=== PATIENT | female | born 1960 | race Caucasian/White ===

== ENCOUNTER 2024-03-04 12:33 | Outpatient (REF) | payer MEDICARE, OTHER, SELFPAY ==
[2024-03-04 15:36] LABS: BUN 13 mg/dL (7-18); CREATININE 0.7 mg/dL (0.55-1.02); Calcium 9.7 mg/dL (8.5-10.1); Calculated LDL 85 mg/dL (<100); Chloride 105 mmol/L (98-107); Cholesterol 207 mg/dL (<200); Estimated GFR 95.92 (mL/min/1.73m2); Glucose 102 mg/dL (74-106); HDL Cholesterol 115 mg/dL (40-60); Potassium 4.3 mmol/L (3.5-5.1); Sodium 141 mmol/L (136-145); Triglyceride 39 mg/dL (<150); Vitamin D 25 Total 29.7 ng/mL (30-100)
== END 2024-03-04 12:34 | disposition home or self-care (01) ==
LOC: NCHCN 12:33
PROVIDERS: Visit Provider Internal Medicine
DX: M81.0 Age-related osteoporosis without current pathological fracture (principal); Z13.220 Encounter for screening for lipoid disorders
CPT/HCPCS: 80048; 80061; 82306

== ENCOUNTER 2024-04-13 12:52 | Outpatient (REF) | payer MEDICARE, OTHER, SELFPAY ==
--- OUTSIDE RECORDS SUMMARY | 2024-04-13 12:58 | XMS_ITS | Encounter Summary ---
[place] [address] Care Team Providers Care Indirect Sales Representative Name Role Phone Sridevi Lozano APRN Primary Care Provider +1- [phone] Reason for Visit * Consultation (Routine) - Closed Specialty Diagnoses / Procedures Referred By Eboin tran Referred To Contact Urology Diagnoses Recurrent UTI (urinary tract infection) Sridevi Lozano APRN [address] [place] [address] [place] [address] Referral ID Status Reason Start Date Expiration Date V isits Requested Visits Authorized [id number] Closed Consult, Test & Treat PCP Updated and/or Approved 09/05/2022 09/05/2023 6 6 Encounter Details Date Type Department Care Team (Late st Contact Info) Description 10/15/2022 8:00 AM EDT [place] [id number] Marce Baca APRN [place] [address] History of recurrent UTIs; Nephrolithiasis Social History Tobacco Use Types Packs/Day Years Used Date Smoking Tobacco: Former Cigarettes Smokeless Tobacco: Never Tobacco Cessation:Counseling Given: Not Answered Comments:Quit 30 years ago Sex and Gender Information Value Date Recorded Sex Assigned at Not on file Gender Identity Not on file Sexual Orientation Not on file documented as of this encounter Last Filed Vital Signs Vital Sign Reading Time Taken Comments Blood Pressure 134/86 10/15/2022 8:05 AM EDT Pulse 75 10/15/2022 8:05 AM EDT Temperature - - Respiratory Rate - - Oxygen Saturation - - Inhaled Oxygen Concentration - - Weight - - Height - - Body Mass Index - - documented in this encounter Progress Notes * Marce Baca APRN - 10/15/2022 8:00 AM EDT Reason for Visit: This is a female, 62 y.o., seen at the request of Sridevi Alcantar APRN. HPI Trav arrives today for NPW for urinary tract infections. Her first positive culture was 02/2022 when she started getting repeated urinary tract infections. She reported malodorous urine for the year prior. She was previously followed by Dr. Loaiza in [facility] urology. She was last seen by him 05/2022.At that time she declined antibiotic prophylaxis and vaginal estrace cream. Her symptoms consist of malodorous urine. No dysuria, no pelvic pain/pressure, no hematuria. She has been taking D-mannose, vitamin c, cranberry. In August she became quite ill with a 103-104 fever. Unsure if it was UTI related, but they treated her for a UTI. No other UTI symptoms at that time. Trav has had imaging performed. WILLIAM in 04/2022 revealed bilateral non obstructing stones largest was 7mm. without hydro. PVR of 47. She had a stone CT 08/2022 which revealed 6mm right lower pole stone, 3mm right lower pole stone, 5mm left lower pole stone, and 4mm left mid pole stone. The patient has had urine cultures performed. 08/29/22: 10,000 - 100,000 E. Coli with 4-10 wbc/hpf 07/03/22: 10,000 - 100,000 E. Coli with 0-3 wbc/hpf 05/15/22: >100,000 E. Coli with 11-50 wbc/hpf 04/10/2022: >100,000 E. Coli with 4/10 wbc/hpf 03/10/2022: >100,000 E. Coli with 0-3wbc/hpf Fluid Intake: Type of Fluid Quantity Consumed Unit Coffee 2-3 cups per day Tea rare cups per day soda none cans per day Juice none glasses per day Water 64 ounces glasses per day Gynec: Social: Alcohol: Wine socially. Nicotine: none Relationship: Partner. Employment: Self employed. Patient Active Problem List Diagnosis Code Essential hypertension I10 History of recurrent UTIs Z87.440 No past surgical history on file. None Review of Systems Respiratory: Negative for cough and wheezing. Cardiovascular: Negative for chest pain and palpitations. Gastrointestinal: Positive for constipation. Musculoskeletal: Positive for back pain (occasional from scoliosis). Negative for joint swelling. Neurological: Negative for dizziness and headaches. Physical Exam Objective: Healthy appearing woman in no acute distress. The vitals are recorded on the flow sheet and are normal. Abdomen: Soft, nontender, no masses, no organomegaly. No CV angle tenderness. : some vaginal atrophy. The meatus is in a normal location and is of a normal configuration. The urethra is nontender without masses. The bladder is not palpably full. There are no pelvic masses. The trigone is nontender on bimanual examination. The uterus is normal in size and position. The uterus is well supported. The adnexa are not palpable. PVR: 36. U/A: negative for RBC, WBC, Nitrates, and Protein. SG 1.000 Impression: Patient with recurrent UTIs - culture proven. Asymptomatic. Kidney stones. Plan: Behavioral modifications including hydration with mostly water with at least 64 ounces daily, moderation of bowels. Discussed colonization with asymptomatic infections vs symptomatic infections. No need to culture or treat asymptomatic infections. Discussed that wbcs will typically be greater than 10/hpf when symptomatic. WILLIAM in January to assess for any stone growth. Discussed that Cranberry and Vitamin C are helpful at preventing infections, however, they can cause increased stone growth in some types of stones. Discussed junior urethral estrace cream. Discussed mechanism of action as well as pros and cons. Willdefer for now. Call for symptoms of infection and will culture at that time. FUV in January with WILLIAM. You have had recurrent infections - this means you have had infections with a variety of organisms.You do not need any additional tests done. documented in this encounter Plan of Treatment Not on file documented as of this encounter Results * US Retroperitoneal Complete (01/22/2023 9:30 AM EDT) Anatomical Region Laterality Modality Abdomen Ultrasound 01/22/2023 9:06 AM EDT Impressions 01/22/2023 12:02 PM EDT 1. ??Normal sonographic appearance of the right kidney. No hydronephrosis or renal calculi. 2. ??Four nonobstructing left renal calculi, the largest measuring 6 mm. No left hydronephrosis. 3. ??Normal contours of the partially distended urinary bladder. Bilateral ureteral jets visualized. 4. ??Incidental right hepatic cyst visualized. I have personally reviewed the image(s) and the resident's interpretation and agree with the findings, Russ Miranda MD at 01/22/2023 11:54 AM Thank you for letting us participate in the care of this patient. If you are a health care provider and have any questions regarding this report, please contact the number above. For patients who have questions, please contact the health healthcare network pricing consultant that requested your imaging first. ?Russ Miranda, Staff Physician Electronically Signed Final Report ?? 01/22/2023 12:02 pm Narrative 01/22/2023 12:02 PM EDT Renal ? (Signed Final 01/22/2023 12:02 pm) PATIENT INFO: ID #: ? [id number] ?: ??[birth year] (62 yrs)(F) Name: ? TRAV ?Visit Date: 01/22/2023 09:06 am ? NOMI PERFORMED BY: Attending: ?Ruben MARTINEZ, Russ Resident: ? Austin Fish MD Performed By: ? Chaz RDMS, Sol Referred By: ?MARCE BACA Location: ? [place] SERVICE(S) PROVIDED: URETRO - Retroperitoneal Complete - [id number] ? [id number] INDICATIONS: nephrolithiasis COMPARISON: CT: Abdomen/Pelvis 08/25/2022; Ultrasound: Renal 06/23/2022 (Outside Imaging) RIGHT KIDNEY: Size (cm) ?L: ??9.7 Cortical Thickness: ?Normal Cortical Echogenicity: ?? Normal Hydronephrosis: ?No sonographic evidence LEFT KIDNEY: Size (cm) ?L: ??9.2 Cortical Thickness: ?Normal Cortical Echogenicity: ?? Normal Hydronephrosis: ?No sonographic evidence Comment: ?Four non-obstructing renal calculi, largest ? measures 5.5 mm. URINARY BLADDER: Right Urinary Jet: Visualized Left Urinary Jet: ??Visualized Pre-void (cm) ? L: ??5.5 ? AP: ??3.5 ? TV: ??8.2 Vol (ml): ?82.7 Comment: ?Partially distended, normal contour. ADDITIONAL FINDINGS: Incidental finding of multiple liver cysts Procedure Note Russ Miranda MD - 01/22/2023 Renal (Signed Final 01/22/2023 12:02 pm) PATIENT INFO: ID #: [id number] : [birth year] (62 yrs)(F) Name: [facility] Visit Date: 01/22/2023 09:06 am NOMI PERFORMED BY: Attending: Russ Miranda MD Resident: Austin Fish MD Performed By: Sol Ware RDMS Referred By: MARCE BACA Location: [place] SERVICE(S) PROVIDED: URETRO - Retroperitoneal Complete - [id number] INDICATIONS: nephrolithiasis COMPARISON: CT: Abdomen/Pelvis 08/25/2022; Ultrasound: Renal 06/23/2022 (Outside Imaging) RIGHT KIDNEY: Size (cm) L: 9.7 Cortical Thickness: Normal Cortical Echogenicity: Normal Hydronephrosis: No sonographic evidence LEFT KIDNEY: Size (cm) L: 9.2 Cortical Thickness: Normal Cortical Echogenicity: Normal Hydronephrosis: No sonographic evidence Comment: Four non-obstructing renal calculi, largest measures 5.5 mm. URINARY BLADDER: Right Urinary Jet: Visualized Left Urinary Jet: Visualized Pre-void (cm) L: 5.5 AP: 3.5 TV: 8.2 Vol (ml): 82.7 Comment: Partially distended, normal contour. ADDITIONAL FINDINGS: Incidental finding of multiple liver cysts IMPRESSION 1. Normal sonographic appearance of the right kidney. No hydronephrosis or renal calculi. 2. Four nonobstructing left renal calculi, the largest measuring 6 mm. No left hydronephrosis. 3. Normal contours of the partially distended urinary bladder. Bilateral ureteral jets visualized. 4. Incidental right hepatic cyst visualized. I have personally reviewed the image(s) and the resident's interpretation and agree with the findings, Russ Miranda MD at 01/22/2023 11:54 AM Thank you for letting us participate in the care of this patient. If you are a health care provider and have any questions regarding this report, please contact the number above. For patients who have questions, please contact the health healthcare network pricing consultant that requested your imaging first. Russ Miranda, Staff Physician Electronically Signed Final Report 01/22/2023 12:02 pm Marce A Simon NIEVES IMG US GEN ORDERABLE S documented in this encounter Visit Diagnoses Diagnosis History of recurrent UTIs Personal history of urinary (tract) infection Nephrolithiasis Calculus of kidney Nephrolithiasis Calculus of kidney documented in this encounter Care Teams Indirect Sales Representative Relationship Specialty Start Date End Date Sridevi Lozano APRN [address] [place] [phone] PCP - General Family Medicine 09/05/22 documented as of this encounter
--- OUTSIDE RECORDS SUMMARY | 2024-04-13 12:58 | XMS_ITS | Clinical Summary ---
Author Organization [facility] Address [facility] [place] [address] Care Team Providers Care Insights Strategist Name Role Phone Blake Sridevi Kimball APRN Primary Care Provider +1- [phone] Allergies No known active allergies Medications Medication Sig Dispensed Refills Start Date End Date Status amLODIPine (Norvasc) 5 mg tablet Take 5 mg by mouth daily. Active cranberry-vitamin C-mannose 250-30-50 mg Tablet, Chewable Take by mouth. Acti ve lisinopriL (Zestril) 40 mg tablet Take 40 mg by mouth Daily. 08/01/2022 Active Active Problems Problem Noted Date Diagnosed Date History of recurrent UTIs 05/16/2022 Overview (10/15/2022): Positive urine cultures 03/10/2022, 04/10/2022, 05/15/2022. 05/16/2022-referral sent to Urology Essential hypertension 12/31/2021 Social History Tobacco Use Types Packs/Day Years Used Date Smoking Tobacco: Former Cigarettes Smokeless Tobacco: Never Tobacco Cessation:Counseling Given: Not Answered Comments:Quit 30 years ago Sex and Gender Information Value Date Recorded Sex Assigned at Not on file Gender Identity Not on file Sexual Orientation Not on file Last Filed Vital Signs Vital Sign Reading Time Taken Comments Blood Pressure 134/86 10/15/2022 8:05 AM EDT Pulse 75 10/15/2022 8:05 AM EDT Temperature - - Respiratory Rate - - Oxygen Saturation - - Inhaled Oxygen Concentration - - Weight - - Height - - Body Mass Index - - Plan of Treatment Health Maintenance Due Date Last Done Comments CT Colonography 1958 Colonoscopy 1958 Colorectal Cancer Screening 1958 FIT DNA 1958 FIT 1958 Sigmoidoscopy (10 year) with FIT yearly 1958 Sigmoidoscopy 1958 HIV screen 1976 Hepatitis C Screening 1976 Lipid Screening 1976 Tetanus/Diphtheria/Pertussis Vaccines (1 - Tdap) 05/22 HPV test 1988 PAP Smear 1988 Breast Cancer Share Decision Needed 1998 Breast Cancer screening 1998 Zoster vaccine (1 of 2) 2008 Advance Directive 2013 Bone Density Scan 2023 Pneumoccocal Vaccine: 65+ (1 of 1 - PCV) 2023 Covid-19 Vaccine (1 - season) 2023 Influenza (Flu) vaccine (1 o f 1 - Influenza standard series) 12/27/2023 Care Teams Insights Strategist Relationship Specialty Start Date End Date Sridevi Lozano APRN [address] [place] [phone] PCP - General Family Medicine 09/05/22
--- OUTSIDE RECORDS SUMMARY | 2024-04-13 12:58 | XMS_ITS | Encounter Summary ---
[place] [address] Care Team Providers Care Blender/Braze Applicator Name Role Phone Sridevi Lozano APRN Primary Care Provider +1- [phone] Reason for Referral * Consultation (Routine) - Closed Specialty Diagnoses / Procedures Referred By Eboni tran Referred To Contact Urology Diagnoses Recurrent UTI (urinary tract infection) Sridevi Lozano APRN [address] [place] [address] [facility] [place] [address] Referral ID Status Reason Start Date Expiration Date V isits Requested Visits Authorized [id number] Closed Consult, Test & Treat PCP Updated and/or Approved 09/05/2022 09/05/2023 6 6 Encounter Details Date Type Department Care Team (Late st Contact Info) Description 09/05/2022 Transcribe Orders eDH Incoming Referrals [phone] Sridevi Lozano APRN [address] [place] [address] Recurrent UTI (urinary tract infection) Social History Tobacco Use Types Packs/Day Years Used Date Smoking Tobacco: Never Assessed Sex and Gender Information Value Date Recorded Sex Assigned at Not on file Gender Identity Not on file Sexual Orientation Not on file documented as of this encounter Plan of Treatment Scheduled Referrals Name Type Priority Associated Diagnoses Orde r Schedule Referral to Urology Outpatient Referral Routine Recurrent UTI (urinary tract infection) Ordered: 09/05/2022 documented as of this encounter Visit Diagnoses Diagnosis Recurrent UTI (urinary tract infection) Urinary tract infection, site not specified documented in this encounter Care Teams Blender/Braze Applicator Relationship Specialty Start Date End Date Sridevi Lozano APRN [address] [place] [phone] PCP - General Family Medicine 09/05/22 documented as of this encounter
--- OUTSIDE RECORDS SUMMARY | 2024-04-13 12:58 | XMS_ITS | Encounter Summary ---
Author Organization [facility] [place] [address] Care Team Providers Care Carburetor Rebuilder Name Role Phone Unknown Primary Care Provider Unavailabl e Encounter Details Date Type Department Care Team (Late st Contact Info) Description 06/23/2022 Ancillary Procedure Radiology Library at [facility] [place] [address] Sridevi Lozano APRN [address] [place] [address] Social History Tobacco Use Types Packs/Day Years Used Date Smoking Tobacco: Never Assessed Sex and Gender Information Value Date Recorded Sex Assigned at Not on file Gender Identity Not on file Sexual Orientation Not on file documented as of this encounter Plan of Treatment Not on file documented as of this encounter Procedures Procedure Name Priority Date/Time Associated Diagnosis Comments FILM LIBRARY STORAGE ONLY ULTRASOUND STUDY Routine 06/23/2022 12:00 AM EST documented in this encounter Results * Film Library- Storage Only Ultrasound Study (06/23/2022 12:00 AM EST) Narrative [facility] - 09/03/2022 5:05 PM EDT This exam is auto-finalizing. It's purpose is for storage only. Sridevi Lozano APRN IMG FILM LIBRARY O RDERABLES [place], [place] documented in this encounter Visit Diagnoses Not on filedocumented in this encounter Care Teams Carburetor Rebuilder Relationship Specialty Start Date End Date Unknown None PCP - General 03/19/10 09/04/22 documented as of this encounter
--- OUTSIDE RECORDS SUMMARY | 2024-04-13 12:58 | XMS_ITS | Encounter Summary ---
[place] [address] Care Team Providers Care Public Relations Sales Marketing Name Role Phone Sridevi Lozano APRN Primary Care Provider +1- [phone] Encounter Details Date Type Department Care Team (Latest Contact Info) Description 01/22/2023 Travel Social History Tobacco Use Types Packs/Day Years Used Date Smoking Tobacco: Former Cigarettes Smokeless Tobacco: Never Comments:Quit 30 years ago Sex and Gender Information Value Date Recorded Sex Assigned at Not on file Gender Identity Not on file Sexual Orientation Not on file documented as of this encounter Plan of Treatment Not on file documented as of this encounter Visit Diagnoses Not on filedocumented in this encounter Care Teams Public Relations Sales Marketing Relationship Specialty Start Date End Date Sridevi Lozano APRN [address] [place] [phone] PCP - General Family Medicine 09/05/22 documented as of this encounter
--- OUTSIDE RECORDS SUMMARY | 2024-04-13 12:58 | XMS_ITS | Encounter Summary ---
Author Organization [facility] [place] [address] Care Team Providers Care Appeals Examiner Name Role Phone Unknown Primary Care Provider Unavailabl e Encounter Details Date Type Department Care Team (Late st Contact Info) Description 08/25/2022 Ancillary Procedure Radiology Library at [facility] [place] [phone] Sridevi Lozano APRN [address] [place] [address] Social History Tobacco Use Types [...] Associated Diagnosis Comments FILM LIBRARY STORAGE ONLY CT ABDOMEN Routine 08/25/2022 12:00 AM EDT documented in this encounter Results * Film Library- Storage Only CT Abdomen (08/25/2022 12:00 AM EDT) Narrative [facility] - 09/03/2022 5:04 PM EDT This exam is auto-finalizing. It's purpose is for storage only. Sridevi Lozano APRN IMG FILM LIBRARY O RDERABLES [place], [place] documented in this encounter Visit Diagnoses Not on filedocumented in this encounter Care Teams Appeals Examiner Relationship Specialty Start Date End Date Unknown None PCP - General 03/19/10 09/04/22 documented as of this encounter
--- OUTSIDE RECORDS SUMMARY | 2024-04-13 12:58 | XMS_ITS | Encounter Summary ---
[place] [address] Care Team Providers Care Superintendent Horticulture Name Role Phone Sridevi Lozano APRN Primary Care Provider +1- [phone] Encounter Details Date Type Department Care Team (Latest Contact Info) Description 10/14/2022 Travel Social History Tobacco Use Types Packs/Day Years Used Date Smoking Tobacco: Never Assessed Sex and Gender Information Value Date Recorded Sex Assigned at Not on file Gender Identity Not on file Sexual Orientation Not on file documented as of this encounter Plan of Treatment Not on file documented as of this encounter Visit Diagnoses Not on filedocumented in this encounter Care Teams Superintendent Horticulture Relationship Specialty Start Date End Date Sridevi Lozano APRN [address] [place] [phone] PCP - General Family Medicine 09/05/22 documented as of this encounter
--- OUTSIDE RECORDS SUMMARY | 2024-04-13 12:58 | XMS_ITS | Encounter Summary ---
Author Organization [facility] Address [facility] [place] [address] Care Team Providers Care Suggestion Clerk Name Role Phone Blake Sridevi Kimball APRN Primary Care Provider +1- [phone] Encounter Details Date Type Department Care Team (Latest Contact Info) Description 01/22/2023 8:52 AM EDT - 01/22/2023 11:59 PM EDT Hospital Encounter Ultrasound at [facility] [phone] Marce Baca APRN [facility] [place] [address] Nephrolithiasis Discharge Disposition: Home Social History Tobacco Use Types Packs/Day Years Used Date Smoking Tobacco: Former Cigarettes Smokeless Tobacco: Never Comments:Quit 30 years ago Sex and Gender Information Value Date Recorded Sex Assigned at Not on file Gender Identity Not on file Sexual Orientation Not on file documented as of this encounter Medications at Time of Discharge Medication Sig Dispensed Refills Start Date End Date amLODIPine (Norvasc) 5 mg tablet Take 5 mg by mouth daily. cranberry-vitamin C-mannose 250-30-50 mg Tablet, Chewable Take by mouth. lisinopriL (Zestril) 40 mg tablet Take 40 mg by mouth Daily. 08/01/2022 documented as of this encounter Progress Notes * Marce Baca APRN - 01/22/2023 11:59 PM EDT WILLIAM with 4 stones on left, largest 5.5mm. No stones on right. Results shared with patient via portal. documented in this encounter Plan of Treatment Not on file documented as of this encounter Procedures Procedure Name Priority Date/Time Associated Diagnosis Comments US RETROPERITONEAL COMPLETE Routine 01/22/2023 9:30 AM EDT Nephrolithiasis documented in this encounter Results * US Retroperitoneal Complete [...] Russ Miranda MD at 01/22/2023 11:54 AM Electronically signed by: Russ Miranda MD, [facility] ([phone]), at 01/22/2023 11:54 AM Thank you for letting us participate in the care of this patient. If you are a health care provider and have any questions regarding this report, please contact the number above. For patients who have questions, please contact the health inspector health care facilities that requested your imaging first. ?Russ Miranda, Staff Physician Electronically Signed Final Report ?? 01/22/2023 12:02 pm Narrative 01/22/2023 12:02 PM EDT Renal ? (Signed Final 01/22/2023 12:02 pm) PATIENT INFO: ID #: ? [id number] ?: ??[birth year] (62 yrs)(F) Name: ? TRAV ?Visit Date: 01/22/2023 09:06 am ? NOMI PERFORMED BY: Attending: ?Rbuen MARTINEZ, Russ Resident: ? Abe MARTINEZ, Austin Valadez Performed By: ? Sol Ware RDMS Referred By: ?MARCE BACA Location: ? [place] SERVICE(S) PROVIDED: URETRO - Retroperitoneal Complete - [id number] ? [id number] INDICATIONS: nephrolithiasis COMPARISON: CT: Abdomen/Pelvis 08/25/2022; Ultrasound: [...] 01/22/2023 12:02 pm) PATIENT INFO: ID #: [id number] : [birth year] (62 yrs)(F) Name: TRAV Visit Date: 01/22/2023 09:06 am NOMI PERFORMED BY: Attending: Russ Miranda MD Resident: Austin Fish MD Performed By: Sol Ware RDMS Referred By: MARCE BACA Location: [place] SERVICE(S) PROVIDED: URETRO - Retroperitoneal Complete - [id number] INDICATIONS: nephrolithiasis COMPARISON: CT: Abdomen/Pelvis 08/25/2022; Ultrasound: [...] Russ Miranda MD at 01/22/2023 11:54 AM Electronically signed by: Russ Miranda MD, [facility] ([phone]), at 01/22/2023 11:54 AM Thank you for letting us participate in the care of this patient. If you are a health care provider and have any questions regarding this report, please contact the number above. For patients who have questions, please contact the health inspector health care facilities that requested your imaging first. Russ Miranda, Staff Physician Electronically Signed Final Report 01/22/2023 12:02 pm Marce Baca APRN IMG US GEN ORDERABLE S documented in this encounter Visit Diagnoses Diagnosis Nephrolithiasis Calculus of kidney documented in this encounter Care Teams Suggestion Clerk Relationship Specialty Start Date End Date Sridevi Lozano APRN [address] [place] [phone] PCP - General Family Medicine 09/05/22 documented as of this encounter
--- OUTSIDE RECORDS SUMMARY | 2024-04-13 12:58 | XMS_ITS | Clinical Summary ---
Author Organization [facility] Address [address] [place] [address] Care Team Providers Care Critical Systems Technician Name Role Phone Sridevi Lozano SURPLUS PROPERTY DISPOSAL AGENT Primary Care Provider [phone] Allergies No known active allergies Medications amLODIPine (NORVASC) 5 mg tabletIndication s:Essential hypertension Take 2 Tablets by mouth daily. 180 Tablet 3 4 Active Additional Information Patient taking differently: 5 mgoral DAILY, Reported on 09/25/2023 lisinopriL (PRINIVIL) 40 mg tablet TAKE ONE TABLET BY MOUTH ONE TIME DAILY 90 Tablet 1 4 Active ascorbic acid, vitamin C, (VITAMIN C) 500 mg tablet Take 1 Tablet by mouth daily. Active traZODone (DESYREL) 50 mg tabletIndication s:Insomnia, unspecified type TAKE ONE TABLET BY MOUTH AT BEDTIME 30 Tablet 2 4 Active Active Problems Problem Noted Date Diagnosed Date Trochanteric bursitis, right hip 06/11/2023 Overview (06/11/2023): CSI injection and meloxicam, [facility] [place] [facility] History of recurrent UTIs 05/16/2022 Overview (05/16/2022): Positive urine cultures 03/10/2022, 04/10/2022, 05/15/2022. 05/16/2022-referral sent to Urology History of recurrent UTIs 05/16/2022 Overview (11/10/2023): Positive urine cultures 03/10/2022, 04/10/2022, 05/15/2022. 05/16/2022-referral sent to Urology Essential hypertension 12/31/2021 Encounters Date Type Department Care Team Description 02/11/2024 Refill [facility] [address] [place] [address] Sridevi Lozano, JAYME Medications Refill 01/20/2024 10:40 EDT Ancillary Procedure [facility] Endocrinology - [address] [address] Postmenopausal state; Other specified disorders of bone density and structure, multiple sites from Last 3 Months Immunizations Name Administration Dates Next Due Covid-19 mRNA Vaccine (MODER NA COVID-19) PF 0.5 ml IM (12 yrs+) 03/26/2021 Influenza Vaccine Quad PF 0.5 ml IM (6 mos+) 02/2022 Shingrix (Zoster Vaccine, Recombinant) IM 2021 Family History Medical History Relation Comments High Blood Pressure Brother Dementia Father High Blood Pressure Father Stroke Father Colon Cancer Maternal Grandmother Bipolar Disorder Mother Cancer Mother kidney High Blood Pressure Mother Kidney Cancer Mother High Blood Pressure Sister Relation Status Comments Brother Alive Father Maternal Grandmother Mother Sister Alive Social History Tobacco Use Types Packs/Day Years Used Date Smoking Tobacco: Former Cigarettes 1 15 1 974 - 1988 Smokeless Tobacco: Never Tobacco Cessation:Counseling Given: Not Answered Alcohol Use Standard Drinks/Week Comments Yes 10 (1 standard drink = 0.6 oz pu re alcohol) PHQ-2 Answer Date Recorded PHQ-2 SUBTOTAL 1 03/07/2022 Interpersonal Safety Answer Date Record ed Physically Hurt Never 11/27/2019 Verbally Threaten Not on file 11/27/2019 Comments No Sex and Gender Information Value Date Recorded Sex Assigned at Not on file Legal Sex Female 17:57 EST Gender Identity Female 01/23/2021 8:23 EDT Sexual Orientation Not on file 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 Not on file No t on file Obstetrics History Para Term AB IAB SAB Ectopic Multiple Livin g Live Births 2 2 2 2 2 Date Outcome GA Total Labor Labor/2nd/3rd Weight Sex Type Anes PTL Anisha A1 A5 Name Clin 1989 Term F Vag-S pont Living 1991 Term F Vag-S pont Living Last Filed Vital Signs Vital Sign Reading Time Taken Comments Blood Pressure 120/62 12/22/2023 1449 EDT Pulse 80 12/22/2023 1449 EDT Temperature 36.6 ??C (97.8 ??F) 01/28/2023 1537 EDT Respiratory Rate 15 06/17/2022 1251 EST Oxygen Saturation 97% 12/22/2023 1449 EDT Inhaled Oxygen Concentration - - Weight 58.8 kg (129 lb 9.6 oz) 01/20/2024 1043 E DT Height 163.4 cm (5' 4.33) 01/20/2024 1043 EDT Body Mass Index 22.02 01/20/2024 1043 EDT Plan of Treatment Upcoming Encounters Date Type Department Care Team (Late st Contact Info) Description 05/06/2024 13:40 EST Office Visit [facility] Dermatology [address] [facility], [place], [place] [address] Renetta Kidd MD [address] [facility], [address] [place] [address] 05/23/2024 15:15 EST [facility] Visit [facility] [address] [place] [address] [phone] Sridevi Lozano NP [address] [place] [phone] Health Maintenance Due Date Last Done Comments Hepatitis C Screen 1958 Social Determinants Of Health (SDOH) 1958 Depression Screening 1970 HIV Screening 1974 Advance Directive 1976 Pertussis (Adult) Immunization 1977 Tetanus (Adult) Immunization 1977 Cologuard (Colon Cancer Screening) 2003 Colonoscopy (Colon Cancer Screening) 2003 Colorectal Cancer Screening 2003 FIT Test (Colon Cancer Screening) 2003 Sigmoidoscopy (Colon Cancer Screening) 2003 Shingles Immunization (2 of 2) 05/02/2022 03/07/2022 Fall Risk Screening 2023 Pneumococcal Immunization (6 5+) (1 of 1 - PCV) 2023 COVID-19 Vaccine (2 - 2023-2 5 season) 2023 03/26/2021 Influenza Immunization (Adult) (#1) 01/26/202403/07 Preventive Care Visit 03/07/2024 03/07/2022 Breast Cancer Screening 09/16/2024 09/16/2022 Pap Smear (Cervical Cancer Screening) 12/31/2024 12/31/2021, 06/28/2014, 08/12/2011 Cervical Cancer Screening 12/31/2026 HPV/Cotest (Cervical Cancer Screening) 12/31/2026 12/31/2021, 12/31/2021 Lipid Profile Screening (Cholesterol) 04/10/2027 04/10/2022 RSV Immunization ( o r 60+ Years) (1 - 1-dose 75+ series) 2033 RETIRED Cervical Cancer Screening Discontinued 12/31/2021, 06/28/2014, 08/12/2011 Osteoporosis Screening Completed 01/20/2024 Medical Devices Implanted Type Area Cook Soup Device Identifier Shelf Expiration Date Model / Serial / Lot Lens Intraocular Monofocal Posterior Biconvex Optic Foldable +23.5d [employer]ecnis [id number] - [id number] Implanted:Qty: 1 on 06/03/2022 by Austin Diaz MD at [facility] Lens Right: Eye [employer] [id number] 03/02/2025 [id number] / [id number] / Lens Intraocular Monofocal Posterior Biconvex Optic Foldable +23.5d [employer] [id number] - [id number] Implanted:Qty: 1 on 06/17/2022 by Austin Diaz MD at [facility] Lens Left: Eye Ancestry. 05/05/2025 [id number] / [id number] / Procedures Procedure Name Priority Date/Time Associated Diagnosis Comments DXA BONE DENSITY Routine 01/20/2024 10:4 2 EDT Postmenopausal state Other specified disorders of bone density and structure, multiple sites MA BREAST SCREENING CHARLES BILATERAL Routine 09/16/2022 13:26 EDT Encounter for screening mammogram for malignant neoplasm of breast LIPID PROFILE (INCLUDES CHOLESTEROL, TRIGLYCERIDES, HDL, LDL) Routine 04/10/2022 6:44 EST Encounter for routine adult health examination without abnormal findings PAP TEST Routine 12/31/2021 13:06 EDT Routine gynecological examination from Last 3 Months or Most Recently Relevant to Health Maintenance Results * DXA BONE DENSITY (01/20/2024 10:42 EDT) Anatomical Region Laterality Modality Other [facility] DEXA ORDERABLES Final Resul t * MA BREAST SCREENING CHARLES BILATERAL (09/16/2022 13:26 EDT) Anatomical Region Laterality Modality Breast Bilateral Mammography 09/17/2022 9:01 EDT Impressions 09/17/2022 9:01 EDT Negative, no evidence of malignancy. RECOMMENDATION: Routine screening mammography is recommended. OVERALL ASSESSMENT: BI-RADS 1: Negative These results will be communicated to your patient via a lay letter from Radiology. If any additional imaging is needed we will contact your patient directly. Narrative 09/17/2022 9:01 EDT MA BREAST SCREENING CHARLES BILATERAL ??09/16/2022 1:10 PM History: routine screen Comparison: ??Comparison has been made to previous images. Technique: Routine 3D tomosynthesis with synthesized 2D views with CAD Bilateral Breast Composition: The breast tissue is extremely dense, which lowers the sensitivity of mammography. Bilateral Breast Findings: ??No significant masses, calcifications or other abnormalities are seen. Procedure Note Niles Ma MD - 09/17/2022 MA BREAST SCREENING CHARLES BILATERAL 09/16/2022 1:10 PM History: routine screen Comparison: Comparison has been made to previous images. Technique: Routine 3D tomosynthesis with synthesized 2D views with CAD Bilateral Breast Composition: The breast tissue is extremely dense, whichlowers the sensitivity of mammography. Bilateral Breast Findings: No significant masses, calcifications or otherabnormalities are seen. IMPRESSION Negative, no evidence of malignancy. RECOMMENDATION: Routine screening mammography is recommended. OVERALL ASSESSMENT: BI-RADS 1: Negative These results will be communicated to your patient via a lay letter fromRadiology. If any additional imaging is needed we will contact yourpatient directly. us Sridevi Lozano NP IMG MAMMOGRAPHY ORDERABLES F inal Result * (ABNORMAL) LIPID PROFILE (INCLUDES CHOLESTEROL, TRIGLYCERIDES, HDL, LDL) (04/10/2022 6:44 EST) Cholesterol 216(H) <200 mg/dL 04/10/2022 7:57 [facility] Comment:Note that therapeuti c goals will differ between patients based on cardiac risk factors and current medical therapy. HDL 109 >=50 mg/dL 04/10/2022 7:57 EST [facility] Comment:Note that therapeuti c goals will differ between patients based on cardiac risk factors and current medical therapy. LDL, Calculated 93 <160 mg/dL 7:57 [facility] Comment:Note that therapeuti c goals will differ between patients based on cardiac risk factors and current medical therapy. Triglyceride 71 <=150 mg/dL 04/10/2022 7:57 [facility] Comment:Note that therapeuti c goals will differ between patients based on cardiac risk factors and current medical therapy. Chol/HDL Ratio 2.0 See Note 04/10/2022 7:57 [facility] Comment: NOTE: Desirable Ratio = <4.1 Patient At Risk Ratio = >5.0(Males) ?>6.0(Females) Non HDL Cholesterol 107 <160 mg/dL 04/10/2022 7:57 [facility] Comment:Note that therapeuti c goals will differ between patients based on cardiac risk factors and current medical therapy. Blood VENOUS BLOOD / Unknown Venipuncture / Unknown 04/10/2022 6:44 EST 04/10/2022 7:21 EST us Sridevi Lozano NP CHEMISTRY & BLOOD GAS ORDERA BLES Final Result [facility] [address] [place] [address] * PAP TEST (12/31/2021 13:06 EDT) Specimens A. Cervix and/or Endocervix , ThinPrep Imaging System with Manual Evaluation 01/06/2022 19:49 [facility] Specimen Adequacy Satisfactory for Evaluation - assessment of transformation zone component not applicable ( e.g. atrophy, vaginal sample, hysterectomy) Scant squamous epithelial component 01/06/2022 19:49 [facility] General Categorization Negative for intraepithelial lesion or malignancy 01/06/2022 19:49 [facility] Descriptive Diagnosis Shift in sadaf present suggestive of bacterial vaginosis. 01/06/2022 19:49 [facility] Attestation . 01/06/2022 19:49 [facility] at 1950 Clinical History screen 01/07/20 22 19:49 [facility] HPV The result for the Human Papillomavirus (HPV) Detection-High Risk Types is Negative. No E6 or E7 mRNA is detected from HPV types 16,18,31,33,35,39 ,45,51,52,56,58,5 9,66, and 68 by investor relations associate mediated amplification.Mel ting was performed on specimen [id number] and was resulted on 01/06/2022 1858 EDT by JUS, LAB INSTRUMENT RESULTS IN 01/06/2022 19:49 [facility] Performing Lab [facility] 01/06/2022 19:49 [facility] Scanned Images 01/06/2022 19:49 [facility] Papanicolaou smear specimen (specimen) CERVIX UTERI STRUCTURE / Unknown 12/31/2021 13:06 EDT 12/31/2021 13:06 EDT us Leonardo Jalloh SURPLUS PROPERTY DISPOSAL AGENT PATHOLOGY ORDERABLES Final Re sult [facility] [address] [place] [address] from Last 3 Months or Most Recently Relevant to Health Maintenance Insurance MEDICAID [place] MEDICARE [facility] MEDICAID [place] MEDICARE [facility] Advance Directives For more information, please contact: [phone] * Full Code (Latest Code Status on File) Date Activated Date Inactivated Comments 06/17/2022 10:56 06/17/2022 15:02 Question Answer Comments When the patient has NO PULSE: Full Code / CPR Who Made the Decision? Patient * Full Code Date Activated Date Inactivated Comments 06/03/2022 10:01 06/03/2022 13:59 Question Answer Comments When the patient has NO PULSE: Full Code / CPR Who Made the Decision? Patient Care Teams Critical Systems Technician Relationship Specialty Start Date End Date Sridevi Lozano NP [address] [place] [phone] PCP - General Family Medicine - Primary Care 12/27/21
--- OUTSIDE RECORDS SUMMARY | 2024-04-13 12:59 | XMS_ITS | Encounter Summary ---
Author Organization [facility] Address [address] [place] [address] Care Team Providers Care Local Company Inter[employer] Truck Driver Name Role Phone Sridevi Lozano MANAGER OF SOFTWARE DEVELOPMENT Primary Care Provider Reason for Visit * Reason Comments Hypertension Encounter Details Date Type Department Care Team ([facility] st Contact Info) Description 01/28/2023 15:30 EDT Office Visit [facility] - [address] [phone] Sridevi Lozano, MANAGER OF SOFTWARE DEVELOPMENT [address] [place] [phone] Insomnia, unspecified type (Primary Dx); Essential hypertension Social History Tobacco Use Types Packs/Day Years Used Date Smoking Tobacco: Former Cigarettes 1 15 1 974 - 1989 Smokeless Tobacco: Never Tobacco Cessation:Counseling Given: Not [...] 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 No t on file documented as of this encounter Last Filed Vital Signs Vital Sign Reading Time Taken Comments Blood Pressure 140/82 01/28/2023 1537 EDT Pulse 74 01/28/2023 1537 EDT Temperature 36.6 ??C (97.8 ??F) 01/28/2023 153 EDT Respiratory Rate - - Oxygen Saturation - - Inhaled Oxygen Concentration - - Weight 55.8 kg (123 lb 1.6 oz) 01/28/2023 1537 E DT Height - - Body Mass Index 20.02 09/03/2022 0934 EDT documented in this encounter Functional Status * Because of a physical, mental, or emotional condition, does this person have difficulty doing errands alone such as visiting a doctor's office or shopping? Answer Date of Assessment Author No 06/08/2018 15:56 EST documented as of this encounter Mental Status * Because of a physical, mental, or emotional condition, does this person have serious difficulty concentrating, remembering, or making decisions? Answer Entry Date Author No 06/08/2018 15:56 EST documented in this encounter Ordered Prescriptions Prescription Sig Dispense Quantity Refills Last Filled Start Date End Date amLODIPine (NORVASC) 5 mg tabletIndications: Essential hypertension Take 2 Tablets by mouth daily. 180 Tablet 3 01/28/2023 4 documented in this encounter Progress Notes * Sridevi Bianhci, MANAGER OF SOFTWARE DEVELOPMENT - 01/28/2023 1530 EDT CHIEF COMPLAINT: Chief Complaint Patient presents with ??? Hypertension HPI: Trav Velázquez, a 62 y.o. female who presents today for evaluation of HTN. HTN- Chronic history of HTN which has generally been controlled with lisinopril and amlodipine. Prior totreatment Trav tried to treat with holistic medication but was unable to get BP under control and started medication. Trav reports reports having covid a few months ago and BP has been fluctuating since. Reports Bps 140s/90 to 140s/100. She notes she will be going out of state for 2 months which has resulted in some increased stress. She reports overall asymptomatic, feels possible mild heart palpitation or mild headache but has not been persistent. No associated chest pains, dizziness, shortness of breath, or swelling to lower extremities. EKG (for pre-op) was completed in 05/2022 with normal results and echo completed in 2018 with normal results. insomnia- Repots intermittent trouble with sleep. Reports able to fall asleep but will wake up and have trouble getting back to sleep. Has been using melatonin with little improvement. She reports stress and feeling a little nervous about going out of state for 2 months as noted above. ROS: I've done a Review of Systems and the pertinent positives are in the HPI. Patient Active Problem List Diagnosis ??? Essential hypertension ??? History of recurrent UTIs Current Outpatient Medications on File Prior to Visit Medication Sig Dispense Refill ??? cranberry-vitamin C-mannose 250-30-50 mg tablet,chewable Take by mouth. ??? lisinopriL (PRINIVIL) 40 mg tablet Take 1 Tablet by mouth daily. 90 Tablet 2 No current facility-administered medications on file prior to visit. No Known Allergies No past medical history on file. Social History Tobacco Use ??? Smoking status: Former Current packs/day: 0.00 Average packs/day: 1 pack/day for 15.0 years (15.0 ttl pk-yrs) Types: Cigarettes Start date: 1973 Quit date: 1988 Years since quittin.7 ??? Smokeless tobacco: Never Vaping Use ??? Vaping Use: Never used Substance Use Topics ??? Alcohol use: Yes Alcohol/week: 10.0 standard drinks of alcohol Types: 10 Standard drinks or equivalent per week ??? Drug use: Not Currently Types: Marijuana PHYSICAL EXAMINATION: Objective: Vitals: BP 140/82 Pulse 74 Temp 36.6 ??C (97.8 ??F) (Oral) Wt 55.8 kg (123 lb 1.6 oz) BMI 20.02 kg/m?? GENERAL APPEARANCE: NAD, pleasant, well-appearing, alert and oriented. NECK: supple, no lymphadenopathy. No carotid bruit HEART: regular rate and rhythm, no murmurs. LUNGS: clear to auscultation bilaterally, no wheezes/rhonchi/rales. EXTREMITIES: No pedal edema. IMPRESSION/PLAN: 1. Insomnia, unspecified type 2. Essential hypertension amLODIPine (NORVASC) 5 mg tablet 1. Essential hypertension Chronic, generally well controlled on current medications. Normal cardiac exam today. BP slightly elevated at 140/82. Asymptomatic. Labs completed within the year WNL. Recommended increasing amlodipine to 10 mg. Ok to monitor BP at home, if after move and decrease in stress BP in normal range couldconsider going back to 5 mg as tolerated. Trav to contact office if no improvement of BP. We disc ussed goal 134/84 range or if symptomatic. F/u CPE, sooner if needed - amLODIPine (NORVASC) 5 mg tablet; Take 2 Tablets by mouth daily. Dispense: 180 Tablet; Refill: 3 2. Insomnia, unspecified type New onset insomnia, likely due to increased stress. No red flag symptoms. Discussed could consider hydroxyzine for sleep although this could result in feeling groggy in the AM. Ultimately decision towait and see if sleep improves with upcoming reduction in stress. Discussed good sleep hygrine. Will f/u with any new or worsening symptoms. This note was prepared using voice recognition software and the EMR. There may be inadvertent errors and omissions. Sridevi Bianchi NP 01/28/2023 17:27 documented in this encounter Plan of Treatment Upcoming Encounters Date Type Department Care Team (Late st Contact Info) Description 05/06/2024 13:40 EST Office Visit [facility] Dermatology [address] [facility], [place] [address] Renetta Kidd MD [address] [place] [address], [facility] [address] [place] [phone] 05/23/2024 15:15 EST Office Visit [address] [phone] Sridevi Lozano NP [address] [place] [phone] documented as of this encounter Visit Diagnoses Diagnosis Insomnia, unspecified type- Primary Essential hypertension Unspecified essential hypertension documented in this encounter Discontinued Medications Medication Sig Discontinue Reason Start Date End Da te amLODIPine (NORVASC) 5 mg tabletIndications:Essenti al hypertension Take 1 Tablet by mouth daily. Reorder 01/05/2023 01/28/2023 documented as of this encounter Care Teams Local Company [employer] Truck Driver Relationship Specialty Start Date End Date Sridevi Lozano, MANAGER OF SOFTWARE DEVELOPMENT [address] [place] [phone] PCP - General Family Medicine - Primary Care 12/27/21 documented as of this encounter
--- OUTSIDE RECORDS SUMMARY | 2024-04-13 12:59 | XMS_ITS | Encounter Summary ---
Author Organization [facility] Address [address] [place] [address] Care Team Providers Care Vegetable Harvest Machine Operator Name Role Phone Sridevi Lozano EVENT PROMOTER Primary Care Provider Reason for Visit * Reason Comments Medications Refill Encounter Details Date Type Department Care Team (Late st Contact Info) Description 12/11/2023 Refill [facility] - [address] [phone] Sridevi Lozano, EVENT PROMOTER [address] [place] [phone] Medications Refill Social History Tobacco Use Types Packs/Day Years Used Date Smoking Tobacco: Former Cigarettes 1 15 1 4 - 1988 Smokeless Tobacco: Never Alcohol Use Standard Drinks/Week Comments Yes 10 [...] 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 N/A VPMS: N/A Most Recent Appt: 11/09/23 Upcoming Appt: 05/23/24 KARY MARTÍNEZ RN 12/11/2023 9:43 documented in this encounter Plan of Treatment Upcoming Encounters Date Type Department Care Team (Late st Contact Info) Description 05/06/2024 13:40 EST Office Visit [facility] Dermatology [address] [place] [phone] Renetta Kidd MD [address] [place] [address], [address] [place] [phone] 05/23/2024 15:15 EST Office Visit [address] [address] Sridevi Lozano NP [address] [place] [phone] documented as of this encounter Visit Diagnoses Not on filedocumented in this encounter Discontinued Medications Medication Sig Discontinue Reason Start Date End Da te lisinopriL (PRINIVIL) 40 mg tablet Take 1 Tablet by mouth daily. 09/11/2023 12/11/2023 documented as of this encounter Care Teams Vegetable Harvest Machine Operator Relationship Specialty Start Date End Date Sridevi Lozano NP [address] [place] [phone] PCP - General Family Medicine - Primary Care 12/27/21 documented as of this encounter
--- OUTSIDE RECORDS SUMMARY | 2024-04-13 12:59 | XMS_ITS | Encounter Summary ---
Author Organization [facility] Address [address] [place] [address] Care Team Providers Care Access Services Representative Name Role Phone Sridevi Lozano LIBRARY SPECIALIST Primary Care Provider Reason for Visit * Reason Onset Date Comments Pharmacy 02/11/2023 - amLODIPine (NO RVASC) 5 mg tablet; Take 2 Tablets by mouth daily. Dispense: 180 Tablet; Refill: 3 Encounter Details Date Type Department Care Team (Late st Contact Info) Description 02/11/2023 Telephone [facility] [address] [place] [address] Sridevi Lozano, LIBRARY SPECIALIST [address] [place] [phone] Pharmacy (- amLODIPine (NORVASC) 5 mg tablet; Take 2 Tablets by mouth daily. 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 She looked and saw the rx; will get it ready. TCLMOM for pt that rx is being filled. * Telephone Encounter - Fang Jarquin - 02/11/2023 0923 EDT Patient called - was seen on 01/28 and PCP was to put in Rx for - amLODIPine (NORVASC) 5 mg tablet; Take 2 Tablets by mouth daily. Dispense: 180 Tablet; Refill: 3. [facility] does not have a new Rx - requesting that you please resend. Please call patient once sent at [phone]. Thank you! documented in this encounter Plan of Treatment Upcoming Encounters Date Type Department Care Team (Late st Contact Info) Description 05/06/2024 13:40 EST Office Visit [facility] Dermatology [address] [facility], [place] [address] Renetta Kidd MD [address] [place] [address], [facility] [address] [place] [address] 05/23/2024 15:15 EST Office Visit [address] [place] [address] Sridevi Lozano NP [address] [place] [phone] documented as of this encounter Visit Diagnoses Not on filedocumented in this encounter Care Teams Access Services Representative Relationship Specialty Start Date End Date Sridevi Lozano NP [address] [place] [phone] PCP - General Family Medicine - Primary Care 12/27/21 documented as of this encounter
--- OUTSIDE RECORDS SUMMARY | 2024-04-13 12:59 | XMS_ITS | Encounter Summary ---
Author Organization [facility] Address [address] [place] [address] Care Team Providers Care Manager Quality Improvement Name Role Phone Sridevi Lozano NP Primary Care Provider [phone] Reason for Visit * Reason Onset Date Comments COVID-19 12/28/2022 Encounter Details Date Type Department Care Team (Late st Contact Info) Description 12/28/2022 Telephone [facility] [place] [phone] Magdalene Tomas MD [address] [place] [address] COVID-19 Social History Tobacco Use Types Packs/Day Years Used Date Smoking Tobacco: Former Cigarettes 1 15 1 974 - 1989 Smokeless Tobacco: Never Alcohol Use Standard Drinks/Week [...] 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 30 Tablet 12/28/2022 documented in this encounter Miscellaneous Notes * Telephone Encounter - Magdalene Tomas MD - 12/28/2022 0840 EDT Primary Care COVID-19 Paxlovid Telephone Call Assessment & Plan COVID-19 positive patient: Discussed options in detail. COVID precautions reviewed? Yes Isolation and return to work/public reviewed? Yes Exercise/return to play precautions given? Yes Paxlovid to be prescribed?: Yes I reviewed the use of Paxlovid with the patient, specifically that it is a medicine authorized for emergency use only for the treatment of COVID-19. Generally the medicine is tolerated well but some patients do have side effects such as diarrhea or rash. I have reviewed the patients medication listfor potential interactions. I have advised the patient regarding the following medication changes: No medication changes Subjective Patient was diagnosed with COVID-19: 12/28/22 Symptoms started: 12/27/22 Current symptoms: cough described as non-productive and nasal congestion Risk factors: CAD/Heart disease and very close to 65yo Known renal disease: no. If YES: last GFR: n/a Vaccinated for COVID?: Comment: only 1 dose listed in immunizations Medication interactions checked? Yes References: High risk list: Underlying Medical Conditions Associated with Higher Risk for Severe COVID-19: Information for Healthcare Professionals CDC documented in this encounter Plan of Treatment Upcoming Encounters Date Type Department Care Team (Late st Contact Info) Description 05/06/2024 13:40 EST Office Visit [facility] Dermatology [address] [facility], [place] [address] Renetta Kidd MD [address] [place] [address], [facility] [address] [place] [phone] 05/23/2024 15:15 EST Office Visit [facility] [address] [place], [place] [phone] Sridevi Lozano NP [address] [place] [phone] documented as of this encounter Visit Diagnoses Not on filedocumented in this encounter Care Teams Manager Quality Improvement Relationship Specialty Start Date End Date Sridevi Lozano NP [address] [place] [phone] PCP - General Family Medicine - Primary Care 12/27/21 documented as of this encounter
--- OUTSIDE RECORDS SUMMARY | 2024-04-13 12:59 | XMS_ITS | Encounter Summary ---
Author Organization [facility] Address [address] [place] [address] Care Team Providers Care Front Desk Coordinator Name Role Phone Sridevi Lozano AIRPLANE CHARTER CLERK Primary Care Provider [phone] Reason for Visit * Reason Comments Follow-up Encounter Details Date Type Department Care Team (Late st Contact Info) Description 01/01/2023 14:00 EDT Telemedicine [facility] - [address] [phone] Sridevi Lozano, AIRPLANE CHARTER CLERK [address] [place] [phone] Dysuria (Primary Dx) Social History Tobacco Use Types Packs/Day Years [...] 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 has been described to the patient. Patient has been informed of the anticipated benefits and possible risks. Patient understands the information provided regarding telemedicine, has had the opportunity to ask questions about this information, and all questions havebeen answered to patient???s satisfaction. Patient consents for the use of telemedicine in his/her medical care and authorizes the transmission of any relevant medical information to providers and their staff involved in patient???s medical or mental health care. Verbal consent obtained by myself or auxiliary staff: Yes. CHIEF COMPLAINT: Chief Complaint Patient presents with ??? Follow-up HPI: Trav Velázquez, a 62 y.o. female who presents today for telehealth visit for follow up urology consult and recent intermittent dysuria. Chronic UTI- Evaluated by [facility] urology 10/16/22 for frequent recurrent UTI. 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 They discussed treatment would not generally be indicated unless she was symptomatic or WBC found on urine sample > 10 hpf. They discussed modifications to help reduced symptoms. Trav has been following recommendations and has noticed moderate reduction in UTIs. She also notes that she is out of her previousrelationship and therefore sexual activity has decreased significantly which could be contributing.On 12/30/22 Trav called as she was experiencing urinary burning with mild odor. Unfortunately Trav tested positive for covid so was not able to come in to give urine sample. Bactrim was sent to the pharmacy. Trav waiting to start antibiotic and notes symptoms have waxed and waned over the last few days so has not started anything. She denies fevers, chills, or visible blood in urine. ROS: I've done a Review of Systems and the pertinent positives are in the HPI. Patient Active Problem List Diagnosis ??? Essential hypertension ??? History of recurrent UTIs Current Outpatient Medications on File Prior to Visit Medication Sig Dispense Refill ??? amLODIPine (NORVASC) 5 mg tablet Take 1 Tablet by mouth daily. 90 Tablet 0 ??? cranberry-vitamin C-mannose 250-30-50 mg tablet,chewable Take by mouth. ??? lisinopriL (PRINIVIL) 40 mg tablet Take 1 Tablet by mouth daily. 90 Tablet 2 ??? nirmatrelvir-ritonavir (PAXLOVID 300-100, EUA,) 300 mg (150 mg x 2)-100 mg tablet Take 3 Tablets by mouth 2 times daily for 5 days. 30 Tablet 0 ??? sulfamethoxazole-trimethoprim (BACTRIM/CO-TRIMOXAZOLE DS) 800-160 mg per tablet Take 1 Tablet by mouth 2 times daily for 5 days. 10 Tablet 0 No current facility-administered medications on file prior to visit. No Known Allergies I have reviewed patient's tobacco history: reports that she quit smoking about 34 years ago. Her smoking use included cigarettes. She has a 15.00 pack-year smoking history. She has never used smokeless tobacco. I have reviewed current problem list and current medications. PHYSICAL EXAMINATION: Objective: Home Vitals: There were no vitals taken for this visit. Pertinent exam findings: GEN: NAD, pleasant, well appearing, appropriately dressed. ORAL: Normal appearance of teeth CV: No JVD noted via video. RESP: Breathing easily, normal chest expansion. SKIN: No rashes, lesions, or ulcers. No erythma, induration or nodules. EXT: No LE edema bilaterally. PSYCH: Alert and oriented x 3. Well-groomed. Good eye contact. Speech regular rate and rhythm without latency or pressure. Mood good. Affect consistent with mood. Thought processes logical, linear and goal directed. Thought content without hallucinations, and suicidal or homicidal ideation. Good insight and judgement. Intact memory. Pertinent exam findings: no audible wheeze and mood and affect appropriate IMPRESSION/PLAN: 1. Dysuria UA WITH REFLEX SEDIMENT (CULTURE IF POS) 1. Dysuria Reviewed urology note. Recommended treatment only if confirmed UTI. Would suggest she complete urine sample which I am happy to order. She would be done with quarantine from covdc on Thursday and may complete then. If positive for UTI will treat and recommended she notify her urologist. If negative for UTI and symptoms resolve reasonable to monitor. If negative and remain symptomatic would recommended notifying her urologist. Does have bactrim that was sent earlier in the week which she has not started. I did recommended she start medication for any worsening or persistent urinary symptoms, fevers, or chills if prior to Thursday when she could give sample. Should contact office if starting antibiotic. Trav verbalized understanding and in agreement with plan. - UA WITH REFLEX SEDIMENT (CULTURE IF POS); Future A total of 20 minutes was spent on this encounter on the day of this encounter. The following individuals and their role did participate in today's encounter visit: Provider: Sridevi Bianchi NP - documented in this encounter Plan of Treatment Upcoming Encounters Date Type Department Care Team (Late st Contact Info) Description 05/06/2024 13:40 EST Office Visit [facility] Dermatology [address] [place] [address], [place] [address] Renetta Kidd MD [address] [place] [address], [facility] [address] [place] [address] 05/23/2024 15:15 EST Office Visit [facility] [address] [place] [phone] Sridevi Lozano NP [address] [place] [phone] documented as of this encounter Visit Diagnoses Diagnosis Dysuria- Primary documented in this encounter Care Teams Front Desk Coordinator Relationship Specialty Start Date End Date Sridevi Lozano NP [address] [place] [phone] PCP - General Family Medicine - Primary Care 12/27/21 documented as of this encounter
--- OUTSIDE RECORDS SUMMARY | 2024-04-13 12:59 | XMS_ITS | Referral Summary ---
Author Organization [facility] Address [address] [place] [address] Care Team Providers Care Campus Aide Name Role Phone Sridevi Lozano OFFICE COMMUNICATION PROFESSOR Primary Care Provider [phone] Encounters Date Type Department Care Team Description 02/11/2024 Refill [facility] [address] [place], [place] [phone] Sridevi Lozano NP Medications Refill 01/20/2024 10:40 EDT Ancillary Procedure [facility] Endocrinology - Rajesh [address] [place], [place] [phone] Postmenopausal state; Other specified disorders of bone density and structure, multiple sites from Last 3 Months Allergies No known active allergies Medications amLODIPine [...] injection and meloxicam, treated by orthopedics in [place] - see careeverywhere History of recurrent UTIs 05/16/2022 Overview (05/16/2022): Positive urine cultures 03/10/2022, 04/10/2022, 05/15/2022. 05/16/2022-referral sent to Urology History of recurrent UTIs 05/16/2022 Overview (11/10/2023): Positive urine cultures 03/10/2022, 04/10/2022, 05/15/2022. 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 Answer Date of Assessment Author No 06/08/2018 15:56 EST Mental Status * Because of a physical, mental, or emotional condition, does this person have serious difficulty concentrating, remembering, or making decisions? Answer Entry Date Author No 06/08/2018 15:56 EST Plan of Treatment Upcoming Encounters Date Type Department Care Team (Late st Contact Info) Description 05/06/2024 13:40 EST Office Visit [facility] Dermatology [address] [place] [address] Renetta Kidd MD [address] [place] [address], [facility] [address] [place] [address] 05/23/2024 15:15 EST Office Visit [address] [address] Sridevi Lozano, JAYME [address] [place] [phone] Medical Devices Implanted Type Area Grain Grader Device Identifier Shelf Expiration Date Model / Serial / Lot Lens Intraocular Monofocal Posterior Biconvex Optic Foldable +23.5d Tecnis [id number] - [id number] Implanted:Qty: 1 on 06/03/2022 by Austin Diaz MD at [facility] Lens Right: Eye [employer]. [id number] 03/02/2025 [id number] / [id number] / Lens Intraocular Monofocal Posterior Biconvex Optic Foldable +23.5d Tecnis [id number] - [id number] Implanted:Qty: 1 on 06/17/2022 by Austin Diaz MD at [facility] [place] Lens Left: Eye [employer] 05/05/2025 [id number] / [id number] / Procedures Procedure Name Priority Date/Time [...] Anatomical Region Laterality Modality Other Whitney Arias [facility] DEXA ORDERABLES Final Resul t [...] EST) Cholesterol 216(H) <200 mg/dL 04/10/2022 7:57 [facility] Comment:Note that therapeuti c goals will differ between patients based on cardiac risk factors and current medical therapy. HDL 109 >=50 mg/dL 04/10/2022 7:57 [facility] Comment:Note that therapeuti c goals will differ between patients based on cardiac risk factors and current medical therapy. LDL, Calculated 93 <160 mg/dL 7:57 [facility] Comment:Note that therapeuti c goals will differ between patients based on cardiac risk factors and current medical therapy. Triglyceride 71 <=150 mg/dL 04/10/2022 7:57 [facility] Comment:Note that therapeuti c goals will differ between patients based on cardiac risk factors and current medical therapy. Chol/HDL Ratio 2.0 See Note 04/10/2022 7:57 [facility] Comment: NOTE: Desirable Ratio = <4.1 Patient At Risk Ratio = >5.0(Males) ?>6.0(Females) Non HDL Cholesterol 107 <160 mg/dL 04/10/2022 7:57 EST [facility] Comment:Note that therapeuti c goals will differ between patients based on cardiac risk factors and current medical therapy. Blood VENOUS BLOOD / Unknown Venipuncture / Unknown 04/10/2022 6:44 EST 04/10/2022 7:21 EST us Sridevi Lozano NP CHEMISTRY & BLOOD GAS ORDERA BLES Final Result [facility] [address] [place] [address] * PAP TEST (12/31/2021 13:06 EDT) Specimens A. Cervix and/or Endocervix , ThinPrep Imaging System with Manual Evaluation 01/06/2022 19:49 [facility] Specimen Adequacy Satisfactory for Evaluation - assessment of transformation zone component not applicable ( e.g. atrophy, vaginal sample, hysterectomy) Scant squamous epithelial component 01/06/2022 19:49 [facility] General Categorization Negative for intraepithelial lesion or malignancy 01/06/2022 19:49 [facility] Descriptive Diagnosis Shift in sadaf present suggestive of bacterial vaginosis. 01/06/2022 19:49 [facility] Attestation . 01/06/2022 19:49 [facility] at 1950 Clinical History screen 01/07/20 22 19:49 [facility] HPV The result for the Human Papillomavirus (HPV) Detection-High Risk Types is Negative. No E6 or E7 mRNA is detected from HPV types 16,18,31,33,35,39 ,45,51,52,56,58,5 9,66, and 68 by lab rn mediated amplification.Mel ting was performed on specimen [id number] and was resulted on 01/06/2022 1858 EDT by JUS, LAB INSTRUMENT RESULTS IN 01/06/2022 19:49 EDT [facility] Performing Lab [facility] 01/06/2022 19:49 EDT [facility] Scanned Images 01/06/2022 19:49 EDT [facility] Papanicolaou smear specimen (specimen) CERVIX UTERI STRUCTURE / Unknown 12/31/2021 13:06 EDT 12/31/2021 13:06 EDT us Leonardo Jalloh OFFICE COMMUNICATION PROFESSOR PATHOLOGY ORDERABLES Final Re sult [facility] [address] [place] [address] from Last 3 Months or Most Recently Relevant to Health Maintenance Insurance [place]ICAID [place] MEDICARE [facility] [place]ICAID [place] MEDIC[place] [facility] Advance Directives For more information, please contact: [phone] * Full Code (Latest Code Status on [...] Who Made the Decision? Patient Care Teams Campus Aide Relationship Specialty Start Date End Date Sridevi Lozano NP [address] [place] [phone] PCP - General Family Medicine - Primary Care 12/27/21
--- OUTSIDE RECORDS SUMMARY | 2024-04-13 12:59 | XMS_ITS | Encounter Summary ---
Author Organization [facility] Address [address] [place] [address] Care Team Providers Care Welder Metal Fab Name Role Phone Sridevi Lozano PRODUCT CONTROLLER Primary Care Provider [phone] Reason for Visit * Reason Onset Date Comments Medications Refill 09/11/2023 Encounter Details Date Type Department Care Team (Late st Contact Info) Description 09/11/[address] [place], [place] [address] Kary Martínez, RN Medications Refill Social History Tobacco Use Types Packs/Day Years Used Date Smoking Tobacco: Former Cigarettes 1 15 4 - 1988 Smokeless Tobacco: Never Alcohol [...] 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 180 Tablet 3 09/11/2023 lisinopriL (PRINIVIL) 40 mg tablet Take 1 Tablet by mouth daily. 90 Tablet 09/11/2023 4 documented in this encounter Miscellaneous Notes * Telephone Encounter - Kary Martínez RN - 09/11/2023 105 EDT Requested Prescriptions Pending Prescriptions Disp Refills amLODIPine (NORVASC) 5 mg tablet 180 Tablet 3 Sig: Take 2 Tablets by mouth daily. lisinopriL (PRINIVIL) 40 mg tablet 90 Tablet 0 Sig: Take 1 Tablet by mouth daily. Last Refill Date: Amlodipine 01/28/23 Lisinopril 05/26/23 Labs completed? Yes VPMS: N/A Most Recent Appt: 01/28/23 Upcoming Appt: 09/25/23 KARY MARTÍNEZ RN 09/11/2023 10:55 documented in this encounter Plan of Treatment Upcoming Encounters Date Type Department Care Team (Late st Contact Info) Description 05/06/2024 13:40 EST Office Visit [facility] Dermatology [address] [facility], [place] [address] Renetta Kidd MD [address] [place] [address], [facility] [address] [place] [phone] 05/23/2024 15:15 EST Office Visit [address] [phone] Sridevi Lozano NP [address] [place] [phone] documented as of this encounter Visit Diagnoses Diagnosis Essential hypertension- Primary Unspecified essential hypertension documented in this encounter Discontinued Medications Medication Sig Discontinue Reason Start Date End Da te amLODIPine (NORVASC) 5 mg tabletIndications:Ziyad al hypertension Take 2 Tablets by mouth daily. Reorder 01/28/2023 09/11/2023 lisinopriL (PRINIVIL) 40 mg tablet Take 1 Tablet by mouth daily. Reorder 05/26/2023 09/11/2023 documented as of this encounter Care Teams Welder Metal Fab Relationship Specialty Start Date End Date Sridevi Lozano NP [address] [place] [phone] PCP - General Family Medicine - Primary Care 12/27/21 documented as of this encounter
--- OUTSIDE RECORDS SUMMARY | 2024-04-13 12:59 | XMS_ITS | Encounter Summary ---
Author Organization [facility] Address [address] [place] [address] Care Team Providers Care Channeler Runner Name Role Phone Sridevi Lozano NP Primary Care Provider [phone] Reason for Referral * (Routine/Next Available) - Receiving Office to Obtain Authorization Specialty Diagnoses / Procedures Referred By Contac t Referred To Contact Procedures MR OUTSIDE IMAGES LUMBAR SPINE Imaging, External Referral ID Status Reason Start Date Expiration Date Visits Requested Visits Authorized [id number] Receiving Office to Obtain Authorization 12/22/2023 1 1 Reason for Visit * (Routine/Next Available) - Receiving Office to Obtain Authorization Specialty Diagnoses / Procedures Referred By Contac t Referred To Contact Procedures MR OUTSIDE IMAGES LUMBAR SPINE Imaging, External Referral ID Status Reason Start Date Expiration Date Visits Requested Visits Authorized [id number] Receiving Office to Obtain Authorization 12/22/2023 1 1 Encounter Details Date Type Department Care Team (Latest Contact Info) Description 06/16/2023 - 06/16/2023 23:59 EST Hospital Encounter [facility] Secondary Reads [place] Discharge Disposition: Home or Self Care Social History Tobacco Use Types Packs/Day Years [...] 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 180 Tablet 3 01/28/2023 4 cranberry-vitamin C-mannose 250-30-50 mg tablet,chewable Take by mouth. 4 lisinopriL (PRINIVIL) 40 mg tablet Take 1 Tablet by mouth daily. 90 Tablet 05/26/2023 4 documented as of this encounter Discharge Disposition Disposition Code Departure Means Destination Home or Self Care documented in this encounter Plan of Treatment Upcoming Encounters Date Type Department Care Team (Late st Contact Info) Description 05/06/2024 13:40 EST Office Visit [facility] Dermatology [address] [place] [address], [place] [address] Renetta Kidd MD [address] [place] [address], [address] [place] [phone] 05/23/2024 15:15 EST Office Visit [address] [phone] Sridevi Lozano NP [address] [place] [phone] documented as of this encounter Procedures Procedure Name Priority Date/Time Associated Diagnosis Comments MR OUTSIDE IMAGES LUMBAR SPINE Routine 06/16/2023 16:20 EST documented in this encounter Results * MR OUTSIDE IMAGES LUMBAR SPINE (06/16/2023 16:20 EST) Narrative 12/22/2023 16:20 EDT This is a non-reportable exam. us External Imaging IMG OTHER IMAGING ORDERABLES Fi nal Result documented in this encounter Visit Diagnoses Not on filedocumented in this encounter Care Teams Channeler Runner Relationship Specialty Start Date End Date Sridevi Lozano, JAYME [address] [place] [phone] PCP - General Family Medicine - Primary Care 12/27/21 documented as of this encounter
--- OUTSIDE RECORDS SUMMARY | 2024-04-13 12:59 | XMS_ITS | Encounter Summary ---
Author Organization [facility] Address [address] [place] [address] Care Team Providers Care Sunday [employer] Missionary Name Role Phone Sridevi Lozano TELECOMMUNICATION LINES REPAIRER Primary Care Provider [phone] Encounter Details Date Type Department Care Team ([facility] st Contact Info) Description 12/07/2023 Lab Requisition [facility] Lab - Main [address] [address] [place] [address] Personal history of colonic polyps; Family history of malignant neoplasm of digestive organs; Encounter for screening for malignant neoplasm of colon Social History Tobacco Use Types Packs/Day Years [...] 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 [...] 06/08/2018 15:56 EST documented in this encounter Plan of Treatment Upcoming Encounters Date Type Department Care Team (Late st Contact Info) Description 05/06/2024 13:40 EST Office Visit [facility] Dermatology [address] [facility], [place] [address] Renetta Kidd MD [address] [place] [address], [facility] [address] [place] [phone] 05/23/2024 15:15 EST Office Visit [address] [phone] Sridevi Lozano NP [address] [place] [phone] documented as of this encounter Procedures Procedure Name Priority Date/Time Associated Diagnosis Comments SURGICAL PATHOLOGY Today 12/07/2023 9:30 EDT Personal history of colonic polyps Family history of malignant neoplasm of digestive organs Encounter for screening for malignant neoplasm of colon documented in this encounter Results * SURGICAL PATHOLOGY (12/07/2023 9:30 EDT) Note to Patient The following pathology results have been interpreted by your pathologist and may be available to you before your health provider has had the opportunity to review them. Please allow time for your provider to receive these results and explore management options, if applicable. 12/09/2023 9:14 EDT [facility] Final Diagnosis A. COLON, CECUM, POLYP: - Colonic mucosa with surface hyperplastic change. See comment. B. COLON, SIGMOID, POLYP: - Hyperplastic polyp. C. RECTUM, POLYP: - Hyperplastic polyp. 12/09/2023 9:14 EDT [facility] Diagnosis Comment A. Deeper levels were examined. 12/09/2023 9:14 [facility] Attestation By the signature below, the attending physician certifies that they have 1) personally conducted a gross and/or microscopic examination of the described specimen(s), and/or personally interpreted the results of laboratory testing of the described specimen(s), and 2) personally rendered or confirmed the above diagnosis. 12/09/2023 9:14 [facility] at 0914 Clinical History History of polyps 12/09/2023 9:14 [facility] Gross Description A. Received in formalin with, Trav J Blackmer and, cecal and consists of 2 portions of gonzalez tissue, 4 mm and 5 x 3 x 1 mm. In toto, A1. B. Received in formalin with, Trav J Blackmer and, sigmoid and consists of 2 portions of gonzalez tissue, 4 mm and 5 x 3 x 1 mm. In toto, B1. C. Received in formalin with, Trav J Blackmer and, rectal and consists of a 6 x 3 x 2 mm portion of gonzalez tissue. In toto, C1. HALEY WALTON(ASCP) 12/07/2023 16:30 12/09/2023 9:14 [facility] Performing Lab [facility] 12/09/2023 9:14 [facility] Scanned Images 12/09/2023 9:14 [facility] Tissue ENTIRE RECTUM / Unknown 12/07/2023 9:30 EDT 12/07/2023 16:07 EDT Tissue specimen (specimen) SIGMOID COLON STRUCTURE / Unknown 12/07/2023 9:30 EDT 12/07/2023 16:07 EDT Tissue specimen (specimen) ENTIRE RECTUM / Unknown 12/07/2023 9:30 EDT 12/07/2023 16:07 EDT us Drea Griffin MD PATHOLOGY ORDERABLES Final Resu lt [facility] [address] [place] [address] documented in this encounter Visit Diagnoses Diagnosis Personal history of colonic polyps Family history of malignant neoplasm of digestive organs Encounter for screening for malignant neoplasm of colon Special screening for malignant neoplasms, colon documented in this encounter Care Teams Sunday [employer] Missionary Relationship Specialty Start Date End Date Sridevi Lozano NP [address] [place] [phone] PCP - General Family Medicine - Primary Care 12/27/21 documented as of this encounter
--- OUTSIDE RECORDS SUMMARY | 2024-04-13 12:59 | XMS_ITS | Encounter Summary ---
Author Organization [facility] Address [address] [place] [address] Care Team Providers Care School Boat Driver Name Role Phone Sridevi Lozano QUALITY ASSURANCE CONSULTANT Primary Care Provider [phone] Encounter Details Date Type Department Care Team (Late st Contact Info) Description 09/05/2022 Orders Only 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 [...] Info) Description 05/06/2024 13:40 EST Office Visit [facility] Dermatology [address] [facility], [place] [address] Renetta Kidd MD [address] [place] [address], [facility] 5 [place] [phone] 05/23/2024 15:15 EST Office Visit [address] [address] Sridevi Lozano NP [address] [place] [phone] documented as of this encounter Visit Diagnoses Not on filedocumented in this encounter Care Teams School Boat Driver Relationship Specialty Start Date End Date Sridevi Lozano NP [address] [place] [phone] PCP - General Family Medicine - Primary Care 12/27/21 documented as of this encounter
--- OUTSIDE RECORDS SUMMARY | 2024-04-13 12:59 | XMS_ITS | Encounter Summary ---
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 30 Tablet 2 11/09/2023 02/11/2024 documented in this encounter Progress Notes * Sridevi Bianchi, JORDAN WORKER - 11/09/2023 1430 EDT [facility] [place] Today's visit was provided through telemedicine video conferencing on Zoom: The location of the patient: Home (where patient lives) The location of the provider: Office Verbal [...] CHIEF COMPLAINT: Chief Complaint Patient presents with Insomnia HPI: Trav Velázquez, a 63 y.o. female who presents today for telehealth visit for to discuss insomnia. She reports ongoing difficulty with sleep for the last few months. Maybe getting 4 hours of sleep per night. Frequently wakes in the night and then unable to turn her brain off. Life stress and changes (thinking of selling her place, new job?). Continued hip pain. Was prescribed gabapentin to help with pain. Found it didn't improve the pain much and caused her to feel groggy in the morning. Tried TCH supplement which also made her feel buzzy. Lack of sleep making It hard for her to function/be productive during the day ROS: I've done a Review of Systems and the pertinent positives are in the HPI. Patient Active Problem List Diagnosis Essential hypertension History of recurrent UTIs Trochanteric bursitis, right hip Current Outpatient Medications on File Prior to Visit Medication Sig Dispense Refill amLODIPine (NORVASC) 5 mg tablet Take 2 Tablets by mouth daily. (Patient taking differently: Take 1Tablet by mouth daily.) 180 Tablet 3 bisacodyL (DULCOLAX) 5 mg EC tablet Take as directed prior to procedure (see provided instructions). 4 Tablet 0 cranberry-vitamin C-mannose 250-30-50 mg tablet,chewable Take by mouth. gabapentin (NEURONTIN) 100 mg capsule Take 1 Capsule by mouth 3 times daily. 30 Capsule 2 lisinopriL (PRINIVIL) 40 mg tablet Take 1 Tablet by mouth daily. 90 Tablet 0 polyethylene glycol (MIRALAX) 17 gram/dose powder Dissolve mixture and drink as directed prior to procedure (see provided instructions). 238 g 0 No current facility-administered medications on file prior to visit. No Known Allergies I have reviewed patient's tobacco history: reports that she quit smoking about 35 years ago. Her smoking use included cigarettes. She started smoking about 50 years ago. She has a 15 pack-year smoking history. She has never used smokeless tobacco. I have reviewed current problem list and current medications. ROS: I've done a Review of Systems and the pertinent positives are in the HPI. PHYSICAL EXAMINATION: Objective: Home Vitals: There were no vitals taken for this visit. Pertinent exam findings: GEN: NAD, pleasant, well appearing, appropriately dressed. RESP: Breathing easily, normal chest expansion. PSYCH: Alert and oriented x 3. Well-groomed. Good eye contact. Speech regular rate and rhythm without latency or pressure. Mood good. Affect consistent with mood. Thought processes logical, linear and goal directed. Thought content without hallucinations, and suicidal or homicidal ideation. Good insight and judgement. Intact memory. Pertinent exam findings: speaking in full sentences and mood and affect appropriate IMPRESSION/PLAN: 1. Insomnia, unspecified type traZODone (DESYREL) 50 mg tablet 1. Insomnia, unspecified type Chronic insomnia. No improvement with supplements. Lack of sleep interfering with daily life. Recommended trazodone. Reviewed medication profile as well as most common and concerning side effects. Could consider increasing dose to 100 mg dependent on results. F/u PRN - traZODone (DESYREL) 50 mg tablet; Take 1 Tablet by mouth at bedtime. Dispense: 30 Tablet; Refill:2 A total of 15 minutes was spent on this encounter on the day of this encounter. The following individuals and their role did participate in today's encounter visit: Provider: JAYME Silva NP 11/10/2023 6:42 documented in this encounter Plan of Treatment Upcoming Encounters Date Type Department Care Team (Late st Contact Info) Description 05/06/2024 13:40 EST Office Visit [facility] Dermatology [address] [facility], [place] [address] Renetta Kidd MD [address] [place] [address], [facility] [address] [place] [phone] 05/23/2024 15:15 EST Office Visit [address] [phone] Sridevi Lozano NP [address] [place] [phone] documented as of this encounter Visit Diagnoses Diagnosis Insomnia, unspecified type- Primary documented in this encounter Discontinued Medications Medication Sig Discontinue Reason Start Date End Da te gabapentin (NEURONTIN) 100 mg capsuleIndications:Corporate Strategist dileep low back pain, unspecified back pain laterality, unspecified whether sciatica present Take 1 Capsule by mouth 3 times daily. Patient Stopped Taking 09/25/2023 11/10/2023 documented as of this encounter Care Teams Examiner Of Currency Relationship Specialty Start Date End Date Sridevi Lozano NP [address] [place] [phone] PCP - General Family Medicine - Primary Care 12/27/21 documented as of this encounter
--- OUTSIDE RECORDS SUMMARY | 2024-04-13 12:59 | XMS_ITS | Encounter Summary ---
Author Organization [facility] Address [address] [place] [address] Care Team Providers Care Executive Assistant Name Role Phone Sridevi Lozano ASPHALT PAVER OPERATOR Primary Care Provider [phone] Reason for Visit * Reason Onset Date Comments Results 09/04/2022 Encounter Details Date Type Department Care Team (Late st Contact Info) Description 09/04/2022 Telephone [facility] [address] [place], [place] [phone] Sridevi Lozano, ASPHALT PAVER OPERATOR [address] [place] [phone] Results Social History Tobacco Use Types Packs/Day Years [...] 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 * Telephone Encounter - Sridevi Bianchi NP - 09/05/2022 0848 EDT She has current urologist, we have sent a referral for a second urologist consult at [facility]. I have ordered the CT for her liver as we discussed. Urology needs to f/u on the renal stones as they ordered the test (nothing emergent). I think her many symptoms are related to UTI. If call and worse can schedule. Just and FYI if she calls back about any of this so you are aware of the plan. Do not need to call back with this info as we have already discussed it * Telephone Encounter - Emily Araya RN - 09/04/2022 0918 EDT Patient informed verbalized understanding. Patient is still a little concerned due to her recent CTresults. She reports that this is her 7th UTI in the last several months and this is the first timeshe has ever had symptoms. She is concerned there may be something else going on. Diana * Telephone Encounter - Sridevi Bianchi NP - 09/04/2022 0883 EDT Please call to let Trav know that her white count was not elevated and her blood sugar, liver function, and kidney function were all in normal range. I would recommend she complete antibiotic. If still feeling unwell should call office to discuss next steps. If feeling better would equate symptoms to severe UTI. If persistent fever or worsening symptoms should call. documented in this encounter Plan of Treatment Upcoming Encounters Date Type Department Care Team (Late st Contact Info) Description 05/06/2024 13:40 EST Office Visit [facility] Dermatology [address] [facility], [place] [address] Renetta Kidd MD [address] [place] [address] [address] [place] [phone] 05/23/2024 15:15 EST Office Visit [facility] [address] [place] [phone] Sridevi Lozano NP [address] [place] [phone] documented as of this encounter Visit Diagnoses Not on filedocumented in this encounter Care Teams Executive Assistant Relationship Specialty Start Date End Date Sridevi Lozano NP [address] [place] [phone] PCP - General Family Medicine - Primary Care 12/27/21 documented as of this encounter
--- OUTSIDE RECORDS SUMMARY | 2024-04-13 12:59 | XMS_ITS | Encounter Summary ---
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 [...] Info) Description 05/06/2024 13:40 EST Office Visit [facility] Dermatology [address] [facility], [facility] [place] [address] Renetta Kidd MD [address] [place] [address] 5 [place] [address] 05/23/2024 15:15 EST Office Visit [facility] [address] [place] [address] Sridevi Lozano NP [address] [place] [address] documented as of this encounter Procedures Procedure Name Priority Date/Time Associated Diagnosis Comments UA SEDIMENT (CULTURE IF POS) Today 08/29/2022 10:10 EDT Dysuria UA WITH REFLEX SEDIMENT (CULTURE IF POS) Routine 08/29/2022 10:10 EDT Dysuria BACTERIAL CULTURE, URINE Today 08/29/2022 10:10 EDT Dysuria documented in this encounter Results * (ABNORMAL) BACTERIAL CULTURE, URINE (08/29/2022 10:10 EDT) Organism ID [id number], 000 to 100,000 CFU/ml Escherichia coli(A) VITEK SUSCEPTIBILITY 08/31/2022 8:14 EDT [facility] Comment: Cefazolin susceptibility results can be used to predict susceptibility results for the following oral cephalosporins when used for therapy of uncomplicated UTI's due to E.coli, K.pneumoniae and P.mirabilis: cefaclor, cefdinir, cefpodoxime, cefprozil, cefuroxime, cephalexin and loracarbef. ??Please note that only cefdinir, cefpodoxime, cefuroxime and cephalexin are on the [facility] inpatient formulary. Organism ID [id number], 000 to 100,000 CFU/ml Escherichia coli(A) VITEK SUSCEPTIBILITY 08/31/2022 8:14 EDT [facility] Comment: Cefazolin susceptibility results can be used to predict susceptibility results for the following oral cephalosporins when used for therapy of uncomplicated UTI's due to E.coli, K.pneumoniae and P.mirabilis: cefaclor, cefdinir, cefpodoxime, cefprozil, cefuroxime, cephalexin and loracarbef. ??Please note that only cefdinir, cefpodoxime, cefuroxime and cephalexin are on the [facility] inpatient formulary. Urine URINE SPECIMEN COLLECTION, CLEAN CATCH / Unknown Urine Collect / Unknown 08/29/2022 10:10 EDT 08/29/2022 10:55 EDT Narrative Organism Antibiotic Method Susceptibility Escherichia coli Amoxicillin Clavulan ic acid VITEK SUSCEPTIBILITY <=2 ug/mL: Susceptible Escherichia coli Ampicillin VITEK SUSCEPTIBILITY 4 ug/mL: Susceptible Escherichia coli Ampicillin Sulbactam VITEK SUSCEPTIBI LITY <=2 ug/mL: Susceptible Escherichia coli Cefazolin VITEK SUSCEPTIBILITY <=4 ug/mL: Susceptible Escherichia coli Cefepime VITEK SUSCEPTIBILITY <=1 ug/mL: Susceptible Escherichia coli Ceftriaxone VITEK SUSCEPTIBILITY <=1 ug/mL: Susceptible Escherichia coli Ciprofloxacin VITEK SUSCEPTIBILITY >=4 ug/mL: Resistant Escherichia coli Ertapenem VITEK SUSCEPTIBILITY <=0.5 ug/mL: Susceptible Escherichia coli Gentamicin VITEK SUSCEPTIBILITY <=1 ug/mL: Susceptible Escherichia coli Levofloxacin VITEK SUSCEPTIBILITY >=8 ug/mL: Resistant Escherichia coli Nitrofurantoin VITEK SUSCEPTIBILITY 64 ug/mL: Intermediate Escherichia coli Piperacillin Tazobactam VITEK SUSCEPT IBILITY <=4 ug/mL: Susceptible Escherichia coli Tobramycin VITEK SUSCEPTIBILITY <=1 ug/mL: Susceptible Escherichia coli Trimethoprim-Sulfame thox azole VITEK SUSCEPTIBILITY <=20 ug/mL: Susceptible Escherichia coli Amoxicillin Clavulan ic acid VITEK SUSCEPTIBILITY <=2 ug/mL: Susceptible Escherichia coli Ampicillin VITEK SUSCEPTIBILITY <=2 ug/mL: Susceptible Escherichia coli Ampicillin Sulbactam VITEK SUSCEPTIBI LITY <=2 ug/mL: Susceptible Escherichia coli Cefazolin VITEK SUSCEPTIBILITY <=4 ug/mL: Susceptible Escherichia coli Cefepime VITEK SUSCEPTIBILITY <=1 ug/mL: Susceptible Escherichia coli Ceftriaxone VITEK SUSCEPTIBILITY <=1 ug/mL: Susceptible Escherichia coli Ciprofloxacin VITEK SUSCEPTIBILITY <=0.25 ug/mL: Susceptible Escherichia coli Ertapenem VITEK SUSCEPTIBILITY <=0.5 ug/mL: Susceptible Escherichia coli Gentamicin VITEK SUSCEPTIBILITY <=1 ug/mL: Susceptible Escherichia coli Levofloxacin VITEK SUSCEPTIBILITY <=0.12 ug/mL: Susceptible Escherichia coli Nitrofurantoin VITEK SUSCEPTIBILITY <=16 ug/mL: Susceptible Escherichia coli Piperacillin Tazobactam VITEK SUSCEPT IBILITY <=4 ug/mL: Susceptible Escherichia coli Tobramycin VITEK SUSCEPTIBILITY <=1 ug/mL: Susceptible Escherichia coli Trimethoprim-Sulfame thox azole VITEK SUSCEPTIBILITY <=20 ug/mL: Susceptible us Darshan Loaiza MD MICROBIOLOGY - GENERAL ORDERABLE S Final Result Performing Organization Address City/State/[facility] Co de Phone Number [facility] [address] [place] [address] * (ABNORMAL) UA SEDIMENT (CULTURE IF POS) (08/29/2022 10:10 EDT) Urine RBC Count, Manual 3 - 10(A) 0 - 2, None Seen Cells/HPF 08/29/2022 10:55 EDT [facility] Urine WBC Count 4 - 10(A) 0 - 3, None Seen Cells/HPF 08/29/2022 10:55 EDT [facility] Urine Squamous Count, Manual None Seen None Seen Cells/HPF 08/29/2022 10:55 EDT [facility] Urine Bacteria Count, Manual Few(A) None Seen Bacteria/H PF 08/29/2022 10:55 EDT [facility] Urine URINE SPECIMEN COLLECTION, CLEAN CATCH / Unknown Urine Collect / Unknown 08/29/2022 10:10 EDT 08/29/2022 10:24 EDT [facility] - 08/29/2022 10:55 EDT Urine Sediment Analysis results are unreliable on urines that are unrefrigerated for >2 hrs or refrigerated >8 hrs. A Urine Culture test has been reflexively ordered based on result criteria from the Urine Sediment Analysis. us Darshan Loaiza MD URINALYSIS ORDERABLES Final Resu lt Performing Organization Address [facility]/ZIP Co de Phone Number [facility] [address] [place] [phone] * (ABNORMAL) UA WITH REFLEX SEDIMENT (CULTURE IF POS) (08/29/2022 10:10 EDT) Color UA Yellow Colorless to Dark Yellow 08/29/2022 10:55 EDT [facility] Clarity UA Clear Clear 08/29/2022 10:55 EDT [facility] Glucose UA Negative Negative 08/29/2022 10:55 EDT [facility] Bilirubin UA Negative Negative 08/29/2022 10:55 EDT [facility] Ketones UA Negative Negative 08/29/2022 10:55 [facility] Specific [place], Urine <=1.005 1.001 - 1.035 08/29/2022 10:55 EDT [facility] Blood UA Trace(A) Negative 08/29/2022 10:55 T [facility] pH, UA 7.0 4.6 - 8.0 08/29/2022 10:55 EDT [facility] Protein UA Negative Negative 08/29/2022 10:55 [facility] Urobilinogen UA 0.2 0.2 , 1.0, Normal mg/dL 08/29/2022 10:55 EDT [facility] Nitrite UA Negative Negative 08/29/2022 10:55 EDT [facility] Leukocyte Esterase UA 1+(A) Negative 08/29/2022 10:55 [facility] Urine URINE SPECIMEN COLLECTION, CLEAN CATCH / Unknown Urine Collect / Unknown 08/29/2022 10:10 EDT 08/29/2022 10:24 EDT us Darshan Loaiza MD URINALYSIS ORDERABLES Final Resu lt Performing Organization Address City/[facility]/ZIP Co de Phone Number [facility] [address] [place] [address] documented in this encounter Visit Diagnoses Diagnosis Dysuria documented in this encounter Care Teams Business Intelligence Etl Developer Relationship Specialty Start Date End Date Sridevi Lozano NP [address] [place] [phone] PCP - General Family Medicine - Primary Care 12/27/21 documented as of this encounter
--- OUTSIDE RECORDS SUMMARY | 2024-04-13 12:59 | XMS_ITS | Encounter Summary ---
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 female who presents with prior history of attempted colonoscopy at [facility] in 2008 when she was 48 which was unsuccessful. She reports that there was a surgeon who didthe procedure who was unsuccessful due to inadequate sedation and discomfort. The patient does not know what they gave her for sedation. All she remembers is that at some point during the procedure they said I can give her some more sedation and they tried doing so but it was unsuccessful since shewas moving around a lot and they could not get the scope all the way around. The procedure was thusterminated and she felt sick afterwards she assumes because she received a large dose of some type of medication. She reports no prior pelvic surgery. She does not have any bowel symptoms. She says she was considering doing a Cologuard test but was told that if there is a positive result her insurance will not cover having the colonoscopy. Unfortunately, we do not have a copy of the report from her procedure. PMH: Hypertension, recurrent urinary tract infection PSH: None reported ROS: A 10-point ROS was performed and is negative other than stated in HPI. Current Outpatient Medications on File Prior to Visit Medication Sig Dispense Refill ??? amLODIPine (NORVASC) 5 mg tablet Take 1 Tablet by mouth daily. 90 Tablet 3 ??? cranberry-vitamin C-mannose 250-30-50 mg tablet,chewable Take by mouth. ??? lisinopriL (PRINIVIL) 40 mg tablet Take 1 Tablet by mouth daily. 90 Tablet 2 No current facility-administered medications on file prior to visit. No Known Allergies Social History: Social History Tobacco Use ??? Smoking status: Former Packs/day: 1.00 Years: 15.00 Additional pack years: 0.00 Total pack years: 15.00 Types: Cigarettes Quit date: 1988 Years since quittin.7 ??? Smokeless tobacco: Never Vaping Use ??? Vaping Use: Never used Substance Use Topics ??? Alcohol use: Yes Alcohol/week: 10.0 standard drinks of alcohol Types: 10 Standard drinks or equivalent per week ??? Drug use: Not Currently Types: Marijuana Family History: Negative for colon cancer. Physical Exam: VS: Vital signs stable General: In NAD, physical exam was not performed today. Labs and Imaging: None available Impression: 62-year-old female who had an unsuccessful attempt at colonoscopy in 2008 for reasons that are unclear. It sounds as though she had a difficult sigmoid and the terminated the procedure due to inadequate level of sedation however we do not know exactly what she was given for sedation. Wediscussed scheduling another attempt with anesthesia assistance for propofol sedation. She was agreeable to this plan however she had originally planned to schedule the procedure in February and now [place] 2023. We will try to get it rescheduled for thattime with an anesthesiologist to administer propofol. In the meantime we will also try to obtain records from her prior procedure to determine whether we can figure out what she was previously given and why they had difficulty passing the scope. Plan: 1. Reschedule colonoscopy with anesthesia assistance for sometime after August 2023. 2. The patient will sign a release to try to obtain records from her colonoscopy report from [facility] [place]. documented in this encounter Plan of Treatment Upcoming Encounters Date Type Department Care Team (Late st Contact Info) Description 05/06/2024 13:40 EST Office Visit [facility] Dermatology [address] [facility] [place] [address] Renetta Kidd MD [address] [place] [address], [facility] [address] [place] [address] 05/23/2024 15:15 EST Office Visit [address] [phone] Sridevi Lozano, JAYME [address] [place] [phone] documented as of this encounter Visit Diagnoses Not on filedocumented in this encounter Care Teams News Operations Manager Relationship Specialty Start Date End Date Sridevi Lozano, JAYME [address] [place] [phone] PCP - General Family Medicine - Primary Care 12/27/21 documented as of this encounter
--- OUTSIDE RECORDS SUMMARY | 2024-04-13 12:59 | XMS_ITS | Encounter Summary ---
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 N/A VPMS: N/A Most Recent Appt: 12/30/23 Upcoming Appt: 05/23/24 PRIYA ARAYA RN 02/11/2024 7:48 documented in this encounter Plan of Treatment Upcoming Encounters Date Type Department Care Team (Late st Contact Info) Description 05/06/2024 13:40 EST Office Visit [facility] Dermatology [address] [place] [address] Renetta Kidd MD [address] [place] [address], [address] [place] [phone] 05/23/2024 15:15 EST Office Visit [address] [phone] Sridevi Lozano NP [address] [place] [phone] documented as of this encounter Visit Diagnoses Diagnosis Insomnia, unspecified type- Primary documented in this encounter Discontinued Medications Medication Sig Discontinue Reason Start Date End Da te traZODone (DESYREL) 50 mg tabletIndications:Insomni a, unspecified type Take 1 Tablet by mouth at bedtime. 11/09/2023 02/11/2024 documented as of this encounter Care Teams Pickle Cutter Relationship Specialty Start Date End Date Sridevi Lozano NP [address] [place] [phone] PCP - General Family Medicine - Primary Care 12/27/21 documented as of this encounter
--- OUTSIDE RECORDS SUMMARY | 2024-04-13 12:59 | XMS_ITS | Encounter Summary ---
Author Organization [facility] Address [address] [place] [address] Care Team Providers Care Pool Servicer Name Role Phone Sridevi Lozano SUPERVISOR ASSEMBLY AND PACKING Primary Care Provider [phone] Reason for Referral * Radiology Services (Routine/Next Available) - Specialty Report Received Specialty Diagnoses / Procedures [facility] Referred To Contact Diagnoses Postmenopausal state Other specified disorders of bone density and structure, multiple sites Procedures DXA BONE DENSITY Whitney Arias [address] [place] [address] Phone: tel: fax: [facility] Referral ID Status Reason Start Date Expiration Date V isits Requested Visits Authorized [id number] Specialty Report Received 01/04/2024 1 1 Encounter Details Date Type Department Care Team (Latest Contact Info) Description 01/04/2024 Orders Only [facility] Endocrinology - [address] [address] [address] Arias [address] [place] [address] Postmenopausal state (Primary Dx); Other specified disorders of bone density and structure, multiple sites Social History Tobacco Use Types Packs/Day Years [...] 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 [...] Info) Description 05/06/2024 13:40 EST Office Visit [facility] Dermatology [address] [facility], [place] [address] Renetta Kidd MD [address] [place] [address], [facility] [address] [place] [address] 05/23/2024 15:15 EST Office Visit [facility] Family Practice [address] [place] [phone] Sridevi Lozano NP [address] [place] [phone] documented as of this encounter Results * DXA BONE DENSITY (01/20/2024 10:42 EDT) Anatomical Region Laterality Modality Other [place] KRUEGER DEXA ORDERABLES Final Resul t documented in this encounter Visit Diagnoses Diagnosis Postmenopausal state- Primary Asymptomatic postmenopausal status (age-related) (natural) Other specified disorders of bone density and structure, multiple sites documented in this encounter Care Teams Pool Servicer Relationship Specialty Start Date End Date Sridevi Lozano NP [address] [place] [phone] PCP - General Family Medicine - Primary Care 12/27/21 documented as of this encounter
--- OUTSIDE RECORDS SUMMARY | 2024-04-13 12:59 | XMS_ITS | Encounter Summary ---
Author Organization [facility] Address [address] [place] [address] Care Team Providers Care Customer Service Officer Name Role Phone Sridevi Lozano BULK STATION AGENT Primary Care Provider [phone] Reason for Visit * Reason Onset Date Comments Results 10/02/[address] r esults Encounter Details Date Type Department Care Team (Late st Contact Info) Description 10/02/2022 Telephone [facility] [address] [place], [place] [phone] Sridevi Lozano, BULK STATION AGENT [address] [place] [phone] Results (Looking for CT results) Social History Tobacco Use Types Packs/Day Years [...] 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 She verbalized an understanding of results. Reassured her there was no mass/lesion in pancreas. Will be seeing a urologist soon and will discuss th kidney stones. * Telephone Encounter - Emily Araya RN - 10/02/2022 1347 EDT LVMTCB * Telephone Encounter - Sridevi Bianchi NP - 10/02/2022 1131 EDT Please let trav know that her imaging is back. Good news Liver cyst is benign and does not require further work up or imaging. Her pancreatic duct had slight enlargement. No mass or lesion. No obstruction was noted. Dicussed findings with another provider if < 6 mm no additional follow up is needed. It was noted that she had bilateral kidney stones. * Telephone Encounter - Sridevi Bianchi NP - 10/02/2022 0842 EDT No results back yet. I will keep an eye out. * Telephone Encounter - Porsha De La Paz - 10/02/2022 0832 EDT Patient called, she said that she was told Thursday09/30/22 that she should have results in 24 hours. I did advise that her apt was at 17:00 and it may be that the 24 hours would have been from Thursday10/01/22 due to how late the apt was and when the scan completed. I advised I would send it over so that Sridevi was aware the patient is looking for results so that she can call her once they come through, but at this time they are not complete yet. Patient said that will work okay she is just a little anxious to know the results. documented in this encounter Plan of Treatment Upcoming Encounters Date Type Department Care Team (Late st Contact Info) Description 05/06/2024 13:40 EST Office Visit [facility] Dermatology [address] [place] [address] Renetta Kidd MD [address] [place] [address] 5 [place] [phone] 05/23/2024 15:15 EST Office Visit [facility] Family Practice [address] [place] [phone] Sridevi Lozano NP [address] [place] [phone] documented as of this encounter Visit Diagnoses Not on filedocumented in this encounter Care Teams Customer Service Officer Relationship Specialty Start Date End Date Sridevi Lozano NP [address] [place] [phone] PCP - General Family Medicine - Primary Care 12/27/21 documented as of this encounter
--- OUTSIDE RECORDS SUMMARY | 2024-04-13 12:59 | XMS_ITS | Encounter Summary ---
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 Hx Re-current Uti's, which pt thinks she may have one at this time. Nsg ordered U/A to be collected in lab. Pt's symptoms are foul smelling urine/mild burning discomfort. documented in this encounter Plan of Treatment Upcoming Encounters Date Type Department Care Team (Late st Contact Info) Description 05/06/2024 13:[address] [facility] Dermatology [address] [facility], [place] [address] Renetta Kidd MD [address] [place] [address], [facility] [address] [place] [address] 05/23/2024 15:15 EST Office Visit [facility] [address] [place] [address] Sridevi Lozano NP [address] [place] [address] documented as of this encounter Results * (ABNORMAL) UA WITH REFLEX SEDIMENT (CULTURE IF POS) (08/29/2022 10:10 EDT) Color UA Yellow Colorless to Dark Yellow 08/29/2022 10:55 EDT [facility] Clarity UA Clear Clear 08/29/2022 10:55 EDT [facility] Glucose UA Negative Negative 08/29/2022 10:55 EDT [facility] Bilirubin UA Negative Negative 08/29/2022 10:55 EDT [facility] Ketones UA Negative Negative 08/29/2022 10:55 EDT [facility] Specific [place], Urine <=1.005 1.001 - 1.035 08/29/2022 10:55 EDT [facility] Blood UA Trace(A) Negative 08/29/2022 10:55 EDT [facility] pH, UA 7.0 4.6 - 8.0 08/29/2022 10:55 EDT [facility] Protein UA Negative Negative 08/29/2022 10:55 EDT [facility] Urobilinogen UA 0.2 0.2 , 1.0, Normal mg/dL 08/29/2022 10:55 [facility] Nitrite UA Negative Negative 08/29/2022 10:55 T [facility] Leukocyte Esterase UA 1+(A) Negative 08/29/2022 10:55 [facility] Urine URINE SPECIMEN COLLECTION, CLEAN CATCH / Unknown Urine Collect / Unknown 08/29/2022 10:10 EDT 08/29/2022 10:24 EDT us Darshan Loaiza MD URINALYSIS ORDERABLES Final Resu lt [facility] [address] [place] [address] documented in this encounter Visit Diagnoses Diagnosis Dysuria- Primary documented in this encounter Care Teams Activity Therapist Relationship Specialty Start Date End Date Sridevi Lozano NP [address] [place] [phone] PCP - General Family Medicine - Primary Care 12/27/21 documented as of this encounter
--- OUTSIDE RECORDS SUMMARY | 2024-04-13 12:59 | XMS_ITS | Encounter Summary ---
Author Organization [facility] Address [address] [place] [address] Care Team Providers Care Patient Portal Representative Name Role Phone Sridevi Lozano MANAGER SURGERY Primary Care Provider [phone] Reason for Referral * Radiology Services (Routine/Next Available) - Closed Specialty Diagnoses / Procedures Referred By Eboni tran Referred To Contact Diagnoses Encounter for screening mammogram for malignant neoplasm of breast Procedures MA BREAST SCREENING CHARLES BILATERAL Sridevi Lozano NP Phone: tel: fax: [facility] Referral ID Status Reason Start Date Expiration Date Visits Re quested Visits Authorized [id number] Closed 03/07/2022 1 1 Reason for Visit * Radiology Services (Routine/Next Available) - Closed Specialty Diagnoses / Procedures Referred By Eboni tran Referred To Contact Diagnoses Encounter for screening mammogram for malignant neoplasm of breast Procedures MA BREAST SCREENING CHARLES BILATERAL Sridevi Lozano NP Phone: tel: fax: [facility] Referral ID Status Reason Start Date Expiration Date Visits Re quested Visits Authorized [id number] Closed 03/07/2022 1 1 Encounter Details Date Type Department Care Team (Latest Contact Info) Description 09/16/2022 12:55 EDT - 09/16/2022 23:59 EDT Hospital Encounter [facility] - [facility] Mammography [address] [place], [place] [phone] Encounter for screening mammogram for malignant neoplasm of breast Discharge Disposition: Home or Self Care Social [...] 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 90 Tablet 05/08/2021 01/05/2023 cranberry-vitamin C-mannose 250-30-50 mg tablet,chewable Take by mouth. 12/30/2023 lisinopriL (PRINIVIL) 40 mg tablet Take 1 Tablet by mouth daily. 90 Tablet 2 08/01/2022 05/26/2023 documented as of this encounter Discharge Disposition Disposition Code Departure Means Destination Home or Self Care documented in this encounter Plan of Treatment Upcoming Encounters Date Type Department Care Team (Late st Contact Info) Description 05/06/2024 13:40 EST Office Visit [facility] Dermatology [address] [facility], [place] [address] Renetta Kidd MD [address] [place] [address], [facility] [address] [place] [address] 05/23/2024 15:15 EST Office Visit [facility] [address] [place] [address] Sridevi Lozano NP [address] [place] [phone] documented as of this encounter Procedures Procedure Name Priority Date/Time Associated Diagnosis Comments MA BREAST SCREENING CHARLES BILATERAL Routine 09/16/2022 13:26 EDT Encounter for screening mammogram for malignant neoplasm of breast documented in this encounter Results * MA BREAST SCREENING CHARLES BILATERAL (09/16/2022 [...] is needed we will contact yourpatient directly. Sridevi Lozano NP IMG MAMMOGRAPHY ORDERABLES F inal Result documented in this encounter Visit Diagnoses Diagnosis Encounter for screening mammogram for malignant neoplasm of breast Other screening mammogram documented in this encounter Care Teams Patient Portal Representative Relationship Specialty Start Date End Date Sridevi Lozano, MANAGER SURGERY [address] [place] [phone] PCP - General Family Medicine - Primary Care 12/27/21 documented as of this encounter
--- OUTSIDE RECORDS SUMMARY | 2024-04-13 12:59 | XMS_ITS | Encounter Summary ---
Author Organization [facility] Address [address] [place] [address] Care Team Providers Care Hamper Maker Name Role Phone Sridevi Lozano POULTRY DRESSING WORKER Primary Care Provider [phone] Reason for Referral * PT/OT/ST (Routine/Next Available) - Closed Specialty Diagnoses / Procedures Referred By Eboni t Referred To Contact Diagnoses Arthritis of left sacroiliac joint ([facility]) Yue Chacko PA-C [address] [place] [address] Phone: tel: fax: Referral ID Status Reason Start Date Expiration Date V isits Requested Visits Authorized [id number] Closed Specialty Services Required 12/22/2023 1 1 Question Answer Reason for Request: sacroiliac joint pain on the left SITE Amanda PT in [place] Comments Strengthening and/or realignment * Consult (Routine/Next Available) - Specialty Report Received Specialty Diagnoses / Procedures Referred By Conttawanda t Referred To Contact Family Medicine Diagnoses Arthritis of left sacroiliac joint ([facility]) Yue Chacko PA-C [address] [place] [address] Phone: tel: fax: Inga Wan MD [address] [place] [address] Phone: tel: fax: Referral ID Status Reason Start Date Expiration Date Visits Requested Visits Authorized [id number] Specialty Report Received Specialty Services Required 12/22/2023 1 1 Question Answer Possible procedure: Joint aspiration/injection Reason for Request: left US guided SI joint injection Reason for Visit * Reason Comments Follow-up * Consult (Routine/Next Available) - Specialty Report Received Specialty Diagnoses / Procedures Referred By Eboni tran Referred To Contact Orthopedic Surgery Diagnoses Chronic low back pain, unspecified back pain laterality, unspecified whether sciatica present Sridevi Lozano, JAYME [address] [place] [phone] Phone: tel: fax: [facility] [address] [place] [address] Phone: tel: fax: Referral ID Status Reason Start Date Expiration Date Visits Requested Visits Authorized [id number] Specialty Report Received Specialty Services Required 09/30/2023 1 1 Encounter Details Date Type Department Care Team (Late st Contact Info) Description 12/22/2023 14:[address] 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 Not on file No t on file documented as of this encounter Last Filed Vital Signs Vital Sign Reading Time Taken Comments Blood Pressure 120/62 12/22/2023 1449 EDT Pulse 80 12/22/2023 1449 EDT Temperature - - Respiratory Rate - - Oxygen Saturation 97% 12/22/2023 1449 EDT Inhaled Oxygen Concentration - - Weight 62.4 kg (137 lb 9.6 oz) 12/22/2023 1449 E DT Height 164.5 cm (5' 4.75) 12/22/2023 1449 EDT Body Mass Index 23.07 12/22/2023 1449 EDT documented in this encounter Functional Status [...] documented in this encounter Progress Notes * Yue Chacko PA-C - 12/22/2023 1430 EDT History of Present Illness: Trav Velázquez is a 63-year-old female with history of hyperlipidemia and hypertension presenting for evaluation of chronic low back pain. I have seen the patient in the past with last visit being 01/23/2021 at which time the patient had 100% left greater than right low back pain that was worse with sitting after a days worth of baking and then trying to return to an upright position. Sitting itself is not uncomfortable, but the transition after sitting for a while to a standing position is difficult, and she found it difficult to get into a fully upright position. Patient noted at the time that she had a routine of stretching and doing exercises every morning which helped loosen her up. She had tried acupuncture for several weeks without improvement, and chiropractics which did give her some relief. We had discussed trialing physical therapy to develop a home exercise program and following up afterwards. Recently, she was seen by her primary care officeon 09/30/2023, and at her visit she had noted that she had an injection in her back in [place] with minimal relief. She was having low back pain that would wake her at night and which she described as sharp and shooting. Had tried heat, ice, Tylenol, and ibuprofen. Today, Trav presents for predominantly left-sided low back pain in the region of her sacroiliac joint. It has worsened over time, and sitting in a car any length of time makes it worse, again withdifficulty getting to her. She is out of the car. She also is being woken during the night with pain in the low back, and in the morning it is about 10 minutes before she can move normally. She findsit is difficult to get her left shoe off compared to the right. Denies any pain numbness or tingling radiating down her leg. She does still have some right lateral hip pain, previously diagnosed as agreater trochanteric bursitis. She was in [place] and had a lumbar epidural steroid injection that aggravated her pain, andalso a right greater trochanteric bursa injection at a different time with no improvement in pain. Conservative Treatment: Meds: Tylenol, ibuprofen PT: In the past for her low back pain without significant improvement Saw Arlene Myers scoliosis based physical therapy without significant relief HEP: Performs some of her exercises regularly Other: Acupuncture and chiropractics in the past, he denies Injection History: Per her report, lumbar GEORGINA with increased pain spring 2023 in [place] Right greater trochanteric bursa injection late winter 2022 no relief Review of Systems: As per HPI. I reviewed medications, allergies, medical, surgical and social history with the patient. Physical Examination: Current pain: 7 out of 10 Pain at worst: 8 out of 10 Well developed, well-nourished 63-year-old female, in no acute distress, appearing fairly comfortable HEENT without gross abnormalities Breathing non-labored Skin is warm and dry Patient stands with upright posture. Some notable winging of the left scapula Palpation reveals tenderness over her left sacroiliac joint. Nontender over lumbar spinous processes, mild tenderness over the paraspinal musculature bilaterally in the lower lumbar spine. Some tenderness over the right greater trochanter Ambulates with normal gait Heel and toe walking not tested Range of motion of lumbar spine is somewhat limited in forward flexion secondary to pain in the left low back. Also has some mild increase in pain noted left lateral bending Strength: 5 out of 5 bilateral hip and knee flexion extension, ankle dorsiflexion, plantarflexion. 4 out of 5 left EHL compared to right Sensation: Intact to light touch bilateral lower extremities DTRs: Bilateral patellar 2+, Achilles 1+ and equal Provocative maneuvers: Positive Bethany sign on the right causing increased lateral hip pain, and on the left increasing low back pain Positive thigh thrust test on the left, negative on the right Image Review: CT of the abdomen and pelvis was done 09/30/2022 shows evidence of your levoscoliosis at L2-3. Show no spinal or foraminal stenosis appreciable. She did have varying areas of foraminal narrowing. Some advanced facet arthrosis, and disc degeneration left greater than right at the lumbosacral junction. Assessment: Advanced thoracolumbar scoliosis Left low back pain Left sacroiliac joint pain Right greater trochanteric bursitis Trav Velázquez is a pleasant straightforward 63-year-old female presenting for evaluation of left-sided low back pain that seems most consistent clinically with sacroiliac joint pain. She does have other pain generators in the same region including asymmetric left disc degeneration at L5-S1, left L5-S1 foraminal stenosis, and facet hypertrophy. I suggested that we follow the clinical exam, and consider moving forward with a diagnostic and therapeutic sacroiliac joint injection. Also suggested visiting with physical therapy for further treatment of this as well. She is happy with this planand we will plan on following up after the injection to reevaluate. Patient encouraged to call with any questions, concerns, or worsening of condition. I spent a total of 40 minutes on the date of this encounter meeting with the patient and reviewing documentation/coordinating care as described in the above note. Plan: Left ultrasound-guided SI joint injection Physical therapy Follow-up after the above is complete This document was produced using Joinity[employer]. Please excuse any grammatical or verbal errors. documented in this encounter Plan of Treatment Upcoming Encounters Date Type Department Care Team (Late st Contact Info) Description 05/06/2024 13:[address] [facility] Dermatology [address] [facility], [place] [address] Renetta Kidd MD [address] [place] [address], [address] [place] [phone] 05/23/2024 15:15 EST Office Visit [facility] [address] [place] [address] Sridevi Lozano NP [address] [place] [phone] Scheduled Referrals Name Type Priority Associated Diagnoses Order Schedule AMB CONS/FOLLOW UP [place]ILY MEDIC[place] PROCEDURE [place] [facility] [place]erral Routine/Next Available Arthritis of left sacroiliac joint Expected: 12/29/2023 (Approximate), Expires: 12/21/2024 AMB CONS/FOLLOW UP PHYSICAL THERAPY - [facility] Outpatient Referral Routine/Next Available Arthritis of left sacroiliac joint Expected: 12/29/2023 (Approximate), Expires: 12/21/2024 documented as of this encounter Visit Diagnoses Diagnosis Arthritis of left sacroiliac joint ([facility])- Primary Chronic left-sided low back pain without sciatica Greater trochanteric bursitis of right hip Enthesopathy of hip region Scoliosis of thoracolumbar spine, unspecified scoliosis type documented in this encounter Care Teams Hamper Maker Relationship Specialty Start Date End Date Sridevi Lozano NP [address] [place] [phone] PCP - General Family Medicine - Primary Care 12/27/21 documented as of this encounter
--- OUTSIDE RECORDS SUMMARY | 2024-04-13 12:59 | XMS_ITS | Encounter Summary ---
Author Organization [facility] Address [address] [place] [address] Care Team Providers Care Short Filler Bunch Machine Operator Name Role Phone Sridevi Lozano STARCH COOKER Primary Care Provider [phone] Reason for Visit * Reason Onset Date Comments Medications Refill 05/26/2023 Encounter Details Date Type Department Care Team (Late st Contact Info) Description 05/26/[address] [place], [place] [phone] Priya Araya, MALLORY Medications Refill Social History Tobacco Use Types Packs/Day Years Used Date Smoking Tobacco: Former Cigarettes 1 15 974 - 1988 Smokeless Tobacco: Never Alcohol [...] 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 90 Tablet 05/26/2023 09/11/2023 documented in this encounter Miscellaneous Notes * Telephone Encounter - Priya Araya RN - 05/26/2023 1529 EST Requested Prescriptions Pending Prescriptions Disp Refills lisinopriL (PRINIVIL) 40 mg tablet 90 Tablet 2 Sig: Take 1 Tablet by mouth daily. Last Refill Date: 08/01/22 Labs completed? Yes VPMS: N/A Most Recent Appt: 01/28/23 Upcoming Appt: 09/02/23 PRIYA ARAYA RN 05/26/2023 15:30 documented in this encounter Plan of Treatment Upcoming Encounters Date Type Department Care Team (Late st Contact Info) Description 05/06/2024 13:40 EST Office Visit [facility] Dermatology [address] [place] [address], [place] [address] Renetta Kidd MD [address] [place] [address], [facility] [address] [place] [phone] 05/23/2024 15:15 EST [facility] [address] [place] [phone] Sridevi Lozano NP [address] [place] [phone] documented as of this encounter Visit Diagnoses Not on filedocumented in this encounter Discontinued Medications Medication Sig Discontinue Reason Start Date End Da te lisinopriL (PRINIVIL) 40 mg tablet Take 1 Tablet by mouth daily. Reorder 08/01/2022 05/26/2023 documented as of this encounter Care Teams Short Filler Bunch Machine Operator Relationship Specialty Start Date End Date Sridevi Lozano, STARCH COOKER [address] [place] [phone] PCP - General Family Medicine - Primary Care 12/27/21 documented as of this encounter
--- OUTSIDE RECORDS SUMMARY | 2024-04-13 12:59 | XMS_ITS | Encounter Summary ---
Author Organization [facility] Address [address] [place] [address] Care Team Providers Care Insurance Premium Auditor Name Role Phone Sridevi Lozano NUTRITION SERVICES ASSOCIATE Primary Care Provider [phone] Reason for Referral * Consult (Routine/Next Available) - Authorization Not Required Specialty Diagnoses / Procedures Referred By Eboni t Referred To Contact Dermatology Diagnoses Skin lesion Sridevi Lozano NP [address] [place] [address] Phone: tel: fax: [facility] Dermatology [address] [place] [address] Phone: tel: fax: Referral ID Status Reason Start Date Expiration Date Visits Requested Visits Authorized [id number] Authorization Not Required Specialty Services Required 09/30/2023 1 1 Question Answer Reason for Request: likely seborrheic keratosis to right forehead, growing in size, patient request removal, given location referral to derm to minimize scarring * Consult (Routine/Next Available) - Specialty Report Received Specialty Diagnoses / Procedures Referred By Eboni t Referred To Contact Orthopedic Surgery Diagnoses Chronic low back pain, unspecified back pain laterality, unspecified whether sciatica present Sridevi Lozano NP [address] [place] [address] Phone: tel: fax: [facility] Orthopedics & Sp[facility] Medicine [address] [place] [address] Phone: tel: fax: Referral ID Status Reason Start Date Expiration Date Visits Requested Visits Authorized [id number] Specialty Report Received Specialty Services Required 09/30/2023 1 1 Question Answer Reason for Request: Chronic low back pain, had 1 injection while living in [place], interested in ongoing f/u here * Referral (Routine/Next Available) - Authorization Not Required Specialty Diagnoses / Procedures Referred By Conttawanda t Referred To Contact Diagnoses Screening for malignant neoplasm of colon Procedures COLONOSCOPY Sridevi Lozano NP [address] [place] [phone] Phone: tel: fax: Referral ID Status Reason Start Date Expiration Date Visits Requested Visits Authorized [id number] Authorization Not Required 09/25/2023 1 1 Reason for Visit * Reason Comments Follow-up Lower back pain, cau sing her to not be able to sleep, has had imaging and cortisone shots and nothing is helpingAlternative options for colonoscopy since [facility] is scheduling so far out Encounter Details Date Type Department Care Team (Late st Contact Info) Description 09/25/2023 9:45 EDT Office Visit [facility] - [address] [address] Sridevi Lozano NP [address] [place] [phone] Chronic low back pain, unspecified back pain laterality, unspecified whether sciatica present (Primary Dx); Screening for malignant neoplasm of colon; Skin lesion Social History Tobacco Use Types Packs/Day Years [...] 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 No t on file documented as of this encounter Last Filed Vital Signs Vital Sign Reading Time Taken Comments Blood Pressure 126/86 09/25/2023 0943 EDT Pulse 68 09/25/2023 0943 EDT Temperature - - Respiratory Rate - - Oxygen Saturation - - Inhaled Oxygen Concentration - - Weight 61.5 kg (135 lb 9.6 oz) 09/25/2023 0943 E DT Height - - Body Mass Index 22.05 09/03/2022 0934 EDT documented in this encounter [...] Refills Last Filled Start Date End Date bisacodyL (DULCOLAX) 5 mg EC tabletIndications: Screening for malignant neoplasm of colon Take as directed prior to procedure (see provided instructions). 4 Tablet 09/25/2023 4 polyethylene glycol (MIRALAX) 17 gram/dose powderIndications: Screening for malignant neoplasm of colon Dissolve mixture and drink as directed prior to procedure (see provided instructions). 238 g 09/25/2023 4 gabapentin (NEURONTIN) 100 mg capsuleIndications :Chronic low back pain, unspecified back pain laterality, unspecified whether sciatica present Take 1 Capsule by mouth 3 times daily. 30 Capsule 2 09/25/2023 4 documented in this encounter Progress Notes * Sridevi Bianchi NP - 09/25/2023 0945 EDT CHIEF COMPLAINT: Chief Complaint Patient presents with Follow-up Lower back pain, causing her to not be able to sleep, has had imaging and cortisone shots and nothing is helping Alternative options for colonoscopy since [facility] is scheduling so far out HPI: Trav Velázquez, a 63 y.o. female who presents today for f/u back pain, skin lesion, and colon screening Back pain- Chronic, history of degenerative disc disease as well as scoliosis. Recently living [place] While there had a back injection which provided minimal relief. She reports currently experiencing low back pain that frequently wakes her at night time. Describes pain as sharp and shooting.Has tried heat, ice, tylenol, and ibuprofen with little improvement. Interested in connecting with local spine clinic to continue to work on her back pain. Skin lesion- Lesion to right scalp/forehead area. Feels it has grown in size. Sometimes a little itchy, no bleeding. Requesting derm referral for removal. Colonoscopy- Due for screening, feels she will need anesthesia as her last colo was extremely painful. ROS: I've done a Review of Systems [...] 1Tablet by mouth daily.) 180 Tablet 3 cranberry-vitamin C-mannose 250-30-50 mg tablet,chewable Take by mouth. lisinopriL (PRINIVIL) 40 mg tablet Take 1 Tablet by mouth daily. 90 Tablet 0 No current facility-administered medications on file prior to visit. No Known Allergies No past medical history on file. Social History Tobacco Use Smoking status: Former Current packs/day: 0.00 Average packs/day: 1 pack/day for 15.0 years (15.0 ttl pk-yrs) Types: Cigarettes Start date: 1973 Quit date: 1988 Years since quittin.4 Smokeless tobacco: Never Vaping Use Vaping status: Never Used Substance Use Topics Alcohol use: Yes Alcohol/week: 10.0 standard drinks of alcohol Types: 10 Standard drinks or equivalent per week Drug use: Not Currently Types: Marijuana PHYSICAL EXAMINATION: Objective: Vitals: BP 126/86 Pulse 68 Wt 61.5 kg (135 lb 9.6 oz) BMI 22.05 kg/m?? GENERAL APPEARANCE: NAD, pleasant, well-appearing, alert and oriented. HEART: regular rate MSK: independent steady gait. Normal ROM. Strength intact. EXTREMITIES: No pedal edema. SKIN: brown stuck on lesion to right upper forehead along hairline. IMPRESSION/PLAN: 1. Chronic low back pain, unspecified back pain laterality, unspecified whether sciatica present gabapentin (NEURONTIN) 100 mg capsule AMB CONS/FOLLOW UP ORTHOPEDICS - [facility] 2. Screening for malignant neoplasm of colon COLONOSCOPY polyethylene glycol (MIRALAX) 17 gram/dose powder bisacodyL (DULCOLAX) 5 mg EC tablet 3. Skin lesion AMB CONS/FOLLOW UP DERMATOLOGY 1. Chronic low back pain, unspecified back pain laterality, unspecified whether sciatica present Chronic lower back pain primarily left side. Was seen in [place], given one steroid injection with little relief. Pain waking her at night time. No improvement with conservative treatment. Interested in referral to spine clinic locally to consider if another injection or additional treatments recommended. Will send prescription for gabapentin. Reviewed medication profile as well as most common and concerning side effects, dose can be further titrated PRN. - gabapentin (NEURONTIN) 100 mg capsule; Take 1 Capsule by mouth 3 times daily. Dispense: 30 Capsule; Refill: 2 - AMB CONS/FOLLOW UP ORTHOPEDICS [facility]; Future 2. Screening for malignant neoplasm of colon Referral placed to [place] - COLONOSCOPY; Future - polyethylene glycol (MIRALAX) 17 gram/dose powder; Dissolve mixture and drink as directed prior to procedure (see provided instructions). Dispense: 238 g; Refill: 0 - bisacodyL (DULCOLAX) 5 mg EC tablet; Take as directed prior to procedure (see provided instructions). Dispense: 4 Tablet; Refill: 0 3. Skin lesion Chronic, appearance consistent with seborrheic keratosis. Growing in size and irritating to patient. Requesting removal. Referral placed to derm given location and risk of scarring. - AMB CONS/FOLLOW UP DERMATOLOGY; Future This note was prepared using voice recognition software and the EMR. There may be inadvertent errors and omissions. Sridevi Bianchi NP 09/30/2023 7:21 documented in this encounter Plan of Treatment Upcoming Encounters Date Type Department Care Team (Late st Contact Info) Description 05/06/2024 13:40 EST Office Visit [facility] Dermatology [address] [facility], [place] [address] Renetta Kidd MD [address] [place] [address] [address] [place] [phone] 05/23/2024 15:15 EST Office Visit [address] [phone] Sridevi Lozano NP [address] [place] [phone] Scheduled Orders Name Type Priority Associated Diagnoses Orde r Schedule COLONOSCOPY GI Routine Screening for malignant neoplasm of colon Expected: 09/26/2023 (Approximate), Expires: 03/26/2025 Scheduled Referrals Name Type Priority Associated Diagnoses Order Schedule AMB CONS/FOLLOW UP ORTHOPEDICS - [facility] Outpatient Referral Routine/Next Available Chronic low back pain, unspecified back pain laterality, unspecified whether sciatica present Expected: 10/07/2023 (Approximate), Expires: 09/29/2024 AMB CONS/FOLLOW UP DERMATOLOGY Outpatient Referral Routine/Next Available Skin lesion Expected: 10/07/2023 (Approximate), Expires: 09/29/2024 documented as of this encounter Visit Diagnoses Diagnosis Chronic low back pain, unspecified back pain laterality, unspecified whether sciatica present- Primary Screening for malignant neoplasm of colon Skin lesion Unspecified disorder of skin and subcutaneous tissue documented in this encounter Care Teams Insurance Premium Auditor Relationship Specialty Start Date End Date Sridevi Lozano NP [address] [place] [phone] PCP - General Family Medicine - Primary Care 12/27/21 documented as of this encounter
--- OUTSIDE RECORDS SUMMARY | 2024-04-13 12:59 | XMS_ITS | Encounter Summary ---
Author Organization [facility] Address [address] [place] [address] Care Team Providers Care Advisory Intern Name Role Phone Sridevi Lozano FELT HAT INSPECTOR AND PACKER Primary Care Provider [phone] Reason for Visit * Reason Onset Date Comments Urinary Tract Infection 12/30/2022 triage Encounter Details Date Type Department Care Team (Late st Contact Info) Description 12/30/2022 Telephone [facility] [address] [place], [place] [phone] Sridevi Lozano, FELT HAT INSPECTOR AND PACKER [address] [place] [phone] Urinary Tract Infection (triage) Social History Tobacco Use Types Packs/Day Years [...] 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 10 Tablet 12/30/2022 01/04/2023 documented in this encounter Miscellaneous Notes * Telephone Encounter - Emily Araya RN - 12/30/2022 1143 EDT Patient informed, verbalized understanding. * Telephone Encounter - Leonardo Jalloh NP - 12/30/2022 1139 EDT Thank you for update, I reviewed urology note and history, given symptoms, reasonable to treat withcourse of Bactrim twice daily x5 days. I have sent prescription to her pharmacy. * Telephone Encounter - Emily Araya RN - 12/30/2022 1048 EDT Patient denies fever/chills, frequency, urgency, burning, or back pain. Denies hematuria, but reports strong odor and urine is cloudy. She denies ever experiencing 'typical' UTI symptoms. Denies any back pain as well. She reports that she has history of recurrent UTI's and knows that she has one right now. She was last seen by a Urologist that told her that she will always have ecoli in her urineand she is wondering is she should be treated or not. * Telephone Encounter - Leonardo Jalloh NP - 12/30/2022 1046 EDT Please call patient and triage UTI symptoms. It looks like she has had several E. coli UTIs including 03/2022, 04/2022, 06/2022, and 08/2022. Please find out how many days she has been having symptoms, frequency, urgency, burning? Fever/chills? Blood in urine? Back pain? She called on-call MD on 12/28/2022 and is currently on Paxlovid for COVID-19. * Telephone Encounter - Arlene Bran - 12/30/2022 1016 EDT See 12/28 TE for reference-patient states she is positive for COVID (12/28), calling to cxl 01/01 appt. Per appt notes appt is for f/u [facility] urology consult-flipped appt to video to discuss consult. Patient also states she has reoccurring UTIs which is why she was coming in this week as she has another one. Please call patient to discuss what can be done for the UTI since she is positive for COVID. EC an option? documented in this encounter Plan of Treatment Upcoming Encounters Date Type Department Care Team (Late st Contact Info) Description 05/06/2024 13:40 EST Office Visit [facility] Dermatology [address] [facility], [place], [place] [address] Renetta Kidd MD [address] [place] [address], [facility] [address] [place] [phone] 05/23/2024 15:15 EST Office Visit [address] [phone] Sridevi Lozano NP [address] [place] [phone] documented as of this encounter Visit Diagnoses Not on filedocumented in this encounter Care Teams Advisory Intern Relationship Specialty Start Date End Date Sridevi Lozano NP [address] [place] [phone] PCP - General Family Medicine - Primary Care 12/27/21 documented as of this encounter
--- OUTSIDE RECORDS SUMMARY | 2024-04-13 12:59 | XMS_ITS | Encounter Summary ---
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 Closing TE. * Telephone Encounter - Tiffanie Hightower RN - 01/28/2023 1029 EDT TCLMOM advising pt she should be seen in the office, either today or at least this week. Please schedule when she calls back. * Telephone Encounter - Arlene Bran - 01/28/2023 0958 EDT Patient states her blood pressure has been bit high, earlier today 148/85 and now 160/87. Does havepressure behind eyes and headache. Seems heart is racing a bit at times. Does take meds for blod pressure. Please call to discuss. documented in this encounter Plan of Treatment Upcoming Encounters Date Type Department Care Team (Late st Contact Info) Description 05/06/2024 13:40 EST Office Visit [facility] Dermatology [address] [facility], [place] [address] Renetta Kidd MD [address] [place] [address], [address] [place] [phone] 05/23/2024 15:15 EST Office Visit [address] [place], [place] [address] Sridevi Lozano NP [address] [place] [phone] documented as of this encounter Visit Diagnoses Not on filedocumented in this encounter Care Teams Railroad Inspector Relationship Specialty Start Date End Date Sridevi Lozano NP [address] [place] [phone] PCP - General Family Medicine - Primary Care 12/27/21 documented as of this encounter
--- OUTSIDE RECORDS SUMMARY | 2024-04-13 12:59 | XMS_ITS | Encounter Summary ---
Author Organization [facility] Address [address] [place] [address] Care Team Providers Care Grievance And Appeals Coordinator Name Role Phone Sridevi Lozano NP Primary Care Provider [phone] Reason for Visit * Reason Comments Back Pain Encounter Details Date Type Department Care Team (Late st Contact Info) Description 12/30/2023 8:[address] 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 History of multiple injections in the past year for various musculoskeletal issues. Concerns about the frequency of steroid injections and potential impact on bone health. - Proceed with left sacroiliac joint injection for both diagnostic and therapeutic purposes. - If beneficial, can repeat in three months or as needed, whichever is later. Osteoporosis Risk No known history of osteoporosis, but frequent steroid injections and age over 65 increase risk. Norecent DEXA scan. - Recommend follow up with primary care provider for DEXA scan to assess bone density. Diagnoses and all orders for this visit: Chronic left sacroiliac joint pain - methylPREDNISolone ACETATE (DEPO-MEDROL) injection 40 mg - lidocaine (PF) 10 mg/mL (1 %) injection 2 mL Other orders - ascorbic acid, vitamin C, (VITAMIN C) 500 mg tablet and Return if symptoms worsen or fail to improve. Patient education was direct. Barriers were assessed and addressed as needed. Procedure Note: Left Sacrotuberous Ligament, ultrasound-guided. Written consent obtained. Timeout performed and site confirmed with patient. Area identified with palpation and confirmed with ultrasound, and prepped with 2 chlorhexidine swab. Under no-touch technique, sacrotuberous ligament was fenestrated and 2 cc 1% lidocaine without epinephrine and 40mg depomedrol were injected under ultrasound guidance using a 22g needle. Sterile dressing applied. Patient tolerated the procedure well. No apparent complications. EBL minimal. The patient was counseled on post-injection care, including to anticipate an increase in discomfort for 24-48 hours, ice 20 mins TID x 24 hrs PRN discomfort, NSAIDs PRN discomfort, and to avoid PT and/or exacerbating activites for5 days. Anticipate full effect of the injection will not be appreciated for 3-5 days. Call the office if pain worsens significantly, the joint becomes red/hot, or systemic symptoms develop. Janeth Ravi is a 63 y.o. female presenting with Back Pain History of Present Illness The patient, referred by Mel Chacko, presents for a left sacroiliac joint injection. She has a history of severe scoliosis and has received three injections in the past year for various issues, including bursitis in the right hip, right shoulder pain, and left lumbar GEORGINA. The injections were administered in [place] and provided varying degrees of relief. The shoulder injection completelyalleviated the pain, while the lumbar GEORGINA seemed to exacerbate the pain in the sacroiliac region. She is wondering how many injections she can get. No known history of osteoporosis. DEXA not performed yet. Data reviewed this visit: problem list/past medical history, current medications, allergies, and recent specialist documentation Objective There were no vitals taken for this visit. Physical Exam Gen: AOx3 Resp: NAD HEENT: sclera nonicteric Psych: appropriate Neuro: CN grossly intact, gait non antalgic Skin: WWP without prominent rashes MSK: TTP left SI joint. Stiff sit-stand. I discussed with Trav Velázquez the use of this audio recording tool to create a clinical note.I explained the benefits of the technology, such as time savings and a better patient experience. Iexplained that the recording will be confidential and converted into a written note which I will review and edit as needed before it is saved in the medical record. The patient expressed an understanding of the use of this technology for clinical documentation and agreed to allow its use for this encounter. documented in this encounter Plan of Treatment Upcoming Encounters Date Type Department Care Team (Late st Contact Info) Description 05/06/2024 13:[address] [facility] Dermatology [address] [facility], [place] [address] Renetta Kidd MD [address] [place] [address], [address] [place] [phone] 05/23/2024 15:15 EST Office Visit [facility] [address] [place] [address] Sridevi Lozano NP [address] [place] [phone] documented as of this encounter Visit Diagnoses Diagnosis Chronic left sacroiliac joint pain- Primary Disorders of sacrum documented in this encounter Administered Medications Inactive Administered Medications - up to 3 most recent administrations Medication Order MAR Action Action Date Dose Rate Site lidocaine (PF) 10 mg/mL (1 %) injection 2 mL 2 mL, intra-articular, NOW X1, 1 dose, On Thu12/30/23 at 0900, RoutineIndications:Chronic left sacroiliac joint pain Given 12/30/2023 9:41 EDT 2 mL Left Hip methylPREDNISolone ACETATE (DEPO-MEDROL) injection 40 mg 40 mg, intra-articular, NOW X1, 1 dose, On Thu12/30/23 at 0900, RoutineIndications:Chronic left sacroiliac joint pain Given 12/30/2023 9:43 EDT 40 mg Left Hip documented in this encounter Discontinued Medications Medication Sig Discontinue Reason Start Date End Da te bisacodyL (DULCOLAX) 5 mg EC tabletIndications:Mao alves for malignant neoplasm of colon Take as directed prior to procedure (see provided instructions). Therapy completed 09/25/2023 12/30/2023 cranberry-vitamin C-mannose 250-30-50 mg tablet,chewable Take by mouth. Therapy completed 12/30/2023 polyethylene glycol (MIRALAX) 17 gram/dose powderIndications:Mao alves for malignant neoplasm of colon Dissolve mixture and drink as directed prior to procedure (see provided instructions). Therapy completed 09/25/2023 12/30/2023 documented as of this encounter Historical Medications * This list may reflect changes made after this encounter. ascorbic acid, vitamin C, (VITAMIN C) 500 mg tablet Take 1 Tablet by mouth daily. added in this encounter Care Teams Grievance And Appeals Coordinator Relationship Specialty Start Date End Date Sridevi Lozano NP [address] [place] [phone] PCP - General Family Medicine - Primary Care 12/27/21 documented as of this encounter
--- OUTSIDE RECORDS SUMMARY | 2024-04-13 12:59 | XMS_ITS | Encounter Summary ---
Author Organization [facility] Address [address] [place] [address] Care Team Providers Care Bitumastic Applier Name Role Phone Sridevi Lozano BRAKE COUPLER DINKEY Primary Care Provider [phone] Reason for Visit * Reason Onset Date Comments Paperwork request 10/07/2022 Encounter Details Date Type Department Care Team (Late st Contact Info) Description 10/07/2022 Telephone 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 Patients name was spelt wrong. I called [facility] and let them know they had spelt the patients name incorrectly and requested them to refax the document over. [facility] will refax document with correct patient's name. documented in this encounter Plan of Treatment Upcoming Encounters Date Type Department Care Team (Late st Contact Info) Description 05/06/2024 13:40 EST Office Visit [facility] Dermatology [address] [facility], [place] [address] Renetta Kidd MD [address] [facility], [address] [place] [address] 05/23/2024 15:15 EST Office Visit [facility] [address] [phone] Sridevi Lozano NP [address] [place] [phone] documented as of this encounter Visit Diagnoses Not on filedocumented in this encounter Care Teams Bitumastic Applier Relationship Specialty Start Date End Date Sridevi Lozano NP [address] [place] [phone] PCP - General Family Medicine - Primary Care 12/27/21 documented as of this encounter
--- OUTSIDE RECORDS SUMMARY | 2024-04-13 12:59 | XMS_ITS | Encounter Summary ---
Author Organization [facility] Address [address] [place] [address] Care Team Providers Care Sock Knitter Name Role Phone Sridevi Lozano PATTERN AND CHAIN MAKER Primary Care Provider [phone] Reason for Referral * Consult (Routine/Next Available) - Specialty Report Received Specialty Diagnoses / Procedures [facility]erred By [facility] Referred To Contact Diagnoses Recurrent UTI Sridevi Lozano NP Phone: tel: fax: Urology, [address] Phone: tel: fax: Referral ID Status Reason Start Date Expiration Date Visits Requested Visits Authorized [id number] Specialty Report Received Specialty Services Required 09/02/2022 1 1 Question Answer Reason for Request: recurrent UTIs. current urologist leaving, requesting referral to [facility], not currently on prophylatic treatment SITE [facility] urology Reason for Visit * Reason Comments Other Red spot on nose (wo uld like referral to Dermatology) Encounter Details Date Type Department Care Team (Late st Contact Info) Description 08/29/2022 16:30 EDT Office Visit [facility] [address] [place] [address] Sridevi Lozano NP [address] [place] [phone] Dysuria (Primary Dx); Telangiectasia; Recurrent UTI Social History Tobacco Use Types Packs/Day Years Used Date Smoking Tobacco: Former Cigarettes 1 15 1 4 - 1988 Smokeless Tobacco: Never Tobacco Cessation:Counseling [...] 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 on file documented as of this encounter Last Filed Vital Signs Vital Sign Reading Time Taken Comments Blood Pressure 120/78 08/29/2022 1622 EDT Pulse 120 08/29/2022 1622 EDT Temperature 36.5 ??C (97.7 ??F) 08/29/2022 1622 EDT Respiratory Rate - - Oxygen Saturation - - Inhaled Oxygen Concentration - - Weight 53.6 kg (118 lb 3.2 oz) 08/29/2022 1622 E DT Height - - Body Mass Index 19.67 06/17/2022 1104 EST documented in this encounter Functional Status * [...] Refills Last Filled Start Date End Date cephalexin (KEFLEX) 500 mg capsuleIndications :Dysuria Take 1 Capsule by mouth 2 times daily for 7 days. 14 Capsule 08/29/2022 3 documented in this encounter Progress Notes * Sridevi Bianchi, JAYME - 08/29/2022 1630 EDT CHIEF COMPLAINT: Chief Complaint Patient presents with ??? Other Red spot on nose (would like referral to Dermatology) HPI: Travra Joseph Velázquez, a 62 y.o. female who presents today for evaluation of skin lesion and to discuss UTI symptoms. Skin lesion- Skin lesion tip of nose. Red, at times a little painful. No bleeding. UTI- Symptoms over the last week. Has had frequent recurrent UTIs. Has been following with urology. Completed a urine sample for them today but has not heard about results yet. ROS: I've done a Review of Systems [...] 250-30-50 mg tablet,chewable Take by mouth. ??? ketOROLAC (ACULAR) 0.5 % ophthalmic solution (Patient not taking: Reported on 08/29/2022) ??? lisinopriL (PRINIVIL) 40 mg tablet Take 1 Tablet by mouth daily. 90 Tablet 2 ??? moxifloxacin (VIGAMOX) 0.5 % ophthalmic solution (Patient not taking: Reported on 08/29/2022) ??? prednisoLONE (PRED FORTE) 1 % ophthalmic suspension (Patient not taking: Reported on 08/29/2022) No current facility-administered medications on file prior to visit. No Known Allergies No past medical history on file. Social History Tobacco Use ??? Smoking status: Former Packs/day: 1.00 Years: 15.00 Pack years: 15.00 Types: Cigarettes Quit date: 1988 Years since quittin.3 ??? Smokeless tobacco: Never Vaping Use ??? Vaping Use: Never used Substance Use Topics ??? Alcohol use: Yes Alcohol/week: 10.0 standard drinks Types: 10 Standard drinks or equivalent per week ??? Drug use: Not Currently Types: Marijuana PHYSICAL EXAMINATION: Objective: Vitals: BP 120/78 Pulse (!) 120 Temp 36.5 ??C (97.7 ??F) (Oral) Wt 53.6 kg (118 lb 3.2 oz) BMI 19.67 kg/m?? GENERAL APPEARANCE: NAD, pleasant, well-appearing, alert and oriented. HEART: regular rate . SKIN: small telangiectasia nose. Benign in appearance. IMPRESSION/PLAN: 1. Dysuria cephalexin (KEFLEX) 500 mg capsule 2. Telangiectasia 3. Recurrent UTI AMB CONS/FOLLOW UP UROLOGY 1. Telangiectasia Reviewed physical exam with patient. Skin lesion consistent with telangiectasia. Discussed these are benign. Plan to monitor for now will hold on dermatology referral. 2. Dysuria Reviewed UA from urology. Trace blood + leuks. Given her history and it is the weekend will treat. Was treated with augmentin last time did not resolve symptoms. Based on last culture will send prescription for cephalexin. Reviewed medication profile as well as most common and concerning side effects. - cephalexin (KEFLEX) 500 mg capsule; Take 1 Capsule by mouth 2 times daily for 7 days. Dispense: 14 Capsule; Refill: 0 3. Recurrent UTI History of recurrent UTIs. Is not currently on prophylactic treatment. Has been following with MD Loaiza but was told he will be taking a leave. Will plan to establish [facility] with a new urologist forfurther work up. Referral sent to [facility]. - AMB CONS/FOLLOW UP UROLOGY; Future This note was prepared using voice recognition software and the EMR. There may be inadvertent errors and omissions. Sridevi Bianchi NP 09/02/2022 14:01 documented in this encounter Plan of Treatment Upcoming Encounters Date Type Department Care Team (Late st Contact Info) Description 05/06/2024 13:40 EST Office Visit [facility] Dermatology [address] [facility], [place] [address] Renetta Kidd MD [address] [place] [address], [facility] [address] [place] [address] 05/23/2024 15:15 EST Office Visit [address] [place] [address] Sridevi Lozano NP [address] [place] [phone] Scheduled Referrals Name Type Priority Associated Diagnoses Order Schedule AMB CONS/FOLLOW UP UROLOGY Outpatient Referral Routine/Next Available Recurrent UTI Expected: 09/09/2022 (Approximate), Expires: 09/03/2023 documented as of this encounter Visit Diagnoses Diagnosis Dysuria- Primary Telangiectasia Other and unspecified capillary diseases Recurrent UTI Urinary tract infection, site not specified documented in this encounter Discontinued Medications Medication Sig Discontinue Reason Start Date End Da te amoxicillin-clavulanat e (AUGMENTIN) 875-125 mg per tablet Take 1 Tablet by mouth every 12 hours. Therapy completed 07/07/2022 08/29/2022 prednisoLONE (PRED FORTE) 1 % ophthalmic suspension Patient Stopped Taking 05/21/2022 3 moxifloxacin (VIGAMOX) 0.5 % ophthalmic solution Patient Stopped Taking 05/21/2022 3 ketOROLAC (ACULAR) 0.5 % ophthalmic solution Patient Stopped Taking 05/21/202212/2022 documented as of this encounter Care Teams Sock Knitter Relationship Specialty Start Date End Date Sridevi Lozano NP [address] [place] [phone] PCP - General Family Medicine - Primary Care 12/27/21 documented as of this encounter
--- OUTSIDE RECORDS SUMMARY | 2024-04-13 12:59 | XMS_ITS | Encounter Summary ---
Author Organization [facility] Address [address] [place] [address] Care Team Providers Care Analysis Manager Name Role Phone Sridevi Lozano LOAN EXAMINER Primary Care Provider [phone] Reason for Visit * Radiology Services (Routine/Next Available) - Specialty Report Received Specialty Diagnoses / Procedures Referred By Eboni t Referred To Contact Diagnoses Postmenopausal state Other specified disorders of bone density and structure, multiple sites Procedures DXA BONE DENSITY Whitney Arias [address] [place] [address] Phone: tel: fax: [facility] Referral ID Status Reason Start Date Expiration Date V isits Requested Visits Authorized [id number] Specialty Report Received 01/04/2024 1 1 Encounter Details Date Type Department Care Team (Latest Contact Info) Description 01/20/2024 10:40 EDT Ancillary Procedure [facility] Endocrinology - [address] [phone] Postmenopausal state; Other specified disorders of bone [...] 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 No t on file documented as of this encounter Last Filed Vital Signs Vital Sign Reading Time Taken Comments Blood Pressure - - Pulse - - Temperature - - Respiratory Rate - - Oxygen Saturation - - Inhaled Oxygen Concentration - - Weight 58.8 kg (129 lb 9.6 oz) 01/20/2024 1043 E DT Height 163.4 cm (5' 4.33) 01/20/2024 1043 EDT Body Mass Index 22.02 01/20/2024 1043 EDT documented in this encounter Functional Status [...] Info) Description 05/06/2024 13:40 EST Office Visit [facility] Dermatology [address] [place] [address] Renetta Kidd MD [address] [place] [address], [facility] [address] [place] [address] 05/23/2024 15:15 EST Office Visit [address] [phone] Sridevi Lozano NP [address] [place] [phone] documented as of this encounter Procedures Procedure Name Priority Date/Time Associated Diagnosis Comments DXA BONE DENSITY Routine 01/20/2024 10:42 EDT Postmenopausal state Other specified disorders of bone density and structure, multiple sites documented in this encounter Results * DXA BONE DENSITY (01/20/2024 10:42 EDT) Anatomical Region Laterality Modality Other Whitney Arias IMDiane DEXA ORDERABLES Final Resul t documented in this encounter Visit Diagnoses Diagnosis Postmenopausal state Asymptomatic postmenopausal status (age-related) (natural) Other specified disorders of bone density and structure, multiple sites documented in this encounter Care Teams Analysis Manager Relationship Specialty Start Date End Date Sridevi Lozano, JAYME [address] [place] [phone] PCP - General Family Medicine - Primary Care 12/27/21 documented as of this encounter
--- OUTSIDE RECORDS SUMMARY | 2024-04-13 12:59 | XMS_ITS | Encounter Summary ---
Author Organization [facility] Address [address] [place] [address] Care Team Providers Care Chicken Hatchery Helper Name Role Phone Sridevi Lozano GROUT WORKER Primary Care Provider [phone] Reason for Visit * Reason Onset Date Comments Hypertension 01/03/2023 Brushing Operator Message 01/03/2023 Encounter Details Date Type Department Care Team (Late st Contact Info) Description 01/03/2023 Telephone 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 * Telephone Encounter - Sridevi Bianchi NP - 01/08/2023 0913 EDT Ok to close, please let me know if patient calls back. She is usually good about reach out out withany ongoing concerns. * Telephone Encounter - Emily Araya RN - 01/07/2023 1332 EDT LVMTCB * Telephone Encounter - Emily Araya RN - 01/05/2023 1534 EDT LVMTCB * Telephone Encounter - Sridevi Bianchi NP - 01/05/2023 1527 EDT Elevated BP cotton bag sewer. Please check in with patient to see how she is feeling and how her BP has Been, ok to offer patient a follow up visit in the next few weeks to recheck BP * Telephone Encounter - Bernabe Cochran MD - 01/03/2023 1805 EDT Telephone call with the patient this afternoon Patient with recent diagnosis of COVID. Diagnosed about 5 days ago. Patient with modest upper respiratory infection. Patient also has hypertension. He has been checking her blood pressure regularly Blood pressures tend to be elevated during this time. He did have a moderate rise today. Overall it looks like blood pressures generally been under good control with the current meds Patient reassured that is not unusual to have fluctuations in rise in blood pressure particularly if not feeling well. There likely may be modest hyper adrenergic response to current illness. Patient reassured that there is not any emergent concerns with blood pressure. Given current elevation is reasonable if she wishes to take an extra dose of amlodipine tonight. However patient otherwise reassured that there does not appear to be any significant concerns with current state of blood pressure. She can follow-up with the PCP in the near term her blood pressure continues to be elevated. Patient also appears to be checking her blood pressure very frequently. She was encouraged to checkher blood pressure less frequently-as this likely is contributing to some of the stress-stimulationand subsequent elevation of blood pressure Otherwise no significant sequela from the COVID. No shortness of breath or significant fever noted Plan. 1. Patient may take an extra 5 mg of amlodipine tonight 2. Otherwise discussed supportive care encouraged her to try to relax and catch up on her rest as she does feel fatigued with current illness 3. Follow-up with PCP as needed and if blood pressure continues to be elevated. documented in this encounter Plan of Treatment Upcoming Encounters Date Type Department Care Team (Late st Contact Info) Description 05/06/2024 13:40 EST Office Visit [facility] Dermatology [address] [facility], [place] [address] Renetta Kidd MD [address] [place] [address], [address] [place] [address] 05/23/2024 15:15 EST Office Visit [address] [phone] Sridevi Lozano, JAYME [address] [place] [phone] documented as of this encounter Visit Diagnoses Not on filedocumented in this encounter Care Teams Chicken Hatchery Helper Relationship Specialty Start Date End Date Sridevi Lozano, JAYME [address] [place] [phone] PCP - General Family Medicine - Primary Care 12/27/21 documented as of this encounter
--- OUTSIDE RECORDS SUMMARY | 2024-04-13 12:59 | XMS_ITS | Encounter Summary ---
Author Organization [facility] Address [address] [place] [address] Care Team Providers Care Inspector Quality Assurance Name Role Phone Sridevi Lozano MEDIA ASSISTANT Primary Care Provider [phone] Reason for Visit * Reason Onset Date Comments Insomnia 11/09/2023 New medication r equested Encounter Details Date Type Department Care Team (Late st Contact Info) Description 11/09/2023 Telephone [facility] - 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 Explains she has had issues with this before, provided instructions and provided help desk number [phone] to help with any steps she is missing. Advised to call them early now so she has time to work through it all. Closing TE * Telephone Encounter - Jewell Strickland RN - 11/09/2023 1151 EDT LVMTCB * Telephone Encounter - Sridevi Bianchi NP - 11/09/2023 1107 EDT Ok to offer telehealth. Please let Trav know that sleeping medications do have risks associated with them so as the provider I do need to discuss those prior to sending in a medication. A tele visit is a great option * Telephone Encounter - Porsha De La Paz - 11/09/2023 0934 EDT Reason for Call: Not sleeping at all, wants an actual sleeping pill Summary/Symptoms: patient said the medication she was given is not helping at all and she needs an actual sleeping pill. She said she is not sleeping at all and things are spiraling for her. Onset and Duration? Weeks - since before apt in August Appointment Offered? No, patient said she does not have time to wait for an appointment, she wants a sleeping pill sent in for her. Advised that will be up to PCP and will return call to advise Porsha De La Paz 11/09/2023 9:44 documented in this encounter Plan of Treatment Upcoming Encounters Date Type Department Care Team (Late st Contact Info) Description 05/06/2024 13:40 EST Office Visit [facility] Dermatology [address] [facility], [place] [address] Renetta Kidd MD [address] [place] [address] [address] [place] [phone] 05/23/2024 15:15 EST Office Visit [address] [address] Sridevi Lozano NP [address] [place] [phone] documented as of this encounter Visit Diagnoses Not on filedocumented in this encounter Care Teams Inspector Quality Assurance Relationship Specialty Start Date End Date Sridevi Lozano NP [address] [place] [phone] PCP - General Family Medicine - Primary Care 12/27/21 documented as of this encounter
--- OUTSIDE RECORDS SUMMARY | 2024-04-13 12:59 | XMS_ITS | Encounter Summary ---
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 Per last conversation patient asked for message to be left on VM. Closing TE. * Telephone Encounter - Porsha De La Paz - 05/28/2023 1110 EST Sent message to LR to change to 09/17 at either 1330 or 1400 and will call patient to advise of the date change. * Telephone Encounter - Porsha De La Paz - 05/26/2023 1346 EST Phoned patient, VM did not identify any names. Requested for patient to call back or [facility] message sent. * Telephone Encounter - Porsha De La Paz - 05/15/2023 1421 EST Phoned patient, Zia did not identify any names. Left message for call back. Need to reschedule 09/02/23 Physical as Sridevi is not working Wednesdays. Can be sooner or later depending on patient as its been since 2021. documented in this encounter Plan of Treatment Upcoming Encounters Date Type Department Care Team (Late st Contact Info) Description 05/06/2024 13:40 EST Office Visit [facility] Dermatology [address] [facility], [place] [address] Renetta Kidd MD [address] [facility], [address] [place] [phone] 05/23/2024 15:15 EST Office Visit [facility] [address] [place], [place] [phone] Sridevi Lozano NP [address] [place] [phone] documented as of this encounter Visit Diagnoses Not on filedocumented in this encounter Care Teams Architect Intern Relationship Specialty Start Date End Date Sridevi Lozano NP [address] [place] [phone] PCP - General Family Medicine - Primary Care 12/27/21 documented as of this encounter
--- OUTSIDE RECORDS SUMMARY | 2024-04-13 12:59 | XMS_ITS | Encounter Summary ---
Author Organization [facility] Address [address] [place] [address] Care Team Providers Care Underwater Hunter Trapper Name Role Phone Sridevi Lozano SENIOR ANALYTICAL CHEMIST Primary Care Provider [phone] Reason for Referral * Radiology Services (Routine/Next Available) - Authorization Not Required Specialty Diagnoses / Procedures [facility] To [facility] Diagnoses Renal stone Procedures CT RENAL STONE Darshan Loaiza MD Phone: tel: fax: [facility] Referral ID Status Reason Start Date Expiration Date Visits Requested Visits Authorized [id number] Authorization Not Required 07/02/2022 1 1 Reason for Visit * Radiology Services (Routine/Next Available) - Authorization Not Required Specialty Diagnoses / Procedures Referred By [facility] Referred To Contact Diagnoses Renal stone Procedures CT RENAL STONE Darshan Loaiza MD Phone: tel: fax: [facility] Referral ID Status Reason Start Date Expiration Date Visits Requested Visits Authorized [id number] Authorization Not Required 07/02/2022 1 1 Encounter Details Date Type Department Care Team (Latest Contact Info) Description 08/25/2022 15:54 EDT - 08/25/2022 23:59 EDT Hospital Encounter [facility] - [facility] CT Scan [address], [place] [id number] Renal stone Discharge Disposition: Home or Self Care Social History Tobacco Use Types Packs/Day Years Used Date Smoking Tobacco: Former Cigarettes 1 15 1 1988 Smokeless Tobacco: Never Alcohol Use Standard [...] 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 90 Tablet 05/08/2021 01/05/2023 amoxicillin-clavul anate (AUGMENTIN) 875-125 mg per tablet Take 1 Tablet by mouth every 12 hours. 10 Tablet 07/07/2022 08/29/2022 cranberry-vitamin C-mannose 250-30-50 mg tablet,chewable Take by mouth. 12/30/2023 ketOROLAC (ACULAR) 0.5 % ophthalmic solution 05/21/2022 09/02/2022 lisinopriL (PRINIVIL) 40 mg tablet Take 1 Tablet by mouth daily. 90 Tablet 2 08/01/2022 05/26/2023 moxifloxacin (VIGAMOX) 0.5 % ophthalmic solution 05/21/2022 09/02/2022 prednisoLONE (PRED FORTE) 1 % ophthalmic suspension 05/21/2022 09/02/2022 documented as of this encounter Discharge Disposition Disposition Code Departure Means Destination Home or Self Care documented in this encounter Plan of Treatment Upcoming Encounters Date Type Department Care Team (Late st Contact Info) Description 05/06/2024 13:40 EST Office Visit [facility] Dermatology [address] [facility], [place] [address] Renetta Kidd MD [address] [facility], [address] [place] [phone] 05/23/2024 15:15 EST Office Visit [facility] [address] [place] [address] Sridevi Lozano NP [address] [place] [phone] documented as of this encounter Procedures Procedure Name Priority Date/Time Associated Diagnosis Comments CT RENAL STONE Routine 08/25/2022 16:14 EDT Renal stone documented in this encounter Results * CT RENAL STONE (08/25/2022 16:14 EDT) Anatomical Region Laterality Modality Body, Abdomen Computed Tomogra phy 08/25/2022 16:0 7 EDT Impressions 08/25/2022 16:44 EDT 1. ?? Gxcd-ha-mhqwqzcf coronary artery calcifications. Slight arteriosclerotic changes of the aorta. 2. ?? Multiple low-attenuation lesions within the liver which most likely represent liver cysts. Further evaluation of these lesions however with a CT scan of the liver utilizing hemangioma protocol is recommended to confirm the cystic nature of these lesions. 3. ?? Bilateral nephrolithiasis without evidence of obstruction. 4. ?? Sludge and gallstones within the gallbladder are not totally excluded. This could be re-evaluated ultrasound examination if clinically warranted. 5. ?? Suspect constipation as above. THIS DOCUMENT HAS BEEN ELECTRONICALLY SIGNED BY JAMAL BARRON MD FOR ANY QUESTIONS OR CONCERNS REGARDING THIS REPORT PLEASE CALL [facility] AT [phone] Narrative 08/25/2022 16:44 EDT PROCEDURE INFORMATION: Exam: CT Abdomen And Pelvis Without Contrast Exam date and time: 08/25/2022 4:07 PM Age: 62 years old Clinical indication: Calculus of kidney; Other: Unknown; Additional info: Stones on renal sono TECHNIQUE: Imaging protocol: Computed tomography of the abdomen and pelvis without contrast. Radiation optimization: All CT scans at this facility use at least one of these dose optimization techniques: automated exposure control; mA and/or kV adjustment per patient size (includes targeted exams where dose is matched to clinical indication); or iterative reconstruction. REPORTING DATA: Count of CT and Cardiac NM exams in prior 12 months: This patient has received 0 known CTs and 0 known cardiac nuclear medicine studies in the 12 months prior to the current study. COMPARISON: CR PELVIS 05/14/2022 1:48 PM FINDINGS: Lungs: The visualized lung bases are within normal limits. Heart: The heart and pericardium appear within normal limits. Coronary arteries: There are ecue-pu-sduzierm coronary artery calcifications. Liver: Within the right lobe of the liver, in its most caudal aspect, there is a small liver cyst measuring up to 1.6 cm. There are additional cysts within the liver. One within the right lobe measured up to 1.8 cm. A smaller suspected left lobe of the liver cyst measured approximally 9 mm. There is an additional lesion within the right lobe of the liver measuring 1 cm. This does not appear to represent a simple cyst. Gallbladder and bile ducts: The gallbladder is within normal limits. Sludge within the gallbladder is not excluded. Pancreas: The pancreas is unremarkable. Spleen: The spleen is within normal limits. Adrenal glands: The adrenal glands are within normal limits. Kidneys and ureters: There is a calculus in the lower pole of the right kidney measuring approximally 6 mm. There is an additional smaller calculus in the lower pole of the right kidney measuring 3 mm. These calculi are not obstructing. There is a calculus in the lower pole of the left kidney measuring approximally 5 mm. There is a calculus in the midpole left kidney measuring 4 mm. These calculi are not obstructing. Stomach and bowel: There are feces throughout the colon which are suspicious for constipation. Appendix: No evidence of appendicitis. Intraperitoneal space: Unremarkable. No free air. No significant fluid collection. Vasculature: There are slight arteriosclerotic changes of the aorta. Lymph nodes: ??No enlarged lymph nodes. Urinary bladder: The urinary bladder is unremarkable. Reproductive: The uterus and ovaries are within normal limits for a patient of this age. Bones/joints: There is a severe levoscoliosis of the thoracolumbar spine. There are degenerative changes of the thoracic and lumbar spines. There are degenerative changes of both hips. Soft tissues: Unremarkable. Procedure Note Jamal Barron MD - 08/25/2022 PROCEDURE INFORMATION: Exam: CT Abdomen And Pelvis Without Contrast Exam date and time: 08/25/2022 4:07 PM Age: 62 years old Clinical indication: Calculus of kidney; Other: Unknown; Additional info: Stones on renal sono TECHNIQUE: Imaging protocol: Computed tomography of the abdomen and pelvis without contrast. Radiation optimization: All CT scans at this facility use at least one of these dose optimization techniques: automated exposure control; mA and/or kV adjustment per patient size (includes targeted exams where dose is matched to clinical indication); or iterative reconstruction. REPORTING DATA: Count of CT and Cardiac NM exams in prior 12 months: This patient has received 0 known CTs and 0 known cardiac nuclear medicine studies in the 12 months prior to the current study. COMPARISON: CR PELVIS 05/14/2022 1:48 PM FINDINGS: Lungs: The visualized lung bases are within normal limits. Heart: The heart and pericardium appear within normal limits. Coronary arteries: There are qhzx-su-wooeppyi coronary artery calcifications. Liver: Within the right lobe of the liver, in its most caudal aspect, there is a small liver cyst measuring up to 1.6 cm. There are additional cysts within the liver. One within the right lobe measured up to 1.8 cm. A smaller suspected left lobe of the liver cyst measured approximally 9 mm. There is an additional lesion within the right lobe of the liver measuring 1 cm. This does not appear to represent a simple cyst. Gallbladder and bile ducts: The gallbladder is within normal limits. Sludge within the gallbladder is not excluded. Pancreas: The pancreas is unremarkable. Spleen: The spleen is within normal limits. Adrenal glands: The adrenal glands are within normal limits. Kidneys and ureters: There is a calculus in the lower pole of the right kidney measuring approximally 6 mm. There is an additional smaller calculus in the lower pole of the right kidney measuring 3 mm. These calculi are not obstructing. There is a calculus in the lower pole of the left kidney measuring approximally 5 mm. There is a calculus in the midpole left kidney measuring 4 mm. These calculi are not obstructing. Stomach and bowel: There are feces throughout the colon which are suspicious for constipation. Appendix: No evidence of appendicitis. Intraperitoneal space: Unremarkable. No free air. No significant fluid collection. Vasculature: There are slight arteriosclerotic changes of the aorta. Lymph nodes: No enlarged lymph nodes. Urinary bladder: The urinary bladder is unremarkable. Reproductive: The uterus and ovaries are within normal limits for a patient of this age. Bones/joints: There is a severe levoscoliosis of the thoracolumbar spine. There are degenerative changes of the thoracic and lumbar spines. There are degenerative changes of both hips. Soft tissues: Unremarkable. IMPRESSION 1. Rqvv-qu-ppoaghhg coronary artery calcifications. Slight arteriosclerotic changes of the aorta. 2. Multiple low-attenuation lesions within the liver which most likely represent liver cysts. Further evaluation of these lesions however with a CT scan of the liver utilizing hemangioma protocol is recommended to confirm the cystic nature of these lesions. 3. Bilateral nephrolithiasis without evidence of obstruction. 4. Sludge and gallstones within the gallbladder are not totally excluded. This could be re-evaluated ultrasound examination if clinically warranted. 5. Suspect constipation as above. THIS DOCUMENT HAS BEEN ELECTRONICALLY SIGNED BY JAMAL BARRON MD FOR ANY QUESTIONS OR CONCERNS REGARDING THIS REPORT PLEASE CALL [facility] [phone] Darshan Loaiza MD IMG CT ORDERABLES Final Result documented in this encounter Visit Diagnoses Diagnosis Renal stone Calculus of kidney documented in this encounter Care Teams Underwater Hunter Trapper Relationship Specialty Start Date End Date Sridevi Lozano NP [address] [place] [phone] PCP - General Family Medicine - Primary Care 12/27/21 documented as of this encounter
--- OUTSIDE RECORDS SUMMARY | 2024-04-13 12:59 | XMS_ITS | Encounter Summary ---
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 90 Tablet 3 01/05/2023 01/28/2023 documented in this encounter Miscellaneous Notes * Telephone Encounter - Sridevi Bianchi NP - 01/05/2023 1450 EDT 1. Essential hypertension - amLODIPine (NORVASC) 5 mg tablet; Take 1 Tablet by mouth daily. Dispense: 90 Tablet; Refill: 3 * Telephone Encounter - Priya Araya RN - 01/05/2023 0902 EDT Requested Prescriptions Pending Prescriptions Disp Refills ??? amLODIPine (NORVASC) 5 mg tablet 90 Tablet 0 Sig: Take 1 Tablet by mouth daily. Provider review: last refilled by another provider. Last Refill Date: 05/08/21 Labs completed? Yes VPMS: N/A Most Recent Appt: 01/01/23 Upcoming Appt: 09/02/23 PRIYA ARAYA RN 01/05/2023 9:02 documented in this encounter Plan of Treatment Upcoming Encounters Date Type Department Care Team (Late st Contact Info) Description 05/06/2024 13:40 EST Office Visit [facility] Dermatology [address] [facility], [place] [address] Renetta Kidd MD [address] [place] [address], [facility] [address] [place] [phone] 05/23/2024 15:15 EST Office Visit [address] [phone] Sridevi Lozano NP [address] [place] [phone] documented as of this encounter Visit Diagnoses Diagnosis Essential hypertension- Primary Unspecified essential hypertension documented in this encounter Discontinued Medications Medication Sig Discontinue Reason Start Date End Da te amLODIPine (NORVASC) 5 mg tabletIndications:Essenti al hypertension Take 1 Tablet by mouth daily. Reorder 05/08/2021 01/05/2023 documented as of this encounter Care Teams Test Equipment Mechanic Relationship Specialty Start Date End Date Sridevi Lozano NP [address] [place] [phone] PCP - General Family Medicine - Primary Care 12/27/21 documented as of this encounter
--- OUTSIDE RECORDS SUMMARY | 2024-04-13 12:59 | XMS_ITS | Encounter Summary ---
Author Organization [facility] Address [address] [place] [address] Care Team Providers Care Seismic Prospecting Observer Name Role Phone Sridevi Lozano [employer] FINISHER Primary Care Provider [phone] Reason for Referral * Radiology Services (Routine/Next Available) - Authorization Not Required Specialty Diagnoses / Procedures Referred By Coxhealthtawanda t Referred To Contact Diagnoses Liver cyst Procedures CT ABDOMEN W WO CONTRAST PELVIS W CT ABDOMEN PELVIS W WO CONTRAST Sridevi Lozano NP Phone: tel: fax: [facility] [place] Referral ID Status Reason Start Date Expiration Date Visits Requested Visits Authorized [id number] Authorization Not Required 09/05/2022 1 1 Reason for Visit * Reason Comments Follow-up HTN Encounter Details Date Type Department Care Team (Late st Contact Info) Description 09/03/2022 9:30 EDT Office Visit [address] [phone] Sridevi Lozano NP [address] [place] [address] [phone] Essential hypertension (Primary Dx); Acute cystitis without hematuria; Dysuria; Liver cyst; Abnormal gall bladder diagnostic imaging Social History Tobacco Use Types Packs/Day Years [...] 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 6 Capsule 09/03/2022 3 documented in this encounter Progress Notes * Sridevi Bianchi, [employer] FINISHER - 09/03/2022929 EDT CHIEF COMPLAINT: Chief Complaint Patient presents with ??? Follow-up HTN HPI: Trav Velázquez, a 62 y.o. female who presents today for f/u HTN. HTN- Continues on lisinopril and amlodipine as prescribed. Denies associated side effects. No recent chest pains, dizziness, or shortness of breath. BP 120/80 08/29/22. Liver cyst/ lesion- Incidental finding CT renal stone 08/25/22 of multiple low attenuation lesions of the liver with recommendation for further eval with CT. Last LFTS WNL 09/03/22. UTI- Treated 08/29/22 for UTI like symptoms. Culture report back. +. Bacteria susceptible to cephalexin. Trav reports experienced extreme fatigue and fever 101-103 on Thursday/ Thursday. Fever has resolved. Feeling improvement but still some fatigue. incidental gall bladder- 08/29/22 CT renal showed incidental finding of possible gall stones in gall bladder. Patient is not currently experiencing abdominal pain. ROS: I've done a Review of Systems [...] Types: Marijuana PHYSICAL EXAMINATION: Objective: Vitals: BP 130/82 Pulse 68 Temp 36.7 ??C (98 ??F) Ht 167 cm (65.75) Wt 54.4 kg (120 lb) BMI 19.52 kg/m?? GENERAL APPEARANCE: NAD, pleasant, well-appearing, alert and oriented. HEART: regular rate and rhythm, no murmurs. ABDOMEN: soft, NT/ND, BS present. No CVA tenderness EXTREMITIES: No pedal edema. IMPRESSION/PLAN: 1. Essential hypertension 2. Acute cystitis without hematuria COMPLETE BLOOD COUNT COMPREHENSIVE METABOLIC PANEL (CMP) COMPLETE BLOOD COUNT COMPREHENSIVE METABOLIC PANEL (CMP) 3. Dysuria cephalexin (KEFLEX) 500 mg capsule 4. Liver cyst CT ABDOMEN PELVIS W WO CONTRAST 5. Abnormal gall bladder diagnostic imaging 1. Acute cystitis without hematuria Reviewed culture report. + for UTI. Bacteria susceptible to cephalexin. Afebrile on exam today. Reports fever 101-103 Thursday and Thursday. Did not start antibiotic until Thursday night. Fever has resolved since starting antibiotic. Has experienced fatigue. Will extend cephalexin to 10 day course. Will order CBC and CMP given fever of 103. Normal phyiscal exam. Has urologist currently (was told urologist leaving and new referral has been sent to urology [facility]). Reassuring that fever has decreased with antibiotic. If labs WNL would recommend following up at completion of antibiotic if fatigue persistent. Discussed this can be a side effect of UTI as out body responds to infection. Should call urgently if fever of 101 + returns, worsening symptoms, or new symptoms/ concerns develop for sooner eval. Trav verbalized understanding. - COMPLETE BLOOD COUNT; Future - COMPREHENSIVE METABOLIC PANEL (CMP); Future - COMPLETE BLOOD COUNT - COMPREHENSIVE METABOLIC PANEL (CMP) - cephalexin (KEFLEX) 500 mg capsule; Take 1 Capsule by mouth 2 times daily for 3 days. Dispense: 6Capsule; Refill: 0 2. Liver cyst Incidental finding of liver cyst on CT renal 08/29 23. Recommended further eval of liver. Last CMP LFTS in normal range. No jaundice on exam. Discussed results with Trav. Called to radiology confirmed f/u order CT with and without contrast. - CT ABDOMEN PELVIS W WO CONTRAST; Future 3. Abnormal gall bladder diagnostic imaging Incidental finding of possible Sludge and gallstone of gallbladder ( could not fully visualize). Consider f/u US if clinically indicated Trav denies recent abdominal pain. No discomfort after eating. Shared decision making to wait on f/u imaging given asymptomatic. Will order imaging should abdominal pain/ symptoms develop. Trav in agreement with plan. 5. Essential hypertension Continues on amlodipine and lisinopril as prescribed. BP well controlled 130/82. No changes made tomedication will continue as prescribed. F/u 6 months, CPE, sooner if needed. This note was prepared using voice recognition software and the EMR. There may be inadvertent errors and omissions. Sridevi Bianchi NP 09/05/2022 8:47 * Fang Mauricio MA - 09/03/2022 0930 EDT Performed by: Kari Mauricio Site Collected:Right Antecubital Space Patient Response:Patient tolerated venipuncture well Tube(s): Gold Top, Lavender Top Butterfly Attempts: 1 DSD applied Ordering Provider: SHANDA Wasserman documented in this encounter Plan of Treatment Upcoming Encounters Date Type Department Care Team (Late st Contact Info) Description 05/06/2024 13:40 EST Office Visit [facility] [address] [place] [phone] Renetta Kidd MD [address] [place] [address], [facility] [address] [place] [phone] 05/23/2024 15:15 EST Office Visit [address] [phone] Sridevi Lozano NP [address] [place] [phone] documented as of this encounter Procedures Procedure Name Priority Date/Time Associated Diagnosis Comments COMPLETE BLOOD COUNT Routine 09/03/2022 10:17 EDT Acute cystitis without hematuria COMPREHENSIVE METABOLIC PANEL (CMP) Routine 09/03/2022 10:17 EDT Acute cystitis without hematuria documented in this encounter Results * CT ABDOMEN W WO CONTRAST PELVIS W (09/30/2022 16:49 EDT) Anatomical Region Laterality Modality Body, Abdomen, Pelvis, Abdomen and Pelvis Computed Tomography 09/30/2022 16:3 3 EDT Impressions 10/02/2022 11:22 EDT 1. ?? Benign appearing bilobar liver cysts, requiring no further follow-up. 2. ?? Mildly dilated pancreatic duct in the head and neck of the pancreas, measuring up to 4 mm in diameter, tapering at the ampulla. This is of uncertain etiology or clinical significance. No obstructing mass is identified. 3. ?? Bilateral kidney stones. THIS DOCUMENT HAS BEEN ELECTRONICALLY SIGNED BY SOFI LEIVA MD FOR ANY QUESTIONS OR CONCERNS REGARDING THIS REPORT PLEASE CALL [facility] AT [phone] Narrative 10/02/2022 11:22 EDT PROCEDURE INFORMATION: Exam: CT Abdomen And Pelvis Without And With Contrast; Liver Exam date and time: 09/30/2022 4:33 PM Age: 62 years old Clinical indication: Other specified diseases of liver; Abnormal findings; Abnormal radiologic finding of the abdomen; Radiologic exam and body structure: Incidental multiple low-attenuation lesions within the liver which f/u CT recommended TECHNIQUE: Imaging protocol: Computed tomography of the abdomen and pelvis without and with intravenous contrast. Exam focused on the liver. Radiation optimization: All CT scans at this facility use at least one of these dose optimization techniques: automated exposure control; mA and/or kV adjustment per patient size (includes targeted exams where dose is matched to clinical indication); or iterative reconstruction. Contrast material: OMNI 350; Contrast volume: 100 ml; Contrast route: INTRAVENOUS (IV); ?? REPORTING DATA: Count of CT and Cardiac NM exams in prior 12 months: This patient has received [address] and 0 known cardiac nuclear medicine studies in the 12 months prior to the current study. COMPARISON: CT RENAL STONE 08/25/2022 4:07 PM FINDINGS: Liver: 13.9 cm longitudinal dimension of the liver. The liver is not grossly cirrhotic in morphology. Multiple bilobar benign-appearing water attenuation liver cysts, requiring no further evaluation, the largest of which measures 2 cm in the inferior right hepatic lobe. One of the cysts at the junction of the right and left hepatic lobes is minimally complex, containing a single thin internal septation. No suspicious liver mass. No hypervascular liver lesion. Gallbladder and bile ducts: Normal. No calcified stones. No ductal dilation. Pancreas: The pancreatic duct is mildly dilated pancreatic duct in the head and neck of the pancreas, measuring up to 4 mm in diameter, tapering at the ampulla. Otherwise unremarkable pancreas. No pancreatic atrophy Spleen: Normal. No splenomegaly. Adrenal glands: Normal. No mass. Kidneys and ureters: Bilateral nonobstructive kidney stones, with largest measuring 5 mm in the right lower pole. Otherwise unremarkable kidneys. Stomach and bowel: Evaluation of bowel somewhat limited due to a paucity of fat and lack of oral contrast. No gross bowel abnormalities. No obstruction. Appendix: No evidence of appendicitis. Intraperitoneal space: Unremarkable. No free air. No significant fluid collection. Lymph nodes: Unremarkable. No enlarged lymph nodes. Vasculature: Unremarkable. No abdominal aortic aneurysm. Urinary bladder: Unremarkable. ?? Reproductive: Unremarkable. ?? Bones/joints: Demineralization of the osseous structures somewhat limits evaluation. No acute or suspicious osseous abnormalities. Facet joint degenerative changes are present. Moderate to marked levoscoliosis of the lumbar spine. Soft tissues: Unremarkable. Procedure Note Sofi Leiva MD - 10/02/2022 PROCEDURE INFORMATION: Exam: CT Abdomen And Pelvis Without And With Contrast; Liver Exam date and time: 09/30/2022 4:33 PM Age: 62 years old Clinical indication: Other specified diseases of liver; Abnormal findings; Abnormal radiologic finding of the abdomen; Radiologic exam and body structure: Incidental multiple low-attenuation lesions within the liver which f/u CT recommended TECHNIQUE: Imaging protocol: Computed tomography of the abdomen and pelvis without and with intravenous contrast. Exam focused on the liver. Radiation optimization: All CT scans at this facility use at least one of these dose optimization techniques: automated exposure control; mA and/or kV adjustment per patient size (includes targeted exams where dose is matched to clinical indication); or iterative reconstruction. Contrast material: OMNI 350; Contrast volume: 100 ml; Contrast route: INTRAVENOUS (IV); REPORTING DATA: Count of CT and Cardiac NM exams in prior 12 months: This patient has received [address] and 0 known cardiac nuclear medicine studies in the 12 months prior to the current study. COMPARISON: CT RENAL STONE 08/25/2022 4:07 PM FINDINGS: Liver: 13.9 cm longitudinal dimension of the liver. The liver is not grossly cirrhotic in morphology. Multiple bilobar benign-appearing water attenuation liver cysts, requiring no further evaluation, the largest of which measures 2 cm in the inferior right hepatic lobe. One of the cysts at the junction of the right and left hepatic lobes is minimally complex, containing a single thin internal septation. No suspicious liver mass. No hypervascular liver lesion. Gallbladder and bile ducts: Normal. No calcified stones. No ductal dilation. Pancreas: The pancreatic duct is mildly dilated pancreatic duct in the head and neck of the pancreas, measuring up to 4 mm in diameter, tapering at the ampulla. Otherwise unremarkable pancreas. No pancreatic atrophy Spleen: Normal. No splenomegaly. Adrenal glands: Normal. No mass. Kidneys and ureters: Bilateral nonobstructive kidney stones, with largest measuring 5 mm in the right lower pole. Otherwise unremarkable kidneys. Stomach and bowel: Evaluation of bowel somewhat limited due to a paucity of fat and lack of oral contrast. No gross bowel abnormalities. No obstruction. Appendix: No evidence of appendicitis. Intraperitoneal space: Unremarkable. No free air. No significant fluid collection. Lymph nodes: Unremarkable. No enlarged lymph nodes. Vasculature: Unremarkable. No abdominal aortic aneurysm. Urinary bladder: Unremarkable. Reproductive: Unremarkable. Bones/joints: Demineralization of the osseous structures somewhat limits evaluation. No acute or suspicious osseous abnormalities. Facet joint degenerative changes are present. Moderate to marked levoscoliosis of the lumbar spine. Soft tissues: Unremarkable. IMPRESSION 1. Benign appearing bilobar liver cysts, requiring no further follow-up. 2. Mildly dilated pancreatic duct in the head and neck of the pancreas, measuring up to 4 mm in diameter, tapering at the ampulla. This is of uncertain etiology or clinical significance. No obstructing mass is identified. 3. Bilateral kidney stones. THIS DOCUMENT HAS BEEN ELECTRONICALLY SIGNED BY SOFI LEIVA MD FOR ANY QUESTIONS OR CONCERNS REGARDING THIS REPORT PLEASE CALL [facility] [phone] us Sridevi Lozano NP IMG CT ORDERABLES Final Resu lt * (ABNORMAL) COMPREHENSIVE METABOLIC PANEL (CMP) (09/03/2022 10:17 EDT) Sodium 137 136 - 145 mmol/L 09/03/2022 11:21 EDT [facility] Potassium 4.7 3.5 - 5.0 mmol/L 09/03/2022 11:21 EDT [facility] Chloride 101 96 - 110 mmol/L 09/03/2022 11:21 [facility] CO2 Total 29 22 - 32 mmol/L 09/03/2022 11:21 [facility] Glucose 90 70 - 100 mg/dl 09/03/2022 11:21 [facility] BUN 22 10 - 26 mg/dL 09/03/2022 11:21 [facility] Creatinine 0.84 0.52 - 1.04 mg/dL 09/03/2022 11:21 [facility] eGFR 78 >60 mL/min/1.7 3m2 09/03/2022 11:21 [facility] Total Protein 6.2(L) 6.3 - 8.2 g/dL 09/03/2022 11:21 [facility] Albumin 3.4 3.4 - 4.9 g/dL 09/03/2022 11:21 [facility] Alkaline Phosphatase 68 38 - 126 U/L 09/03/2022 11:21 [facility] AST 23 15 - 46 U/L 09/03/2022 11:21 [facility] ALT 21 <35 U/L 09/03/2022 11:21 [facility] Bilirubin, Total 0.3 <1.4 mg/dL 09/04/19 11:21 [facility] Calcium 10.3 8.5 - 10.5 mg/dL 09/03/2022 11:21 [facility] Albumin/Globulin Ratio 1.2 1.0 - 2.5 09/03/2022 11:21 [facility] Anion Gap 7 5 - 14 mmol/L 09/03/2022 11:21 [facility] Blood VENOUS BLOOD / Unknown Venipuncture / Unknown 09/03/2022 10:17 EDT 09/03/2022 10:17 EDT us Sridevi Lozano NP CHEMISTRY & BLOOD GAS ORDERA BLES Final Result [facility] [address] [place] [address] * (ABNORMAL) COMPLETE BLOOD COUNT (09/03/2022 10:17 EDT) WBC 3.83(L) 4.00 - 12.40 K/cmm 09/03/2022 11:10 [facility] RBC 4.07 3.86 - 5.04 M/cmm 09/03/2022 11:10 [facility] Hemoglobin 12.2 11.6 - 15.2 gm/dL 09/03/2022 11:10 [facility] HCT 36.0 34.9 - 44.4 % 09/03/2022 11:10 [facility] MCV 89 81 - 98 fl 09/03/2022 11:10 [facility] MCH 30.0 26.7 - 33.3 pg 09/03/2022 11:10 [facility] MCHC 33.9 32.1 - 35.9 gm/dL 09/03/2022 11:10 [facility] RDW-CV 12.1 <14.7 % 09/03/2022 11:10 [facility] RDW-SD 39.3 <50.4 fl 09/03/2022 11:10 [facility] PLT 253 141 - 377 K/cmm 09/03/2022 11:10 [facility] MPV 9.8 9.5 - 12.7 fl 09/03/2022 11:10 [facility] Blood VENOUS BLOOD / Unknown Venipuncture / Unknown 09/03/2022 10:17 EDT 09/03/2022 10:17 EDT us Sridevi Lozano NP HEMATOLOGY & PF4 ORDERABLES Final Result [facility] [address] [place] [address] documented in this encounter Visit Diagnoses Diagnosis Essential hypertension- Primary Unspecified essential hypertension Acute cystitis without hematuria Acute cystitis Dysuria Liver cyst Other specified disorders of liver Abnormal gall bladder diagnostic imaging Nonspecific (abnormal) findings on radiological and other examination of biliary tract Liver cyst Other specified disorders of liver documented in this encounter Discontinued Medications Medication Sig Discontinue Reason Start Date End Da te cephalexin (KEFLEX) 500 mg capsuleIndications:Dysur ia Take 1 Capsule by mouth 2 times daily for 7 days. Reorder 08/29/2022 09/03/2022 documented as of this encounter Care Teams Seismic Prospecting Observer Relationship Specialty Start Date End Date Sridevi Lozano, [employer] FINISHER [address] [place] [phone] PCP - General Family Medicine - Primary Care 12/27/21 documented as of this encounter
--- OUTSIDE RECORDS SUMMARY | 2024-04-13 12:59 | XMS_ITS | Encounter Summary ---
Author Organization [facility] Address [address] [place] [address] Care Team Providers Care Diesel Lube Tech Name Role Phone Sridevi Lozano CUPBOARD BUILDER Primary Care Provider [phone] Reason for Referral * Radiology Services (Routine/Next Available) - Authorization Not Required Specialty Diagnoses / Procedures Referred By Contac t Referred To Contact Diagnoses Liver cyst Procedures CT ABDOMEN W WO CONTRAST PELVIS W CT ABDOMEN PELVIS W WO CONTRAST Sridevi Lozano NP Phone: tel: fax: [facility] Referral ID Status Reason Start Date Expiration Date Visits Requested Visits Authorized [id number] Authorization Not Required 09/05/2022 1 1 Reason for Visit * Radiology Services (Routine/Next Available) - Authorization Not Required Specialty Diagnoses / Procedures Referred By Contac t Referred To Contact Diagnoses Liver cyst Procedures CT ABDOMEN W WO CONTRAST PELVIS W CT ABDOMEN PELVIS W WO CONTRAST Sridevi Lozano NP Phone: tel: fax: [facility] Referral ID Status Reason Start Date Expiration Date Visits Requested Visits Authorized [id number] Authorization Not Required 09/05/2022 1 1 Encounter Details Date Type Department Care Team (Latest Contact Info) Description 09/30/2022 16:32 EDT - 09/30/2022 23:[address] 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 [...] Info) Description 05/06/2024 13:40 EST Office Visit [facility] [address] [facility], [place] [address] Renetta Kidd MD [address] [place] [address], [facility] [address] [place] [phone] 05/23/2024 15:15 EST Office Visit [facility] [address] [place] [address] Sridevi Lozano NP [address] [place] [phone] documented as of this encounter Procedures Procedure Name Priority Date/Time Associated Diagnosis Comments CT ABDOMEN W WO CONTRAST PELVIS W Routine 09/30/2022 16:49 EDT Liver cyst documented in this encounter Results * CT [...] REGARDING THIS REPORT PLEASE CALL [facility] AT [phone] Narrative 10/02/2022 11:22 EDT PROCEDURE INFORMATION: Exam: [...] CONCERNS REGARDING THIS REPORT PLEASE CALL [facility] [phone] us Sridevi Lozano CUPBOARD BUILDER IMG CT ORDERABLES Final Resu lt documented in this encounter Visit Diagnoses Diagnosis Liver cyst Other specified disorders of liver documented in this encounter Administered Medications Inactive Administered Medications - up to 3 most recent administrations Medication Order MAR Action Action Date Dose Rate Site iohexoL (OMNIPAQUE 350) solution 100 mL 100 mL, intravenous, Once in imaging, 1 dose, Starting on 09/30/22 at 1635, Until 09/30/22 at 1649, Routine Given 09/30/2022 16:49 EDT 100 mL documented in this encounter Care Teams Diesel Lube Tech Relationship Specialty Start Date End Date Sridevi Lozano, JAYME [address] [place] [phone] PCP - General Family Medicine - Primary Care 12/27/21 documented as of this encounter
--- OUTSIDE RECORDS SUMMARY | 2024-04-13 13:00 | XMS_ITS | Encounter Summary ---
Author Organization [facility] Address [address] [place] [address] Care Team Providers Care Community Development Director Name Role Phone Sirdevi Lozano NP Primary Care Provider [phone] Reason for Referral * Radiology Services (Routine/Next Available) - Authorization Not Required Specialty Diagnoses / Procedures [facility] Referred To Contact Diagnoses Recurrent UTI Procedures US RENAL/BLADDER COMPLETE Darshan Loaiza MD Phone: tel: fax: [facility] Referral ID Status Reason Start Date Expiration Date Visits Requested Visits Authorized [id number] Authorization Not Required 05/29/2022 1 1 Reason for Visit * Reason Comments New Patient Visit * Consult (Routine/Next Available) - Authorization Not Required Specialty Diagnoses / Procedures Referred By [facility] t Referred To Contact Urology Diagnoses Abnormal urine odor Recurrent UTI Kia Dickson NP Phone: tel: fax: [facility] [address] [place] [address] Phone: tel: fax: Referral ID Status Reason Start Date Expiration Date Visits Requested Visits Authorized [id number] Authorization Not Required Specialty Services Required 3 1 1 Encounter Details Date Type Department Care Team (Late st Contact Info) Description 05/29/2022 15:00 EST Office Visit [facility] [address] [place] [address] Darshan Loaiza MD [address] [facility] [address] [place] [address] Recurrent UTI (Primary Dx) Social History Tobacco Use Types [...] 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 New Patient Visit Reason for Consult: Urology was asked to see Trav at the request of Sridevi Bianchi for evaluation of recurrent UTI. HPI: Trav is a 62 y.o. female with 3 positive E coli UTI (resistant to sulfa and fluoroquinolones) since 03/10/22. States she has never had documented UTI before although she suspected she may have had a chronic infection for the last year: urine was somewhat cloudy and had strong odor. No grosshematuria or hx stones. No prior surgery, sling placement etc. Was dealing with constipation recently and has a rectocele on recent PRODUCT MARKETING COORDINATOR evaluation. She states the constipation has now improved. Also has added cranberry pills and D-mannose. Today's UA is negative. Empties completely on scan. Health has been good. Denies incontinence. . Patient Active Problem List Diagnosis ??? Essential hypertension ??? History of recurrent UTIs PMH PSH No past medical history on file. No past surgical history on file. Social History Family History Social History Tobacco Use ??? Smoking status: Former Packs/day: 1.00 Years: 15.00 Pack years: 15.00 Types: Cigarettes Quit date: 1988 Years since quittin.1 ??? Smokeless tobacco: Never Substance Use Topics ??? Alcohol use: Yes Alcohol/week: 10.0 standard drinks Types: 10 Standard drinks or equivalent per week Family History Problem Relation Age of Onset ??? Colon Cancer Maternal Grandmother ??? High Blood Pressure Father ??? Stroke Father ??? Dementia Father ??? Cancer Mother kidney ??? Kidney Cancer Mother ??? High Blood Pressure Mother ??? Bipolar Disorder Mother ??? High Blood Pressure Brother ??? High Blood Pressure Sister Medications Current Outpatient Medications: ??? amLODIPine (NORVASC) 5 mg tablet, Take 1 Tablet by mouth daily., Disp: 90 Tablet, Rfl: 0 ??? ketOROLAC (ACULAR) 0.5 % ophthalmic solution, PLACE 1 DROP IN THE RIGHT EYE FOUR TIMES DAILY. TAPER DIRECTED (Patient not taking: Reported on 05/29/2022), Disp: , Rfl: ??? lisinopriL (PRINIVIL) 40 mg tablet, Take 40 mg by mouth daily., Disp: , Rfl: ??? moxifloxacin (VIGAMOX) 0.5 % ophthalmic solution, PLACE 1 DROP IN THE RIGHT EYE FOUR TIMES DAILY. TAPER DIRECTED. (Patient not taking: Reported on 05/29/2022), Disp: , Rfl: ??? prednisoLONE (PRED FORTE) 1 % ophthalmic suspension, PLACE 1 DROP IN THE RIGHT EYE FOUR TIMES DAILY. TAPER DIRECTED. (Patient not taking: Reported on 05/29/2022), Disp: , Rfl: Allergies No Known Allergies Review of Systems: Review of Systems Constitutional: Negative. HENT: Negative. Eyes: Positive for blurred vision. Respiratory: Negative. Cardiovascular: Negative. Gastrointestinal: Positive for constipation. Genitourinary: Negative. Musculoskeletal: Negative. Skin: Negative. Neurological: Negative. Endo/Heme/Allergies: Negative. Psychiatric/Behavioral: Negative. Objective/Physical Exam: Vital Signs: There were no vitals taken for this visit. Exam: Constitutional: Alert, in no distress. Respiratory: Respirations unlabored. Cardiovascular: Pulse regular. Gastrointestinal: Abdomen soft, non tender. Skin: Skin warm and dry. Neuro: alert and oriented Data Review: NA Labs: MICRO (7day): No results found for this or any previous visit (from the past 24 hour(s)). Other Studies: N/A Impression: Recent bouts of uncomplicated bacterial cystitis: possibly precipitated by rectocele/constipation. To rule out urinary obstruction, stone etc plan bladder/renal sono. She declines consideration of topical hormonal Rx ad prophylactic antibiotics. She empties well. Suggestions/Recommendations: As above. Plan routine F/U urine in one month. Darshan Loaiza MD FACS documented in this encounter Plan of Treatment Upcoming Encounters Date Type Department Care Team (Late st Contact Info) Description 05/06/2024 13:40 EST Office Visit [facility] [address] [facility], [place] [address] Renetta Kidd MD [address] [place] [address], [facility] [address] [place] [phone] 05/23/2024 15:15 EST Office Visit [address] [place], [place] [phone] Sridevi Lozano NP [address] [place] [phone] documented as of this encounter Procedures Procedure Name Priority Date/Time Associated Diagnosis Comments UROLOGY BLADDER SCAN Routine 05/29/2022 Recurrent UTI POCT URINALYSIS Routine 05/29/2022 Recurrent UTI documented in this encounter Results * US RENAL/BLADDER COMPLETE (06/23/2022 9:08 EST) Anatomical Region Laterality Modality Abdomen, Body Ultrasound 06/23/2022 9:22 EST Impressions 06/23/2022 9:22 EST 1. Bilateral nephrolithiasis. 2. 7 mm urinary bladder stone. Narrative 06/23/2022 9:22 EST INDICATION: recurrent uti. COMPARISON: None. TECHNIQUE: Sonographic examination of the kidneys and urinary bladder was performed. Color Doppler imaging was also utilized. FINDINGS: There are multiple nonobstructing stones within the right and left kidneys. The right kidney measures 10.4 cm in length and the left kidney measures 10.0 cm. No other focal renal lesion or hydronephrosis is present. There is a 7 mm stone within the urinary bladder. The urinary bladder prevoid volume is 183 mL and the post void volume is 47 mL. No other urinary bladder wall abnormality is identified. There is an incidental right hepatic lobe cyst measuring 12 mm. Procedure Note Deepak Lassiter MD - 06/23/2022 INDICATION: recurrent uti. COMPARISON: None. TECHNIQUE: Sonographic examination of the kidneys and urinary bladder wasperformed. Color Doppler imaging was also utilized. FINDINGS: There are multiple nonobstructing stones within the right and leftkidneys. The right kidney measures 10.4 cm in length and the left kidneymeasures 10.0 cm. No other focal renal lesion or hydronephrosis ispresent. There is a 7 mm stone within the urinary bladder. The urinary bladderprevoid volume is 183 mL and the post void volume is 47 mL. No otherurinary bladder wall abnormality is identified. There is an incidental right hepatic lobe cyst measuring 12 mm. IMPRESSION 1. Bilateral nephrolithiasis. 2. 7 mm urinary bladder stone. Darshan Loaiza MD [facility] US ORDERABLES Final Result * UROLOGY BLADDER SCAN (05/29/2022) Bladder Scan 0 ml [facility] P OINT OF CARE Urine Darshan Loaiza MD UROLOGY ORDERABLES Final Result Performing Organization Address [facility] Co de Phone Number [facility] POINT OF CARE * POCT URINALYSIS (05/29/2022) Color, UA Yellow [facility] POIN T OF CARE Clarity, UA Clear [facility] PO INT OF CARE Glucose, UA Negative . mg/dL [facility] PO INT OF CARE Bilirubin, UA Negative Negative [facility] POINT OF CARE Ketones, UA Negative . mg/dL [facility] PO INT OF CARE Spec Grav, UA 1.020 1.005 - 1.030 [facility] POINT OF CARE Blood, UA Negative Negative [facility] POIN T OF CARE pH, UA 7.0 4.6 - 8.0 [facility] POIN T OF CARE Protein, UA Negative . mg/dL [facility] PO INT OF CARE Urobilinogen, UA 0.2 0.2 - 1.0 E.U./dL [facility] POINT OF CARE Nitrite, UA Negative . [facility] PO INT OF CARE Leuk Esterase Negative Negative [facility] POINT OF CARE Comment [facility] POIN T OF CARE Urine URINE SPECIMEN COLLECTION, CLEAN CATCH / Unknown 05/29/2022 Darshan Loaiza MD POINT OF CARE TEST ORDERABLES Fi nal Result Performing Organization Address [facility] de Phone Number [facility] POINT OF CARE documented in this encounter Visit Diagnoses Diagnosis Recurrent UTI- Primary Urinary tract infection, site not specified Recurrent UTI Urinary tract infection, site not specified documented in this encounter Historical Medications * This list may reflect changes made after this encounter. cranberry-vitamin C-mannose 250-30-50 mg tablet,chewable Take by mouth. 12/30/2023 prednisoLONE (PRED FORTE) 1 % ophthalmic suspension 05/21/2022 09/02/2022 moxifloxacin (VIGAMOX) 0.5 % ophthalmic solution 05/21/2022 09/02/2022 ketOROLAC (ACULAR) 0.5 % ophthalmic solution 05/21/2022 09/02/2022 added in this encounter Care Teams Community Development Director Relationship Specialty Start Date End Date Sridevi Lozano NP [address] [place] [phone] PCP - General Family Medicine - Primary Care 12/27/21 documented as of this encounter
--- OUTSIDE RECORDS SUMMARY | 2024-04-13 13:00 | XMS_ITS | Encounter Summary ---
Author Organization [facility] Address [address] [place] [address] Care Team Providers Care Conference Planner Name Role Phone Sridevi Lozano WOOD MACHINIST Primary Care Provider [phone] Reason for Visit * Reason Comments Other Pre op, cataract arnie baylee Encounter Details Date Type Department Care Team (Late st Contact Info) Description 05/21/2022 11:00 EST Office Visit [facility] [address] [place], [place] [phone] Sridevi Lozano, WOOD MACHINIST [address] [place] [phone] Pre-op exam (Primary Dx) Social History Tobacco Use Types [...] 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 t on file documented as of this encounter Last Filed Vital Signs Vital Sign Reading Time Taken Comments Blood Pressure 118/80 05/21/2022 1059 EST Pulse 64 05/21/2022 1059 EST Temperature 36.7 ??C (98 ??F) 05/21/2022 1059 EST Respiratory Rate - - Oxygen Saturation - - Inhaled Oxygen Concentration - - Weight 56.7 kg (125 lb) 05/21/2022 1059 EST Height 167 cm (5' 5.75) 05/21/2022 1059 EST Body Mass Index 20.33 05/21/2022 1059 EST documented in this encounter Functional Status [...] this encounter Progress Notes * Sridevi Bianchi, WOOD MACHINIST - 05/21/2022 1100 EST CHIEF COMPLAINT: Chief Complaint Patient presents with ??? Other Pre op, cataract surgery HPI: Trav Velázquez, a 61 y.o. female who presents today for pre-op evaluation. Planned surgeryfor 06/03/22 and 06/17/22. Trav reports feeling well today. No recent change in appetite, is sleeping well. History is significant for HTN. She continues to take lisinopril and amlodipine. BP has been well controlled. She denies associated chest pains, dizziness, or shortness of breath. She denies edema to lower extremities. Patient is able to walk up a flight of stairs or preform light housework (e.g., dusting, washingdishes). Trav had a echo completed in 2019 with normal results. Trav denies URI symptoms. No SOB or CP. No fever/chills. No abdominal pain. No N/V/D/C. She was recently started treatment for UTI, has upcoming appointment with urology. asymptomatic today. No personal history of blood clots or bleeding disorders. ROS: I've done a Review of Systems and the pertinent positives are in the HPI. Patient Active Problem List Diagnosis ??? Essential hypertension ??? History of recurrent UTIs Current Outpatient Medications on File Prior to Visit Medication Sig Dispense Refill ??? amLODIPine (NORVASC) 5 mg tablet Take 1 Tablet by mouth daily. 90 Tablet 0 ??? amoxicillin-clavulanate (AUGMENTIN) 500-125 mg per tablet Take 1 Tablet by mouth 2 times daily for 7 days. 14 Tablet 0 ??? lisinopriL (PRINIVIL) 40 mg tablet Take 40 mg by mouth daily. No current facility-administered medications on file prior to visit. No Known Allergies No past medical history on file. Social History Tobacco Use ??? Smoking status: Former Packs/day: 1.00 Years: 15.00 Pack years: 15.00 Types: Cigarettes Quit date: 1988 Years since quittin.0 ??? Smokeless tobacco: Never Vaping Use ??? Vaping Use: Never used Substance Use Topics ??? Alcohol use: Yes Alcohol/week: 10.0 standard drinks Types: 10 Standard drinks or equivalent per week ??? Drug use: Not Currently Types: Marijuana PHYSICAL EXAMINATION: Objective: Vitals: BP 118/80 Pulse 64 Temp 36.7 ??C (98 ??F) Ht 167 cm (65.75) Wt 56.7 kg (125 lb) BMI 20.33 kg/m?? GENERAL APPEARANCE: NAD, pleasant, well-appearing, alert and oriented. ORAL CAVITY: oropharynx clear, moist mucous membranes. NECK: supple, no lymphadenopathy. HEART: regular rate and rhythm, no murmurs. LUNGS: clear to auscultation bilaterally, no wheezes/rhonchi/rales. ABDOMEN: soft, NT/ND, BS present. EXTREMITIES: No pedal edema. IMPRESSION/PLAN: 1. Pre-op exam 1. Pre-op exam Reviewed past medical history and current medications. Chronic conditions are well controlled. Exertional capacity >4 METS. Physical exam is unremarkable. Vitals are WNL. BP 118/80. Cleared for procedure. F/u as recommended by surgeon. This note was prepared using voice recognition software and the EMR. There may be inadvertent errors and omissions. Sridevi Bianchi NP 05/21/2022 12:58 documented in this encounter Plan of Treatment Upcoming Encounters Date Type Department Care Team (Late st Contact Info) Description 05/06/2024 13:40 EST Office Visit [facility] [address] [facility], [place] [address] Renetta Kidd MD [address] [facility], [facility] [address] [place] [phone] 05/23/2024 15:15 EST Office Visit [facility] [address] [place], [place] [address] Sridevi Lozano NP [address] [place] [phone] documented as of this encounter Visit Diagnoses Diagnosis Pre-op exam- Primary Preoperative examination, unspecified documented in this encounter Care Teams Conference Planner Relationship Specialty Start Date End Date Sridevi Lzoano NP [address] [place] [phone] PCP - General Family Medicine - Primary Care 12/27/21 documented as of this encounter
--- OUTSIDE RECORDS SUMMARY | 2024-04-13 13:00 | XMS_ITS | Encounter Summary ---
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 No / Unsure 06/11/2022 16:11 EST documented as of this encounter Functional Status [...] Info) Description 05/06/2024 13:40 EST Office Visit [facility] [address] [facility], [place] [address] Renetta Kidd MD [address] [place] [address] [address] [place] [phone] 05/23/2024 15:15 EST Office Visit [facility] [address] [place] [phone] Sridevi Lozano NP [address] [place] [phone] documented as of this encounter Visit Diagnoses Not on filedocumented in this encounter Care Teams Outreach Assistant Relationship Specialty Start Date End Date Sridevi Lozano NP [address] [place] [phone] PCP - General Family Medicine - Primary Care 12/27/21 documented as of this encounter
--- OUTSIDE RECORDS SUMMARY | 2024-04-13 13:00 | XMS_ITS | Encounter Summary ---
Author Organization [facility] Address [address] [place] [address] Care Team Providers Care Mess Attendant Name Role Phone Sridevi Lozano TUBE DEPATCHER Primary Care Provider [phone] Reason for Referral * Radiology Services (Routine/Next Available) - Authorization Not Required Specialty Diagnoses / Procedures Referred By [facility] Referred To Contact Diagnoses Renal stone Procedures CT RENAL STONE Darshan Loaiza MD Phone: tel: fax: [facility] Referral ID Status Reason Start Date Expiration Date Visits Requested Visits Authorized [id number] Authorization Not Required 07/02/2022 1 1 Encounter Details Date Type Department Care Team (Late st Contact Info) Description 07/02/2022 Orders Only [facility] [address] [place] [address] Darshan Loaiza MD [address] [facility] [address] [place] [phone] Renal stone (Primary Dx) Social History Tobacco Use Types [...] 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 No / Unsure 06/17/2022 11:03 EST documented as of this encounter Functional [...] Info) Description 05/06/2024 13:40 EST Office Visit [facility] [address] [facility], [place] [address] Renetta Kidd MD [address] [facility], [facility] [address] [place] [phone] 05/23/2024 15:15 EST Office Visit [facility] [address] [place] [phone] Sridevi Lozano NP [address] [place] [phone] documented as of this encounter Results * CT RENAL STONE (08/25/2022 16:14 EDT) Anatomical Region Laterality Modality Body, Abdomen Computed Tomogra phy 08/25/2022 16:0 7 EDT Impressions 08/25/2022 16:44 EDT 1. ?? Qhtc-tr-oziuzqng coronary artery calcifications. Slight arteriosclerotic changes of [...] REGARDING THIS REPORT PLEASE CALL [facility] AT [phone] Narrative 08/25/2022 16:44 EDT PROCEDURE INFORMATION: Exam: [...] within normal limits. Coronary arteries: There are yawr-yr-mlctprli coronary artery calcifications. Liver: Within the right [...] within normal limits. Coronary arteries: There are xuuk-sj-bngbqnmi coronary artery calcifications. Liver: Within the right [...] both hips. Soft tissues: Unremarkable. IMPRESSION 1. Krye-pr-sprqaizx coronary artery calcifications. Slight arteriosclerotic changes of [...] CONCERNS REGARDING THIS REPORT PLEASE CALL [facility] [phone] us Darshan Loaiza MD IMG CT ORDERABLES Final Result documented in this encounter Visit Diagnoses Diagnosis Renal stone- Primary Calculus of kidney Renal stone Calculus of kidney documented in this encounter Care Teams Mess Attendant Relationship Specialty Start Date End Date Sridevi Lozano, TUBE DEPATCHER [address] [place] [phone] PCP - General Family Medicine - Primary Care 12/27/21 documented as of this encounter
--- OUTSIDE RECORDS SUMMARY | 2024-04-13 13:00 | XMS_ITS | Encounter Summary ---
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 Dermatology [address] [facility], [place] [address] Renetta Kidd MD [address] [place] [address], [facility] [address] [place] [address] 05/23/2024 15:15 EST Office Visit [facility] [address] [place] [address] Sridevi Lozano NP [address] [place] [phone] documented as of this encounter Procedures Procedure Name Priority Date/Time Associated Diagnosis Comments UA WITH REFLEX SEDIMENT Routine 05/15/2022 13:19 EST Abnormal urine odor Recurrent UTI URINE SEDIMENT (MICRO) WITHOUT REFLEX TO CULTURE Today 05/15/2022 13:19 EST Abnormal urine odor Recurrent UTI BACTERIAL CULTURE, URINE Routine 05/15/2022 13:19 EST Abnormal urine odor Recurrent UTI documented in this encounter Results * (ABNORMAL) URINE SEDIMENT (MICRO) WITHOUT REFLEX TO CULTURE (05/15/2022 13:19 EST) Urine RBC Count, Manual 3 - 10(A) 0 - 2, None Seen Cells/HPF 05/15/2022 14:08 [facility] Urine WBC Count 11 - 50(A) 0 - 3, None Seen Cells/HPF 05/15/2022 14:08 [facility] Urine Squamous Count, Manual Few(A) None Seen Cells/HPF 05/15/2022 14:08 [facility] Urine Bacteria Count, Manual Many(A) None Seen Bacteria/ HPF 05/15/2022 14:08 [facility] Additional Findings WBC Clumps Present(A) None Seen 05/15/2022 14:08 [facility] Urine URINE SPECIMEN COLLECTION, CLEAN CATCH / Unknown Urine Collect / Unknown 05/15/2022 13:19 EST 05/15/2022 13:36 EST [facility] - 05/15/2022 14:08 EST Urine Sediment Analysis results are unreliable on urines that are unrefrigerated for >2 hrs or refrigerated >8 hrs. us Kia Dickson NP URINALYSIS ORDERABLES Final R esult [facility] [address] [place] [address] * (ABNORMAL) UA WITH REFLEX SEDIMENT (05/15/2022 13:19 EST) Color UA Yellow Colorless to Dark Yellow 05/15/2022 14:07 [facility] Clarity UA Clear Clear 05/15/2022 14:07 [facility] Glucose UA Negative Negative 05/15/2022 14:07 [facility] Bilirubin UA 1+(A) Negative 05/15/2022 14:07 [facility] Ketones UA Trace(A) Negative 05/15/2022 14:07 [facility] Specific [place], Urine 1.015 1.001 - 1.035 05/15/2022 14:07 [facility] Blood UA Trace(A) Negative 05/15/2022 14:07 [facility] pH, UA 6.5 4.6 - 8.0 05/15/2022 14:07 [facility] Protein UA Negative Negative 05/15/2022 14:07 [facility] Urobilinogen UA 0.2 0.2 , 1.0, Normal mg/dL 05/15/2022 14:07 [facility] Nitrite UA Negative Negative 05/15/2022 14:07 [facility] Leukocyte Esterase UA Trace(A) Negative 05/15/2022 14:[address] [facility] Urine URINE SPECIMEN COLLECTION, CLEAN CATCH / Unknown Urine Collect / Unknown 05/15/2022 13:19 EST 05/15/2022 13:36 EST us Kia Janessa Dickson BAND SAW OPERATOR URINALYSIS ORDERABLES Final R esult Performing Organization Address City/State/[facility] Co de Phone Number [facility] [address] [place] [address] * (ABNORMAL) BACTERIAL CULTURE, URINE (05/15/2022 13:19 EST) Organism ID Greater than 100,000 CFU/ml Escherichia coli(A) VITEK SUSCEPTIBILITY 05/17/2022 8:[address] [facility] Comment: Cefazolin susceptibility results can be used to predict susceptibility results for the following oral cephalosporins when used for therapy of uncomplicated UTI's due to E.coli, K.pneumoniae and P.mirabilis: cefaclor, cefdinir, cefpodoxime, cefprozil, cefuroxime, cephalexin and loracarbef. ??Please note that only cefdinir, cefpodoxime, cefuroxime and cephalexin are on the [facility] inpatient formulary. Urine URINE SPECIMEN COLLECTION, CLEAN CATCH / Unknown Urine Collect / Unknown 05/15/2022 13:19 EST 05/15/2022 13:36 EST Narrative Organism Antibiotic Method Susceptibility Escherichia coli [...] Escherichia coli Trimethoprim-Sulfame thox azole VITEK SUSCEPTIBILITY >=320 ug/mL: Resistant us Kia Dickson NP MICROBIOLOGY - GENERAL ORDERA BLES Final Result [facility] [address] [place] [address] documented in this encounter Visit Diagnoses Diagnosis Abnormal urine odor Other nonspecific finding on examination of urine Recurrent UTI Urinary tract infection, site not specified documented in this encounter Care Teams Medical Staff Director Relationship Specialty Start Date End Date Sridevi Lozano NP [address] [place] [phone] PCP - General Family Medicine - Primary Care 12/27/21 documented as of this encounter
--- OUTSIDE RECORDS SUMMARY | 2024-04-13 13:00 | XMS_ITS | Encounter Summary ---
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 [...] Info) Description 05/06/2024 13:40 EST Office Visit [facility] Dermatology [address] [facility], [place] [address] Renetta Kidd MD [address] [place] [address] 5 [place] [phone] 05/23/2024 15:15 EST Office Visit [facility] [address] [place] [phone] Sridevi Lozano NP [address] [place] [phone] documented as of this encounter Visit Diagnoses Not on filedocumented in this encounter Care Teams Desk Monitor Relationship Specialty Start Date End Date Sridevi Lozano NP [address] [place] [phone] PCP - General Family Medicine - Primary Care 12/27/21 documented as of this encounter
--- OUTSIDE RECORDS SUMMARY | 2024-04-13 13:00 | XMS_ITS | Encounter Summary ---
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 10 Tablet 07/07/2022 08/29/2022 documented in this encounter Plan of Treatment Upcoming Encounters Date Type Department Care Team (Late st Contact Info) Description 05/06/2024 13:40 EST Office Visit [facility] Dermatology [address] [place] [phone] Renetta Kidd MD [address] [place] [address] 5 [place] [phone] 05/23/2024 15:15 EST Office Visit [facility] [address] [place] [phone] Sridevi Lozano NP [address] [place] [phone] documented as of this encounter Visit Diagnoses Not on filedocumented in this encounter Care Teams Saw Grinder Relationship Specialty Start Date End Date Sridevi Lozano NP [address] [place] [phone] PCP - General Family Medicine - Primary Care 12/27/21 documented as of this encounter
--- OUTSIDE RECORDS SUMMARY | 2024-04-13 13:00 | XMS_ITS | Encounter Summary ---
Author Organization [facility] Address [address] [place] [address] Care Team Providers Care Rock Drill Operator Name Role Phone Sridevi Lozano SENIOR FINANCIAL REPORTING ANALYST Primary Care Provider Reason for Visit * Reason Onset Date Comments Results 04/10/2022 Returning Call 04/10/2022 Encounter Details Date Type Department Care Team (Late st Contact Info) Description 04/10/2022 Telephone [facility] O[facility] [address] [place], [place] [phone] Kia Dickson NP [address] [facility] [address] [place] [address] Results; Returning Call Social History Tobacco Use Types Packs/Day Years [...] 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 Started to resolve when she began the antibiotic 03/11/22 but then the odor returned. Also has a raw feeling in the vagina. Was treated for BV in 12/2021 with metronidazole. Explained these infections were in 2 different places-BV in the vagina and UTI in the bladder. Urine C&S is still pending although Nitrites are positive. WCB once I receive C&S results. Prefer to wait un til then before starting another antibiotic-Chandraagrees. Ravi reports regular daily BMS-has been taking colon care which has psyllium in it. * Telephone Encounter - Kia Dickson NP - 04/10/2022 1509 EST JEMMA Ravi- returning call. Date time and phone # left * Telephone Encounter - Tiff Collazo RN - 04/10/2022 1106 EST Chart reviewed - results are still pending. Kia TERRY - pt anxious for results. Thanks. * Telephone Encounter - Chantal Hawkins MA - 04/10/2022 1040 EST Patient called wondering is UA from this AM was finished. She wanted to start antibiotic before thestorm. Advised patient it was still in process and could take 24 hours for results and that JF would call to discuss results as soon as she got them and I would send a note back. documented in this encounter Plan of Treatment Upcoming Encounters Date Type Department Care Team (Late st Contact Info) Description 05/06/2024 13:40 EST Office Visit [facility] Dermatology [address] [facility], [place] [address] Renetta Kidd MD [address] [place] [address] [address] [place] [phone] 05/23/2024 15:15 EST Office Visit [address] [phone] Sridevi Lozano NP [address] [place] [phone] documented as of this encounter Visit Diagnoses Not on filedocumented in this encounter Care Teams Rock Drill Operator Relationship Specialty Start Date End Date Sridevi Lozano NP [address] [place] [phone] PCP - General Family Medicine - Primary Care 12/27/21 documented as of this encounter
--- OUTSIDE RECORDS SUMMARY | 2024-04-13 13:00 | XMS_ITS | Encounter Summary ---
Author Organization [facility] Address [address] [place] [address] Care Team Providers Care Fire Fighter Name Role Phone Sridevi Lozano DESIGN PRINTER BALLOON Primary Care Provider [phone] Reason for Visit * Auth/Cert (Routine) Specialty Diagnoses / Procedures [facility] Referred To Contact Diagnoses Cataract, right Cataract, right [H26.9] Procedures FL XCAPSL CTRC RMVL INSJ IO LENS PROSTH W/O ECP EXTRACTION, CATARACT, EXTRACAPSULAR, WITH IOL INSERTION Referral ID Status Reason Start Date Expiration Date Visits Re quested Visits Authorized [id number] 1 1 Encounter Details Date Type Department Care Team (Late st Contact Info) Description 06/03/2022 10:59 EST Anesthesia Event [facility] Operating Room [address] [place], [place] [phone] Jewell Parks MD [address] [facility], [address] 2 [place] [address] Maxime Wells MD [address] [place] [phone] Anesthesia Record Procedure Summary Procedure Name Responsible Anesthesiologist Anesthesia Start Time Anesthesia Stop Time EXTRACTION, CATARACT, EXTRACAPSULAR, WITH IOL INSERTION (Right: Eye) Jewell Parks MD 06/03/22 1059 06/03/22 1122 Events Date Time Event Comment 06/03/2022 1059 An Start The patient was re-evaluated immediately before moderate or deep sedation use, before anesthesia induction, or before the anesthesia procedure. 1059 An Start Data 1101 Anesthesia Ready 1120 an stop data 1122 Handoff to RN I completed my handoff to the receiving nurse during which we: 1. Identified the patient 2. Identified the responsible provider 3. Reviewed the pertinent medical history 4. Discussed the surgical course 5. Reviewed intra-op anesthesia management and issues during anesthesia 6. Set expectations for post-procedure period 7. Allowed opportunity for questions and acknowledgement of understanding. 1122 An Stop Meds Name Total midazolam 1 mg/mL 2 mL vial 2 mg * Agents Name O2 N2O Air * Blood No blood administrations on file. 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 No / Unsure 05/29/2022 16:37 EST documented as of this encounter Functional [...] 06/08/2018 15:56 EST documented in this encounter OR Notes * Anesthesia Postprocedure Evaluation - Phil Bronson MD - 06/03/2022 1122 EST Patient: Trav Velázquez Vital signs were reviewed with the recovery nurse. Complete vitals history is available in the Epicflowsheets. Vitals Value Taken Time BP 161/115 06/03/22 1122 Temp 06/03/22 1122 Resp 18 06/03/22 1122 Pulse From Oximetry 66 BPM 06/03/22 1120 SpO2 99 06/03/22 1122 Heart Rate 70 06/03/22 1122 Last Pain Score - Numeric Pain Level (Scale 1-10): 0 Type of Anesthesia - MAC Anesthesia Post Evaluation Post-procedure vitals reviewed and are stable. Level of consciousness: awake Temperature status: normothermia Respiratory status: airway patent and stable Cardiovascular status: stable Hydration status: adequate Nausea/Vomiting: none Pain management: adequate Post-Op Assessment: patient tolerated procedure well with no complications Patient participation: able to participate Disposition: outpatient/home Anesthesia Complications: No apparent anesthesia complications * Anesthesia Preprocedure Evaluation - Jewell Parks MD - 06/03/2022 0638 EST Images from the original note were not included. Anesthesia Preprocedure Evaluation Patient Medical History, including Anesthesia History reviewed. Chart and Nursing Notes reviewed, including NPO status and Medication History. Additional ROS/History Findings: The following is from Sridevi Bianchi NP note from 05/21/2022 HPI: Travra Joseph Velázquez, a 61 y.o. female who presents today for pre-op evaluation. Planned surgeryfor 06/03/22 and 06/17/22. ? Trav reports feeling well today. No recent [...] echo completed in 2019 with normal results. ?? Trav denies URI symptoms. No SOB or CP. No fever/chills. No abdominal pain. No N/V/D/C. ?? She was recently started treatment for UTI, has upcoming appointment with urology. asymptomatic today. ?? No personal history of blood clots or bleeding disorders. ? ROS:??I've done a Review of Systems and the pertinent positives are in the HPI. ? Patient Active Problem List Diagnosis ??? Essential hypertension ??? History of recurrent UTIs ? Current Outpatient Medications on File Prior to Visit Medication Sig Dispense Refill ??? amLODIPine (NORVASC) 5 mg tablet Take 1 Tablet by mouth daily. 90 Tablet 0 ??? amoxicillin-clavulanate (AUGMENTIN) 500-125 mg per tablet Take 1 Tablet by mouth 2 times daily for 7 days. 14 Tablet 0 ??? lisinopriL (PRINIVIL) 40 mg tablet Take 40 mg by mouth daily. ? No current facility-administered medications on file prior to visit. ? No Known Allergies ?? No past medical history on file. ?? Social History ?? Tobacco Use ??? Smoking status: Former ? Packs/day: 1.00 ? Years: 15.00 ? Pack years: 15.00 ? Types: Cigarettes ? Quit date: 1988 ? Years since quittin.0 ??? Smokeless tobacco: Never Vaping Use ??? Vaping Use: Never used Substance Use Topics ??? Alcohol use: Yes ? Alcohol/week: 10.0 standard drinks ? Types: 10 Standard drinks or equivalent per week ??? Drug use: Not Currently ? Types: Marijuana ? PHYSICAL EXAMINATION: Objective: Vitals: BP 118/80 Pulse 64 Temp 36.7 ??C (98 ??F) Ht 167 cm (65.75) Wt 56.7 kg (125 lb) BMI 20.33 kg/m?? GENERAL APPEARANCE:??NAD, pleasant, well-appearing, alert and oriented.?? ORAL CAVITY:??oropharynx clear, moist mucous membranes.?? NECK:??supple, no lymphadenopathy.?? HEART:??regular rate and rhythm, no murmurs.?? LUNGS:??clear to auscultation bilaterally, no wheezes/rhonchi/rales.?? ABDOMEN:??soft, NT/ND, BS present.?? EXTREMITIES:??No pedal edema.? IMPRESSION/PLAN: 1. Pre-op exam ? 1. Pre-op exam ?? Reviewed past medical history and current medications. Chronic conditions are well controlled. Exertional capacity >4 METS. Physical exam is unremarkable. Vitals are WNL. BP 118/80. Cleared for procedure. F/u as recommended by surgeon. No Known Allergies Review of Systems Constitutional: Negative. Respiratory: Negative for cough, shortness of breath and wheezing. Cardiovascular: Negative for chest pain and palpitations. Gastrointestinal: Positive for heartburn. Occas Neurological: Negative. History reviewed. No pertinent past medical history. Relevant Problems PULMONARY (+) History of recurrent UTIs Neuro/Psych (+) History of recurrent UTIs CARDIOVASCULAR (+) Essential hypertension Physical Exam Airway Mallampati: III Neck ROM: full Cardiovascular Rhythm: regular Rate: normal Dental - normal exam Pulmonary Breath sounds clear to auscultation Abdominal Anesthesia Plan ASA 2 Anesthesia Type - MAC Anesthesia plan and risks discussed. Informed consent obtained from patient. PAT Note Notes from 05/04/22 through 06/03/22 No notes of this type exist for this encounter. documented in this encounter Plan of Treatment Upcoming Encounters Date Type Department Care Team (Late st Contact Info) Description 05/06/2024 13:40 EST Office Visit [facility] Dermatology [address] [facility], [place] [address] Renetta Kidd MD [address] [facility], [address] [place] [phone] 05/23/2024 15:15 EST Office Visit [facility] [address] [place], [place] [phone] Sridevi Lozano NP [address] [place] [phone] documented as of this encounter Visit Diagnoses Not on filedocumented in this encounter Administered Medications Inactive Administered Medications - up to 3 most recent administrations Medication Order MAR Action Action Date Dose Rate Site midazolam (PF) (VERSED) injection intravenous, PRN, Starting on Thu06/03/22 at 1101, Until Thu06/03/22 at 1122, Routine, Anesthesia Intraprocedure Given 06/03/2022 11:01 EST 2 mg documented in this encounter Care Teams Fire Fighter Relationship Specialty Start Date End Date Sridevi Lozano NP [address] [place] [phone] PCP - General Family Medicine - Primary Care 12/27/21 documented as of this encounter
--- OUTSIDE RECORDS SUMMARY | 2024-04-13 13:00 | XMS_ITS | Encounter Summary ---
Author Organization [facility] Address [address] [place] [address] Care Team Providers Care Senior Health Physics Technician Name Role Phone Sridevi Lozano SPECIAL NEEDS BUS DRIVER Primary Care Provider Reason for Visit * Reason Onset Date Comments Appointment Related 05/13/2022 Encounter Details Date Type Department Care Team (Late st Contact Info) Description 05/13/2022 Telephone 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 Thank you! documented in this encounter Plan of Treatment Upcoming Encounters Date Type Department Care Team (Late st Contact Info) Description 05/06/2024 13:40 EST Office Visit [facility] Dermatology [address] [facility], [place] [address] Renetta Kidd MD [address] [place] [address] 5 [place] [phone] 05/23/2024 15:15 EST Office Visit [facility] Family [address] [address] Sridevi Lozano NP [address] [place] [phone] documented as of this encounter Visit Diagnoses Not on filedocumented in this encounter Care Teams Senior Health Physics Technician Relationship Specialty Start Date End Date Sridevi Lozano NP [address] [place] [phone] PCP - General Family Medicine - Primary Care 12/27/21 documented as of this encounter
--- OUTSIDE RECORDS SUMMARY | 2024-04-13 13:00 | XMS_ITS | Encounter Summary ---
Author Organization [facility] Address [address] [place] [address] Care Team Providers Care Specimen Preparation Assistant Name Role Phone Sridevi Lozano SOLAR TECHNICIAN Primary Care Provider [phone] Encounter Details Date Type Department Care Team (Late st Contact Info) Description 04/10/2022 6:40 EST Phlebotomy Only [facility] - Outpatient Phlebotomy Drawing [address] [place] [address] Lab, [facility] Op Phlebotomy Encounter for routine adult health examination without abnormal findings; Bacteriuria Social History Tobacco Use Types Packs/Day Years [...] 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 Dermatology [address] [facility], [place] [address] Renetta Kidd MD [address] [place] [address] 5 [place] [phone] 05/23/2024 15:15 EST Office Visit [facility] [address] [place], [place] [phone] Sridevi Lozano NP [address] [place] [phone] documented as of this encounter Procedures Procedure Name Priority Date/Time Associated Diagnosis Comments UA WITH REFLEX SEDIMENT Routine 04/10/2022 6:44 EST Bacteriuria URINE SEDIMENT (MICRO) WITHOUT REFLEX TO CULTURE Today 04/10/2022 6:44 EST Bacteriuria LIPID PROFILE (INCLUDES CHOLESTEROL, TRIGLYCERIDES, HDL, LDL) Routine 04/10/2022 6:44 EST Encounter for routine adult health examination without abnormal findings COMPREHENSIVE METABOLIC PANEL (CMP) Routine 04/10/2022 6:44 EST Encounter for routine adult health examination without abnormal findings documented in this encounter Results * (ABNORMAL) URINE SEDIMENT (MICRO) WITHOUT REFLEX TO CULTURE (04/10/2022 6:44 EST) Urine RBC Count, Manual 0 - 2 0 - 2, None Seen Cells/HPF 04/10/2022 12:39 EST [facility] Urine WBC Count 4 - 10(A) 0 - 3, None Seen Cells/HPF 04/10/2022 12:39 [facility] Urine Squamous Count, Manual Few(A) None Seen Cells/HPF 04/10/2022 12:39 [facility] Urine Bacteria Count, Manual Many(A) None Seen Bacteria/H PF 04/10/2022 12:39 [facility] Urine URINE SPECIMEN COLLECTION, CLEAN CATCH / Unknown Urine Collect / Unknown 04/10/2022 6:44 EST 04/10/2022 7:20 [facility] - 04/10/2022 12:39 EST Urine Sediment Analysis results are unreliable on urines that are unrefrigerated for >2 hrs or refrigerated >8 hrs. us Kia Dickson NP URINALYSIS ORDERABLES Final R esult Performing Organization Address City/State/[facility] Co de Phone Number [facility] [address] [place] [address] * (ABNORMAL) UA WITH REFLEX SEDIMENT (04/10/2022 6:44 EST) Color UA Straw Colorless to Dark Yellow 04/10/2022 12:13 [facility] Clarity UA Clear Clear 04/10/2022 12:13 [facility] Glucose UA Negative Negative 04/10/2022 12:13 [facility] Bilirubin UA Negative Negative 04/10/2022 12:13 [facility] Ketones UA Negative Negative 04/10/2022 12:13 [facility] Specific [place], Urine 1.020 1.001 - 1.035 04/10/2022 12:13 [facility] Blood UA Negative Negative 04/10/2022 12:13 [facility] pH, UA 7.0 4.6 - 8.0 04/10/2022 12:13 [facility] Protein UA Negative Negative 04/10/2022 12:13 [facility] Urobilinogen UA 0.2 0.2 , 1.0, Normal mg/dL 04/10/2022 12:13 [facility] Nitrite UA Positive(A) Negative 04/10/2022 12:13 [facility] Leukocyte Esterase UA Negative Negative 04/10/2022 12:13 [facility] Urine URINE SPECIMEN COLLECTION, CLEAN CATCH / Unknown Urine Collect / Unknown 04/10/2022 6:44 EST 04/10/2022 7:20 EST us Kia Dickson SOLAR TECHNICIAN URINALYSIS ORDERABLES Final R esult [facility] [address] [place] [address] * (ABNORMAL) LIPID PROFILE (INCLUDES CHOLESTEROL, TRIGLYCERIDES, HDL, LDL) (04/10/2022 6:44 EST) Cholesterol 216(H) <200 mg/dL 04/10/2022 7:57 [facility] Comment:Note that therapeuti c goals will differ between patients based on cardiac risk factors and current medical therapy. HDL 109 >=50 mg/dL 04/10/2022 7:57 [facility] Comment:Note that therapeuti c goals will differ between patients based on cardiac risk factors and current medical therapy. LDL, Calculated 93 <160 mg/dL 7:57 [facility] Comment:Note that therapeuti c goals will differ between patients based on cardiac risk factors and current medical therapy. Triglyceride 71 <=150 mg/dL 04/10/2022 7:57 [facility] Comment:Note that therapeuti c goals will differ between patients based on cardiac risk factors and current medical therapy. Chol/HDL Ratio 2.0 See Note 04/10/2022 7:57 [facility] Comment: NOTE: Desirable Ratio = <4.1 Patient At Risk Ratio = >5.0(Males) ?>6.0(Females) Non HDL Cholesterol 107 <160 mg/dL 04/10/2022 7:57 [facility] Comment:Note that therapeuti c goals will differ between patients based on cardiac risk factors and current medical therapy. Blood VENOUS BLOOD / Unknown Venipuncture / Unknown 04/10/2022 6:44 EST 04/10/2022 7:21 EST us Sridevi S Blake SOLAR TECHNICIAN CHEMISTRY & BLOOD GAS ORDERA BLES Final Result [facility] [address] [place] [address] * COMPREHENSIVE METABOLIC PANEL (CMP) (04/10/2022 6:44 EST) Sodium 141 136 - 145 mmol/L 04/10/2022 7:46 [facility] Potassium 4.6 3.5 - 5.0 mmol/L 04/10/2022 7:46 [facility] Chloride 104 96 - 110 mmol/L 04/10/2022 7:46 [facility] CO2 Total 30 22 - 32 mmol/L 04/10/2022 7:46 [facility] Glucose 89 70 - 100 mg/dL 04/10/2022 7:46 [facility] BUN 19 10 - 26 mg/dL 04/10/2022 7:46 [facility] Creatinine 0.70 0.52 - 1.04 mg/dL 04/10/2022 7:46 [facility] eGFR 97 >60 mL/min/1.7 3m2 04/10/2022 7:46 [facility] Total Protein 6.8 6.3 - 8.2 g/dL 04/10/2022 7:46 [facility] Albumin 4.1 3.4 - 4.9 g/dL 04/10/2022 7:46 [facility] Alkaline Phosphatase 69 38 - 126 U/L 04/10/2022 7:46 [facility] AST 25 15 - 46 U/L 04/10/2022 7:46 [facility] ALT 19 <35 U/L 04/10/2022 7:46 [facility] Bilirubin, Total 0.3 <1.4 mg/dL 04/10/20 7:46 [facility] Calcium 10.1 8.5 - 10.5 mg/dL 04/10/2022 7:46 [facility] Albumin/Globulin Ratio 1.5 1.0 - 2.5 04/10/2022 7:46 EST [facility] Anion Gap 7 5 - 14 04/10/2022 7:46 [facility] Blood VENOUS BLOOD / Unknown Venipuncture / Unknown 04/10/2022 6:44 EST 04/10/2022 7:21 EST us Sridevi Lozano NP CHEMISTRY & BLOOD GAS ORDERA BLES Final Result [facility] [address] [place] [address] documented in this encounter Visit Diagnoses Diagnosis Encounter for routine adult health examination without abnormal findings Routine general medical examination at a health care facility Bacteriuria Other nonspecific finding on examination of urine documented in this encounter Care Teams Specimen Preparation Assistant Relationship Specialty Start Date End Date Sridevi Lozano, SOLAR TECHNICIAN [address] [place] [phone] PCP - General Family Medicine - Primary Care 12/27/21 documented as of this encounter
--- OUTSIDE RECORDS SUMMARY | 2024-04-13 13:00 | XMS_ITS | Encounter Summary ---
Author Organization [facility] Address [address] [place] [address] Care Team Providers Care Offset Plate Preparation Supervisor Name Role Phone Sridevi Lozano TATTOOER Primary Care Provider [phone] Reason for Visit * Auth/Cert (Routine) Specialty Diagnoses / Procedures Referred By Eboni tran Referred To Contact Diagnoses Cataract, left Cataract, left [H26.9] Procedures HI XCAPSL CTRC RMVL INSJ IO LENS PROSTH W/O ECP EXTRACTION, CATARACT, EXTRACAPSULAR, WITH IOL INSERTION Referral ID Status Reason Start Date Expiration Date Visits Re quested Visits Authorized [id number] 1 1 Encounter Details Date Type Department Care Team (Late st Contact Info) Description 06/17/2022 11:36 EST Anesthesia Event [facility] Operating Room [address] [place], [place] [address] Rima Alvarez MD [address] [place] [address] Anesthesia Record Procedure Summary Procedure Name Responsible Anesthesiologist Anesthesia Start Time Anesthesia Stop Time EXTRACTION, CATARACT, EXTRACAPSULAR, WITH IOL INSERTION (Left: Eye) Rima Alvarez MD 06/17/22 1136 06/17/22 1207 Events Date Time Event Comment 06/17/2022 1136 An Start The patient was re-evaluated immediately before moderate or deep sedation use, before anesthesia induction, or before the anesthesia procedure. 1136 An Start Data 1141 Anesthesia Ready 1157 an stop data 1207 Handoff to RN I completed my handoff to the receiving nurse during which we: 1. Identified the patient 2. Identified the responsible provider 3. Reviewed the pertinent medical history 4. Discussed the surgical course 5. Reviewed intra-op anesthesia management and issues during anesthesia 6. Set expectations for post-procedure period 7. Allowed opportunity for questions and acknowledgement of understanding. 1207 An Stop Meds Name Total midazolam 1 mg/mL 2 mL vial 2 mg * Agents Name O2 N2O Air Aux O2 flow * Blood No blood administrations on file. 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 Complete vitals history is available in the [facility]. Vitals Value Taken Time BP 130/88 06/17/22 1201 Temp 36.5 ??C (97.7 ??F) 06/17/22 1201 Resp 18 06/17/22 1206 Pulse From Oximetry 76 BPM 06/17/22 1206 SpO2 78 % 06/17/22 1206 Heart Rate 75 BPM 06/17/22 1206 Vitals shown include unvalidated device data. Last Pain Score - Numeric Pain Level (Scale 1-10): 3 Type of Anesthesia - MAC Anesthesia Post Evaluation Post-procedure vitals reviewed and are stable. Level of consciousness: alert and oriented Temperature status: normothermia Respiratory status: airway patent and stable Cardiovascular status: stable Hydration status: adequate Nausea/Vomiting: none Pain management: adequate Post-Op Assessment: patient tolerated procedure well with no complications and patient satisfied with anesthesia care Patient participation: able to participate Disposition: outpatient/home Anesthesia Complications: No apparent anesthesia complications * Anesthesia Preprocedure Evaluation - Ibrahima Yan AA - 06/16/2022 1044 EST Anesthesia Preprocedure Evaluation Patient Medical History, including Anesthesia History reviewed. Chart and Nursing Notes reviewed, including NPO status and Medication History. Additional ROS/History Findings: PMHx HTN R cataract surgery 06/03/22 w/ 2 mg versed No Known Allergies Review of Systems Respiratory: Negative. Negative for shortness of breath. Cardiovascular: Negative. Negative for chest pain. Gastrointestinal: Negative. Negative for heartburn. History reviewed. No pertinent past medical history. Relevant Problems PULMONARY (+) History of recurrent UTIs Neuro/Psych (+) History of recurrent UTIs CARDIOVASCULAR (+) Essential hypertension Physical Exam Airway Mallampati: II TM distance: >3 FB Neck ROM: full Cardiovascular Rhythm: regular Rate: normal Dental Pulmonary - normal exam Breath sounds clear to auscultation Abdominal Anesthesia Plan ASA 2 Anesthesia Type - MAC Anesthesia plan and risks discussed. Informed consent obtained from patient. Code status discussed? No The preoperative history and physical which was performed within 30 days of this procedure, has been reviewed and the clinically appropriate elements of the physical examination have been repeated. There are no changes to the documented history and physical or, if so, such changes are documented inthis note PAT Note Notes from 05/17/22 through 06/16/22 No notes of this type exist for this encounter. documented in this encounter Plan of Treatment Upcoming Encounters Date Type Department Care Team (Late st Contact Info) Description 05/06/2024 13:40 EST Office Visit [facility] Dermatology [address] [facility], [place] [address] Renetta Kidd MD [address] [place] [address] 5 [place] [phone] 05/23/2024 15:15 EST Office Visit [address] [address] Sridevi Lozano NP [address] [place] [phone] documented as of this encounter Visit Diagnoses Not on filedocumented in this encounter Administered Medications Inactive Administered Medications - up to 3 most recent administrations Medication Order MAR Action Action Date Dose Rate Site midazolam (PF) (VERSED) injection intravenous, PRN, Starting on Thu06/17/22 at 1141, Until Thu06/17/22 at 1207, Routine, Anesthesia Intraprocedure Given 06/17/2022 11:41 EST 2 mg documented in this encounter Care Teams Offset Plate Preparation Supervisor Relationship Specialty Start Date End Date Sridevi Lozano NP [address] [place] [phone] PCP - General Family Medicine - Primary Care 12/27/21 documented as of this encounter
--- OUTSIDE RECORDS SUMMARY | 2024-04-13 13:00 | XMS_ITS | Encounter Summary ---
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 Therapy completed 03/11/2022 04/14/2022 documented as of this encounter Care Teams Rn Hemo Dialysis Relationship Specialty Start Date End Date Sridevi Lozano NP [address] [place] [phone] PCP - General Family Medicine - Primary Care 12/27/21 documented as of this encounter
--- OUTSIDE RECORDS SUMMARY | 2024-04-13 13:00 | XMS_ITS | Encounter Summary ---
Author Organization [facility] Address [address] [place] [address] Care Team Providers Care Cardiac Nurse Specialist Name Role Phone Sridevi Lozano BAKING POWDER MIXER Primary Care Provider [phone] Reason for Referral * Radiology Services (Routine/Next Available) - Authorization Not Required Specialty Diagnoses / Procedures Referred By Contac t Referred To Contact Diagnoses Recurrent UTI Procedures US RENAL/BLADDER COMPLETE Darshan Loaiza MD Phone: tel: fax: [facility] Referral ID Status Reason Start Date Expiration Date Visits Requested Visits Authorized [id number] Authorization Not Required 05/29/2022 1 1 Reason for Visit * Radiology Services (Routine/Next Available) - Authorization Not Required Specialty Diagnoses / Procedures [facility] Referred To Contact Diagnoses Recurrent UTI Procedures US RENAL/BLADDER COMPLETE Darshan Loaiza MD Phone: tel: fax: [facility] Referral ID Status Reason Start Date Expiration Date Visits Requested Visits Authorized [id number] Authorization Not Required 05/29/2022 1 1 Encounter Details Date Type Department Care Team (Latest Contact Info) Description 06/23/2022 8:28 EST - 06/23/2022 23:59 EST Hospital Encounter [facility] Ultrasound [address] [place] [address] Recurrent UTI Discharge Disposition: Home or Self Care Social [...] 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 10/01/2021 08/01/2022 moxifloxacin (VIGAMOX) 0.5 % ophthalmic solution 05/21/2022 09/02/2022 prednisoLONE (PRED FORTE) 1 % ophthalmic suspension 05/21/2022 09/02/2022 documented as of this encounter Discharge Disposition Disposition Code Departure Means Destination Home or Self Care documented in this encounter Plan of Treatment Upcoming Encounters Date Type Department Care Team (Late st Contact Info) Description 05/06/2024 13:40 EST Office Visit [facility] Dermatology [address] [facility], [place] [address] Renetta Kidd MD [address] [facility] 5 [place] [phone] 05/23/2024 15:15 EST Office Visit [facility] [address] [place], [place] [phone] Sridevi Lozano NP [address] [place] [phone] documented as of this encounter Procedures Procedure Name Priority Date/Time Associated Diagnosis Comments US RENAL/BLADDER COMPLETE Routine 06/23/2022 9:08 EST Recurrent UTI documented in this encounter Results [...] nephrolithiasis. 2. 7 mm urinary bladder stone. us Darshan Loaiza MD [facility] ORDERABLES Final Result documented in this encounter Visit Diagnoses Diagnosis Recurrent UTI Urinary tract infection, site not specified documented in this encounter Care Teams Cardiac Nurse Specialist Relationship Specialty Start Date End Date Sridevi Lozano NP [address] [place] [phone] PCP - General Family Medicine - Primary Care 12/27/21 documented as of this encounter
--- OUTSIDE RECORDS SUMMARY | 2024-04-13 13:00 | XMS_ITS | Encounter Summary ---
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 She reports she has another UTI. I called back and left message that UA ordered. Provided directions to lab on first floor and hoursof operation so she can come at her convenience. documented in this encounter Plan of Treatment Upcoming Encounters Date Type Department Care Team (Late st Contact Info) Description 05/06/2024 13:40 EST Office Visit [facility] Dermatology [address] [facility], [place] [address] Renetta Kidd MD [address] [place] [address], [address] [place] [phone] 05/23/2024 15:15 EST Office Visit [facility] Family [address] [address] Sridevi Lozano NP [address] [place] [phone] documented as of this encounter Results * UA WITH REFLEX SEDIMENT (CULTURE IF POS) (06/23/2022 9:09 EST) Color UA Yellow Colorless to Dark Yellow 06/23/2022 10:28 [facility] Clarity UA Clear Clear 06/23/2022 10:28 [facility] Glucose UA Negative Negative 06/23/2022 10:28 [facility] Bilirubin UA Negative Negative 06/23/2022 10:28 [facility] Ketones UA Negative Negative 06/23/2022 10:28 [facility] Specific [place], Urine <=1.005 1.001 - 1.035 06/23/2022 10:28 [facility] Blood UA Negative Negative 06/23/2022 10:28 [facility] pH, UA 7.0 4.6 - 8.0 06/23/2022 10:28 [facility] Protein UA Negative Negative 06/23/2022 10:28 [facility] Urobilinogen UA 0.2 0.2 , 1.0, Normal mg/dL 06/23/2022 10:28 [facility] Nitrite UA Negative Negative 06/23/2022 10:28 [facility] Leukocyte Esterase UA Negative Negative 06/23/2022 10:28 [facility] Urine URINE SPECIMEN COLLECTION, CLEAN CATCH / Unknown Urine Collect / Unknown 06/23/2022 9:09 EST 06/23/2022 9:39 EST us Darshan Loaiza MD URINALYSIS ORDERABLES Final Resu lt Performing Organization Address City/State/[facility] Co de Phone Number [facility] [address] [place] [address] documented in this encounter Visit Diagnoses Diagnosis Frequent UTI- Primary Urinary tract infection, site not specified documented in this encounter Care Teams Clerical Dentist Assistant Relationship Specialty Start Date End Date Sridevi Lozano NP [address] [place] [phone] PCP - General Family Medicine - Primary Care 12/27/21 documented as of this encounter
--- OUTSIDE RECORDS SUMMARY | 2024-04-13 13:00 | XMS_ITS | Encounter Summary ---
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 14 Tablet 04/11/2022 04/18/2022 documented in this encounter Miscellaneous Notes * Telephone Encounter - Kia Dickson NP - 04/11/2022 1203 EST TC to Trav-reviewed positive UTI again with E Coli. Will change from bacteriostatic ABX to bactericidal. RX sent to patient's pharmacy. If symptoms don't clear then she will contact office for repeat Bacterial culture and if positive, referral to Uro Numerical Control Programmer. documented in this encounter Plan of Treatment Upcoming Encounters Date Type Department Care Team (Late st Contact Info) Description 05/06/2024 13:40 EST Office Visit [facility] Dermatology [address] [place] [address] Renetta Kidd MD [address] [place] [address], [address] [place] [phone] 05/23/2024 15:15 EST Office Visit Replaced by [facility] [address] [place] [address] Sridevi Lozano NP [address] [place] [phone] documented as of this encounter Visit Diagnoses Not on filedocumented in this encounter Care Teams Ammunition Storage Superintendent Relationship Specialty Start Date End Date Sridevi Lozano NP [address] [place] [phone] PCP - General Family Medicine - Primary Care 12/27/21 documented as of this encounter
--- OUTSIDE RECORDS SUMMARY | 2024-04-13 13:00 | XMS_ITS | Encounter Summary ---
Author Organization [facility] Address [address] [place] [address] Care Team Providers Care Sawyer Cork Slabs Name Role Phone Sridevi Lozano PIG HANDLER Primary Care Provider [phone] Reason for Visit * Auth/Cert (Routine) Specialty Diagnoses / Procedures [facility]erred To Contact Diagnoses Cataract, left Cataract, left [H26.9] Procedures [place] XCAPSL CTRC RMVL INSJ IO LENS PROSTH W/O ECP EXTRACTION, CATARACT, EXTRACAPSULAR, WITH IOL INSERTION Referral ID Status Reason Start Date Expiration Date Visits Re quested Visits Authorized [id number] 1 1 Encounter Details Date Type Department Care Team (Late st Contact Info) Description 06/17/2022 12:00 EST - 06/17/2022 12:45 EST Surgery [facility] Operating Room [address] [place] [id number] Austin Diaz MD [facility] [address] [place] [id number] EXTRACTION, CATARACT, EXTRACAPSULAR, WITH IOL INSERTION [[id number] (CPT??)] Surgery Details Date/Time Status Location OR Service Patient Class Case Cl ass Case Type Trauma Case? 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 No / Unsure 06/17/2022 11:03 EST documented as of this encounter Last Filed Vital Signs Vital Sign Reading Time Taken Comments Blood Pressure 130/88 06/17/2022 1201 EST Pulse - - Temperature 36.6 ??C (97.8 ??F) 06/17/2022 1230 EST Respiratory Rate 17 06/17/2022 1201 EST Oxygen Saturation 100% 06/17/2022 1201 EST Inhaled Oxygen Concentration - - Weight 55.7 kg (122 lb 12.8 oz) 06/17/2022 1104 EST Height 165.1 cm (5' 5) 06/17/2022 1104 EST Body Mass Index 20.43 06/17/2022 1104 EST documented in this encounter [...] 06/08/2018 15:56 EST documented in this encounter Discharge Instructions * Discharge Instructions* Austin Diaz MD - 06/17/2022 11:55 EST Images from the original note were not included. Cataract Surgery: What to Expect at Home Your Recovery You had cataract surgery. It replaced your cloudy natural lens with a clear artificial one. After surgery, your eye may feel scratchy, sticky, or uncomfortable. It may also water more than usual. Your vision will start off blurry and improve over the week following surgery. The average patient begins to see better 1 to 3 days after surgery, but it could take up to 4 weeksto get the full benefits of surgery and to see as clearly as possible. You may also need a new glasses prescription for your best vision. Your doctor may send you home with a bandage, patch, or clear shield on your eye. This will keep you from rubbing your eye. Your doctor will also give you eyedrops to help your eye heal. Use them exactly as directed. You can read or watch TV right away, but things may look blurry. Most people are able to return to work or their normal routine in 1 to 3 days. After your eye heals, you may still need to wear glasses, especially for reading. This care sheet gives you a general idea about how long it will take for you to recover. But each person recovers at a different pace. Follow the steps below to get better as quickly as possible. How can you care for yourself at home? Activity Rest when you feel tired. Getting enough sleep will help you recover. You may have trouble judging distances for a few days. Move slowly, and be careful going up and down stairs and pouring hot liquids. Ask for help if you need it. Ask your doctor when it is okay to drive. Wear your eye bandage, patch, or shield for as long as your doctor recommends. You may only need towear it when you sleep. You can shower or wash your hair the day after surgery. Keep water, soap, shampoo, hair spray, and shaving lotion out of your eye, especially for the first week. Do not rub or put pressure on your eye for at least 4 weeks. Do not wear eye makeup for 2 weeks. You may also want to avoid face cream or lotion. Do not get your hair colored or permed for 2 weeks after surgery. Do not bend over or do any strenuous activities, such as biking, jogging, weight lifting, or aerobic exercise, for 2 weeks or until your doctor says it is okay. Avoid swimming and hot tubs for 2 weeks. Wear sunglasses on bright days Medicines Your doctor will tell you if and when you can restart your medicines. You will also be given instructions about taking any new medicines. If you stopped taking aspirin or some other blood thinner, your doctor will tell you when to start taking it again. Follow your doctor's instructions for when to use your eyedrops. Always wash your hands before you put your drops in. To put in eyedrops: Tilt your head back, and pull your lower eyelid down with one finger. Drop or squirt the medicine inside the lower lid. Close your eye for 30 seconds to let the drops or ointment move around. Do not touch the ointment or dropper tip to your eyelashes or any other surface. Follow your doctor's instructions for taking pain medicines. Follow-up care is a fishman part of your treatment and safety. Be sure to make and go to all appointments, and call your doctor if you are having problems. When should you call for help? Call 911 anytime you think you may need emergency care. For example, call if: You passed out (lost consciousness). You have a sudden loss of vision. You have sudden chest pain, are short of breath, or cough up blood. Call your doctor now or seek immediate medical care if: You have signs of an eye infection, such as: Pus or thick discharge coming from the eye. Redness or swelling around the eye. A fever. You have new or worse eye pain. You have significant vision changes. You have symptoms of a blood clot in your leg (called a deep vein thrombosis), such as: Pain in the calf, back of the knee, thigh, or groin. Redness and swelling in your leg or groin. Watch closely for changes in your health, and be sure to contact your doctor if: You do not get better as expected. Where can you learn more? Go to [email or web address]/[email or web address] Therapeuticsealth or log into your [employer] account at [email or web address] Enter R255 in the search box to learn more about Cataract Surgery: What to Expect at Home. Current as of: May 20, 2021 Content Version: 13.4 ?? [employer]. Care instructions adapted under license by [facility]. If you have questions about a medical condition or this instruction, always ask your healthcare professional. [employer] disclaims any warranty or liability for your use of this information. documented in this encounter Medications at Time [...] Discharge Disposition Disposition Code Departure Means Destination Comment s Home or Self Care Wheelchair Home home with friend documented in this encounter H&P Notes * Austin Diaz MD - 06/17/2022 1122 EST The preoperative history and physical which was performed within 30 days of this procedure has been reviewed and the clinically appropriate elements of the physical examination have been repeated. There are no changes to the documented history and physical or if so such changes are documented below Austin Diaz MD 06/17/2022 11:22 Source Note - Sridevi Bianchi NP - 06/17/2022 0:00 EST documented in this encounter OR Notes * OR Surgeon - Austin Diaz MD - 06/17/2022 1154 EST EXTRACTION, CATARACT, EXTRACAPSULAR, WITH IOL INSERTION (L) Operative Note Date: 06/17/2022 Location: [facility] [place] Name: Trav Velázquez, : 1960, Diagnosis Pre-Op Diagnosis Codes: * Cataract, left [H26.9] Post-op Diagnosis * Cataract, left [H26.9] Procedures * EXTRACTION, CATARACT, EXTRACAPSULAR, WITH IOL INSERTION Surgeons * Austin Diaz MD - Primary Procedure Summary Anesthesia: Monitor Anesthesia Care ASA: II Estimated Blood Loss: No Blood Loss Documented Total IV Fluids: 0 mL LDAs: Peripheral IV 06/17/22 1124 Left;Posterior Wrist (Active) Wound 06/17/22 Incision Left Eye (Active) Implants Type Name Action Serial No. Lens LENS INTRAOCULAR MONOFOCAL POSTERIOR BICONVEX OPTIC FOLDABLE +23.5D TECNIS [id number] - [id number] Implanted [id number] Staff: Cleaning Machine Operator: Mini Kaminski RN; Kisha Ball RN Scrub Person: Sophia Wall OR TECH: Jose Manuel East Indications: Trav Velázquez is an 62 y.o. female who is having surgery for Cataract, left [H26.9] Procedure Details: The patient was seen in the preoperative area. The risks, benefits, complications, treatment options, non-operative alternatives, expected recovery and outcomes were discussed with the patient. The possibilities of reaction to medication, pulmonary aspiration, injury to surrounding structures, bleeding, recurrent infection, the need for additional procedures, failure to diagnose a condition, and creating a complication requiring transfusion or operation were discussed with the patient. The patient concurred with the proposed plan, giving informed consent.?? The site of surgery was properly noted/marked if necessary per policy. The patient has been actively warmed in preoperative area. Preope rative antibiotics are not indicated. Venous thrombosis prophylaxis are not indicated. Findings: none Complications: None; patient tolerated the procedure well. Disposition: PACU - hemodynamically stable. Condition: stable Specimens:None Implants: IOL The patient was identified in the preoperative holding area. The operative site was agreed upon andmarked by the surgeon. The patient was taken back to the operating room and prepped and draped in the usual sterile ophthalmic fashion with an eyelid speculum inserted into the left eye. A 1mm blade was used to create a paracentesis in the inferotemporal peripheral cornea. A preservative free lidocaine, BSS, and epinephrine mixture was injected into the anterior chamber followed by viscoelastic. A 2.6mm keratome was used to make the main corneal incision in the peripheral temporal cornea. A cystotome and Utrata forceps were used to create a continuous curvilinear capsulorhexis. Balanced salt solution on a blunt tipped cannula was used to hydrodissect and hydrodelineate the lens, following which free rotation within the capsular bag was noted. The phacoemulsification device was used to remove the nucleus with a vertical chop technique and the irrigation/aspiration device used to remove co rtical material and to romanian the capsular bag. The capsular bag was filled with viscoelastic and the intra-ocular lens inserted into the capsular bag. The remaining viscoelastic was removed from thecapsular bag and anterior chamber using the irrigation/aspiration device. The corneal wounds were hydrated with balanced salt solution on a blunt-tipped cannula and the eye pressurized to approximately 20mmHg. The wounds were tested with Weck-johana sponges and found to be water tight. At this time the eye had a good reflex, the intra-ocular lens was well centered and fully contained within the capsular bag. Two drops of Tobra-Dex ophthalmic solution were placed onto the cornea followed by removalof the eyelid speculum and drape and placement of a hard shield over the eye. Austin Diaz MD * Preprocedure Instructions - Ayaka Christian RN - 06/11/2022 1623 EST Pre-op instructions given to patient via phone with adequate understanding demonstrated. Arrival time: 06/17/22 1045 Surgery time: 06/17/22 1200 Nothing to eat after midnight on day of surgery; may have water until 0800. Shower/bathe and removejewelry/piercings prior to arrival. Do not put anything on skin after bathing. Wear comfortable clothes. May bring cell phone; leave other valuables at home. Pt aware of visiting guidelines/need for transportation from previous recent surgery. Call Same Day Surgery ([phone]) with any questions/concerns. Trav Velázquez has been instructed as follows regarding medication administration for the day of the scheduled procedure. Date of Surgery: 06/17/22 Instructions for Taking Medications Day of Surgery Medication Dose and frequency Last Dose Hold Day of Surgery Take Day of Surgery amLODIPine (NORVASC) 5 mg tablet Take 1 Tablet by mouth daily. x cranberry-vitamin C-mannose 250-30-50 mg tablet,chewable Take by mouth. x ketOROLAC (ACULAR) 0.5 % ophthalmic solution PLACE 1 DROP IN THE RIGHT EYE FOUR TIMES DAILY. TAPER DIRECTED Patient not taking: Reported on 05/29/[address] Diaz lisinopriL (PRINIVIL) 40 mg tablet Take 40 mg by mouth daily. x moxifloxacin (VIGAMOX) 0.5 % ophthalmic solution PLACE 1 DROP IN THE RIGHT EYE FOUR TIMES DAILY. TAPER DIRECTED. Patient not taking: Reported on 05/29/[address] Diaz prednisoLONE (PRED FORTE) 1 % ophthalmic suspension PLACE 1 DROP IN THE RIGHT EYE FOUR TIMES DAILY.TAPER DIRECTED. Patient not taking: Reported on 05/29/[address] Diaz documented in this encounter Plan of Treatment Upcoming Encounters Date Type Department Care Team (Late st Contact Info) Description 05/06/2024 13:40 EST Office Visit [facility] Dermatology [address] [place] [id number] Renetta Kidd MD [address] [place] [address], [address] [place] [address] 05/23/2024 15:15 EST Office Visit [address] [facility], [place] [phone] Sridevi Lozano NP [address] [place] [phone] documented as of this encounter Procedures Procedure Name Priority Date/Time Associated Diagnosis Comments ECG REPORT - SCANNED 06/18/2022 13:46 EST ECG REPORT - SCANNED 06/18/2022 12:36 EST EXTRACTION, CATARACT, EXTRACAPSULAR, WITH IOL INSERTION 06/17/2022 11:25 EST Cataract, left Special Needs SF documented in this encounter Results * ECG REPORT - SCANNED (06/18/2022 13:46 EST) 06/18/2022 13:4 6 EST us Scan 2 [employer] PROCEDURE/MINOR SURGICAL OR DERABLES Final Result * ECG REPORT - SCANNED (06/18/2022 12:36 EST) 06/18/2022 12:3 6 EST us Scan 2 [employer] PROCEDURE/MINOR SURGICAL OR DERABLES Final Result documented in this encounter Visit Diagnoses Diagnosis Cataract, left Unspecified cataract documented in this encounter Administered Medications Inactive Administered Medications - up to 3 most recent administrations Medication Order MAR Action Action Date Dose Rate Site acetaminophen (TYLENOL) tablet 975 mg 975 mg, oral, Once (Without Time Specified), Starting on Thu06/17/22 at 1202, Until Thu06/17/22 at 1457, Routine, Recovery (only) balanced salt solution inrrigation solution (BSS PLUS) 500 mL, EPINEPHrine HCl (PF) (ADRENALIN) 0.3 mL irrigation PRN, Starting on Thu06/17/22 at 1147, Until Thu06/17/22 at 1157, Routine, Intraprocedure Given 06/17/2022 11:47 EST 500 mL Left Eye balanced salts (BSS) ophthalmic solution PRN, Starting on Thu06/17/22 at 1147, Until Thu06/17/22 at 1157, Routine, Intraprocedure Given 06/17/2022 11:47 EST 15 mL chondroitin-sodium hyaluronate (VISCOAT) ophthalmic solution PRN, Starting on Thu06/17/22 at 1148, Until Thu06/17/22 at 1157, Routine, Intraprocedure Given 06/17/2022 11:48 EST 0.5 mL Left Eye lidocaine (GLYDO/URO-JET) 2 % jelly in applicator PRN, Starting on Thu06/17/22 at 1154, Until Thu06/17/22 at 1157, Intraprocedure Given 06/17/2022 11:54 EST 2 mL Left Eye lidocaine (PF) 10 mg/mL (1 %) injection 2 mg 2 mg, intradermal, PRN, 4 doses, Starting on Thu06/17/22 at 1056, Until Thu06/17/22 at 1457, peripheral intravenous catheter placement, Routine, Preprocedure lidocaine 4 % (7.6 mg) + EPINEPHrine 1 mg/mL (0.25 mg) + BSS (0.56 mL) intra-op in 1 mL syringe PRN, Starting on Thu06/17/22 at 1227, Until Thu06/17/22 at 1229, Routine, Intraprocedure Given 06/17/2022 12:27 EST 1 mL Left Eye ondansetron (PF) (ZOFRAN) injection 4 mg 4 mg, intravenous, ONCE PRN, 1 dose, Starting on Thu06/17/22 at 1202, Until Thu06/17/22 at 1457, Nausea, Routine, Recovery (only) phenylephrine (MYDFRIN) 2.5 % ophthalmic solution 1 Drop 1 Drop, left eye, PRE-OP MULTIPLE, 3 doses, Starting on Thu06/17/22 at 1056, Until Thu06/17/22 at 1123, Other, for cataract pre-procedure, follow admin instructions, Routine, Preprocedure Given 06/17/2022 11:23 EST 1 Drop Given 06/17/2022 11:16 EST 1 Drop Given 06/17/2022 11:10 EST 1 Drop povidone-iodine 5 % ophthalmic solution PRN, Starting on Thu06/17/22 at 1154, Until Thu06/17/22 at 1157, Routine, Intraprocedure Given 06/17/2022 11:54 ES T 3 Drops proparacaine (ALCAINE) 0.5 % ophthalmic solution 1 Drop 1 Drop, left eye, PRE-OP MULTIPLE, 3 doses, Starting on Thu06/17/22 at 1056, Until Thu06/17/22 at 1122, Other, for cataract pre-procedure, follow admin instructions, Routine, Preprocedure Given 06/17/2022 11:22 EST 1 Drop Given 06/17/2022 11:16 EST 1 Drop Given 06/17/2022 11:10 EST 1 Drop sodium chloride 0.9 % (flush) flush 5 mL 5 mL, intravenous, EVERY 8 HOURS, First dose on Thu06/17/22 at 1600, Until Discontinued, Routine, Preprocedure sodium hyaluronate (HEALON) ophthalmic injection PRN, Starting on Thu06/17/22 at 1154, Until Thu06/17/22 at 1157, Routine, Intraprocedure Given 06/17/2022 11:54 EST 8.5 mg Left Eye tetracaine (PONTOCAINE) 0.5 % ophthalmic solution PRN, Starting on Thu06/17/22 at 1155, Until Thu06/17/22 at 1157, Routine, Intraprocedure Given 06/17/2022 11:55 EST 2 Drops tobramycin (TOBREX) 0.3 % ophthalmic solution PRN, Starting on Thu06/17/22 at 1228, Until Thu06/17/22 at 1229, Routine, Intraprocedure Given 06/17/2022 12:28 EST 2 Drops tropicamide (MYDRIACYL) 1 % ophthalmic solution 1 Drop 1 Drop, left eye, PRE-OP MULTIPLE, 3 doses, Starting on Thu06/17/22 at 1056, Until Thu06/17/22 at 1122, Other, for cataract pre-procedure, follow admin instructions, Routine, Preprocedure Given 06/17/2022 11:22 EST 1 Drop Given 06/17/2022 11:16 EST 1 Drop Given 06/17/2022 11:10 EST 1 Drop documented in this encounter Active and Recently Administered Medications Times are shown in EST. Scheduled Medication Order 06/15/2022 06/16/2022 06/17/2022 acetaminophen (TYLENOL) tablet 975 mg 975 mg, oral, Once (Without Time Specified), Starting on Thu06/17/22 at 1202, Until Thu06/17/22 at 1457, Routine, Recovery (only) sodium chloride 0.9 % (flush) flush 5 mL(Linked Group 1) 5 mL, intravenous, EVERY 8 HOURS, First dose on Thu06/17/22 at 1600, Until Discontinued, Routine, Preprocedure PRN Medication Order 06/15/2022 06/16/2022 06/17/2022 balanced salt solution inrrigation solution (BSS PLUS) 500 mL, EPINEPHrine HCl (PF) (ADRENALIN) 0.3 mL irrigation (CANCELED) PRN, Starting on Thu06/17/22 at 1147, Until Thu06/17/22 at 1157, Routine, Intraprocedure 1147 (Given - Provid er: Austin Diaz MD) balanced salts (BSS) ophthalmic solution (CANCELED) PRN, Starting on Thu06/17/22 at 1147, Until Thu06/17/22 at 1157, Routine, Intraprocedure 1147 (Given - Provid er: Austin Diaz MD - Comment: topical) chondroitin-sodium hyaluronate (VISCOAT) ophthalmic solution (CANCELED) PRN, Starting on Thu06/17/22 at 1148, Until Thu06/17/22 at 1157, Routine, Intraprocedure 1148 (Given - Provid er: Austin Diaz MD) lidocaine (GLYDO/URO-JET) 2 % jelly in applicator (CANCELED) PRN, Starting on Thu06/17/22 at 1154, Until Thu06/17/22 at 1157, Intraprocedure 1154 (Given - Provid er: Austin Diaz MD) lidocaine (PF) 10 mg/mL (1 %) injection 2 mg 2 mg, intradermal, PRN, 4 doses, Starting on Thu06/17/22 at 1056, Until Thu06/17/22 at 1457, peripheral intravenous catheter placement, Routine, Preprocedure lidocaine 4 % (7.6 mg) + EPINEPHrine 1 mg/mL (0.25 mg) + BSS (0.56 mL) intra-op in 1 mL syringe (CANCELED) PRN, Starting on Thu06/17/22 at 1227, Until Thu06/17/22 at 1229, Routine, Intraprocedure 1227 (Given - Provid er: Austin Diaz MD) ondansetron (PF) (ZOFRAN) injection 4 mg 4 mg, intravenous, ONCE PRN, 1 dose, Starting on Thu06/17/22 at 1202, Until 06/17/22 at 1457, Nausea, Routine, Recovery (only) phenylephrine (MYDFRIN) 2.5 % ophthalmic solution 1 Drop (COMPLETED) 1 Drop, left eye, PRE-OP MULTIPLE, 3 doses, Starting on Thu06/17/22 at 1056, Until Tu06/17/22 at 1123, Other, for cataract pre-procedure, follow admin instructions, Routine, Preprocedure 1110 (Given - Provid er: Morenita Palomo RN)1116 (Given - Provider: Morenita Palomo RN)1123 (Given - Provider: Morenita Palomo RN) povidone-iodine 5 % ophthalmic solution (CANCELED) PRN, Starting on Thu06/17/22 at 1154, Until Thu06/17/22 at 1157, Routine, Intraprocedure 1154 (Given - Provid er: Austin Diaz MD - Comment: topical) proparacaine (ALCAINE) 0.5 % ophthalmic solution 1 Drop (COMPLETED) 1 Drop, left eye, PRE-OP MULTIPLE, 3 doses, Starting on Thu06/17/22 at 1056, Until Thu06/17/22 at 1122, Other, for cataract pre-procedure, follow admin instructions, Routine, Preprocedure 1110 (Given - Provid er: Morenita Palomo RN)1116 (Given - Provider: Morenita Palomo RN)1122 (Given - Provider: Morenita Palomo RN) sodium hyaluronate (HEALON) ophthalmic injection (CANCELED) PRN, Starting on Thu06/17/22 at 1154, Until Thu06/17/22 at 1157, Routine, Intraprocedure 1154 (Given - Provid er: Austin Diaz MD) tetracaine (PONTOCAINE) 0.5 % ophthalmic solution (CANCELED) PRN, Starting on Thu06/17/22 at 1155, Until Thu06/17/22 at 1157, Routine, Intraprocedure 1155 (Given - Provid er: Austin Diaz MD) tobramycin (TOBREX) 0.3 % ophthalmic solution (CANCELED) PRN, Starting on Thu06/17/22 at 1228, Until Thu06/17/22 at 1229, Routine, Intraprocedure 1228 (Given - Provid er: Austin Diaz MD - Comment: topical) tropicamide (MYDRIACYL) 1 % ophthalmic solution 1 Drop (COMPLETED) 1 Drop, left eye, PRE-OP MULTIPLE, 3 doses, Starting on Thu06/17/22 at 1056, Until Thu06/17/22 at 1122, Other, for cataract pre-procedure, follow admin instructions, Routine, Preprocedure 1110 (Given - Provid er: Morenita Palomo RN)1116 (Given - Provider: Morenita Palomo, RN)1122 (Given - Provider: Morenita Palomo, MALLORY) Linked Groups Order Group 1: Insert Saline Lock (CANCELED) Routine, ONE TIME, On Thu06/17/22 at 1100, For 1 occurrence, Preprocedure And sodium chloride 0.9 % (flush) flush 5 mLJump to med 5 mL, intravenous, EVERY 8 HOURS, First dose on Thu06/17/22 at 1600, Until Discontinued, Routine, Preprocedure documented in this encounter Orders Medications Ordered That Bienvenido ht Not Have Been Administered Count Last Ordered Date First Ordered Date acetaminophen (TYLENOL) tablet 975 mg 1 lidocaine (PF) 10 mg/mL (1 % ) injection 2 mg 1 06/17/2022 ondansetron (PF) (ZOFRAN) injection 4 mg 1 06/17/2022 sodium chloride 0.9 % (flush) flush 5 mL 1 06/17/2022 Discharge Count Last Ordered Date First Orde red Date DISCHARGE PATIENT 1 06/17/2022 documented in this encounter Care Teams Sawyer Cork Slabs Relationship Specialty Start Date End Date Sridevi Lozano NP [address] [place] [phone] PCP - General Family Medicine - Primary Care 12/27/21 documented as of this encounter
--- OUTSIDE RECORDS SUMMARY | 2024-04-13 13:00 | XMS_ITS | Encounter Summary ---
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 [...] Info) Description 05/06/2024 13:40 EST Office Visit [facility] [address] [facility], [place] [address] Renetta Kidd MD [address] [place] [address] [address] [place] [phone] 05/23/2024 15:15 EST Office Visit [facility] [address] [place] [phone] Sridevi Lozano NP [address] [place] [phone] documented as of this encounter Visit Diagnoses Not on filedocumented in this encounter Care Teams Women'S Studies Professor Relationship Specialty Start Date End Date Sridevi Lozano NP [address] [place] [phone] PCP - General Family Medicine - Primary Care 12/27/21 documented as of this encounter
--- OUTSIDE RECORDS SUMMARY | 2024-04-13 13:00 | XMS_ITS | Encounter Summary ---
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 [...] [facility] [address] [facility], [place] [address] Renetta Kidd MD [address] [facility], [facility] [address] [place] [phone] 05/23/2024 15:15 EST Office Visit [facility] [address] [place] [address] Sridevi Lozano, JAYME [address] [place] [phone] documented as of this encounter Results * (ABNORMAL) UA WITH REFLEX SEDIMENT (CULTURE IF POS) (07/03/2022 12:39 EST) Color UA Yellow Colorless to Dark Yellow 07/03/2022 13:32 [facility] Clarity UA Clear Clear 07/03/2022 13:32 [facility] Glucose UA Negative Negative 07/03/2022 13:32 [facility] Bilirubin UA Negative Negative 07/03/2022 13:32 [facility] Ketones UA Negative Negative 07/03/2022 13:32 [facility] Specific [employer], Urine 1.010 1.001 - 1.035 07/03/2022 13:32 [facility] Blood UA 1+(A) Negative 07/03/2022 13:32 [facility] pH, UA 7.5 4.6 - 8.0 07/03/2022 13:32 [facility] Protein UA Negative Negative 07/03/2022 13:32 [facility] Urobilinogen UA 0.2 0.2 , 1.0, Normal mg/dL 07/03/2022 13:32 [facility] Nitrite UA Negative Negative 07/03/2022 13:32 [facility] Leukocyte Esterase UA Trace(A) Negative 07/03/2022 13:32 [facility] Urine URINE SPECIMEN COLLECTION, CLEAN CATCH / Unknown Urine Collect / Unknown 07/03/2022 12:39 EST 07/03/2022 13:20 EST us Darshan Loaiza MD URINALYSIS ORDERABLES Final Resu lt Performing Organization Address City/State/[facility] Co de Phone Number [facility] [address] [place] [address] documented in this encounter Visit Diagnoses Diagnosis Recurrent UTI- Primary Urinary tract infection, site not specified documented in this encounter Care Teams Plastic Mixer Relationship Specialty Start Date End Date Sridevi Lozano NP [address] [place] [phone] PCP - General Family Medicine - Primary Care 12/27/21 documented as of this encounter
--- OUTSIDE RECORDS SUMMARY | 2024-04-13 13:00 | XMS_ITS | Encounter Summary ---
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 90 Tablet 2 08/01/2022 05/26/2023 documented in this encounter Miscellaneous Notes * Telephone Encounter - Priya Araya RN - 08/01/2022 0843 EDT Requested Prescriptions Pending Prescriptions Disp Refills ??? lisinopriL (PRINIVIL) 40 mg tablet 90 Tablet 1 Sig: Take 1 Tablet by mouth daily. Provider review: this medication has never been refilled by current provider. Last Refill Date: unknown Labs completed? Yes VPMS: N/A Most Recent Appt: 05/21/22 Upcoming Appt: 09/03/22 PRIYA ARAYA RN 08/01/2022 8:43 documented in this encounter Plan of Treatment Upcoming Encounters Date Type Department Care Team (Late st Contact Info) Description 05/06/2024 13:40 EST Office Visit [facility] [address] [place] [address] Renetta Kidd MD [address] [place] [address], [address] [place] [phone] 05/23/2024 15:15 EST Office Visit [address] [phone] Sridevi Lozano NP [address] [place] [phone] documented as of this encounter Visit Diagnoses Not on filedocumented in this encounter Discontinued Medications Medication Sig Discontinue Reason Start Date End Da te lisinopriL (PRINIVIL) 40 mg tablet Take 40 mg by mouth daily. Reorder 10/01/2021 08/01/2022 documented as of this encounter Care Teams Accounting/Finance Tutor Relationship Specialty Start Date End Date Sridevi Lozano, MANAGER AEROSPACE [address] [place] [phone] PCP - General Family Medicine - Primary Care 12/27/21 documented as of this encounter
--- OUTSIDE RECORDS SUMMARY | 2024-04-13 13:00 | XMS_ITS | Encounter Summary ---
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 [address] [facility], [place] [address] Renetta Kidd MD [address] [place] [address], [facility] [address] [place] [phone] 05/23/2024 15:15 EST Office Visit [facility] [address] [place] [address] Sridevi Lozano, JAYME [address] [place] [phone] documented as of this encounter Procedures Procedure Name Priority Date/Time Associated Diagnosis Comments UA WITH REFLEX SEDIMENT (CULTURE IF POS) Routine 06/23/2022 9:09 EST Frequent UTI documented in this encounter Results * UA WITH REFLEX SEDIMENT (CULTURE IF POS) (06/23/2022 9:09 EST) Color UA Yellow Colorless to Dark Yellow 06/23/2022 10:28 [facility] Clarity UA Clear Clear 06/23/2022 10:28 [facility] Glucose UA Negative Negative 06/23/2022 10:28 [facility] Bilirubin UA Negative Negative 06/23/2022 10:28 [facility] Ketones UA Negative Negative 06/23/2022 10:28 [facility] Specific [place], Urine <=1.005 1.001 - 1.035 06/23/2022 10:28 [facility] Blood UA Negative Negative 06/23/2022 10:28 [facility] pH, UA 7.0 4.6 - 8.0 06/23/2022 10:28 [facility] Protein UA Negative Negative 06/23/2022 10:28 [facility] Urobilinogen UA 0.2 0.2 , 1.0, Normal mg/dL 06/23/2022 10:28 [facility] Nitrite UA Negative Negative 06/23/2022 10:28 [facility] Leukocyte Esterase UA Negative Negative 06/23/2022 10:28 [facility] Urine URINE SPECIMEN COLLECTION, CLEAN CATCH / Unknown Urine Collect / Unknown 06/23/2022 9:09 EST 06/23/2022 9:39 EST us Darshan Loaiza MD URINALYSIS ORDERABLES Final Resu lt Performing Organization Address City/State/[facility] Co de Phone Number [facility] [address] [place] [phone] documented in this encounter Visit Diagnoses Diagnosis Frequent UTI Urinary tract infection, site not specified documented in this encounter Care Teams Pocket Cutter Relationship Specialty Start Date End Date Sridevi Lozano NP [address] [place] [phone] PCP - General Family Medicine - Primary Care 12/27/21 documented as of this encounter
--- OUTSIDE RECORDS SUMMARY | 2024-04-13 13:00 | XMS_ITS | Encounter Summary ---
Author Organization [facility] Address [address] [place] [address] Care Team Providers Care Wireless Engineer Name Role Phone Sridevi Lozano CRITICAL SYSTEMS TECHNICIAN Primary Care Provider [phone] Reason for Visit * Auth/Cert (Routine) Specialty Diagnoses / Procedures [facility] Referred To Contact Diagnoses Cataract, right Cataract, right [H26.9] Procedures TX XCAPSL CTRC RMVL INSJ IO LENS PROSTH W/O ECP EXTRACTION, CATARACT, EXTRACAPSULAR, WITH IOL INSERTION Referral ID Status Reason Start Date Expiration Date Visits Re quested Visits Authorized [id number] 1 1 Encounter Details Date Type Department Care Team (Late st Contact Info) Description 06/03/2022 11:15 EST - 06/03/2022 12:00 EST Surgery [facility] Operating Room [address] [place] [id number] Austin Diaz MD [facility] [address] [place] [id number] EXTRACTION, CATARACT, EXTRACAPSULAR, WITH IOL INSERTION [[id number] (CPT??)] Surgery Details Date/Time Status Location OR Service Patient Class Case Cl ass Case Type Trauma Case? 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 No / Unsure 05/29/2022 16:37 EST documented as of this encounter Last Filed Vital Signs Vital Sign Reading Time Taken Comments Blood Pressure 153/94 06/03/2022 1145 EST Pulse 71 06/03/2022 1017 EST Temperature 37.2 ??C (98.9 ??F) 06/03/2022 1151 EST Respiratory Rate 19 06/03/2022 1151 EST Oxygen Saturation 97% 06/03/2022 1145 EST Inhaled Oxygen Concentration - - Weight 56.7 kg (125 lb) 06/03/2022 1017 EST Height 165.1 cm (5' 5) 06/03/2022 1017 EST Body Mass Index 20.8 06/03/2022 1017 EST documented in this encounter Functional Status [...] * Discharge Instructions* Austin Diaz MD - 06/03/2022 11:22 EST Images from the original note were [...] Where can you learn more? Go to [email or web address] or log into your Fl[employer] account at [email or web address] [employer]ostics.Broadcast Grade Weather & Channel Branding Graphics Display [email or web address].org Enter R255 in the search box to learn more about Cataract Surgery: What to Expect at Home. Current as of: May 20, 2021 Content Version: 13.4 ?? [id number] [employer]. Care instructions adapted under license by [facility]. If you have questions about a medical condition or this instruction, always ask your healthcare professional. [employer] disclaims any warranty or liability for your [...] Means Destination Comment s Home or Self Halfway via WC to under canopy documented in this encounter H&P Notes * Austin Diaz MD - 06/03/2022 1040 EST The preoperative history and physical which was performed within 30 days of this procedure has been reviewed and the clinically appropriate elements of the physical examination have been repeated. There are no changes to the documented history and physical or if so such changes are documented below Austin Diaz MD 06/03/2022 10:40 Source Note - Him, Scan Admin Background - 06/03/2022 0:00 EST documented in this encounter OR Notes * OR Surgeon - Austin Diaz MD - 06/03/2022 1120 EST EXTRACTION, CATARACT, EXTRACAPSULAR, WITH IOL INSERTION (R) Operative Note Date: 06/03/2022 Location: [facility] OR Name: Trav Velázquez DOB: 1960, Diagnosis Pre-Op Diagnosis Codes: * Cataract, right [H26.9] Post-op Diagnosis * Cataract, right [H26.9] Procedures * EXTRACTION, CATARACT, EXTRACAPSULAR, WITH IOL INSERTION Surgeons * Austin Diaz MD - Primary Procedure Summary Anesthesia: Monitor Anesthesia Care ASA: II Estimated Blood Loss: No Blood Loss Documented Total IV Fluids: 0 mL LDAs: Peripheral IV 06/03/22 1025 Left;Posterior Wrist (Active) Wound 06/03/22 Right Eye (Active) Implants Type Name Action Serial No. Lens LENS INTRAOCULAR MONOFOCAL POSTERIOR BICONVEX OPTIC FOLDABLE +23.5D TECNIS [id number] - [id number] Implanted [id number] Staff: Planned Giving Officer: Arturo Heaton RN; Kisha Ball RN OR TECH: Le Daley Indications: Trav Velázquez is an 62 y.o. female who is having surgery for Cataract, right [H26.9] Procedure Details: The patient was seen [...] with an eyelid speculum inserted into the right eye. A 1mm bladewas used to create a paracentesis in the superotemporal peripheral cornea. A preservative free lidocaine, BSS, and epinephrine mixture was injected into the anterior chamber followed by viscoelastic.A 2.6mm keratome was used to make the main corneal incision in the peripheral temporal cornea. A cystotome and Utrata forceps were used to create a continuous curvilinear capsulorhexis. Balanced saltsolution on a blunt tipped cannula was used to hydrodissect and hydrodelineate the lens, following which free rotation within the capsular bag was noted. The phacoemulsification device was used to remove the nucleus with a vertical chop technique and the irrigation/aspiration device used to remove c ortical material and to burmese the capsular bag. The capsular bag was filled with viscoelastic and the intra-ocular lens inserted into the capsular bag. The remaining viscoelastic was removed from the capsular bag and anterior chamber using the irrigation/aspiration [...] were placed onto the cornea followed by removal of the eyelid speculum and drape and placement of a hard shield over the eye. Austin Diaz MD * Preprocedure Instructions - Rosalinda Diego RN - 05/29/2022 1646 EST Pre-procedure instructions reviewed with patient. Patient able to verbalize good understanding of information as presented. * Preprocedure Instructions - Rosalinda Diego RN - 05/29/2022 1633 EST Trav Velázquez has been instructed as follows regarding medication administration for the day of the scheduled procedure. Date of Surgery: 06/03/22 Instructions for Taking Medications Day of Surgery Medication Dose and frequency Last Dose Hold Day of Surgery Take Day of Surgery amLODIPine (NORVASC) 5 mg tablet Take 1 Tablet by mouth daily. Take( will check with MD) cranberry-vitamin C-mannose 250-30-50 mg tablet,chewable Take by mouth. hold ketOROLAC (ACULAR) 0.5 % ophthalmic solution PLACE 1 DROP IN THE RIGHT EYE FOUR TIMES DAILY. TAPER DIRECTED Patient not taking: Reported on 05/29/2022 take lisinopriL (PRINIVIL) 40 mg tablet Take 40 mg by mouth daily. Take(will check with MD) moxifloxacin (VIGAMOX) 0.5 % ophthalmic solution PLACE 1 DROP IN THE RIGHT EYE FOUR TIMES DAILY. TAPER DIRECTED. Patient not taking: Reported on 05/29/2022 take prednisoLONE (PRED FORTE) 1 % ophthalmic suspension PLACE 1 DROP IN THE RIGHT EYE FOUR TIMES DAILY.TAPER DIRECTED. Patient not taking: Reported on 05/29/2022 take documented in this encounter Plan of Treatment Upcoming Encounters Date Type Department Care Team (Late st Contact Info) Description 05/06/2024 13:40 EST Office Visit [facility] Dermatology [address] [facility], [place] [address] Renetta Kidd MD [address] [facility] [address] [place] [address] 05/23/2024 15:15 EST Office Visit [facility] [address] [place] [phone] Sridevi Lozano NP [address] [place] [phone] documented as of this encounter Procedures Procedure Name Priority Date/Time Associated Diagnosis Comments ECG REPORT - SCANNED 06/05/2022 9:07 EST EXTRACTION, CATARACT, EXTRACAPSULAR, WITH IOL INSERTION 06/03/2022 10:48 EST Cataract, right Special Needs SF documented in this encounter Results * ECG REPORT - SCANNED (06/05/2022 9:07 EST) 06/05/2022 9:07 EST us Scan 2 Grinder Setup Operator PROCEDURE/MINOR SURGICAL OR DERABLES Final Result documented in this encounter Visit Diagnoses Diagnosis Cataract, right Unspecified cataract documented in this encounter Administered Medications Inactive Administered Medications - up to 3 most recent administrations Medication Order MAR Action Action Date Dose Rate Site balanced salt solution inrrigation solution (BSS PLUS) 500 mL, EPINEPHrine HCl (PF) (ADRENALIN) 0.3 mL irrigation PRN, Starting on Thu06/03/22 at 1104, Until Thu06/03/22 at 1120, Routine, Intraprocedure Given 06/03/2022 11:04 EST 500 mL Right Eye balanced salts (BSS) ophthalmic solution PRN, Starting on Thu06/03/22 at 1105, Until Thu06/03/22 at 1120, Routine, Intraprocedure Given 06/03/2022 11:05 EST 15 mL lidocaine (GLYDO/URO-JET) 2 % jelly in applicator PRN, Starting on Thu06/03/22 at 1105, Until Thu06/03/22 at 1120, Intraprocedure Given 06/03/2022 11:05 EST 2 mL Right Eye lidocaine (PF) 10 mg/mL (1 %) injection 2 mg 2 mg, intradermal, PRN, 4 doses, Starting on Thu06/03/22 at 1001, Until Thu06/03/22 at 1359, peripheral intravenous catheter placement, Routine, Preprocedure lidocaine 4 % (7.6 mg) + EPINEPHrine 1 mg/mL (0.25 mg) + BSS (0.56 mL) intra-op in 1 mL syringe 1 mL, intracameral, INTRA-OP ONCE, 1 dose, On Thu06/03/22 at 1115, Routine, Intraprocedure Given 06/03/2022 11:06 EST 1 mL Right Eye phenylephrine (MYDFRIN) 2.5 % ophthalmic solution 1 Drop 1 Drop, right eye, PRE-OP MULTIPLE, 3 doses, Starting on Thu06/03/22 at 1001, Until Thu06/03/22 at 1026, Other, for cataract pre-procedure, follow admin instructions, Routine, Preprocedure Given 06/03/2022 10:26 EST 1 Drop Given 06/03/2022 10:19 EST 1 Drop Given 06/03/2022 10:11 EST 1 Drop povidone-iodine 5 % ophthalmic solution PRN, Starting on Thu06/03/22 at 1106, Until Thu06/03/22 at 1120, Routine, Intraprocedure Given 06/03/2022 11:06 EST 2 Drop s proparacaine (ALCAINE) 0.5 % ophthalmic solution 1 Drop 1 Drop, right eye, PRE-OP MULTIPLE, 3 doses, Starting on Thu06/03/22 at 1001, Until Thu06/03/22 at 1026, Other, for cataract pre-procedure, follow admin instructions, Routine, Preprocedure Given 06/03/2022 10:26 EST 1 Drop Given 06/03/2022 10:19 EST 1 Drop Given 06/03/2022 10:11 EST 1 Drop sodium chloride 0.9 % (flush) flush 5 mL 5 mL, intravenous, EVERY 8 HOURS, First dose on Thu06/03/22 at 1030, Until Discontinued, Routine, Preprocedure sodium hyaluronate (HEALON) ophthalmic injection PRN, Starting on Thu06/03/22 at 1107, Until Thu06/03/22 at 1120, Routine, Intraprocedure Given 06/03/2022 11:07 EST 8.5 mg Right Eye tetracaine (PONTOCAINE) 0.5 % ophthalmic solution PRN, Starting on Thu06/03/22 at 1107, Until Thu06/03/22 at 1120, Routine, Intraprocedure Given 06/03/2022 11:07 EST 2 Drops tobramycin-dexamethasone (TOBRADEX) ophthalmic suspension 2 Drop 2 Drop, right eye, INTRA-OP ONCE, 1 dose, On Thu06/03/22 at 1115, Routine, Intraprocedure Given 06/03/2022 11:07 EST 2 Drops tropicamide (MYDRIACYL) 1 % ophthalmic solution 1 Drop 1 Drop, right eye, PRE-OP MULTIPLE, 3 doses, Starting on Thu06/03/22 at 1001, Until Thu06/03/22 at 1026, Other, for cataract pre-procedure, follow admin instructions, Routine, Preprocedure Given 06/03/2022 10:26 EST 1 Drop Given 06/03/2022 10:19 EST 1 Drop Given 06/03/2022 10:11 EST 1 Drop documented in this encounter Active and Recently Administered Medications Times are shown in EST. Scheduled Medication Order 06/01/2022 06/02/2022 06/03/2022 lidocaine 4 % (7.6 mg) + EPINEPHrine 1 mg/mL (0.25 mg) + BSS (0.56 mL) intra-op in 1 mL syringe (COMPLETED) 1 mL, intracameral, INTRA-OP ONCE, 1 dose, On Thu06/03/22 at 1115, Routine, Intraprocedure 1106 (Given - Provid er: Austin Diza MD)1115 (Due) sodium chloride 0.9 % (flush) flush 5 mL(Linked Group 1) 5 mL, intravenous, EVERY 8 HOURS, First dose on Thu06/03/22 at 1030, Until Discontinued, Routine, Preprocedure 1030 (Canceled Entry - Provider: Batch Job User Admin - Comment: Automatically canceled at discontinue of medication order) tobramycin-dexamethasone (TOBRADEX) ophthalmic suspension 2 Drop (COMPLETED) 2 Drop, right eye, INTRA-OP ONCE, 1 dose, On Thu06/03/22 at 1115, Routine, Intraprocedure 1107 (Given - Provid er: Austin Diaz MD)1115 (Due) PRN Medication Order 06/01/2022 06/02/2022 06/03/2022 balanced salt solution inrrigation solution (BSS PLUS) 500 mL, EPINEPHrine HCl (PF) (ADRENALIN) 0.3 mL irrigation (CANCELED) PRN, Starting on Thu06/03/22 at 1104, Until Thu06/03/22 at 1120, Routine, Intraprocedure 1104 (Given - Provid er: Austin Diaz MD) balanced salts (BSS) ophthalmic solution (CANCELED) PRN, Starting on Thu06/03/22 at 1105, Until Thu06/03/22 at 1120, Routine, Intraprocedure 1105 (Given - Provid er: Austin Diaz MD) lidocaine (GLYDO/URO-JET) 2 % jelly in applicator (CANCELED) PRN, Starting on e 06/03/22 at 1105, Until Tu06/03/22 at 1120, Intraprocedure 1105 (Given - Provid er: Austin Diaz MD) lidocaine (PF) 10 mg/mL (1 %) injection 2 mg 2 mg, intradermal, PRN, 4 doses, Starting on Thu06/03/22 at 1001, Until 06/03/22 at 1359, peripheral intravenous catheter placement, Routine, Preprocedure phenylephrine (MYDFRIN) 2.5 % ophthalmic solution 1 Drop (COMPLETED) 1 Drop, right eye, PRE-OP MULTIPLE, 3 doses, Starting on Thu06/03/22 at 1001, Until e 06/03/22 at 1026, Other, for cataract pre-procedure, follow admin instructions, Routine, Preprocedure 1011 (Given - Provid er: Lili Marrero RN)1019 (Given - Provider: Lili Marrero RN)1026 (Given - Provider: Lili Marrero RN) povidone-iodine 5 % ophthalmic solution (CANCELED) PRN, Starting on Thu06/03/22 at 1106, Until Thu06/03/22 at 1120, Routine, Intraprocedure 1106 (Given - Provid er: Austin Diaz MD) proparacaine (ALCAINE) 0.5 % ophthalmic solution 1 Drop (COMPLETED) 1 Drop, right eye, PRE-OP MULTIPLE, 3 doses, Starting on Thu06/03/22 at 1001, Until Thu06/03/22 at 1026, Other, for cataract pre-procedure, follow admin instructions, Routine, Preprocedure 1011 (Given - Provid er: Lili Marrero RN)1019 (Given - Provider: Lili Marrero RN)1026 (Given - Provider: Lili Marrero RN) sodium hyaluronate (HEALON) ophthalmic injection (CANCELED) PRN, Starting on Thu06/03/22 at 1107, Until Tu06/03/22 at 1120, Routine, Intraprocedure 1107 (Given - Provid er: Austin Diaz MD) tetracaine (PONTOCAINE) 0.5 % ophthalmic solution (CANCELED) PRN, Starting on Thu06/03/22 at 1107, Until Thu06/03/22 at 1120, Routine, Intraprocedure 1107 (Given - Provid er: Austin Diaz MD - Comment: topical) tropicamide (MYDRIACYL) 1 % ophthalmic solution 1 Drop (COMPLETED) 1 Drop, right eye, PRE-OP MULTIPLE, 3 doses, Starting on Thu06/03/22 at 1001, Until Thu06/03/22 at 1026, Other, for cataract pre-procedure, follow admin instructions, Routine, Preprocedure 1011 (Given - Provid er: Lili Marrero RN)1019 (Given - Provider: Lili Marrero RN)1026 (Given - Provider: Lili Marrero RN) Linked Groups Order Group 1: Insert Saline Lock (CANCELED) Routine, ONE TIME, On Thu06/03/22 at 1005, For 1 occurrence, Preprocedure And sodium chloride 0.9 % (flush) flush 5 mLJump to med 5 mL, intravenous, EVERY 8 HOURS, First dose on Thu06/03/22 at 1030, Until Discontinued, Routine, Preprocedure documented in this encounter Orders Medications Ordered That Bienvenido ht Not Have Been Administered Count Last Ordered Date First Ordered Date lidocaine (PF) 10 mg/mL (1 % ) injection 2 mg 1 06/03/2022 sodium chloride 0.9 % (flush) flush 5 mL 1 06/03/2022 Discharge Count Last Ordered Date First Orde red Date DISCHARGE PATIENT 1 06/03/2022 documented in this encounter Care Teams Wireless Engineer Relationship Specialty Start Date End Date Sridevi Lozano NP [address] [place] [phone] PCP - General Family Medicine - Primary Care 12/27/21 documented as of this encounter
--- OUTSIDE RECORDS SUMMARY | 2024-04-13 13:00 | XMS_ITS | Encounter Summary ---
Author Organization [facility] Address [address] [place] [address] Care Team Providers Care Workforce Services Representative Name Role Phone Sridevi Lozano GUEST LAUNDRY ATTENDANT Primary Care Provider [phone] Reason for Visit * Auth/Cert (Routine) Specialty Diagnoses / Procedures Referred By Eboni tran Referred To Contact Diagnoses Cataract, left Cataract, left [H26.9] Procedures AR XCAPSL CTRC RMVL INSJ IO LENS PROSTH W/O ECP EXTRACTION, CATARACT, EXTRACAPSULAR, WITH IOL INSERTION Referral ID Status Reason Start Date Expiration Date Visits Re quested Visits Authorized [id number] 1 1 Encounter Details Date Type Department Care Team (Latest Contact Info) Description 06/17/2022 10:43 EST - 06/17/2022 12:[address] 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 No / Unsure 06/17/2022 11:03 EST documented as of this encounter Last Filed Vital Signs Vital Sign Reading Time Taken Comments Blood Pressure 145/93 06/17/2022 1251 EST Pulse 77 06/17/2022 1251 EST Temperature 36.4 ??C (97.5 ??F) 06/17/2022 1251 EST Respiratory Rate 15 06/17/2022 1251 EST Oxygen Saturation 98% 06/17/2022 1251 EST Inhaled Oxygen Concentration - - Weight [...] Where can you learn more? Go to [email or web address] or log into your PrePayMe account at [email or web address] Enter R255 in the search box to learn more about Cataract Surgery: What to Expect at Home. Current as of: May 20, 2021 Content Version: 13.4 ?? [employer]. Care instructions adapted under license by [facility]. If you have questions about a medical condition or this instruction, always ask your healthcare professional. [employer] disclaims any warranty or liability for [...] INSERTION (L) Operative Note Date: 06/17/2022 [place] [facility] [place] Name: Trav NATALIYA Cerrato: 1960, Diagnosis Pre-Op Diagnosis Codes: * Cataract, [...] MONOFOCAL POSTERIOR BICONVEX OPTIC FOLDABLE +23.5D TECNIS [id number] - [id number] Implanted [id number] Staff: Sinker Winder: Mini Kaminski RN; Kisha Ball RN Scrub Person: Spohia Wall OR TECH: Jose Manuel East Indications: [...] to remove co rtical material and to liberian the capsular bag. The capsular bag was [...] previous recent surgery. Call Same Day Surgery ([phone]) with any questions/concerns. Trav Velázquez has been [...] Description 05/06/2024 13:[address] [facility] Dermatology [address] [facility], [place] [address] Renetta Kidd MD [address] [place] [address] [address] [place] [phone] 05/23/2024 15:15 EST Office Visit [facility] [address] [place] [phone] Sridevi Lozano NP [address] [place] [phone] documented as of this encounter Procedures Procedure Name Priority Date/Time Associated Diagnosis Comments ECG REPORT - SCANNED 06/18/2022 13:46 EST ECG REPORT - SCANNED 06/18/2022 12:36 EST EXTRACTION, CATARACT, EXTRACAPSULAR, WITH IOL INSERTION 06/17/2022 11:25 EST Cataract, left Special Needs SF documented in this encounter Results * ECG REPORT - SCANNED (06/18/2022 13:46 EST) 06/18/2022 13:4 6 EST us Scan 2 Christmas Tree Grower PROCEDURE/MINOR SURGICAL OR DERABLES Final Result * ECG REPORT - SCANNED (06/18/2022 12:36 EST) 06/18/2022 12:3 6 EST us Scan 2 Christmas Tree Grower PROCEDURE/MINOR SURGICAL OR DERABLES Final Result documented in this encounter Visit Diagnoses Not on filedocumented in this encounter Administered Medications Inactive Administered Medications - up to 3 most recent administrations Medication Order MAR Action Action Date Dose Rate Site acetaminophen (TYLENOL) tablet 975 mg 975 mg, oral, Once (Without Time Specified), Starting on Thu06/17/22 at 1202, Until Thu06/17/22 at 1457, Routine, Recovery (only) lidocaine (PF) 10 mg/mL (1 %) injection 2 mg 2 mg, intradermal, PRN, 4 doses, Starting on Thu06/17/22 at 1056, Until Thu06/17/22 at 1457, peripheral intravenous catheter placement, Routine, Preprocedure ondansetron (PF) (ZOFRAN) injection 4 mg 4 [...] Drop Given 06/17/2022 11:10 EST 1 Drop proparacaine (ALCAINE) 0.5 % ophthalmic solution 1 [...] Thu06/17/22 at 1600, Until Discontinued, Routine, Preprocedure tropicamide (MYDRIACYL) 1 % ophthalmic solution 1 [...] PRN, Starting on Thu06/17/22 at 1154, Until 06/17/22 at 1157, Routine, Intraprocedure 1154 (Given - Provid er: Austin Diaz MD - Comment: topical) proparacaine (ALCAINE) 0.5 % ophthalmic solution 1 Drop (COMPLETED) 1 Drop, left eye, PRE-OP MULTIPLE, 3 doses, Starting on 06/17/22 at 1056, Until 06/17/22 at 1122, Other, for cataract pre-procedure, follow admin instructions, Routine, Preprocedure 1110 (Given - Provid er: Morenita Palomo RN)1116 (Given - Provider: Morenita Palomo, RN)1122 (Given - Provider: Morenita Palomo, RN) sodium hyaluronate (HEALON) ophthalmic injection (CANCELED) PRN, Starting on 06/17/22 at 1154, Until 06/17/22 at 1157, Routine, Intraprocedure 1154 (Given - Provid er: Austin Diaz MD) tetracaine (PONTOCAINE) 0.5 % ophthalmic solution (CANCELED) PRN, Starting on e 06/17/22 at 1155, Until 06/17/22 at 1157, Routine, Intraprocedure 1155 (Given - Provid er: Austin Diaz MD) tobramycin (TOBREX) 0.3 % ophthalmic solution (CANCELED) PRN, Starting on 06/17/22 at 1228, Until 06/17/22 at 1229, Routine, Intraprocedure 1228 (Given - Provid er: Austin Diaz MD - Comment: topical) tropicamide (MYDRIACYL) 1 % ophthalmic solution 1 Drop (COMPLETED) 1 Drop, left eye, PRE-OP MULTIPLE, 3 doses, Starting on e 06/17/22 at 1056, Until 06/17/22 at 1122, Other, for cataract pre-procedure, follow admin instructions, Routine, Preprocedure 1110 (Given - Provid er: Morenita Palomo RN)1116 (Given - Provider: Morenita Palomo, RN)1122 (Given - Provider: Morenita Palomo RN) Linked Groups Order Group 1: Insert [...] Date acetaminophen (TYLENOL) tablet 975 mg 1 balanced salt solution inrri gation solution (BSS PLUS) 500 mL, EPINEPHrine HCl (PF) (ADRENALIN) 0.3 mL irrigation 1 06/17/2022 balanced salts (BSS) ophthalmic solution 1 06/17/2022 chondroitin-sodium hyalurona te (VISCOAT) ophthalmic solution 1 06/17/2022 lidocaine (GLYDO/URO-JET) 2 % jelly in applicator 1 06/17/2022 lidocaine (PF) 10 mg/mL (1 % ) injection 2 mg 1 06/17/2022 lidocaine 4 % (7.6 mg) + EPI NEPHrine 1 mg/mL (0.25 mg) + BSS (0.56 mL) intra-op in 1 mL syringe 1 06/17/2022 ondansetron (PF) (ZOFRAN) injection 4 mg 1 06/17/2022 povidone-iodine 5 % ophthalmic solution 1 0 06/17/2022 sodium chloride 0.9 % (flush) flush 5 mL 1 06/17/2022 sodium hyaluronate (HEALON) ophthalmic injection 1 06/17/2022 tetracaine (PONTOCAINE) 0.5 % ophthalmic solution 1 06/17/2022 tobramycin (TOBREX) 0.3 % op hthalmic solution 1 06/17/2022 Discharge Count Last Ordered Date First Orde red Date DISCHARGE PATIENT 1 06/17/2022 documented in this encounter Care Teams Workforce Services Representative Relationship Specialty Start Date End Date Sridevi Lozano NP [address] [place] [phone] PCP - General Family Medicine - Primary Care 12/27/21 documented as of this encounter
--- OUTSIDE RECORDS SUMMARY | 2024-04-13 13:00 | XMS_ITS | Encounter Summary ---
Author Organization [facility] Address [address] [place] [address] Care Team Providers Care Digital Associate Name Role Phone Sridevi Lozano NP Primary Care Provider [phone] Reason for Referral * Consult (Routine/Next Available) - Authorization Not Required Specialty Diagnoses / Procedures [facility] Referred To Contact Urology Diagnoses Abnormal urine odor Recurrent UTI Kia Dickson NP Phone: tel: fax: [facility] [address] [place] [address] Phone: tel: fax: Referral ID Status Reason Start Date Expiration Date Visits Requested Visits Authorized [id number] Authorization Not Required Specialty Services Required 3 1 1 Question Answer Reason for Request: Recurrent UTIs-03/10/2022, 04/10/2022, and 05/15/2021. Symptoms resolve during treatment and then return. See TE Reason for Visit * Reason Onset Date Comments Labs Only 05/13/2022 To rule out bact erial infection has reoccurred. Results 05/13/2022 Encounter Details Date Type Department Care Team (Late st Contact Info) Description 05/13/2022 Telephone [facility] [address] [phone] Kia Dickson NP 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 14 Tablet 05/16/2022 05/23/2022 documented in this encounter Miscellaneous Notes * Telephone Encounter - Kia Dickson NP - 05/16/2022 1202 EST TC to Trav-reviewed positive urine culture. Recommend taking antibiotic and will send referral to Urology. Trav reports she will not take another antibiotic-states she has taken 3 and wants to get to the root cause of why this keeps happening. Explained that I still recommend she take the antibiotic in order to prevent the UTI from becoming a kidney infection. Trav states she is drinkinga lot of pure cranberry juice that is expensive and organic and she is taking a ton of pro biotics.RX sent for Amoxicillin clav and if symptoms get any worse I strongly recommend that she take the medication. Symtpoms are always the same-cloudy urine with burning. Referral sent to Urology * Telephone Encounter - Tiff Collazo RN - 05/16/2022 1011 EST Chart reviewed - urinalysis results have posted. Pt did not leave sample until 1:19 pm yesterday; so no culture results back yet. Kia - please advise once you have the culture. Thanks. * Telephone Encounter - Payal Groves - 05/16/2022 1006 EST Pt left sample yesterday and has seen results. Kia was going to do a referral for urologist. * Telephone Encounter - Tiff Collazo RN - 05/15/2022 1104 EST Chart reviewed - pt has not come to outpatient lab yet. * Telephone Encounter - Tiff Collazo RN - 05/14/2022 1042 EST Chart reviewed - pt has not come in to lab yet. * Telephone Encounter - Tiff Collazo RN - 05/13/2022 1400 EST Spoke with pt; reviewed recommendations/plan. Pt verbalized understanding. Discussed all information also in a mychart msg. Pt will come in and leave a sample; we will call with results. Pt will callback sooner with questions or concerns. * Telephone Encounter - Kia Dickson NP - 05/13/2022 1125 EST Please order outpatient UA and C&S/clean catch urine. Also tell Trav that I recommend she start taking D-Mannose with cranberry as a preventative (this is OTC). If this culture is positive I will refer to Uro Grocery Supervisor. Thanks * Telephone Encounter - Tiff Collazo RN - 05/13/2022 1051 EST Spoke with pt - I want to Pt reports as soon as I'm done with the antibiotic, I think it comes back . Reports cloudy urine and strong smelling urine. Denies urinary burning or pain. Drinks a lot of fluids. Denies fevers or new back pain. No vaginal bleeding or spotting. But feels sore vaginally. Kia - please advise; OV or ok for outpatient testing? Thanks. 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 12:06 Note TC to Trav-reviewed positive UTI again with E Coli. Will change from bacteriostatic ABX to bactericidal. RX sent to patient's pharmacy. If symptoms don't clear then she will contact office for repeat Bacterial culture and if positive, referral to Uro Grocery Supervisor. * Telephone Encounter - Tran Reza - 05/13/2022 0913 EST [phone] Pt requesting urine test to see if bacterial infection has come back. She is having symptoms- seems to go away when she takes antibiotic and it comes back. They have been discussing a urinologist. Her urine is cloudy, and strong smelling. documented in this encounter Plan of Treatment Upcoming Encounters Date Type Department Care Team (Late st Contact Info) Description 05/06/2024 13:40 EST Office Visit [facility] [address] [facility], [place] [address] Renetta Kidd MD [address] [place] [address], [facility] [address] [place] [phone] 05/23/2024 15:15 EST Office Visit [facility] [address] [place] [address] Sridevi Lozano NP [address] [place] [phone] Scheduled Referrals Name Type Priority Associated Diagnoses Order Schedule AMB CONS/FOLLOW UP UROLOGY Outpatient Referral Routine/Next Available Abnormal urine odor Recurrent UTI Expected: 05/23/2022 (Approximate), Expires: 05/16/2023 documented as of this encounter Results * (ABNORMAL) UA WITH REFLEX SEDIMENT (05/15/2022 13:19 EST) Color UA Yellow Colorless to Dark Yellow 05/15/2022 14:07 [facility] Clarity UA Clear Clear 05/15/2022 14:07 [facility] Glucose UA Negative Negative 05/15/2022 14:07 [facility] Bilirubin UA 1+(A) Negative 05/15/2022 14:07 [facility] Ketones UA Trace(A) Negative 05/15/2022 14:07 [facility] Specific [place], Urine 1.015 1.001 - 1.035 05/15/2022 14:07 [facility] Blood UA Trace(A) Negative 05/15/2022 14:07 [facility] pH, UA 6.5 4.6 - 8.0 05/15/2022 14:07 [facility] Protein UA Negative Negative 05/15/2022 14:07 [facility] Urobilinogen UA 0.2 0.2 , 1.0, Normal mg/dL 05/15/2022 14:07 [facility] Nitrite UA Negative Negative 05/15/2022 14:07 [facility] Leukocyte Esterase UA Trace(A) Negative 05/15/2022 14:07 [facility] Urine URINE SPECIMEN COLLECTION, CLEAN CATCH / Unknown Urine Collect / Unknown 05/15/2022 13:19 EST 05/15/2022 13:36 EST Kia Dickson NP URINALYSIS ORDERABLES Final R esult Performing Organization Address City/State/[facility] Co de Phone Number [facility] [address] [place] [address] * (ABNORMAL) BACTERIAL CULTURE, URINE (05/15/2022 13:19 EST) Organism ID Greater than 100,000 CFU/ml Escherichia coli(A) VITEK SUSCEPTIBILITY 05/17/2022 8:05 [facility] Comment: Cefazolin susceptibility results can be used to predict susceptibility results for the following oral cephalosporins when used for therapy of uncomplicated UTI's due to E.coli, K.pneumoniae and P.mirabilis: cefaclor, cefdinir, cefpodoxime, cefprozil, cefuroxime, cephalexin and loracarbef. ??Please note that only cefdinir, cefpodoxime, cefuroxime and cephalexin are on the [facility] inpatient formulary. Urine URINE SPECIMEN COLLECTION, CLEAN [...] MICROBIOLOGY - GENERAL ORDERA BLES Final Result Performing Organization Address City/State/[facility] Co de Phone Number [facility] [address] [place] [address] documented in this encounter Visit Diagnoses Diagnosis Abnormal urine odor- Primary Other nonspecific finding on examination of urine Recurrent UTI Urinary tract infection, site not specified documented in this encounter Care Teams Digital Associate Relationship Specialty Start Date End Date Sridevi Lozano NP [address] [place] [phone] PCP - General Family Medicine - Primary Care 12/27/21 documented as of this encounter
--- OUTSIDE RECORDS SUMMARY | 2024-04-13 13:00 | XMS_ITS | Encounter Summary ---
Author Organization [facility] Address [address] [place] [address] Care Team Providers Care Inside Technical Sales Representative Name Role Phone Sridevi Lozano INDUSTRIAL TECH INSTRUCTOR Primary Care Provider [phone] Reason for Visit * Auth/Cert (Routine) Specialty Diagnoses / Procedures Referred By Eboni tran Referred To Contact Diagnoses Cataract, right Cataract, right [H26.9] Procedures IN XCAPSL CTRC RMVL INSJ IO LENS PROSTH W/O ECP EXTRACTION, CATARACT, EXTRACAPSULAR, WITH IOL INSERTION Referral ID Status Reason Start Date Expiration Date Visits Re quested Visits Authorized [id number] 1 1 Encounter Details Date Type Department Care Team (Latest Contact Info) Description 06/03/2022 9:54 EST - 06/03/2022 11:59 [facility] Hospital Encounter [facility] Operating Room [address] [place] [address] Austin Diaz MD [facility] [address] [place] [phone] Discharge Disposition: Home or Self Care Social [...] 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 Go to [email or web address] or log into your Splice account at [email or web address] Enter R255 in the search box to learn more about Cataract Surgery: What to Expect at Home. Current as of: May 20, 2021 Content Version: 13.4 ?? [facility]. Care instructions adapted under license by [facility]. If you have questions about a medical condition or this instruction, always ask your healthcare professional. [facility] disclaims any warranty or liability for your [...] Means Destination Comment s Home or Self Prison via WC to under canopy documented in [...] INSERTION (R) Operative Note Date: 06/03/2022 [place] [facility] [place] Trav FisherNATALIYA barrios: 1960, Diagnosis Pre-Op Diagnosis Codes: * Cataract, [...] MONOFOCAL POSTERIOR BICONVEX OPTIC FOLDABLE +23.5D TECNIS [id number] - [id number] Implanted [id number] Staff: Furnace Setter: Arturo Heaton RN; Kisha Ball RN OR [...] to remove c ortical material and to yi the capsular bag. The capsular bag was [...] EST Office Visit [facility] [address] [facility], [place] [address] Renetta Kidd MD [address] [place] [address] [address] [place] [phone] 05/23/2024 15:15 EST Office Visit [facility] [address] [place], [place] [phone] Sridevi Lozano NP [address] [place] [phone] documented as of this encounter Procedures Procedure Name Priority Date/Time Associated Diagnosis Comments ECG REPORT - SCANNED 06/05/2022 9:07 EST EXTRACTION, CATARACT, EXTRACAPSULAR, WITH IOL INSERTION 06/03/2022 10:48 EST Cataract, right Special Needs SF documented in this encounter Results * ECG REPORT - SCANNED (06/05/2022 9:07 EST) 06/05/2022 9:07 EST us Scan 2 Academic Adviser PROCEDURE/MINOR SURGICAL OR DERABLES Final Result documented [...] Drop Given 06/03/2022 10:11 EST 1 Drop proparacaine (ALCAINE) 0.5 % [...] Thu06/03/22 at 1030, Until Discontinued, Routine, Preprocedure tropicamide (MYDRIACYL) 1 [...] 1106 (Given - Provid er: Austin Diaz MD)1115 (Due) sodium chloride 0.9 % (flush) [...] jelly in applicator (CANCELED) PRN, Starting on Thu06/03/22 at 1105, Until Thu06/03/22 at 1120, Intraprocedure 1105 (Given - Provid [...] PRN, Starting on Thu06/03/22 at 1106, Until 06/03/22 at 1120, Routine, Intraprocedure 1106 (Given - [...] PRN, Starting on Thu06/03/22 at 1107, Until 06/03/22 at 1120, Routine, Intraprocedure 1107 (Given - Provid er: Austin Diaz MD - Comment: topical) tropicamide (MYDRIACYL) 1 % ophthalmic solution 1 Drop (COMPLETED) 1 Drop, right eye, PRE-OP MULTIPLE, 3 doses, Starting on Thu06/03/22 at 1001, Until Thu06/03/22 at 1026, Other, for cataract pre-procedure, follow admin instructions, Routine, Preprocedure 1011 (Given - Provid er: Lili Marrero, MALLORY)1019 (Given - Provider: Lili Marrero RN)1026 (Given [...] Count Last Ordered Date First Ordered Date balanced salt solution inrri gation solution (BSS PLUS) 500 mL, EPINEPHrine HCl (PF) (ADRENALIN) 0.3 mL irrigation 1 06/03/2022 balanced salts (BSS) ophthalmic solution 1 06/03/2022 lidocaine (GLYDO/URO-JET) 2 % jelly in applicator 1 06/03/2022 lidocaine (PF) 10 mg/mL (1 % ) injection 2 mg 1 06/03/2022 lidocaine 4 % (7.6 mg) + EPI NEPHrine 1 mg/mL (0.25 mg) + BSS (0.56 mL) intra-op in 1 mL syringe 1 06/03/2022 povidone-iodine 5 % ophthalmic solution 1 0 06/03/2022 sodium chloride 0.9 % (flush) flush 5 mL 1 06/03/2022 sodium hyaluronate (HEALON) ophthalmic injection 1 06/03/2022 tetracaine (PONTOCAINE) 0.5 % ophthalmic solution 1 06/03/2022 tobramycin-dexamethasone (TO BRADEX) ophthalmic suspension 2 Drop 1 06/03/2022 Discharge Count Last Ordered Date First Orde red Date DISCHARGE PATIENT 1 06/03/2022 documented in this encounter Care Teams Inside Technical Sales Representative Relationship Specialty Start Date End Date Sridevi Lozano NP [address] [place] [phone] PCP - General Family Medicine - Primary Care 12/27/21 documented as of this encounter
--- OUTSIDE RECORDS SUMMARY | 2024-04-13 13:00 | XMS_ITS | Encounter Summary ---
Author Organization [facility] Address [address] [place] [address] Care Team Providers Care Historic Site Administrator Name Role Phone Sridevi Lozano FLY FISHING GUIDE Primary Care Provider [phone] Reason for Visit * Reason Onset Date Comments Orders (Non Pre-visit) 04/03/2022 Said need s to f/u on bladder infection Encounter Details Date Type Department Care Team (Late st Contact Info) Description 04/03/[address] [facility] OBGYN [address] [place], [place] [phone] Kia Dickson NP [address] [facility] [place] [address] Orders (Non Pre-visit) (Said needs to f/u on bladder infection ) Social History Tobacco Use Types Packs/Day [...] 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 No / Unsure 03/10/2022 12:42 EST documented as of this encounter Functional [...] encounter Miscellaneous Notes * Telephone Encounter - Yarelis Alfonso RN - 04/03/2022 1203 EST Spoke with pt and informed of orders placed and she could go to reg/lab for urine collection. Lab hours given. Pt agrees. * Telephone Encounter - Kia Dickson NP - 04/03/2022 1145 EST Patient treated 03/11/22 with MacroBID-see TE. Order placed for UA and C&S for AMY-please inform patient she can go to lab for this * Telephone Encounter - Yarelis Alfonso RN - 04/03/2022 1137 EST Looks like 03/10/2022 pt saw JF and had urine culture sent that was positive for e-coli. Presuming she was treated? Is this for a test of cure u/a, C&S? * Telephone Encounter - Tanja Holm - 04/03/2022 0926 EST Pt said she was in for a bladder infection, and JF wanted her to come in to do a urine culture. Needs order please. documented in this encounter Plan of Treatment Upcoming Encounters Date Type Department Care Team (Late st Contact Info) Description 05/06/2024 13:40 EST Office Visit [facility]at[facility] [address] [facility], [place] [address] Renetta Kidd MD [address] [place] [address] [address] [place] [phone] 05/23/2024 15:15 EST Office Visit [facility] [address] [place], [place] [phone] Sridevi Lozano NP [address] [place] [phone] documented as of this encounter Procedures Procedure Name Priority Date/Time Associated Diagnosis Comments BACTERIAL CULTURE, URINE Routine 04/10/2022 6:44 EST Bacteriuria documented in this encounter Results * (ABNORMAL) BACTERIAL CULTURE, URINE (04/10/2022 6:44 EST) Organism ID Greater than 100,000 CFU/ml Escherichia coli(A) VITEK SUSCEPTIBILITY 04/12/2022 8:22 EST [facility] Comment: Cefazolin susceptibility results can be used to predict susceptibility results for the following oral cephalosporins when used for therapy of uncomplicated UTI's due to E.coli, K.pneumoniae and P.mirabilis: cefaclor, cefdinir, cefpodoxime, cefprozil, cefuroxime, cephalexin and loracarbef. ??Please note that only cefdinir, cefpodoxime, cefuroxime and cephalexin are on the [facility] inpatient formulary. Urine URINE SPECIMEN COLLECTION, CLEAN CATCH / Unknown Urine Collect / Unknown 04/10/2022 6:44 EST 04/10/2022 7:20 EST Narrative Organism Antibiotic Method Susceptibility Escherichia coli Amoxicillin Clavulan ic acid VITEK SUSCEPTIBILITY 4 ug/mL: Susceptible Escherichia coli Ampicillin VITEK SUSCEPTIBILITY 8 ug/mL: Susceptible Escherichia coli Ampicillin Sulbactam VITEK SUSCEPTIBI LITY 4 ug/mL: Susceptible Escherichia coli Cefazolin VITEK SUSCEPTIBILITY [...] thox azole VITEK SUSCEPTIBILITY >=320 ug/mL: Resistant Kia Dickson NP MICROBIOLOGY - GENERAL ORDERA BLES Final Result [facility] [address] [place] [address] * (ABNORMAL) UA WITH REFLEX SEDIMENT (04/10/2022 6:44 EST) Color UA Straw Colorless to Dark Yellow 04/10/2022 12:13 [facility] Clarity UA Clear Clear 04/10/2022 12:13 [facility] Glucose UA Negative Negative 04/10/2022 12:13 [facility] Bilirubin UA Negative Negative 04/10/2022 12:13 [facility] Ketones UA Negative Negative 04/10/2022 12:13 [facility] Specific [place], Urine 1.020 1.001 - 1.035 04/10/2022 12:13 [facility] Blood UA Negative Negative 04/10/2022 12:13 [facility] pH, UA 7.0 4.6 - 8.0 04/10/2022 12:13 [facility] Protein UA Negative Negative 04/10/2022 12:13 [facility] Urobilinogen UA 0.2 0.2 , 1.0, Normal mg/dL 04/10/2022 12:13 [facility] Nitrite UA Positive(A) Negative 04/10/2022 12:13 [facility] Leukocyte Esterase UA Negative Negative 04/10/2022 12:13 [facility] Urine URINE SPECIMEN COLLECTION, CLEAN CATCH / Unknown Urine Collect / Unknown 04/10/2022 6:44 EST 04/10/2022 7:20 EST us Kia Dickson FLY FISHING GUIDE URINALYSIS ORDERABLES Final R esult Performing Organization Address City/State/[facility] Co de Phone Number [facility] [address] [place] [address] documented in this encounter Visit Diagnoses Diagnosis Bacteriuria- Primary Other nonspecific finding on examination of urine documented in this encounter Care Teams Historic Site Administrator Relationship Specialty Start Date End Date Sridevi Lozano NP [address] [place] [phone] PCP - General Family Medicine - Primary Care 12/27/21 documented as of this encounter
--- OUTSIDE RECORDS SUMMARY | 2024-04-13 13:00 | XMS_ITS | Encounter Summary ---
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 No t on file documented as of this encounter Last Filed Vital Signs Vital Sign Reading Time Taken Comments Blood Pressure 138/78 05/05/2022 1336 EST Pulse 66 05/05/2022 1336 EST Temperature 36.5 ??C (97.7 ??F) 05/05/2022 1336 EST Respiratory Rate - - Oxygen Saturation - - Inhaled Oxygen Concentration - - Weight 57.9 kg (127 lb 11.2 oz) 05/05/2022 1336 EST Height - - Body Mass Index 21.25 03/10/2022 1245 EST documented in this encounter Functional Status [...] this encounter Progress Notes * Sridevi Bianchi, WIRE CHARGER - 05/05/2022 1330 EST CHIEF COMPLAINT: Chief Complaint Patient presents with ??? Hip Pain Right side HPI: Trav Velázquez, a 61 y.o. female who presents today with right sided hip pain. Trav reports intermittent right hip pain that has been chronic. Trav reports over the last few weeks pain has been more severe. Does not bother her during the day, causes her to wake at night time due to pain. Has tried ibuprofen and tylenol with little improvement. She does not want to continue with routine use of these medications. Trav denies know injury or trauma. She denies popping clicking, or warmth to her right hip. She reports many years ago was diagnosed with bursitis in her right hip. She has never had imaging on her hips. She describes pain as achy to primarily right hip. Radiates into low back/ pelvis. Limited pain on left side. She currently follows with PT for scoliosis of her back. ROS: I've done a Review of Systems and the pertinent positives are in the HPI. Patient Active Problem List Diagnosis ??? Essential hypertension Current Outpatient Medications on File Prior to Visit Medication Sig Dispense Refill ??? amLODIPine (NORVASC) 5 mg tablet Take 1 Tablet by mouth daily. 90 Tablet 0 ??? lisinopriL (PRINIVIL) 40 mg [...] Types: Marijuana PHYSICAL EXAMINATION: Objective: Vitals: BP 138/78 Pulse 66 Temp 36.5 ??C (97.7 ??F) (Oral) Wt 57.9 kg (127 lb 11.2 oz) BMI 21.25 kg/m?? GENERAL APPEARANCE: NAD, pleasant, well-appearing, alert and oriented. HEART: regular rate MSK: normal ROM. No SI tenderness, no obvious deformities.. EXTREMITIES: No pedal edema. IMPRESSION/PLAN: 1. Right hip pain XR HIPS BILATERAL 2 VIEWS OPTIONAL PELVIS 1. Right hip pain Chronic hip and back pain. No acute injury. History of scoliosis and bursitis of right hip. Pain waking Trav at night. Shared decision to complete imaging due to chronic nature. Will get bilateralimaging for comparison. Recommended PT. As she is already established with PT will reach out to her, will f/u with office if a new referral is needed. Will f/u with XR result. - XR HIPS BILATERAL 2 VIEWS OPTIONAL PELVIS; Future This note was prepared using voice recognition software and the EMR. There may be inadvertent errors and omissions. Sridevi Bianchi NP 05/06/2022 8:31 documented in this encounter Plan of Treatment Upcoming Encounters Date Type Department Care Team (Late st Contact Info) Description 05/06/2024 13:40 EST Office Visit [facility] Dermatology [address] [facility], [place] [address] Renetta Kidd MD [address] [place] [address], [facility] [address] [place] [address] 05/23/2024 15:15 EST Office Visit [facility] [address] [place], [place] [phone] Sridevi Lozano NP [address] [place] [phone] documented as of this encounter Visit Diagnoses Diagnosis Right hip pain- Primary Pain in joint, pelvic region and thigh documented in this encounter Care Teams Vocational Education Professional Relationship Specialty Start Date End Date Sridevi Lozano NP [address] [place] [phone] PCP - General Family Medicine - Primary Care 12/27/21 documented as of this encounter
--- OUTSIDE RECORDS SUMMARY | 2024-04-13 13:00 | XMS_ITS | Encounter Summary ---
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, [place] [address] Renetta Kidd MD [address] [place] [address], [facility] 5 [place] [phone] 05/23/2024 15:15 EST Office Visit [facility] Family [address] [phone] Sridevi Lozano NP [address] [place] [phone] documented as of this encounter Procedures Procedure Name Priority Date/Time Associated Diagnosis Comments UA SEDIMENT (CULTURE IF POS) Today 07/03/2022 12:39 EST Recurrent UTI UA WITH REFLEX SEDIMENT (CULTURE IF POS) Routine 07/03/2022 12:39 EST Recurrent UTI BACTERIAL CULTURE, URINE Today 07/03/2022 12:39 EST Recurrent UTI documented in this encounter Results * (ABNORMAL) BACTERIAL CULTURE, URINE (07/03/2022 12:39 EST) Organism ID 10, 000 to 100,000 CFU/ml Escherichia coli(A) VITEK SUSCEPTIBILITY 07/05/2022 8:35 [facility] Comment: Cefazolin susceptibility results can be used to predict susceptibility results for the following oral cephalosporins when used for therapy of uncomplicated UTI's due to E.coli, K.pneumoniae and P.mirabilis: cefaclor, cefdinir, cefpodoxime, cefprozil, cefuroxime, cephalexin and loracarbef. ??Please note that only cefdinir, cefpodoxime, cefuroxime and cephalexin are on the [facility] inpatient formulary. Organism ID 10, 000 to 100,000 CFU/ml VITEK SUSCEPTIBILITY 07/05/2022 8:35 [facility] Comment: Usual urogenital sadaf. Urine URINE SPECIMEN COLLECTION, CLEAN CATCH / Unknown Urine Collect / Unknown 07/03/2022 12:39 EST 07/03/2022 13:37 EST Narrative Organism Antibiotic Method Susceptibility Escherichia [...] azole VITEK SUSCEPTIBILITY >=320 ug/mL: Resistant us Darshan Loaiza MD MICROBIOLOGY - GENERAL ORDERABLE S Final Result [facility] [address] [place] [address] * (ABNORMAL) UA SEDIMENT (CULTURE IF POS) (07/03/2022 12:39 EST) Urine RBC Count, Manual 3 - 10(A) 0 - 2, None Seen Cells/HPF 07/03/2022 13:37 [facility] Urine WBC Count 0 - 3 0 - 3, None Seen Cells/HPF 07/03/2022 13:37 [facility] Urine Squamous Count, Manual None Seen None Seen Cells/HPF 07/03/2022 13:37 [facility] Urine Bacteria Count, Manual Moderate(A ) None Seen Bacteria/H PF 07/03/2022 13:37 [facility] Urine URINE SPECIMEN COLLECTION, CLEAN CATCH / Unknown Urine Collect / Unknown 07/03/2022 12:39 EST 07/03/2022 13:20 [facility] - 07/03/2022 13:37 EST Urine Sediment Analysis results are unreliable on urines that are unrefrigerated for >2 hrs or refrigerated >8 hrs. A Urine Culture test has been reflexively ordered based on result criteria from the Urine Sediment Analysis. us Darshan Loaiza MD URINALYSIS ORDERABLES Final Resu lt [facility] [address] [place] [address] * (ABNORMAL) UA WITH REFLEX SEDIMENT (CULTURE IF POS) (07/03/2022 12:39 EST) Color UA Yellow Colorless to Dark Yellow 07/03/2022 13:32 [facility] Clarity UA Clear Clear 07/03/2022 13:32 [facility] Glucose UA Negative Negative 07/03/2022 13:32 [facility] Bilirubin UA Negative Negative 07/03/2022 13:32 [facility] Ketones UA Negative Negative 07/03/2022 13:32 [facility] Specific [place], Urine 1.010 1.001 - 1.035 07/03/2022 13:32 [facility] Blood UA 1+(A) Negative 07/03/2022 13:32 [facility] pH, UA 7.5 4.6 - 8.0 07/03/2022 13:32 [facility] Protein UA Negative Negative 07/03/2022 13:32 [facility] Urobilinogen UA 0.2 0.2 , 1.0, Normal mg/dL 07/03/2022 13:32 [facility] Nitrite UA Negative Negative 07/03/2022 13:32 [facility] Leukocyte Esterase UA Trace(A) Negative 07/03/2022 13:32 [facility] Urine URINE SPECIMEN COLLECTION, CLEAN CATCH / Unknown Urine Collect / Unknown 07/03/2022 12:39 EST 07/03/2022 13:20 EST us Darshan Loaiza MD URINALYSIS ORDERABLES Final Resu lt Performing Organization Address City/State/[facility] Co de Phone Number [facility] [address] [place] [address] documented in this encounter Visit Diagnoses Diagnosis Recurrent UTI Urinary tract infection, site not specified documented in this encounter Care Teams Polisher Balance Screwhead Relationship Specialty Start Date End Date Sridevi Lozano NP [address] [place] [phone] PCP - General Family Medicine - Primary Care 12/27/21 documented as of this encounter
--- OUTSIDE RECORDS SUMMARY | 2024-04-13 13:01 | XMS_ITS | Encounter Summary ---
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, [place] [address] Renetta Kidd MD [address] [place] [address] 5 [place] [phone] 05/23/2024 15:15 EST Office Visit [facility] [address] [place] [phone] Sridevi Lozano NP [address] [place] [phone] documented as of this encounter Visit Diagnoses Not on filedocumented in this encounter Care Teams Medical Equipment Sales Relationship Specialty Start Date End Date Sridevi Lozano NP [address] [place] [phone] PCP - General Family Medicine - Primary Care 12/27/21 documented as of this encounter
--- OUTSIDE RECORDS SUMMARY | 2024-04-13 13:01 | XMS_ITS | Encounter Summary ---
Author Organization [facility] Address [address] [place] [address] Care Team Providers Care Student Success Coach Name Role Phone Ramírez Cordoba ND Primary Care Provider + Encounter Details Date Type Department Care Team (Latest Contact Info) Description 01/23/2021 Travel Social History Tobacco Use Types Packs/Day Years Used Date Smoking Tobacco: Former Smokeless Tobacco: Never Interpersonal Safety Answer Date Record ed Physically Hurt Never 11/27/2019 Verbally Threaten Not on file 11/27/2019 Comments Unknown Sex and Gender Information Value Date Recorded Sex Assigned at Not on file Legal Sex Female 17:57 EST Gender Identity Female 01/23/2021 8:23 EDT Sexual Orientation Not on file COVID-19 Exposure Response Date Recorded In the last month, have you been in contact with someone who was confirmed or suspected to have Coronavirus / COVID-19? No / Unsure 01/23/2021 8:36 EDT documented as of this encounter Functional Status [...] Info) Description 05/06/2024 13:40 EST Office Visit [facility] Dermatology 130 [facility], [place] [address] Renetta Kidd MD [address] [facility], [facility], [address] [place] [phone] 05/23/2024 15:15 EST Office Visit [facility] [address] [place], [place] [phone] Sridevi Lozano, JAYME [address] [place] [phone] documented as of this encounter Visit Diagnoses Not on filedocumented in this encounter Care Teams Student Success Coach Relationship Specialty Start Date End Date Ramírez Cordoba ND [address] [place] [address],[address] [place] [phone] PCP - General 05/31/18 11/20/21 documented as of this encounter"
--- OUTSIDE RECORDS SUMMARY | 2024-04-13 13:01 | XMS_ITS | Encounter Summary ---
Author Organization [facility] Address [address] [place] [address] Care Team Providers Care Telehealth Director Name Role Phone [facility], Primary Care Provider Reason for Visit * Reason Onset Date Comments Establish Care 11/21/2021 Encounter Details Date Type Department Care Team ([facility] st Contact Info) Description 11/21/2021 Telephone [facility] [address] [place] [address] Ramírez Cordoba, ROSANNA [address] [facility],[address] [place] [phone] Establish Care Social History Tobacco Use Types Packs/Day Years Used Date Smoking Tobacco: Former Smokeless Tobacco: Never Interpersonal Safety Answer Date Record ed Physically Hurt Never 11/27/2019 Verbally Threaten Not on file 11/27/2019 Comments Unknown Sex and Gender Information Value Date Recorded Sex Assigned at Not on file Legal Sex Female 17:57 EST Gender Identity Female 01/23/2021 8:23 EDT Sexual Orientation Not on file documented as [...] encounter Miscellaneous Notes * Telephone Encounter - Mel Sheppard - 12/25/2021 1048 EDT [id number] - generic message left - no identifier. Please route pt to this signer for new patient appointment scheduling. * Telephone Encounter - Mel Sheppard - 11/21/2021 1356 EDT Noted added to new patient spreadsheet. * Telephone Encounter - Amada Alvarado MA - 11/21/2021 1033 EDT Previous PCP (any w/in last 5 years; do not need specialist information as the PCP should be sending us that w/their records): Ramírez Cordoba, [facility] [place] Requested Provider: Female Reason for Transfer:Would like a PCP in her town When is Appointment Needed: whenever, pt has high BP Transportation Concerns: No Language Barriers:No Letter printed and patient will come by today to pick packet up documented in this encounter Plan of Treatment Upcoming Encounters Date Type Department Care Team (Late st Contact Info) Description 05/06/2024 13:40 EST Office Visit [facility] Dermatology 130 [facility], [place] [address] Renetta Kidd MD [address] [place] [address], [address] [place] [phone] 05/23/2024 15:15 EST Office Visit [address] [address] Sridevi Loazno NP [address] [place] [phone] documented as of this encounter Visit Diagnoses Not on filedocumented in this encounter Care Teams Telehealth Director Relationship Specialty Start Date End Date [facility], [address] [place] [address] [place] [address] PCP - General Family Medicine - Primary Care 11/21/21 12/26/21 documented as of this encounter
--- OUTSIDE RECORDS SUMMARY | 2024-04-13 13:01 | XMS_ITS | Encounter Summary ---
Author Organization [facility] Address [address] [place] [address] Care Team Providers Care Trust Manager Assistant Name Role Phone Ramírez Cordoba ND Primary Care Provider + Encounter Details Date Type Department Care Team (Late st Contact Info) Description 05/31/2018 Historical Results Only [facility] - [address] [address] Janina Santos NP [address] [place] [address] [facility] [address] [place] [phone] Social History Tobacco Use Types Packs/Day Years Used Date Smoking Tobacco: Never Assessed Comments Unknown Sex and Gender Information Value Date Recorded Sex Assigned at Not on file Legal Sex Female 17:57 EST Gender Identity Female 01/23/2021 8:23 EDT Sexual Orientation Not on file documented as of this encounter Plan of Treatment Upcoming Encounters Date Type Department Care Team (Late st Contact Info) Description 05/06/2024 13:40 EST Office Visit [facility] Dermatology [address] [place] [address], [place], [place] [phone] Renetta Kidd MD [address] [facility], [facility] 5 [place] [phone] 05/23/2024 15:15 EST Office Visit [address] [place], [place] [address] Sridevi Lozano, JAYME [address] [place] [phone] documented as of this encounter Procedures Procedure Name Priority Date/Time Associated Diagnosis Comments MICROALBUMIN, URINE Routine 05/31/2018 1 1:08 EST URINALYSIS/COMPLETE - [facility] Routine 05/31/2018 11:08 EST URINE [id number] NE RATIO (ACR) Routine 05/31/2018 11:08 EST documented in this encounter Results * MICROALBUMIN, URINE (05/31/2018 11:08 EST) Albumin, Urine 1.30 <1.7 mg/dL 05/31/2018 12:44 [facility] Lab Urine Albumin to Creatinine Ratio 16.2 ug/mg 05/31/2018 12:44 [facility] Comment: Normal: <30 ug/mg Creat Microalbuminuria: 30-300 ug/mg Creat Clinical albuminuria: >300 ug/mg Creat Creatinine, Urine 80.20 mg/dL 05/31/2018 12:44 [facility] 05/31/2018 11:0 8 EST 05/31/2018 11:24 EST Narrative [facility] - 05/31/2018 12:44 EST AOT: 05/31/18 1124: MALB us Janina Santos NP HEMATOLOGY & PF4 ORDERABLES F inal Result [facility] * URINALYSIS/COMPLETE - [facility] (05/31/2018 11:08 EST) URINE APPEARANCE - [facility] Cloudy CLEAR 05/31/2018 11:53 [facility] URINE AMORPH CRYSTAL - [facility] MANY 05/31/2018 12:04 [facility] URINE BACTERIA - [facility] NEG 05/31/2018 12:04 [facility] URINE BILIRUBIN - DIPSTICK - CV Negative NEGATIVE 05/31/2018 11:53 [facility] URINE BLOOD - CV Negative NEG 05/31/2018 11:53 [facility] URINE COLOR - CV Yellow YELLOW 05/31/2018 11:53 [facility] URINE GLUCOSE - [facility] - [facility] Negative NEGATIVE 05/31/2018 11:53 [facility] URINE KETONE - CV Negative NEGATIVE 05/31/2018 11:53 [facility] URINE LEUK ESTERASE - CV Negative NEG 05/31/2018 11:53 [facility] URINE NITRITE - [facility] - [facility] Negative NEG 05/31/2018 11:53 [facility] URINE PH - [facility] 7.5 4.0 - 8.0 9 11:53 [facility] URINE PROTEIN - [facility] - [facility] Negative NEG 05/31/2018 11:53 [facility] URINE RBC - [facility] RARE rbc/hpf 05/31/19 19 12:04 [facility] URINE SPECIFIC GRAVITY - [facility] 1.010 1.001 - 1.035 05/31/2018 11:53 [facility] URINE SQUAMOUS CELLS - [facility] RARE NEG #/hpf 05/31/2018 12:04 [facility] URINE UROBILINOGEN - [facility] - [facility] 0.2 0.2 - 1.0 05/31/2018 11:53 [facility] URINE WBC - CV RARE NEG wbc/hpf 019 12:04 [facility] 05/31/2018 11:0 8 EST 05/31/2018 11:08 EST [facility] - 05/31/2018 12:04 EST Does PT Have a Latex Allergy? NO us Janina Santos NP CHEMISTRY & BLOOD GAS ORDERAB LES Final Result [facility] * ALBUMIN, URINE (05/31/2018 11:08 EST) Albumin, Urine 1.30 <1.7 mg/dL 05/31/2018 12:44 [facility] Lab Urine Albumin to Creatinine Ratio 16.2 ug/mg 05/31/2018 12:44 [facility] Comment: Normal: <30 ug/mg Creat Microalbuminuria: 30-300 ug/mg Creat Clinical albuminuria: >300 ug/mg Creat Creatinine, Urine 80.20 mg/dL 05/31/2018 12:44 [facility] 05/31/2018 11:0 8 EST 05/31/2018 11:24 EST Narrative [facility] - 05/31/2018 12:44 EST AOT: 05/31/18 1124: MALB us Janina Santos INTERACTIVE VIDEO TECHNICIAN CHEMISTRY & BLOOD GAS ORDERAB LES Final Result [facility] documented in this encounter Visit Diagnoses Not on filedocumented in this encounter Care Teams Trust Manager Assistant Relationship Specialty Start Date End Date Ramírez Cordoba ND [address] [place] [address],[address] [place] [phone] PCP - General 05/31/18 11/20/21 documented as of this encounter
--- OUTSIDE RECORDS SUMMARY | 2024-04-13 13:01 | XMS_ITS | Encounter Summary ---
Author Organization [facility] Address [address] [place] [address] Care Team Providers Care Supervisor Roller Printing Name Role Phone DreRamírez beltran ROSANNA Primary Care Provider + [facility] Primary Care Provider Sridevi Lozano NP Primary Care Provider Reason for Visit * Reason Comments Other Encounter Details Date Type Department Care Team (Late st Contact Info) Description 11/13/[address] [facility] [address] [place] [address] Janina Santos NP 130 [facility] [address] [place] [phone] Other Social History Tobacco Use Types Packs/Day Years [...] Office Visit [facility] Dermatology 130 [facility], [place] [address] Renetta Kidd MD [address] [place] [address] 5 [place] [address] 05/23/2024 15:15 EST Office Visit [address] [place], [place] [phone] Sridevi Lozano NP [address] [place] [phone] documented as of this encounter Visit Diagnoses Diagnosis Essential hypertension Unspecified essential hypertension documented in this encounter Care Teams Supervisor [employer]ing Relationship Specialty Start Date End Date Ramírez Cordoba ND [address] [place] [address],[address] [phone] PCP - General 05/31/18 11/20/21 [facility], [address] [place] [address] [place], [place] [phone] PCP - General Family Medicine - Primary Care 11/21/21 12/26/21 Sridevi Lozano MAIL HANDLER ASSISTANT [address] [place] [phone] PCP - General Family Medicine - Primary Care 12/27/21 documented as of this encounter
--- OUTSIDE RECORDS SUMMARY | 2024-04-13 13:01 | XMS_ITS | Encounter Summary ---
Author Organization [facility] Address [address] [place] [address] Care Team Providers Care Iron Worker Name Role Phone Ramírez Cordoba ND Primary Care Provider + Reason for Visit * Reason Onset Date Comments Medications Refill 03/07/2019 Encounter Details Date Type Department Care Team (Late st Contact Info) Description 03/07/2019 Telephone [facility] Cardiology Clinic [address] [place] [address] Janina Santos NP 130 [facility] [address] [phone] Medications Refill Social History Tobacco Use Types Packs/Day Years Used Date Smoking Tobacco: Former Smokeless Tobacco: Never Comments Unknown Sex and Gender Information Value [...] Date End Date amLODIPine (NORVASC) 5 mg tabletIndications:E ssential hypertension Take 1 Tab by mouth daily for 90 days. 90 Tab 3 03/07/2019 03/28/2020 documented in this encounter Miscellaneous Notes * Telephone Encounter - Mel Hilliard - 03/07/2019 1312 EST Pt called refill line for refill of amlodipine 5mg. ANTONIO 07/16/2018. Script called to Breanne at [facility] as [employer] are not working. documented in this encounter Plan of Treatment Upcoming Encounters Date Type Department Care Team (Late st Contact Info) Description 05/06/2024 13:40 EST Office Visit [facility] Dermatology 130 [facility] [place] [address] Renetta Kidd MD [address] [place] [address], [facility] 5 [place] [phone] 05/23/2024 15:15 EST Office Visit [address] [address] Sridevi Lozano NP [address] [place] [phone] documented as of this encounter Visit Diagnoses Diagnosis Essential hypertension- Primary Unspecified essential hypertension documented in this encounter Care Teams Iron Worker Relationship Specialty Start Date End Date Ramírez Cordoba ND [address] [place] [address],[facility] [address] [place] [phone] PCP - General 05/31/18 11/20/21 documented as of this encounter
--- OUTSIDE RECORDS SUMMARY | 2024-04-13 13:01 | XMS_ITS | Encounter Summary ---
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 * Telephone Encounter - Sridevi Bianchi NP - 03/08/2022 1007 EST Please call to let trav know her urine sample had no abnormalities. documented in this encounter Plan of Treatment Upcoming Encounters Date Type Department Care Team (Late st Contact Info) Description 05/06/2024 13:40 EST Office Visit [facility] Dermatology [address] [place] [address] Renetta Kidd MD [address] [place] [address], [facility] 5 [place] [phone] 05/23/2024 15:15 EST Office Visit [address] [phone] Sridevi Lozano NP [address] [place] [phone] documented as of this encounter Visit Diagnoses Not on filedocumented in this encounter Care Teams Piano Case And Bench Assembler Relationship Specialty Start Date End Date Sridevi Lozano NP [address] [place] [phone] PCP - General Family Medicine - Primary Care 12/27/21 documented as of this encounter
--- OUTSIDE RECORDS SUMMARY | 2024-04-13 13:01 | XMS_ITS | Encounter Summary ---
Author Organization Health system Address [address] [place] [address] Care Team Providers Care Contract Clerk Automobile Name Role Phone DreRamírez beltran ROSANNA Primary Care Provider + Reason for Visit * Reason Comments Back Pain * Referral (Routine) - Closed Specialty Diagnoses / Procedures Referred By Eboni tran Referred To Contact Orthopedic Surgery Diagnoses Chronic low back pain Severe scoliosis Naz Morales DC Phone: tel: fax: [facility] [address], [address] [place] [address] Phone: tel: fax: Referral ID Status Reason Start Date Expiration Date Visits Re quested Visits Authorized [id number] Closed 1 1 Encounter Details Date Type Department Care Team (Late st Contact Info) Description 01/23/2021 8:30 EDT Office Visit [facility] [address], [address] [place], [place] [id number] Yue Chacko PA-C [address] [facility] [address] [place] [address] Chronic left-sided low back pain without sciatica (Primary Dx); Scoliosis of thoracolumbar spine, unspecified scoliosis type [...] 8:36 EDT documented as of this encounter Last Filed Vital Signs Vital Sign Reading Time Taken Comments Blood Pressure 126/74 01/23/2021 0836 EDT Pulse 70 01/23/2021 0836 EDT Temperature 36.7 ??C (98 ??F) 01/23/2021 0836 EDT Respiratory Rate - - Oxygen Saturation 97% 01/23/2021 0836 EDT Inhaled Oxygen Concentration - - Weight 57.7 kg (127 lb 1.6 oz) 01/23/2021 0836 E DT Height 167.6 cm (5' 6) 01/23/2021 0836 EDT Body Mass Index 20.51 01/23/2021 0836 EDT documented in this encounter Functional Status [...] Progress Notes * Yue Chacko PA-C - 01/23/2021 0830 EDT History of Present Illness: This is a 60-year-old female with history of hyperlipidemia and hypertension, presenting upon referral from Naz Morales DC of [facility] chiropractics for evaluation of back pain related to severe scoliosis. Patient has been following up with chiropractics, and e vidently initially was not finding much improvement with the care, but over the last couple of sessions reportedly was noting improvement. Appears to also use ibuprofen as needed with fair relief. Today, Trav reports 100% left greater than right low back pain that she has had for a long time,but it has been more aggravated over the last few months. The pain is worse when she sits after a day of baking, and then goes to stand up. Sitting is not uncomfortable, but the act of standing back up she has difficult time straightening, and it takes her some time of moving around before she loosens up. She denies morning stiffness, or pain at night. She states that the day of baking involves alot of lifting, but that there is not a specific part of the activity that aggravates the pain rather just builds up through the course of the day. Patient has a routine of stretching and doing exercises every morning, which helps to loosen her up. For her increased back pain over the last few months, she has tried acupuncture that she did for several weeks without improvement. She did chiropractics for a couple of months towards the end of which she did have some relief. 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 Single. Former smoker. Very physicallyactive Conservative Treatment: Chiropractics with fair relief Ibuprofen with great relief Review of Systems: As per HPI. I reviewed medications, allergies, medical, surgical and social history with the patient. Physical Examination: BP 126/74 Pulse 70 Temp 36.7 ??C (98 ??F) Ht 167.6 cm (66) Wt 57.7 kg (127 lb 1.6 oz) SpO2 97% BMI 20.51 kg/m?? Well-developed, fit female who is pleasant, no acute distress at this time. HEENT without any gross abnormalities. Breathing is nonlabored Skin is warm and dry Patient maintains a normal upright posture. From behind, she is noted to have right scapular winging, and with forward flexion has a thoracic right paraspinal prominence from scoliosis. Patient has reasonable range of motion of her lumbar spine, but has pain aggravation in the low back with lumbar extension. Points to area of pain correlating most closely with the left sacroiliac joint, and is slightly tender to palpation in this region. Also mildly tender over her right SI joint. No point tenderness to palpation over her spinous processes or paraspinal muscles. Patient ambulates with bilateral feet externally rotated, more on the right than the left, otherwise within normal gait. She is able to walk on her toes and heels without difficulty. Bilateral lower extremities are 5 out of 5 in her hip, and knee, flexion and extension, anterior tibialis, extensor houses longus and gastrocnemius. No sensory deficit to light touch in bilateral lower extremities Bilateral patellar and Achilles deep tendon reflexes are 2+ and equal Negative straight leg raise bilaterally. Negative Angel sign bilaterally. Negative compression, and thigh thrust test. Image Review: Scoliosis films obtained 12/04/2020 show evidence of an S-shaped scoliotic deformity involving the thoracolumbar spine. Her lateral view is little difficult to read, but she appears to have lost some of her normal thoracic kyphotic curve Salcido angle of the thoracic curve which is convex to the right measured at 60.5 degrees from inferior endplate of T4 to inferior endplate of T12. Salcido angle of the lumbar curve convex to the left measured at 52.9 degrees from the inferior endplate of T12 to the inferior endplate of L4. Assessment: 1. Thoracolumbar scoliosis 2. Bilateral low back pain, left greater than right This is a pleasant and straightforward 60-year-old female presenting for evaluation of her low backpain that is been worsening over the last several months. Her back pain responds favorably to use of NSAIDs. She does have a scoliotic deformity, but denies issues with breathing. It is unclear what the exact mechanism of her low back pain is given its pattern. It almost seems to have an inflammatory picture, given the fact that it worsens after sitting for a period of time, though she denies any significant morning stiffness, and it does improve with movement, and significantly improves with use of anti-inflammatories. We discussed various options for treatment, includingphysical therapy with the plan of developing a home exercise plan. She is in favor of using noninvasive treatment measures, so I placed a referral to [facility] to help her develop this home exercise program both for her low back pain, also for some scapular stabilization exercises. Patient is happy with this plan and is planning on following up in 8 weeks for reevaluation. Patient encouraged to call with any questions, concerns, or worsening of condition. I spent a total of 45 minutes on the date of this encounter meeting with the patient and reviewing documentation/coordinating care as described in the above note. Plan: 1. Physical therapy to develop HEP 2. Follow-up in 8 weeks This document was produced using GutCheck dictation. Please excuse any grammatical or verbal errors. CC: Ramírez Cordoba [address] [place] [phone] documented in this encounter Plan of Treatment Upcoming Encounters Date Type Department Care Team (Late st Contact Info) Description 05/06/2024 13:40 EST Office Visit [facility] [address] [facility], [place] [address] Renetta Kidd MD [address] [place] [address], [facility] [address] [place] [phone] 05/23/2024 15:15 EST Office Visit [address] [address] Sridevi Lozano, JAYME [address] [place] [phone] documented as of this encounter Visit Diagnoses Diagnosis Chronic left-sided low back pain without sciatica- Primary Scoliosis of thoracolumbar spine, unspecified scoliosis type documented in this encounter Care Teams Contract Clerk Automobile Relationship Specialty Start Date End Date Ramírez Cordoba ND [address] [place] [phone] PCP - General 05/31/18 11/20/21 documented as of this encounter
--- OUTSIDE RECORDS SUMMARY | 2024-04-13 13:01 | XMS_ITS | Encounter Summary ---
Author Organization [facility] Address [address] [place] [address] Care Team Providers Care Electronics Engineer Name Role Phone Ramírez Cordoba ND Primary Care Provider + Encounter Details Date Type Department Care Team (Late st Contact Info) Description 07/02/2018 Historical Results Only [facility] - [facility] [place] [address] [place] [phone] Janina Santos, JAYME [address] [place] [address] [place] [phone] Social History Tobacco Use Types Packs/Day Years [...] [facility] [address] [place] [address], [place] [address] Renetta Kidd MD [address] [facility], [facility], [address] [place] [address] 05/23/2024 15:15 EST Office Visit [facility] [address] [place] [address] Sridevi Lozano NP [address] [place] [phone] documented as of this encounter Procedures Procedure Name Priority Date/Time Associated Diagnosis Comments BASIC METABOLIC PANEL (BMP) Routine 07/02/2018 15:04 EST documented in this encounter Results * (ABNORMAL) BASIC METABOLIC PANEL (BMP) (07/02/2018 15:04 EST) [facility] - [facility] 18 10 - 26 mg/dL 07/02/2018 15:44 [facility] CALCIUM - [facility] 10.6(H) 8.5 - 10.5 mg/dL 07/02/2018 15:44 [facility] Chloride 101 96 - 110 mmol/L 07/02/2018 15:44 [facility] CO2 Total 28 22 - 32 mEq/L 07/02/2018 15:44 [facility] CREATININE 0.68 0.52 - 1.04 mg/dL 07/02/2018 15:44 [facility] eGFR >60 07/02/2018 15:44 [facility] Comment: Chronic renal impairment is defined as GFR <60 Multiply result by 1.210 for patients. eGFR calculated using the IDMS-traceable MDRD Study Equation. ??(effective 02/27/2014) Anion Gap 8 0 - 18 07/02/2018 15:44 [facility] GLUCOSE - [facility] 129(H) 70 - 100 mg/dL 07/02/2018 15:44 [facility] Potassium 3.9 3.5 - 5.0 mEq/L 07/02/2018 15:44 EST [facility] Sodium 137 136 - 145 mEq/L 07/02/2018 15:44 EST [facility] 07/02/2018 15:0 4 EST 07/02/2018 15:04 EST Narrative [facility] - 07/02/2018 15:44 EST Does PT Have a Latex Allergy? NO us Janina Santos MOLDER OFFBEARER CHEMISTRY & BLOOD GAS ORDERAB LES Final Result [facility] documented in this encounter Visit Diagnoses Not on filedocumented in this encounter Care Teams Electronics Engineer Relationship Specialty Start Date End Date Ramírez Cordoba ND [address] [place] [address],[address] [place] [address] PCP - General 05/31/18 11/20/21 documented as of this encounter
--- OUTSIDE RECORDS SUMMARY | 2024-04-13 13:01 | XMS_ITS | Encounter Summary ---
Author Organization [facility] Address [address] [place] [address] Care Team Providers Care Research Associate Quality Control Qc Name Role Phone DreRamírez beltran ROSANNA Primary Care Provider + [facility] [place], [place] Primary Care Provider Sridevi Lozano NP Primary Care Provider [phone] Encounter Details Date Type Department Care Team (Late st Contact Info) Description 07/20/2018 Historical Results Only [facility] [address] [place] [address] Unknown, Provider, Social History Tobacco Use Types Packs/Day Years [...] Info) Description 05/06/2024 13:40 EST Office Visit [facility] [address] [place] [address] Renetta Kidd MD [address] [facility], [address] [place] [phone] 05/23/2024 15:15 EST Office Visit [facility] [address] [place] [address] Sridevi Lozano NP [address] [place] [phone] documented as of this encounter Procedures Procedure Name Priority Date/Time Associated Diagnosis Comments TRANSTHORACIC ECHO (TTE) COMPLETE 07/20/2018 14:18 EDT documented in this encounter Results * TRANSTHORACIC ECHO (TTE) COMPLETE (07/20/2018 14:18 EDT) Anatomical Region Laterality Modality Ultrasound 07/20/2018 14:1 8 EDT Narrative 07/20/2018 14:18 EDT ?[address] [address] ? [id number] ? E C H O C A R D I O G R A M ? R E P O R T NAME: TRAV MOSHER ? : 56 ? LOCATION: CARD ? TELEPHONE: [phone] ?MR#: [id number] ? *[facility]* *[facility]* [address] [place] [address] Date of study: 07/20/2018 Transthoracic Echocardiography M-mode, complete 2D, complete spectral Doppler, and color Doppler *STUDY CONCLUSIONS* Summary: 1. Left ventricle: The cavity size was normal. Wall thickness was ?? normal. Systolic function was normal. The estimated ejection fraction ?? was 60-65%. Wall motion was normal; there were no regional wall ?? motion abnormalities. 2. Right ventricle: The cavity size was normal. Wall thickness was ?? normal. Systolic function was normal. *PATIENT PRESENTATION* Height: ? 165.1cm ((65in) ) S/D Pressure: 148 / 52 Weight: ? 54.4kg ((119.8lb) ) BSA: ?1.58m S 2 Test start time: ??02:13 PM. Test stop time: ??02:51 PM. LIFE INSURANCE SPECIALIST ??Asuncion Cuello PERFORMING ?? Cv ORDERING ? Jannia Santos Aprn REFERRING ?Janina Santos Aprn *PROCEDURE DATA* Procedure information: ??The patient was identified by two identifiers. This study was interpreted by [facility]. Pertinent images and digital data are archived for permanent storage and are available for subsequent review. No prior study was available for comparison. ??Study status: Routine. Transthoracic echocardiography. ??M-mode, complete 2D, complete spectral Doppler, and color Doppler. A Transthoracic Echocardiogram was performed. Scanning was performed from the parasternal, apical, subcostal, and suprasternal notch acoustic windows. Images were obtained ?[address] [place], [place] [address] ? [id number] ? E C H O C A R D I O G R A M ? R E P O R T NAME: TRAV MOSHER ? : 56 ? LOCATION: CARD ? TELEPHONE: [phone] ?MR#: [id number] ? using a [facility] [place] [place] IE33 1 cardiac ultrasound machine. Image quality was good. Study completion: ??The patient tolerated the procedure well. There were no complications. *INDICATIONS AND HISTORY* Indications: ??HTN *CARDIAC ANATOMY* Left ventricle: ??The cavity size was normal. Wall thickness was normal. Systolic function was normal. The estimated ejection fraction was 60-65%. Wall motion was normal; there were no regional wall motion abnormalities. Diastolic parameters were normal for age. Aortic valve: ?? Trileaflet; normal thickness leaflets. Mobility was not restricted. ??Doppler: ??Transvalvular velocity was within the normal range. There was no stenosis. There was no significant regurgitation. Aorta: ??Aortic root: The aortic root was normal in size. Ascending aorta: The ascending aorta was normal in size. Mitral valve: ?? Mildly thickened leaflets. Mobility was not restricted. Doppler: ??Transvalvular velocity was within the normal range. There was no evidence for stenosis. There was no significant regurgitation. Left atrium: ??The atrium was normal in size. Right ventricle: ??The cavity size was normal. Wall thickness was normal. Systolic function was normal. Pulmonic valve: ?Structurally normal valve. ?Doppler: ??Transvalvular velocity was within the normal range. There was no evidence for stenosis. There was trivial regurgitation. Tricuspid valve: ?? Structurally normal valve. ?Doppler: ??Transvalvular velocity was within the normal range. There was no evidence for stenosis. There was trivial regurgitation. Pulmonary artery: ?Systolic pressure could not be accurately estimated. Right atrium: ??The atrium was normal in size. Pericardium: ??There was no pericardial effusion. Systemic veins: Inferior vena cava: The vessel was normal in size. Baseline ECG: ?? Normal sinus rhythm. Measurements Left ventricle ? Value ?Reference LV ID, ED, PLAX ?4.3 ?? cm ? 3.5 - 6.0 LV ID, ES, PLAX ?2.6 ?? cm ? 2.1 - 4.0 LV PW thickness, ED, PLAX ?0.7 ?? cm ? LV end-diastolic volume, 1-p A2C ? 60 ?ml ? LV ejection fraction, 1-p A2C ?60 ?% ? LV end-diastolic volume, 1-p A4C ? 69 ?ml ? [address] [place], [place] [address] ? [id number] ? E C H O C A R D I O G R A M ? R E P O R T NAME: TRAV MOSHER ? : 56 ? LOCATION: CARD ? TELEPHONE: [phone] ?MR#: [id number] ? LV ejection fraction, 1-p A4C ?55 ?% ? LV e', lateral ? 0.085 m/sec ?? LV E/e', lateral ? 7 ? LV e', medial ?0.073 m/sec ?? LV E/e', medial ?9 ? LV e', average ? 0.079 m/sec ?? LV E/e', average ? 8 ? Ventricular septum ? Value ?Reference IVS thickness, ED, PLAX ?0.7 ?? cm ? Aorta ?Value ?Reference Aortic root ID ? 3.1 ?? cm ? Ascending aorta ID, A-P ?3.4 ?? cm ? Ascending aorta ID, A-P, S ? 3.4 ?? cm ? Left atrium ?Value ?Reference LA ID, A-P, ES ? 2.4 ?? cm ? LA ID/bsa, A-P ? 1.5 ?? cm/m S 2 <=2.2 LA area, ES, A4C ? 19.3 ??cm S 2 ?? 8.8 - 23.4 LA area, ES, A2C ? 18 ?cm S 2 ?? LA volume, ES, 2-p ? 52 ?ml ? LA volume/bsa, ES, 2-p ? 33 ?ml/m S 2 LA/aortic root ratio ? 0.77 ? Mitral valve ? Value ?Reference Mitral E-wave peak velocity ?0.63 ??m/sec ?? Mitral A-wave peak velocity ?0.68 ??m/sec ?? Mitral deceleration time ? (H) ? 290 ?? ms ? 150 - 230 Mitral E/A ratio, peak ? 0.9 ? Legend: (L) ??and ??(H) ??rika values outside specified reference range. I have personally reviewed the images and have reviewed and edited the reported findings. Electronically signed by Gage Ray 07/20/2018 16:27 Procedure Note Gage Ray MD - 02/13/2019 [address] [place], [place] [address] [id number] E C H O C A R D I O G R A M R E P O R T NAME: TRAV MOSHER : 58LOCATION: CARD TELEPHONE: [phone] MR#: [id number] [id number] *[facility]* *[facility]* [address] [place] [address] Date of study: 07/20/2018 Transthoracic Echocardiography M-mode, complete 2D, complete spectral Doppler, and color Doppler *STUDY CONCLUSIONS* Summary: 1. Left ventricle: The cavity size was normal. Wall thickness was normal. Systolic function was normal. The estimated ejection fraction was 60-65%. Wall motion was normal; there were no regional wall motion abnormalities. 2. Right ventricle: The cavity size was normal. Wall thickness was normal. Systolic function was normal. *PATIENT PRESENTATION* Height: 165.1cm ((65in) ) S/D Pressure: 148 / 52 Weight: 54.4kg ((119.8lb) ) BSA: 1.58m S 2 Test start time: 02:13 PM. Test stop time: 02:51 PM. LIFE INSURANCE SPECIALIST Asuncion Cuello PERFORMING [facility] ORDERING Janina Santos Keshia REFERRING Janina Santos Keshia *PROCEDURE DATA* Procedure information: The patient was identified by two identifiers. This study was interpreted by [facility]. Pertinent images and digital data are archived for permanent storage and are available for subsequent review. No prior study was available for comparison. Study status: Routine. Transthoracic echocardiography. M-mode, complete 2D, complete spectral Doppler, and color Doppler. A Transthoracic Echocardiogram was performed. Scanning was performed from the parasternal, apical, subcostal, and suprasternal notch acoustic windows. Images were obtained [address] [address] [id number] E C H O C A R D I O G R A M R E P O R T NAME: TRAV MOSHER : 58LOCATION: CARD TELEPHONE: [phone] MR#: [id number] using a [facility] [place] [place] IE33 1 cardiac ultrasound machine. Image quality was good. Study completion: The patient tolerated the procedure well. There were no complications. *INDICATIONS AND HISTORY* Indications: HTN *CARDIAC ANATOMY* Left ventricle: The cavity size was normal. Wall thickness was normal. Systolic function was normal. The estimated ejection fraction was 60-65%. Wall motion was normal; there were no regional wall motion abnormalities. Diastolic parameters were normal for age. Aortic valve: Trileaflet; normal thickness leaflets. Mobility was not restricted. Doppler: Transvalvular velocity was within the normal range. There was no stenosis. There was no significant regurgitation. Aorta: Aortic root: The aortic root was normal in size. Ascending aorta: The ascending aorta was normal in size. Mitral valve: Mildly thickened leaflets. Mobility was not restricted. Doppler: Transvalvular velocity was within the normal range. There was no evidence for stenosis. There was no significant regurgitation. Left atrium: The atrium was normal in size. Right ventricle: The cavity size was normal. Wall thickness was normal. Systolic function was normal. Pulmonic valve: Structurally normal valve. Doppler: Transvalvular velocity was within the normal range. There was no evidence for stenosis. There was trivial regurgitation. Tricuspid valve: Structurally normal valve. Doppler: Transvalvular velocity was within the normal range. There was no evidence for stenosis. There was trivial regurgitation. Pulmonary artery: Systolic pressure could not be accurately estimated. Right atrium: The atrium was normal in size. Pericardium: There was no pericardial effusion. Systemic veins: Inferior vena cava: The vessel was normal in size. Baseline ECG: Normal sinus rhythm. Measurements Left ventricle Value Reference LV ID, ED, PLAX 4.3 cm 3.5 - 6.0 LV ID, ES, PLAX 2.6 cm 2.1 - 4.0 LV PW thickness, ED, PLAX 0.7 cm LV end-diastolic volume, 1-p A2C 60 ml LV ejection fraction, 1-p A2C 60 % LV end-diastolic volume, 1-p A4C 69 ml [address] [place], [place] [address] [id number] E C H O C A R D I O G R A M R E P O R T NAME: TRAV MOSHER : 58LOCATION: CARD TELEPHONE: [phone] MR#: [id number] LV ejection fraction, 1-p A4C 55 % LV e', lateral 0.085 m/sec LV E/e', lateral 7 LV e', medial 0.073 m/sec LV E/e', medial 9 LV e', average 0.079 m/sec LV E/e', average 8 Ventricular septum Value Reference IVS thickness, ED, PLAX 0.7 cm Aorta Value Reference Aortic root ID 3.1 cm Ascending aorta ID, A-P 3.4 cm Ascending aorta ID, A-P, S 3.4 cm Left atrium Value Reference LA ID, A-P, ES 2.4 cm LA ID/bsa, A-P 1.5 cm/m S 2 <=2.2 LA area, ES, A4C 19.3 cm S 2 8.8 - 23.4 LA area, ES, A2C 18 cm S 2 LA volume, ES, 2-p 52 ml LA volume/bsa, ES, 2-p 33 ml/m S 2 LA/aortic root ratio 0.77 Mitral valve Value Reference Mitral E-wave peak velocity 0.63 m/sec Mitral A-wave peak velocity 0.68 m/sec Mitral deceleration time (H) 290 ms 150 - 230 Mitral E/A ratio, peak 0.9 Legend: (L) and (H) rika values outside specified reference range. I have personally reviewed the images and have reviewed and edited the reported findings. Electronically signed by Gage Ray 07/20/2018 16:27 us Provider Unknown CARDIAC ECHO ORDERABLES Patt l Result documented in this encounter Visit Diagnoses Not on filedocumented in this encounter Care Teams Research Associate Quality Control Qc Relationship Specialty Start Date End Date Ramírez Cordoba ND [address] [place] [address],[facility] [address] [place] [phone] PCP - General 05/31/18 11/20/21 [facility], [address] [place] [address] PCP - General Family Medicine - Primary Care 11/21/21 12/26/21 Sridevi Lozano NP [address] [place] [phone] PCP - General Family Medicine - Primary Care 12/27/21 documented as of this encounter
--- OUTSIDE RECORDS SUMMARY | 2024-04-13 13:01 | XMS_ITS | Encounter Summary ---
Author Organization [facility] Address [address] [place] [address] Care Team Providers Care Foot Tender Name Role Phone Unknown, Provider Primary Care Provider Ramírez Graham ND Primary Care Provider + [facility] Primary Care Provider Sridevi Lozano LOGISTICS TECH Primary Care Provider [phone] Encounter Details Date Type Department Care Team (Late st Contact Info) Description 06/30/2008 Before PRISM Converted Visit (Maple) [facility] Adult Primary Care - [address] [address] Unknown, Provider, Social History Tobacco Use Types [...] Info) Description 05/06/2024 13:40 EST Office Visit [facility] Dermatology [address] [facility], [place] [address] Renetta Kidd MD [address] [facility], [address] [place] [address] 05/23/2024 15:15 EST Office Visit [address] [place], [place] [phone] Sridevi Lozano LOGISTICS TECH [address] [place] [phone] documented as of this encounter Procedures Procedure Name Priority Date/Time Associated Diagnosis Comments MM DIGITAL MAMMO SCREEN MATEO W CAD* 06/30/2008 10:20 EST documented in this encounter Results * MM DIGITAL MAMMO SCREEN MATEO W CAD* (06/30/2008 10:20 EST) Anatomical Region Laterality Modality Other 06/30/2008 10:2 0 EST Narrative 01/31/2009 11:17 EDT SCREENING This report has been dictated at [facility]. ??If you would like a copy of this report, please call . Procedure Note Mayelin Valentin MD - 01/31/2009 SCREENING This report has been dictated at [facility]. If you would like a copy of this report, please call . us Provider Unknown MD KRUEGER NM ORDERABLES Final Resu lt documented in this encounter Visit Diagnoses Not on filedocumented in this encounter Care Teams Foot Tender Relationship Specialty Start Date End Date Unknown, Provider, PCP - General 03/15/15 05/30/18 Ramírez Cordoba ND [address] [place] [phone] PCP - General 05/31/18 11/20/21 [facility] [address] [place] [phone] PCP - General Family Medicine - Primary Care 11/21/21 12/26/21 Sridevi Lozano, LOGISTICS TECH [address] [place] [phone] PCP - General Family Medicine - Primary Care 12/27/21 documented as of this encounter
--- OUTSIDE RECORDS SUMMARY | 2024-04-13 13:01 | XMS_ITS | Encounter Summary ---
Author Organization [facility] Address [address] [place] [address] Care Team Providers Care Retail Loss Prevention Investigator Name Role Phone Ramírez Cordoba ND Primary Care Provider + Reason for Visit * Reason Onset Date Comments Medications Refill 05/08/2021 Encounter Details Date Type Department Care Team (Late st Contact Info) Description 05/08/2021 Telephone [facility] [address] [place] [phone] Dee Amor, MALLORY Medications Refill Social History Tobacco Use [...] by mouth daily. 90 Tablet 05/08/2021 01/05/2023 documented in this encounter Miscellaneous Notes * Telephone Encounter - Kirby Rea - 05/08/2021 1522 EST Pt called and LVM that she got this refilled through PCP and that we do not need to fill it. Thanks * Telephone Encounter - Dee Amor RN - 05/08/2021 1454 EST Refill request received from patient. She is overdue for a follow up in the office. Detailed VM to patient, short supply sent to pharmacy as she is out of the medication, she is aware of need for follow up with any further prescriptions. Routing to scheduling for follow up with Janina Santos. documented in this encounter Plan of Treatment Upcoming Encounters Date Type Department Care Team (Late st Contact Info) Description 05/06/2024 13:40 EST Office Visit [facility] Dermatology [address] [facility], [place] [address] Renetta Kidd MD [address] [place] [address], [address] [place] [address] 05/23/2024 15:15 EST Office Visit [facility] [place] [facility] [address] [address] Sridevi Lozano NP [address] [place] [phone] documented as of this encounter Visit Diagnoses Diagnosis Essential hypertension- Primary Unspecified essential hypertension documented in this encounter Discontinued Medications Medication Sig Discontinue Reason Start Date End Da te amLODIPine (NORVASC) 5 mg tabletIndications:Essenti al hypertension TAKE 1 TABLET BY MOUTH DAILY Reorder 03/28/2020 05/08/2021 documented as of this encounter Care Teams Retail Loss Prevention Investigator Relationship Specialty Start Date End Date Ramírez Cordoba ND [address] [place] [address],[address] [place] [address] PCP - General 05/31/18 11/20/21 documented as of this encounter
--- OUTSIDE RECORDS SUMMARY | 2024-04-13 13:01 | XMS_ITS | Encounter Summary ---
Author Organization [facility] Address [address] [place] [address] Care Team Providers Care Crane Service Technician Name Role Phone Unknown, Provider Primary Care Provider Ramírez Graham ND Primary Care Provider + Encounter Details Date Type Department Care Team (Late st Contact Info) Description 06/28/2014 Historical Results Only [address] [phone] Geetha Scott MD [address] [place] [address] Social History Tobacco Use Types Packs/Day Years [...] Info) Description 05/06/2024 13:40 EST Office Visit [facility] Dermatology [address] [facility], [place] [address] Renetta Kidd MD [address] [facility], [facility] 5 [place] [address] 05/23/2024 15:15 EST Office Visit [address] [place], [place] [phone] Sridevi Lozano, CHIP DRIER [address] [place] [phone] documented as of this encounter Procedures Procedure Name Priority Date/Time Associated Diagnosis Comments PAP TEST Routine 06/28/2014 9:49 EST documented in this encounter Results * PAP TEST (06/28/2014 9:49 EST) 06/28/2014 9:49 EST 06/30/2014 9:49 EST Narrative [facility] - 07/06/2014 11:41 EDT ----- ------- Name: TRAV MOSHER ? : 56 ?Age/Sex: 58/F ?Unit#: [id number] ? [facility]: [facility] ? Status: REG REF ?? Reg Date: 06/28/14 ? Pt.Phone Number: ? ----- ------- Specimen: [id number] ?STATUS: SOUT ?Spec Date:06/28/14 ? Physician Copies: ?KEVIN,GEETHA Tissues: ? Cervical/Endo Pap ? CPT: 32255 ?? Units: ??1 ----- ------- ? CYTOLOGY DIAGNOSIS SPECIMEN ADEQUACY: ??Satisfactory for evaluation. Assessment of transformation zone not applicable (e.g. ??atrophy, vaginal sample, hysterectomy). GENERAL CATEGORIZATION: ?Negative for Intraepithelial Lesion or Malignancy DESCRIPTIVE DIAGNOSIS: ? Negative for Intraepithelial Lesion or Malignancy. ----- ------- ?HPV DNA RESULTS ?? 06/28/14 0950 HPV DNA RESULT ??NEG ? Negative for HPV types 16, 18, 31, 33, 35, 39, 45, 51, 52, ? 56, 58, 59, 66, 68. ? Method: Cervista HPV HR (High Risk) DNA test. ----- ------- ORDER QUERIES: LMP: ? - 2008 ? Post ?PREVIOUS ATYPICAL: ?? BCP/HRT? ?? Rad Rx? ?? IUD?PAP PLUS HPV? Y ??REFLEX TO HR-HPV IF ASCUS ?? REFLEX TO HPV 16/18 IF HPV POS/PAP NEG Y HPV REGARDLESS?RFLX HPV IF LSIL ?? Signed Abel Heck CT(ASCP) 07/06/14 By the signature above, the attending physician certifies that he/she has personally conducted a gross and/or microscopic examination of the described specimens and rendered or confirmed the above diagnosis. Test Performed by [facility], [address] [place] [id number] Research Asst: Dara Fried MD PHD ----- ------- us Geetha Scott MD PATHOLOGY ORDERABLES Final Result [facility] documented in this encounter Visit Diagnoses Not on filedocumented in this encounter Care Teams Crane Service Technician Relationship Specialty Start Date End Date Unknown, Provider, PCP - General 03/15/15 05/30/18 Ramírez Cordoba ND [address] [place] [address],[address] [place] [phone] PCP - General 05/31/18 11/20/21 documented as of this encounter
--- OUTSIDE RECORDS SUMMARY | 2024-04-13 13:01 | XMS_ITS | Encounter Summary ---
Author Organization [facility] Address [address] [place] [address] Care Team Providers Care Specimen Preparation Assistant Name Role Phone Sridevi Lozano PROJECT SAFETY MANAGER Primary Care Provider [phone] Reason for Visit * Reason Onset Date Comments Referral Request 03/14/2022 [facility] - Jelena Roper Encounter Details Date Type Department Care Team (Late st Contact Info) Description 03/14/2022 Telephone [facility] [address] [place] [address] Sridevi Lozano, PROJECT SAFETY MANAGER [address] [place] [phone] Referral Request ([facility] Tru Roper) Social History Tobacco Use Types Packs/Day Years [...] 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 She will contact [facility] tomake an appointment. * Telephone Encounter - Fang Jarquin - 03/17/2022 1358 EST Referral is in queue and is awaiting prior authorization. Will continue to monitor and complete when approved. * Telephone Encounter - Sridevi Bianchi NP - 03/17/2022 1306 EST 1. Scoliosis, unspecified scoliosis type, unspecified spinal region - AMB CONS/FOLLOW UP PHYSICAL THERAPY - OUTSIDE OF NETWORK; Future Referral sent * Telephone Encounter - Fang Jarquin - 03/17/2022 0951 EST Patient called - stated she wants to see a particular PT by the name of Whitley Wyman at [facility] in [place]. Address is [address] [phone] - - . * Telephone Encounter - Mel Sheppard - 03/14/2022 1146 EST Late entry - Patient left message 823am this date. She is requesting a [place] [facility] [place] Whitley Roper. She would like to get in a PT program that does specific work with scoliosis. Patient would like to be notified once this referral has been placed to let her know the status. Please advise. documented in this encounter Plan of Treatment Upcoming Encounters Date Type Department Care Team (Late st Contact Info) Description 05/06/2024 13:40 EST Office Visit [facility] [address] [facility], [place] [address] Renetta Kidd MD [address] [place] [address] [address] [place] [phone] 05/23/2024 15:15 EST Office Visit [facility] [address] [place] [phone] Sridevi Lozano NP [address] [place] [phone] documented as of this encounter Visit Diagnoses Diagnosis Scoliosis, unspecified scoliosis type, unspecified spinal region- Primary documented in this encounter Care Teams Specimen Preparation Assistant Relationship Specialty Start Date End Date Sridevi Lozano NP [address] [place] [phone] PCP - General Family Medicine - Primary Care 12/27/21 documented as of this encounter
--- OUTSIDE RECORDS SUMMARY | 2024-04-13 13:01 | XMS_ITS | Encounter Summary ---
Author Organization [facility] Address [address] [place] [address] Care Team Providers Care Strawhat Inspector And Packer Name Role Phone Sridevi Lozano ADULT PROBATION OFFICER Primary Care Provider Reason for Visit * Reason Comments Other lump in vagina Encounter Details Date Type Department Care Team (Late st Contact Info) Description 12/31/2021 11:30 EDT Office Visit [facility] [address] [place], [place] [phone] Leonardo Jalloh NP [address] [place] [phone] Routine gynecological examination (Primary Dx); Normal vaginal exam Social History Tobacco Use Types Packs/Day Years Used Date Smoking Tobacco: Former Cigarettes 1 15 1 974 - 1988 Smokeless Tobacco: Never Alcohol Use Standard Drinks/Week Comments Yes 10 (1 standard drink = 0.6 oz pu re alcohol) Interpersonal Safety Answer Date Record ed Physically Hurt Never 11/27/2019 Verbally Threaten Not on file 11/27/2019 Comments Unknown Sex and Gender Information Value Date Recorded Sex Assigned at Not on file Legal Sex Female 17:57 EST Gender Identity Female 01/23/2021 8:23 EDT Sexual Orientation Not on file 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 Not on file No t on file documented as of this encounter Last Filed Vital Signs Vital Sign Reading Time Taken Comments Blood Pressure 120/82 12/31/2021 1142 EDT Pulse 64 12/31/2021 1142 EDT Temperature 36.7 ??C (98 ??F) 12/31/2021 1142 EDT Respiratory Rate - - Oxygen Saturation - - Inhaled Oxygen Concentration - - Weight 55.8 kg (123 lb) 12/31/2021 1142 EDT Height 165.1 cm (5' 5) 12/31/2021 1142 EDT Body Mass Index 20.47 12/31/2021 1142 EDT documented in this encounter Functional Status [...] documented in this encounter Progress Notes * Leonardo Jalloh ADULT PROBATION OFFICER - 12/31/2021 1130 EDT CHIEF COMPLAINT: Chief Complaint Patient presents with ??? Other lump in vagina HPI: Trav Velázquez, a 61 y.o. female who presents today as a new patient c/o ?lump in vagina. Yesterday, she felt a lump inside of right labia, no pain, no discharge, no itch. No known rash. No vaginal bleeding. No vaginal discharge. No fever or chills. No STI concerns. No STI history. Last Pap 2014. She takes amlodipine and lisinopril for hypertension as below, no other meds or significant medical history. Patient Active Problem List Diagnosis ??? Essential [...] History Tobacco Use ??? Smoking status: Former Smoker ??? Smokeless tobacco: Never Used Substance Use Topics ??? Alcohol use: Not on file ??? Drug use: Not on file PHYSICAL EXAMINATION: Objective: Vitals: BP 120/82 Pulse 64 Temp 36.7 ??C (98 ??F) Ht 165.1 cm (65) Wt 55.8 kg (123 lb) BMI 20.47 kg/m?? GENERAL APPEARANCE: NAD, pleasant, well-appearing, alert and oriented. HEART: regular rate and rhythm, no murmurs. LUNGS: clear to auscultation bilaterally, no wheezes/rhonchi/rales. MEDICAL BILLING REPRESENTATIVE: normal external genitalia, several skin tags at vaginal introitus, no lumps or masses, no cysts, vaginal mucosa healthy, pink and without lesions, cervix closed and normal in appearance, Pap smear performed, uterus of normal size, shape and consistency, no adnexal masses or tenderness bilaterally. IMPRESSION/PLAN: 1. Routine gynecological examination PAP TEST 2. Normal vaginal exam 1. Routine gynecological examination 2. Normal vaginal exam - PAP TEST Normal MEDICAL BILLING REPRESENTATIVE exam today, she has several skin tags at vaginal introitus which are benign and consistent with her concern. No cysts, lumps, or masses. As pelvic exam was being performed today, Pap was performed as well. If Pap and HPV are negative, consider final Pap at age 63. She knows to call for other MEDICAL BILLING REPRESENTATIVE concerns. She will follow-up as scheduled for PE later this fall with PCP. This note was prepared using voice recognition software and the EMR. There may be inadvertent errors and omissions. Leonardo Jalloh NP 11:55 12/31/2021 documented in this encounter Plan of Treatment Upcoming Encounters Date Type Department Care Team (Late st Contact Info) Description 05/06/2024 13:40 EST Office Visit [facility] Dermatology [address] [place] [address], [place] [address] Renetta Kidd MD [address] [place] [address], [facility] 5 [place] [phone] 05/23/2024 15:15 EST Office Visit [address] [phone] Sridevi Lozano NP [address] [place] [phone] documented as of this encounter Procedures Procedure Name Priority Date/Time Associated Diagnosis Comments PAP TEST Routine 12/31/2021 13:06 EDT Routine gynecological examination HPV DNA DETECTION WITH GENOTYPING, PCR Today 12/31/2021 13:06 EDT Routine gynecological examination documented in this encounter Results * HUMAN PAPILLOMAVIRUS (HPV) DETECTION-HIGH RISK TYPES (12/31/2021 13:06 EDT) HPV other High Risk types, PCR Negative Negative 01/06/2022 19:48 EDT [facility] Comment:No E6 or E7 mRNA is detected from HPV types 16,18,31,33,35,39,45,51,52,56,58,59,66, and 68 by real estate branch manager mediated amplification. Papanicolaou smear specimen (specimen) CERVIX UTERI STRUCTURE / Unknown 12/31/2021 13:06 EDT 01/03/2022 15:28 EDT us Leonardo Jalloh NP MICROBIOLOGY - GENERAL ORDERA BLES Final Result [facility] [address] [place] [address] * PAP TEST (12/31/2021 13:06 EDT) Specimens A. Cervix and/or Endocervix , ThinPrep Imaging System with Manual Evaluation 01/06/2022 19:49 EDT [facility] Specimen Adequacy Satisfactory for Evaluation - assessment of transformation zone component not applicable ( e.g. atrophy, vaginal sample, hysterectomy) Scant squamous epithelial component 01/06/2022 19:49 EDT [facility] General Categorization Negative for intraepithelial lesion or malignancy 01/06/2022 19:49 EDT [facility] Descriptive Diagnosis Shift in sadaf present suggestive of bacterial vaginosis. 01/06/2022 19:49 EDT [facility] Attestation . 01/06/2022 19:49 EDT [facility] at 1950 Clinical History screen 01/07/20 19:49 EDT [facility] HPV The result for the Human Papillomavirus (HPV) Detection-High Risk Types is Negative. No E6 or E7 mRNA is detected from HPV types 16,18,31,33,35,39 ,45,51,52,56,58,5 9,66, and 68 by real estate branch manager mediated amplification.Mel ting was performed on specimen [id number] and was resulted on 01/06/2022 1858 EDT by JUS, LAB INSTRUMENT RESULTS IN 01/06/2022 19:49 EDT [facility] Performing Lab [facility] 01/06/2022 19:49 EDT [facility] Scanned Images 01/06/2022 19:49 EDT [facility] Papanicolaou smear specimen (specimen) CERVIX UTERI STRUCTURE / Unknown 12/31/2021 13:06 EDT 12/31/2021 13:06 EDT us Leonardo Jalloh NP PATHOLOGY ORDERABLES Final Re sult [facility] [address] [place] [address] documented in this encounter Visit Diagnoses Diagnosis Routine gynecological examination- Primary Normal vaginal exam documented in this encounter Discontinued Medications Medication Sig Discontinue Reason Start Date End Da te lisinopril (PRINIVIL, ZESTRIL) 10 mg tablet Take 20 mg by mouth daily. Duplicate order 12/31/2021 lisinopril (PRINIVIL, ZESTRIL) 10 mg tablet Take 20 mg by mouth daily. Duplicate order 12/31/2021 documented as of this encounter Historical Medications * This list may reflect changes made after this encounter. lisinopriL (PRINIVIL) 40 mg tablet Take 40 mg by mouth daily. 10/01/2021 08/01/2022 added in this encounter Care Teams Strawhat Inspector And Packer Relationship Specialty Start Date End Date Sridevi Lozano NP [address] [place] [address] PCP - General Family Medicine - Primary Care 12/27/21 documented as of this encounter
--- OUTSIDE RECORDS SUMMARY | 2024-04-13 13:01 | XMS_ITS | Encounter Summary ---
Author Organization [facility] Address [address] [place] [address] Care Team Providers Care Project Product Manager Name Role Phone Ramírez Cordoba ND Primary Care Provider + [facility], Primary Care Provider Sridevi Lozano NP Primary Care Provider Encounter Details Date Type Department Care Team ([facility] st Contact Info) Description 12/05/2020 Results Only Imaging [facility] Radiology Results [address] [place] [address] Ramírez Cordoba ND [address] [facility],[address] [place] [address] Social History Tobacco Use Types Packs/Day Years [...] Info) Description 05/06/2024 13:40 EST Office Visit [facility] Dermatology [address] [facility], [place] [address] Renetta Kidd MD [address] [place] [address], [facility] 5 [place] [address] 05/23/2024 15:15 EST Office Visit [facility] [address] [place] [address] Sridevi Lozano NP [address] [place] [phone] documented as of this encounter Procedures Procedure Name Priority Date/Time Associated Diagnosis Comments XR SCOLIOSIS SERIES 2 VIEWS 12/05/2020 11:14 EDT documented in this encounter Results * XR SCOLIOSIS SERIES 2 VIEWS (12/05/2020 11:14 EDT) Anatomical Region Laterality Modality Spine Radiographic Bertha ging 12/05/2020 11:1 1 EDT Narrative 12/05/2020 11:14 EDT ? EXAM: RADIOLOGY/SCOLIOSIS SERIES 2 VIEWS ??EX. D/ (1547) ? CLINICAL INFORMATION: ? EVAL FOR SCOLIOSIS ? INDICATION: EVAL FOR SCOLIOSIS. ? COMPARISON: None. ? TECHNIQUE: PA and lateral views of the spine were obtained. ? FINDINGS: ? There is a scoliosis of the thoracic spine, apex to the right with a ? Salcido angle of 60 degrees. ? There is a scoliosis of the lumbar spine, apex to the left with a ? Salcido angle of 51.4 degrees. ? Vertebral body detail is suboptimal. A subtle fracture or bone lesion ? cannot be excluded by this examination. ? The visualized lungs are clear and the bowel gas pattern is ? unremarkable. ? IMPRESSION: Severe scoliosis of the thoracic and lumbar spine. ? REPORT SIGNED IN OTHER VENDOR SYSTEM 12/05/2020 ?Reported By: Deepak Lassiter MD ? CC: ? Transcribed Date/Time: 12/05/2020 (1114) ? Machine Worker: ? Printed Date/Time: 12/05/2020 (1115) ? PAGE 1 ? Signed Report ? Procedure Note Deepak Lassiter MD - 12/05/2020 EXAM: RADIOLOGY/SCOLIOSIS SERIES 2 VIEWS EX. D/ (1547) CLINICAL INFORMATION: EVAL FOR SCOLIOSIS INDICATION: EVAL FOR SCOLIOSIS. COMPARISON: None. TECHNIQUE: PA and lateral views of the spine were obtained. FINDINGS: There is a scoliosis of the thoracic spine, apex to the right witha Salcido angle of 60 degrees. There is a scoliosis of the lumbar spine, apex to the left with a Salcido angle of 51.4 degrees. Vertebral body detail is suboptimal. A subtle fracture or bonelesion cannot be excluded by this examination. The visualized lungs are clear and the bowel gas pattern is unremarkable. IMPRESSION: Severe scoliosis of the thoracic and lumbar spine. REPORT SIGNED IN OTHER VENDOR SYSTEM 12/05/2020 Reported By: Deepak Lassiter MD CC: Transcribed Date/Time: 12/05/2020 (9668) Machine Worker: Printed Date/Time: 12/05/2020 (5154) PAGE 1 Signed Report Ramírez Cordoba ND IMG DIAGNOSTIC IMAGING O RDERABLES Final Result documented in this encounter Visit Diagnoses Not on filedocumented in this encounter Care Teams Project Product Manager Relationship Specialty Start Date End Date Ramírez Cordoba ND [address] [place] [address],[address] [place] [address] PCP - General 05/31/18 11/20/21 [facility] [place] [address] [place] [address] PCP - General Family Medicine - Primary Care 11/21/21 12/26/21 Sridevi Lozano NP [address] [place] [phone] PCP - General Family Medicine - Primary Care 12/27/21 documented as of this encounter
--- OUTSIDE RECORDS SUMMARY | 2024-04-13 13:01 | XMS_ITS | Encounter Summary ---
Author Organization [facility] Address [address] [place] [address] Care Team Providers Care Barrel Rifler Broach Name Role Phone Unknown, Provider Primary Care Provider Ramírez Graham ND Primary Care Provider + Encounter Details Date Type Department Care Team (Late st Contact Info) Description 08/12/2011 Historical Results Only [address] [address] Geetha Scott MD [address] [place] [address] Social History Tobacco Use Types Packs/Day Years [...] Info) Description 05/06/2024 13:40 EST Office Visit [facility] Dermatology [address], [place] [address] Renetta Kidd MD 111 [facility], [facility] 5 [place] [address] 05/23/2024 15:15 EST Office Visit [address] [place], [place] [phone] Sridevi Lozano, ECOSYSTEM ECOLOGY PROFESSOR [address] [place] [phone] documented as of this encounter Procedures Procedure Name Priority Date/Time Associated Diagnosis Comments PAP TEST Routine 08/12/2011 documented in this encounter Results * PAP TEST (08/12/2011) 08/12/2011 08/13/2011 13: 30 EDT Narrative [facility] - 08/15/2011 14:25 EDT ----- ------- Name: TRAV MOSHER ? : 56 ?Age/Sex: 58/F ?Unit#: [id number] ? Loc: [facility] ? Status: REG REF ?? Reg Date: 08/12/11 ? Pt.Phone Number: ? ----- ------- Specimen: [id number] ?STATUS: SOUT ?Spec Date:04/17/12 ? Physician Copies: ?KEVIN,GEETHA Lambert Tissues: ? Cervical/Endo Pap ? CPT: 45771 ?? Units: ??1 ----- ------- ? CYTOLOGY DIAGNOSIS SPECIMEN ADEQUACY: ?Satisfactory for evaluation. Transformation zone component present. GENERAL CATEGORIZATION: ?Negative for Intraepithelial Lesion or Malignancy DESCRIPTIVE DIAGNOSIS: ? Negative for Intraepithelial Lesion or Malignancy. RECOMMENDATIONS/COMMENTS: ?None. ----- ------- ORDER QUERIES: LMP: ? - >5 YRS AGO ?? ? N Post ? N ??PREVIOUS ATYPICAL: Y BCP/HRT? N Rad Rx? N IUD?PAP PLUS HPV?REFLEX TO HR-HPV IF ASCUS ?? REFLEX TO HPV 16/18 IF HPV POS/PAP NEG ?? HPV REGARDLESS?RFLX HPV IF LSIL ?? IF ASCUS DO HPV?[facility] Information ? [facility] ?? Patients Phone# ??[phone] ?? [facility] Order# ? Signed Yesi Solorzano CT(ASCP) 08/15/11 By the signature above, the attending physician certifies that he/she has personally conducted a gross and/or microscopic examination of the described specimens and rendered or confirmed the above diagnosis. Test Performed by [facility], [address] [place] [id number] Substance Abuse Counselor: Dara Fried MD PHD ----- ------- Geetha Scott MD PATHOLOGY ORDERABLES Final Result [facility] documented in this encounter Visit Diagnoses Not on filedocumented in this encounter Care Teams Barrel Rifler Broach Relationship Specialty Start Date End Date Unknown, Provider, PCP - General 03/15/15 05/30/18 Ramírez Cordoba ND [address] [place] [address],[facility] [address] [place] [address] (work) PCP - General 05/31/18 11/20/21 documented as of this encounter
--- OUTSIDE RECORDS SUMMARY | 2024-04-13 13:01 | XMS_ITS | Encounter Summary ---
Author Organization [facility] Address [address] [place] [address] Care Team Providers Care Flatwork Washer Name Role Phone Ramírez Cordoba ND Primary Care Provider + Reason for Visit * Reason Comments Other Encounter Details Date Type Department Care Team (Late st Contact Info) Description 03/28/2020 Refill [facility] [address] [place] [address] Janina Santos, JAYME [address] [facility] [address] [place] [address] Other Social History Tobacco Use [...] amLODIPine (NORVASC) 5 mg tabletIndications: Essential hypertension TAKE 1 TABLET BY MOUTH DAILY 90 Tab 3 03/28/2020 05/08/2021 documented in this encounter Miscellaneous Notes * Telephone Encounter - Tete Springer RN - 03/28/2020 1208 EST Requested refill approved, Ms. Velázquez needs a follow up appointment. documented in this encounter Plan of Treatment Upcoming Encounters Date Type Department Care Team ([facility] st Contact Info) Description 05/06/2024 13:40 EST Office Visit [facility] Dermatology [address] [facility], [place] [address] Renetta Kidd MD 111 [facility], [facility] 5 [place] [phone] 05/23/2024 15:15 EST Office Visit [address] [phone] Sridevi Lozano NP [address] [place] [phone] documented as of this encounter Visit Diagnoses Diagnosis Essential hypertension- Primary Unspecified essential hypertension documented in this encounter Discontinued Medications Medication Sig Discontinue Reason Start Date End Da te amLODIPine (NORVASC) 5 mg tabletIndications:Essentia l hypertension Take 1 Tab by mouth daily for 90 days. 03/07/2019 03/28/2020 documented as of this encounter Care Teams Flatwork Washer Relationship Specialty Start Date End Date Ramírez Cordoba ND [address] [place] [address],[address] [place] [address] PCP - General 05/31/18 11/20/21 documented as of this encounter
--- OUTSIDE RECORDS SUMMARY | 2024-04-13 13:01 | XMS_ITS | Encounter Summary ---
Author Organization 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 14 Capsule 03/11/2022 2 documented in this encounter Miscellaneous Notes * Telephone Encounter - Kia Dickson NP - 03/11/2022 1644 EST TC to [facility] but then she called back. Reviewed positive UTI. She is wondering if this is the same infection she was treated for in 12/2021 (BV on PAP-metronidazole). Explained that this is a bladder infections-not a vaginal infection and a different type of antibiotic is required for treatment.RX sent for MacroBID-instructed to finish entire RX and to drink large glasses of water in between doses of medication/midday. * Telephone Encounter - Tiff Collazo RN - 03/11/2022 1522 EST Kia - would you like me to review results / plan with pt? * Telephone Encounter - Tran Reza - 03/11/2022 1512 EST Pt returned kia call. She will be home all afternoon * Telephone Encounter - Kia Dickson NP - 03/11/2022 0917 EST TC to [facility] calling with urine culture results. Please CB. Date and phone # left documented in this encounter Plan of Treatment Upcoming Encounters Date Type Department Care Team (Late st Contact Info) Description 05/06/2024 13:40 EST Office Visit [facility] Dermatology 130 [facility], [place] [address] Renetta Kidd MD 111 [facility], [facility] 5 [place] [phone] 05/23/2024 15:15 EST Office Visit [address] [address] Sridevi Lozano NP [address] [place] [phone] documented as of this encounter Visit Diagnoses Not on filedocumented in this encounter Care Teams Sampler And Test Preparer Relationship Specialty Start Date End Date Sridevi Lozano NP [address] [place] [phone] PCP - General Family Medicine - Primary Care 12/27/21 documented as of this encounter
--- OUTSIDE RECORDS SUMMARY | 2024-04-13 13:01 | XMS_ITS | Encounter Summary ---
Author Organization [facility] Address [address] [place] [address] Care Team Providers Care Naphthol Soaping Machine Operator Name Role Phone DreRamírez beltran ROSANNA Primary Care Provider + [facility], [place] Primary Care Provider Sridevi Lozano NP Primary Care Provider [phone] Reason for Visit * Reason Comments Other Encounter Details Date Type Department Care Team (Late st Contact Info) Description 05/07/2021 Refill [facility] - Main [place] [address] [place] [address] Janina Santos NP [address] [place] [address] [address] [address] Other Social History Tobacco Use Types [...] Telephone Encounter - Kirby Rea - 05/08/2021 1436 EST Pt called and LM that her PCP will fill this rx and that Cardiology does not have to fill. documented in this encounter Plan of Treatment Upcoming Encounters Date Type Department Care Team (Late st Contact Info) Description 05/06/2024 13:40 EST Office Visit [facility] Dermatology 130 [facility], [place] [address] Renetta Kidd MD [address] [place] [address], [facility] 5 [place] [phone] 05/23/2024 15:15 EST Office Visit [address] [place], [place] [phone] Sridevi Lozano NP [address] [place] [phone] documented as of this encounter Visit Diagnoses Diagnosis Essential hypertension Unspecified essential hypertension documented in this encounter Care Teams Naphthol Soaping Machine Operator Relationship Specialty Start Date End Date Ramírez Cordoba ND [address] [place] [address],[address] [phone] PCP - General 05/31/18 11/20/21 [facility], [place] [address] [place] [address] [place] [address] PCP - General Family Medicine - Primary Care 11/21/21 12/26/21 Sridevi Lozano NP [address] [place] [phone] PCP - General Family Medicine - Primary Care 12/27/21 documented as of this encounter
--- OUTSIDE RECORDS SUMMARY | 2024-04-13 13:01 | XMS_ITS | Encounter Summary ---
Author Organization [facility] Address [address] [place] [address] Care Team Providers Care Material Movers Name Role Phone Sridevi Lozano NP Primary Care Provider Reason for Visit * Reason Comments New Patient Visit Encounter Details Date Type Department Care Team (Latest Contact Info) Description 03/10/2022 12:40 EST Office Visit [facility] [address] [place], [place] [phone] Kia Dickson NP 130 [facility], [address] [place] [address] Rectocele (Primary Dx); Prolapse of vaginal wall with midline cystocele; Slow transit constipation; Abnormal urine odor; Encounter for screening for infections with predominantly sexual mode of transmission Social History Tobacco Use Types Packs/Day Years [...] 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 No / Unsure 03/10/2022 12:42 EST documented as of this encounter Last Filed Vital Signs Vital Sign Reading Time Taken Comments Blood Pressure 134/82 03/10/2022 1245 EST Pulse - - Temperature - - Respiratory Rate - - Oxygen Saturation - - Inhaled Oxygen Concentration - - Weight 56.2 kg (124 lb) 03/10/2022 1245 EST Height 165.1 cm (5' 5) 03/10/2022 1245 EST Body Mass Index 20.63 03/10/2022 1245 EST documented in this encounter [...] documented in this encounter Progress Notes * Kia Dickson NP - 03/10/2022 1240 EST HPI: Trav Velázquez is a 61 y.o. who presents for evaluation of Noticed a lump inside vagina about one month ago. Feels like a knot on the left side-comes and goes. Has BM every day but they are usually small hard pellets. Tried to get colonoscopy done at age 48 and they had to stop because it was too uncomfortable and they ould not give her any more anesthesia. PAP and HPV done in 12/2021 and BV was noted on PAP. Treated for BV although had not noted any symptoms. Urine with odor for the past year. Last sexually active 1 year ago ROS: ROS Mammogram ordered-she is waiting for someone to call and schedule it IT SENIOR SOFTWARE ENGINEER JAVA History: No LMP recorded. Patient is postmenopausal. Menses: n/a STI's: none known Sexual activity: not currently Contraception: abstinence and menopause Cervical cancer screenin12/2021 PAP/HPV both neg with positive BV No results found for: PAP Breast cancer screening: mammo ordered 03/07/22 Colon cancer screening attempted age 48-unable to tolerate Osteoporosis screeningnone OB History Para Term AB Living 2 2 2 2 SAB IAB Ectopic Multiple Live Births 2 # Outcome Date GA Lbr Rad/2nd Weight Sex Delivery Anes PTL Lv 2 Term 12/22/91 F Vag-Spont JACOB 1 Term 09/04/89 F Vag-Spont JACOB No past medical history on file. No past surgical history on file. Social History Tobacco Use ??? Smoking status: Former Packs/day: 1.00 Years: 15.00 Pack years: 15.00 Types: Cigarettes Quit date: 1988 Years since quittin.8 ??? Smokeless tobacco: Never Vaping Use ??? Vaping Use: Never used Substance Use Topics ??? Alcohol use: Yes Alcohol/week: 10.0 standard drinks Types: 10 Standard drinks or equivalent per week ??? Drug use: Not Currently Types: Marijuana Family History Problem Relation Age of Onset ??? Colon Cancer Maternal Grandmother ??? High Blood Pressure Father ??? Stroke Father ??? Dementia Father ??? Cancer Mother kidney ??? Kidney Cancer Mother ??? High Blood Pressure Mother ??? Bipolar Disorder Mother ??? High Blood Pressure Brother ??? High Blood Pressure Sister No Known Allergies Current Outpatient Medications Medication ??? amLODIPine (NORVASC) 5 mg tablet ??? lisinopriL (PRINIVIL) 40 mg tablet No current facility-administered medications for this visit. Objective: BP 134/82 Ht 165.1 cm (65) Wt 56.2 kg (124 lb) BMI 20.63 kg/m?? Exam chaperoned by Pt declined Physical Exam General: Pleasant, alert, cooperative Pelvic: normal external genitalia, vaginal mucosa atrophic and pink, vaginal wall prolapse with grade 2-3 rectocele and Grade 1-2 cystocele. cervix normal/atrophic in appearance, uterus normal size and non-tender, no adnexal masses or tenderness Rectal: no external lesions Skin: warm and dry Neuro: Alert and oriented x 3 Assessment/Plan: Trav Velázquez is a 61 y.o. who presents with vaginal wall prolapse with rectocele. Constipation. Recommended Metamucil every morning and stool softener at night. Referral sent to GI for constipation and colonoscopy. Grade 1-2 cystocele-asymptomatic. Once bowel issues have improved would recommend PFPT. Trav wants to hold off on that for now as she is doing PT for other issues currently Clean catch urine sent for UA and C&S Cervical swab sent for GC/CT/Trich. No problem-specific Assessment & Plan notes found for this encounter. There are no diagnoses linked to this encounter. I spent a total of 45 minutes on the date of this encounter meeting with the patient and reviewing documentation/coordinating care as described in the above note. No procedures were performed at the time of the visit. Kia Dickson NP documented in this encounter Miscellaneous Notes * Addendum Note - Tiff Matias RN - 03/10/2022 1240 ESTAddended by: TIFF MATIAS on: 03/10/2022 13:35 Modules accepted: Orders documented in this encounter Plan of Treatment Upcoming Encounters Date Type Department Care Team (Late st Contact Info) Description 05/06/2024 13:40 EST Office Visit [facility] Dermatology [address] [place] [address], [place] [address] Renetta Kidd MD [address] [place] [address], [address] [place] [phone] 05/23/2024 15:15 EST Office Visit [facility] [address] [place] [phone] Sridevi Lozano NP [address] [place] [phone] documented as of this encounter Procedures Procedure Name Priority Date/Time Associated Diagnosis Comments UA WITH REFLEX SEDIMENT Routine 03/10/2022 13:37 EST Abnormal urine odor TRICHOMONAS VAGINALIS PCR - [facility] Routine 03/10/2022 13:37 EST Encounter for screening for infections with predominantly sexual mode of transmission URINE SEDIMENT (MICRO) WITHOUT REFLEX TO CULTURE Today 03/10/2022 13:37 EST Abnormal urine odor CHLAMYDIA/N. GONORRHOEAE AMPLIFIED NUCLEIC ACID Routine 03/10/2022 13:37 EST Encounter for screening for infections with predominantly sexual mode of transmission BACTERIAL CULTURE, URINE Routine 03/10/2022 13:37 EST Abnormal urine odor documented in this encounter Results * (ABNORMAL) URINE SEDIMENT (MICRO) WITHOUT REFLEX TO CULTURE (03/10/2022 13:37 EST) Urine RBC Count, Manual 0 - 2 0 - 2, None Seen Cells/HPF 03/10/2022 14:49 EST [facility] Urine WBC Count 0 - 3 0 - 3, None Seen Cells/HPF 03/10/2022 14:49 [facility] Urine Squamous Count, Manual None Seen None Seen Cells/HPF 03/10/2022 14:49 [facility] Urine Bacteria Count, Manual Many(A) None Seen Bacteria/H PF 03/10/2022 14:49 [facility] Urine URINE SPECIMEN COLLECTION, CLEAN CATCH / Unknown Urine Collect / Unknown 03/10/2022 13:37 EST 03/10/2022 13:37 EST Narrative [facility] - 03/10/2022 14:49 EST Urine Sediment Analysis results are unreliable on urines that are unrefrigerated for >2 hrs or refrigerated >8 hrs. us Kia Dickson NP URINALYSIS ORDERABLES Final R esult [facility] [address] [place] [address] * CHLAMYDIA/N. GONORRHOEAE AMPLIFIED RNA (03/10/2022 13:37 EST) Neisseria gonorrhoeae Result Negative Negative 03/10/2022 16:14 [facility] Chlamydia trachomatis Result Negative Negative 03/10/2022 16:14 EST [facility] Swab ENTIRE WALL OF CERVIX / Unknown Swab / Unknown 03/10/2022 13:37 EST 03/10/2022 13:37 EST Narrative [facility] - 03/10/2022 16:14 EST ? ? Xpert CT/NG Assay performance has not been evaluated in patients less than 14 years of age. ? ? Xpert CT/NG Assay performance has not been evaluated in women, or in patients with a history of hysterectomy. Kia Dickson NP MICROBIOLOGY - GENERAL ORDERA BLES Final Result Performing Organization Address City/[facility]/ZIP Co de Phone Number [facility] [address] [place] [address] * TRICHOMONAS VAGINALIS PCR - [facility] (03/10/2022 13:37 EST) Trichomonas Vaginalis, PCR Not Detected Not Detected 03/10/2022 16:03 [facility] Comment:Xpert TV assay perfo rmance has not been evaluated in women or in patients with a history of hysterectomy. Swab ENTIRE WALL OF CERVIX / Unknown Swab / Unknown 03/10/2022 13:37 EST 03/10/2022 13:37 EST Kia Dickson NP MICROBIOLOGY - GENERAL ORDERA BLES Final Result Performing Organization Address City/[facility]/ZIP Co de Phone Number [facility] [address] [place] [address] * (ABNORMAL) UA WITH REFLEX SEDIMENT (03/10/2022 13:37 EST) Color UA Yellow Colorless to Dark Yellow 03/10/2022 14:46 [facility] Clarity UA Slightly Cloudy(A) Clear 03/10/2022 14:46 [facility] Glucose UA Negative Negative 03/10/2022 14:46 [facility] Bilirubin UA Negative Negative 03/10/2022 14:46 [facility] Ketones UA Negative Negative 03/10/2022 14:46 [facility] Specific Rowe, Urine 1.020 1.001 - 1.035 03/10/2022 14:46 [facility] Blood UA Negative Negative 03/10/2022 14:46 [facility] pH, UA 6.0 4.6 - 8.0 03/10/2022 14:46 [facility] Protein UA Negative Negative 03/10/2022 14:46 [facility] Urobilinogen UA 0.2 0.2 , 1.0, Normal mg/dL 03/10/2022 14:46 [facility] Nitrite UA Negative Negative 03/10/2022 14:46 [facility] Leukocyte Esterase UA Negative Negative 03/10/2022 14:46 [facility] Urine URINE SPECIMEN COLLECTION, CLEAN CATCH / Unknown Urine Collect / Unknown 03/10/2022 13:37 EST 03/10/2022 13:37 EST Kia Dickson LAB REP URINALYSIS ORDERABLES Final R esult [facility] [address] [place] [address] * (ABNORMAL) BACTERIAL CULTURE, URINE (03/10/2022 13:37 EST) Organism ID Greater than 100,000 CFU/ml Escherichia coli(A) VITEK SUSCEPTIBILITY 03/12/2022 7:42 [facility] Comment: Cefazolin susceptibility results can be used to predict susceptibility results for the following oral cephalosporins when used for therapy of uncomplicated UTI's due to E.coli, K.pneumoniae and P.mirabilis: cefaclor, cefdinir, cefpodoxime, cefprozil, cefuroxime, cephalexin and loracarbef. ??Please note that only cefdinir, cefpodoxime, cefuroxime and cephalexin are on the [facility] inpatient formulary. Urine URINE SPECIMEN COLLECTION, CLEAN CATCH / Unknown Urine Collect / Unknown 03/10/2022 13:37 EST 03/10/2022 13:37 EST Narrative Organism Antibiotic Method Susceptibility [...] ug/mL: Resistant Escherichia coli Nitrofurantoin VITEK SUSCEPTIBILITY 32 ug/mL: Susceptible Escherichia coli Piperacillin Tazobactam VITEK SUSCEPT IBILITY <=4 ug/mL: Susceptible Escherichia coli Tobramycin VITEK SUSCEPTIBILITY <=1 ug/mL: Susceptible Escherichia coli Trimethoprim-Sulfame thox azole VITEK SUSCEPTIBILITY >=320 ug/mL: Resistant Kia Dickson NP MICROBIOLOGY - GENERAL ORDERA BLES Final Result [facility] [address] [place] [address] documented in this encounter Visit Diagnoses Diagnosis Rectocele- Primary Prolapse of vaginal wall with midline cystocele Cystocele, midline Slow transit constipation Abnormal urine odor Other nonspecific finding on examination of urine Encounter for screening for infections with predominantly sexual mode of transmission Screening examination for venereal disease documented in this encounter Care Teams Material Movers Relationship Specialty Start Date End Date Sridevi Lozano NP [address] [place] [phone] PCP - General Family Medicine - Primary Care 12/27/21 documented as of this encounter
--- OUTSIDE RECORDS SUMMARY | 2024-04-13 13:01 | XMS_ITS | Encounter Summary ---
Author Organization [facility] Address [address] [place] [address] Care Team Providers Care City Council Member Name Role Phone Sridevi Lozano CONTINUOUS IMPROVEMENT ENGINEER Primary Care Provider [phone] Reason for Referral * Radiology Services (Routine/Next Available) - Closed Specialty Diagnoses / Procedures Referred By Eboni tran Referred To Contact Diagnoses Encounter for screening mammogram for malignant neoplasm of breast Procedures MA BREAST SCREENING CHARLES BILATERAL Sridevi Lozano NP Phone: tel: fax: [facility] [place]erral ID Status Reason Start Date Expiration Date Visits Re quested Visits Authorized [id number] Closed 03/07/2022 1 1 Reason for Visit * Reason Comments Annual Exam New patient Encounter Details Date Type Department Care Team (Late st Contact Info) Description 03/07/2022 15:15 EST Office Visit [facility] - [address] [phone] Sridevi Lozano NP [address] [place] [phone] Encounter for routine adult health examination without abnormal findings (Primary Dx); Need for vaccination; Encounter for screening mammogram for malignant neoplasm of breast Social History Tobacco Use Types Packs/Day Years [...] 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 No / Unsure 03/10/2022 12:42 EST documented as of this encounter Last Filed Vital Signs Vital Sign Reading Time Taken Comments Blood Pressure 122/66 03/07/2022 1515 EST Pulse 64 03/07/2022 1515 EST Temperature 36.6 ??C (97.8 ??F) 03/07/2022 1515 EST Respiratory Rate - - Oxygen Saturation - - Inhaled Oxygen Concentration - - Weight 56.5 kg (124 lb 9.6 oz) 03/07/[address] Height - - Body Mass Index 20.73 12/31/2021 1142 EDT documented in this encounter [...] this encounter Progress Notes * Sridevi Bianchi, CONTINUOUS IMPROVEMENT ENGINEER - 03/07/2022 1515 EST CHIEF COMPLAINT: Chief Complaint Patient presents with ??? Annual Exam New patient HPI: Trav Velázquez, a 61 y.o. female who presents today for her annual exam. She is a new patient to our practice. This is her first visit with me. Trav reports feeling well overall. She reports routine exercise through work on the [employer]. She reports well balanced meals for the most part. Currently single, frequently sees friends, goes community classes/ events. Trav denies persistent anxiety or depression. She feels sleep is going ok. Trav denies concerns with hearing or vision. She is following with dentist routinely. Shedenies chest pains, dizziness, or shortness of breath. She denies abdominal pains or blood or mucusin her stool. She is due for colo screening. Has had one in the past that was not successful (unable to sedate enough to complete) she is open to additional options would consider cologaurd. She repor ts history of scoliosis. Wondering about PT that may be beneficial. She has upcoming appointment with PARTY PLAN SALES CONSULTANT to discuss vaginal concerns. ROS: I've done a Review of Systems [...] Allergies No past medical history on file. Family History Problem Relation Age of Onset ??? Colon Cancer Maternal Grandmother ??? High Blood Pressure Father ??? Stroke Father ??? Dementia Father ??? Cancer Mother kidney ??? Kidney Cancer Mother ??? High Blood Pressure Mother ??? Bipolar Disorder Mother ??? High Blood Pressure Brother ??? High Blood Pressure Sister Social History Tobacco Use ??? Smoking status: [...] Types: Marijuana PHYSICAL EXAMINATION: Objective: Vitals: BP 122/66 Pulse 64 Temp 36.6 ??C (97.8 ??F) (Oral) Wt 56.5 kg (124 lb 9.6 oz) BMI 20.73 kg/m?? GENERAL APPEARANCE: Pleasant female in NAD, alert and oriented. HEENT Head: NC/AT, PERRL, EOMI, TM's clear and flat bilaterally, turbinates normal, oropharynx clear with MMM, pharynx normal. NECK: supple, no thyromegaly, no lymphadenopathy, no carotid bruit. BREASTS: Normal, no palpable masses, no dimpling, no axillary adenopathy. HEART: regular rate and rhythm, no murmurs. LUNGS: clear to auscultation bilaterally. ABDOMEN: soft, NT/ND, BS present, no hepatosplenomegaly. EXTREMITIES: no edema. NEUROLOGIC EXAM: Non-focal exam. IMPRESSION/PLAN: 1. Encounter for routine adult health examination without abnormal findings COMPREHENSIVE METABOLICPANEL (CMP) LIPID PROFILE (INCLUDES CHOLESTEROL, TRIGLYCERIDES, HDL, LDL) POCT URINE DIPSTICK, VISUAL READ 2. Need for vaccination INFLUENZA VACCINE QUAD PF 0.5 ML IM (6 MOS+) SHINGRIX (ZOSTER VACCINE, RECOMBINANT) IM 3. Encounter for screening mammogram for malignant neoplasm of breast MA BREAST SCREENING CHARLES BILATERAL 1. Encounter for routine adult health examination without abnormal findings Reviewed diet, exercise, and sleep routines. Vitals WNL. Physical exam is unremarkable. Due flu andshingles. Routine fasting labs ordered. Age appropriate preventative counseling provided. F/u 6 months, sooner if needed. - COMPREHENSIVE METABOLIC PANEL (CMP); Future - LIPID PROFILE (INCLUDES CHOLESTEROL, TRIGLYCERIDES, HDL, LDL); Future - POCT URINE DIPSTICK, VISUAL READ 2. Need for vaccination Due for vaccines - INFLUENZA VACCINE QUAD PF 0.5 ML IM (6 MOS+) - SHINGRIX (ZOSTER VACCINE, RECOMBINANT) IM 3. Encounter for screening mammogram for malignant neoplasm of breast Due screening - MA BREAST SCREENING CHARLES BILATERAL; Future This note was prepared using voice recognition software and the EMR. There may be inadvertent errors and omissions. Sridevi Bianchi NP 03/11/2022 7:57 documented in this encounter Plan of Treatment Upcoming Encounters Date Type Department Care Team (Late st Contact Info) Description 05/06/2024 13:40 EST Office Visit [facility] [place] [address] [place] [address] Renetta Kidd MD [address] [facility], [address] [place] [phone] 05/23/2024 15:15 EST Office Visit [facility] [address] [place], [place] [phone] Sridevi Lozano NP [address] [place] [phone] documented as of this encounter Procedures Procedure Name Priority Date/Time Associated Diagnosis Comments POCT URINE DIPSTICK, VISUAL READ Routine 03/07/2022 Encounter for routine adult health examination without abnormal findings documented in this encounter Results * MA [...] we will contact yourpatient directly. us Sridevi oLzano NP IMG MAMMOGRAPHY ORDERABLES F inal Result * (ABNORMAL) LIPID PROFILE (INCLUDES CHOLESTEROL, TRIGLYCERIDES, HDL, LDL) (04/10/2022 6:44 EST) Cholesterol 216(H) <200 mg/dL 04/10/2022 7:57 EST [facility] Comment:Note that therapeuti c goals will differ between patients based on cardiac risk factors and current medical therapy. HDL 109 >=50 mg/dL 04/10/2022 7:57 EST [facility] Comment:Note that therapeuti c goals will differ between patients based on cardiac risk factors and current medical therapy. LDL, Calculated 93 <160 mg/dL 7:57 [facility] Comment:Note that therapeuti c goals will differ between patients based on cardiac risk factors and current medical therapy. Triglyceride 71 <=150 mg/dL 04/10/2022 7:57 EST [facility] Comment:Note that therapeuti c goals will differ between patients based on cardiac risk factors and current medical therapy. Chol/HDL Ratio 2.0 See Note 04/10/2022 7:57 [facility] Comment: NOTE: Desirable Ratio = <4.1 Patient At Risk Ratio = >5.0(Males) ?>6.0(Females) Non HDL Cholesterol 107 <160 mg/dL 04/10/2022 7:57 [facility] Comment:Note that therapeuti c goals will differ between patients based on cardiac risk factors and current medical therapy. Blood VENOUS BLOOD / Unknown Venipuncture / Unknown 04/10/2022 6:44 EST 04/10/2022 7:21 EST us Sridevi Lozano CONTINUOUS IMPROVEMENT ENGINEER CHEMISTRY & BLOOD GAS ORDERA BLES Final Result [facility] [address] [phone] * COMPREHENSIVE METABOLIC PANEL (CMP) (04/10/2022 6:44 EST) Sodium 141 136 - 145 mmol/L 04/10/2022 7:46 [facility] Potassium 4.6 3.5 - 5.0 mmol/L 04/10/2022 7:46 [facility] Chloride 104 96 - 110 mmol/L 04/10/2022 7:46 [facility] CO2 Total 30 22 - 32 mmol/L 04/10/2022 7:46 [facility] Glucose 89 70 - 100 mg/dL 04/10/2022 7:46 [facility] BUN 19 10 - 26 mg/dL 04/10/2022 7:46 [facility] Creatinine 0.70 0.52 - 1.04 mg/dL 04/10/2022 7:46 [facility] eGFR 97 >60 mL/min/1.7 3m2 04/10/2022 7:46 [facility] Total Protein 6.8 6.3 - 8.2 g/dL 04/10/2022 7:46 [facility] Albumin 4.1 3.4 - 4.9 g/dL 04/10/2022 7:46 [facility] Alkaline Phosphatase 69 38 - 126 U/L 04/10/2022 7:46 [facility] AST 25 15 - 46 U/L 04/10/2022 7:46 [facility] ALT 19 <35 U/L 04/10/2022 7:46 [facility] Bilirubin, Total 0.3 <1.4 mg/dL 04/10/20 7:46 [facility] Calcium 10.1 8.5 - 10.5 mg/dL 04/10/2022 7:46 [facility] Albumin/Globulin Ratio 1.5 1.0 - 2.5 04/10/2022 7:46 EST [facility] Anion Gap 7 5 - 14 04/10/2022 7:46 EST [facility] Blood VENOUS BLOOD / Unknown Venipuncture / Unknown 04/10/2022 6:44 EST 04/10/2022 7:21 EST Sridevi Lozano CONTINUOUS IMPROVEMENT ENGINEER CHEMISTRY & BLOOD GAS ORDERA BLES Final Result [facility] [address] [place] [address] * POCT URINE DIPSTICK, VISUAL READ (03/07/2022) Color, UA Yellow [facility] Clarity, UA Clear [facility] Glucose, UA Negative . mg/dL [facility] Bilirubin, UA Negative Negative [facility] Ketones, UA Negative . mg/dL [facility] Spec Grav, UA 1.025 1.005 - 1.030 [facility] Blood, UA Negative Negative [facility] pH, UA 5.0 4.6 - 8.0 [facility] Protein, UA Negative . mg/dL [facility] Urobilinogen, UA 0.2 0.2 - 1.0 E.U./dL [facility] Nitrite, UA Negative . [facility] Leuk Esterase Negative Negative [facility] Comment [facility] Urine URINE SPECIMEN COLLECTION, CLEAN CATCH / Unknown 03/07/2022 us Sridevi Lozano NP POINT OF CARE TEST ORDERABLE S Final Result [facility] documented in this encounter Visit Diagnoses Diagnosis Encounter for routine adult health examination without abnormal findings- Primary Routine general medical examination at a health care facility Need for vaccination Need for prophylactic vaccination and inoculation against unspecified single disease Encounter for screening mammogram for malignant neoplasm of breast Other screening mammogram Encounter for screening mammogram for malignant neoplasm of breast Other screening mammogram documented in this encounter Orders Immunization/Injection Count Last Ordered Date First Ordered Date INFLUENZA VACCINE QUAD PF 0. 5 ML IM (6 MOS+) 1 03/07/2022 SHINGRIX (ZOSTER VACCINE, RECOMBINANT) IM 1 03/07/2022 documented in this encounter Care Teams City Council Member Relationship Specialty Start Date End Date Sridevi Lozano, CONTINUOUS IMPROVEMENT ENGINEER [address] [place] [phone] PCP - General Family Medicine - Primary Care 12/27/21 documented as of this encounter
--- OUTSIDE RECORDS SUMMARY | 2024-04-13 13:01 | XMS_ITS | Encounter Summary ---
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 Thank you again! * Telephone Encounter - Sridevi Bianchi NP - 02/13/2022 1442 EDT 1. Vaginal irritation - AMB CONS/FOLLOW UP GYNECOLOGY; Future Referral sent, the last email I had from them they were only accepting certain complaints as new patients, but happy to try given this new information. We can explore other options if declined. * Telephone Encounter - Fang Jarquin - 02/13/2022 1424 EDT Called patient as requested - patient stated that her girlfriend just got a referral to [facility] so she knows we can enter a referral for her. Told patient I would look into the conflicting information and call her back. Call [facility] - spoke to Payal. For patients who are wanting to establish care, they will not be able to do so until April. If a patient has a particular problem, they will accept a referral for that complaint only. Sridevi - would you be okay with entering a referral to [facility] knowing this? * Telephone Encounter - Sridevi Bianchi NP - 02/13/2022 1131 EDT Unfortunately [facility] is not taking any new patient's as of now. That may change in thenew year. I can send a referral somewhere there are office in [place] if she is interested? * Telephone Encounter - Milka Fang - 02/13/2022 1029 EDT Patient called - was seen on 12/31 and is not happy with the diagnosis she was given. Patient would like to go see [facility]. She is requesting that we enter a referral for her as soon as possible. Once entered she is requesting that we call her so that she can call to make appointment. Patient can be reached [phone]. Thank you! documented in this encounter Plan of Treatment Upcoming Encounters Date Type Department Care Team (Late st Contact Info) Description 05/06/2024 13:40 EST Office Visit [facility] D[facility] [address] [facility], [place] [address] Renetta Kidd MD [address] [facility], [facility] [address] [place] [phone] 05/23/2024 15:15 EST Office Visit [facility] [address] [place] [phone] Sridevi Lozano NP [address] [place] [phone] documented as of this encounter Visit Diagnoses Diagnosis Vaginal irritation- Primary Unspecified noninflammatory disorder of vagina documented in this encounter Care Teams Medicare Specialist Relationship Specialty Start Date End Date Sridevi Lozano NP [address] [place] [phone] PCP - General Family Medicine - Primary Care 12/27/21 documented as of this encounter
--- OUTSIDE RECORDS SUMMARY | 2024-04-13 13:01 | XMS_ITS | Encounter Summary ---
Author Organization [facility] Address [address] [place] [address] Care Team Providers Care Account Resolution Expert Name Role Phone Ramírez Cordoba ND Primary Care Provider + Reason for Visit * Reason Comments Eye Problem Broken blood vessels on the white part of left eye 3 x within 2 months. Encounter Details Date Type Department Care Team (Latest Contact Info) Description 06/08/2018 14:15 EST Office Visit [facility] Ophthalmology [facility] [address] [place] [address] Morenita Adan MD [address] [place] [phone] Discharge Disposition: Auto Discharge Social History Tobacco Use Types Packs/Day Years [...] 06/08/2018 15:56 EST documented in this encounter Patient Instructions * Patient Instructions* Morenita Adan MD - 06/08/2018 14:15 EST [facility] - Dr César Knowles [facility] - Dr Irving Toure documented in this encounter Discharge Disposition Disposition Code Departure Means Destination Auto Discharge documented in this encounter Progress Notes * Morenita Adan MD - 06/08/2018 1415 EST Chief Complaint Patient presents with ??? Eye Problem Broken blood vessels on the white part of left eye 3 x within 2 months. HPI The patient is a 58 y.o. female c/o broken blood vessels on white part of the eye, left eye, 3 times in the last 2 months, last one 2.5 weeks ago. No pain when this happens, happens in the nasal aspect, does not spread. Vision stable. Has been trying to treat BP with naturopathic remedies, now on Rx meds. Has not had a routine exam in a long time. Right Eye: Blurred Vision Left Eye: Blurred Vision, Redness Visual Aid: Glasses Current Rx Age Location: Pain: 0 - No pain Quality: Severity: Duration: Timing: Lasts: Context: Has been working with a body specialist for HTN, had been using herbs and supplements to maintain control but is now on a prescription medication. Has noticed that left eye has had subconjunctival heme 3 times within the last 2 months. last one happened 2.5 weeks ago. Modifying factors: Blurred vision, uses OTC readers, no pain. No flashes of light or floaters. Associated Signs & Symptoms: Attestation: ROS Constitutional: NL ENT/Mouth Cardiovascular: Respiratory: Gastrointestinal: Genitourinary: Musculoskeletal: Integumentary: Neurologic: Psychiatric: Endocrine: Hematologic: Immunologic: Marble Helper: Exposures: None Other: Attestation: Base Eye Exam Visual Acuity (Snellen - Linear) Right Left Dist sc 20/40 20/25 Dist ph sc 20/20 Tonometry (Applanation, 14:38) Right Left Pressure 18 18 Pupils Pupils APD Right PERRL None Left PERRL None Visual [place] (Counting fingers) Right Left Full Full Extraocular Movement Right Left Full Full Neuro/Psych Oriented x3: Yes Mood/Affect: Normal Slit Lamp and Fundus Exam External Exam Right Left External Normal Normal Slit Lamp Exam Right Left Lids/Lashes Normal Normal Conjunctiva/Sclera Pinguecula, nasal & temporal Pinguecula, nasal & temporal Cornea Clear Clear Anterior Chamber Deep and quiet Deep and quiet Iris Round and reactive Round and reactive Lens Nuclear sclerosis Nuclear sclerosis Fundus Exam Right Left C/D Ratio 0.35 0.2 DIAGNOSTIC TESTS: IMPRESSION & PLAN: ??? Pinguecula of both eyes - asymptomatic - observe - recommend routine exam with dilation Yes ??? H/O subconjunctival hemorrhage - discussed with pt, reassured I have reviewed the patient's past medical, family, social and surgical history. I have also reviewed the patient's medications, allergies, and problem list. I performed my own HPI and have reviewed the tech's ROS as well. I completed this exam personally. Morenita Adan MD I am scribing for Morenita Adan MD, while she is personally performing the service. [place] Jackson Patient Education Topic: redness-left eye Method: Verbal Taught to: Patient Barriers: None Outcomes: independent Signature: Morenita Adan MD documented in this encounter Plan of Treatment Upcoming Encounters Date Type Department Care Team (Late st Contact Info) Description 05/06/2024 13:40 EST Office Visit [facility] Dermatology [address] [place] [address], [place] [address] Renetta Kidd MD [address] [place] [address], [facility] [address] [place] [phone] 05/23/2024 15:15 EST Office Visit [address] [address] Sridevi Lozano NP [address] [place] [phone] documented as of this encounter Visit Diagnoses Diagnosis Pinguecula of both eyes- Primary Pinguecula H/O subconjunctival hemorrhage Personal history of other disorders of nervous system and sense organs documented in this encounter Historical Medications * This list may reflect changes made after this encounter. lisinopril (PRINIVIL, ZESTRIL) 10 mg tablet Take 20 mg by mouth daily. 12/31/2021 added in this encounter Eye Exam Visual Acuity (Snellen - Linear) Right eye Left eye Dist sc 20/40 20/25 Dist ph sc 20/20 Tonometry (Applanation, 14:38) Right eye Left eye Pressure 18 18 Pupils Pupils APD Right eye PERRL None Left eye PERRL None Visual [place] (Counting fingers) Right eye Left eye Full Full Extraocular Movement Right eye Left eye Full Full Neuro/Psych Oriented x3: Yes Mood/Affect: Normal External Exam Right eye Left eye External Normal Normal Slit Lamp Exam Right eye Left eye Lids/Lashes Normal Normal Conjunctiva/Sclera Pinguecula, nasal & temporal Pinguecula, nasal & temporal Cornea Clear Clear Anterior Chamber Deep and quiet Deep and quiet Iris Round and reactive Round and rodri ctive Lens Nuclear sclerosis Nuclear sclero sis Fundus Exam Right eye Left eye C/D Ratio 0.35 0.2 Care Teams Account Resolution Expert Relationship Specialty Start Date End Date Ramírez Cordoba ND [address] [place] [address],[address] [place] [phone] (work) PCP - General 05/31/18 11/20/21 documented as of this encounter
--- OUTSIDE RECORDS SUMMARY | 2024-04-13 13:01 | XMS_ITS | Encounter Summary ---
Author Organization [facility] Address [address] [place] [address] Care Team Providers Care Oxygen Equipment Technician Name Role Phone Sridevi Lozano NP Primary Care Provider Reason for Visit * Reason Onset Date Comments Results 01/07/2022 Encounter Details Date Type Department Care Team (Late st Contact Info) Description 01/07/[address] 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 14 Tablet 01/07/2022 01/14/2022 documented in this encounter Miscellaneous Notes * Telephone Encounter - Ward Tomas LPN - 01/07/2022 1607 EDT Patient returned call and informed of results and the need for medication. She will pick it up tomorrow. * Telephone Encounter - Leonardo Jalloh NP - 01/07/2022 1257 EDT Patient was seen last week for a new patient visit for concern for a lump in vagina as well as milddiscomfort. Exam was benign, Pap was performed which is negative. Pap did show a shift in vaginal sadaf consistent with bacterial vaginosis. As she did have some mild vaginal discomfort, I would liketo treat her with metronidazole 500 mg twice daily for 7 days. Called patient, no answer, left message for her to call back to discuss results (no identifier on voicemail, so no details left). Please try and reach out to patient again later today if possible. Prescription was sent to [facility]. documented in this encounter Plan of Treatment Upcoming Encounters Date Type Department Care Team (Late st Contact Info) Description 05/06/2024 13:[address] [facility] - [facility] D[facility] [address] [facility], [place] [address] Renetta Kidd MD [address] [place] [address], [address] [place] [phone] 05/23/2024 15:15 EST Office Visit [facility] [address] [place], [place] [phone] Sridevi Lozano NP [address] [place] [phone] documented as of this encounter Visit Diagnoses Not on filedocumented in this encounter Care Teams Oxygen Equipment Technician Relationship Specialty Start Date End Date Sridevi Lozano NP [address] [place] [phone] PCP - General Family Medicine - Primary Care 12/27/21 documented as of this encounter
== END 2024-04-13 12:53 | disposition home or self-care (01) ==
LOC: NCHCN 12:52
PROVIDERS: Visit Provider Internal Medicine
DX: R35.0 Frequency of micturition (principal)
CPT/HCPCS: 87077; 87086; 87186